=== PATIENT | male | born 1930 | race Caucasian/White ===

== ENCOUNTER 2018-05-10 12:08 | Inpatient (IN) | payer OTHER, MEDICARE ==
[~2018-05-10] VITALS: Ht 170.2 cm; Wt 88.9 kg
[2018-05-10 13:11] LABS: ABSOLUTE BASOPHIL COUNT 0 /CUMM (0.0-0.2); ABSOLUTE EOSINOPHIL COUNT 0 /CUMM (0.0-0.7); ABSOLUTE LYMPH COUNT 0.2 /CUMM (1.2-3.4); ABSOLUTE MONOCYTE COUNT 0.3 /CUMM (0.10-0.60); BASOPHIL % 0 % (0.0-2.0); EOSINOPHIL % 0 % (0-5); GRANULOCYTE % 95.2 % (42.2-75.2); HEMATOCRIT 28.3 % (42-52); MEAN CORPUSCULAR HGB 29.9 PG (27.0-31.0); MEAN CORPUSCULAR VOLUME 87.9 FL (80.0-94.0); MEAN PLATELET VOLUME 10.9 FL (7.4-10.4); PLATELET COUNT 120 /CUMM (130-400); RED BLOOD CELL CT 3.22 /CUMM (4.70-6.10); WHITE BLOOD CELL COUNT 11.6 /CUMM (4.8-10.8)
[2018-05-10 13:33] LABS: PT 12.1 SEC (9.4-12.5); PTT 31 SEC (25-37)
--- NOTE | 2018-05-10 14:23 | RADIOLOGY REPORT ---
EXAMINATION: XR CHEST CLINICAL INFORMATION: Productive cough and fever. COMPARISON: Chest done on 11/01/2008. TECHNIQUE: 2 views of the chest were obtained. FINDINGS: Large ill-defined left hemithoracic soft tissue opacities noted obscuring the left lower cardiac outline, new since prior study. Possible differential would include infectious, inflammatory process as well as neoplasm. The right lung field is clear. The cardiomediastinal silhouette is enlarged. There is possible trace left-sided pleural effusion present. The visualized upper abdomen is unremarkable. IMPRESSION: Abnormal left hemithoracic opacity, may represent infectious, inflammatory process versus neoplasm, new since 2008.
[2018-05-10] MEDS ORDERED: ATORVASTATIN CA40 M1 PO (14:33)
[2018-05-10] MEDS ORDERED: AMLODIPINE BESY10 M1 PO (14:33)
[2018-05-10] MEDS ORDERED: CLOPIDOGREL75 M1 PO (14:33)
[2018-05-10] MEDS ORDERED: BYSTOLIC10 M1 PO (14:33)
[2018-05-10] MEDS ORDERED: FOLIC ACID1 M1 PO (14:33)
[2018-05-10] MEDS ORDERED: ASPIRIN81 M4 PO (14:34)
[2018-05-10] MEDS ORDERED: VITAMIN D250000 UNIT PO (14:34)
[2018-05-10] MEDS ORDERED: PARICALCITOL1 MC1 PO (14:34)
--- NOTE | 2018-05-10 15:41 | ED GENERAL ADULT ---
History of Present Illness General Chief Complaint: General Adult Stated Complaint: BIBA, WEAKNESS Source: patient Exam Limitations: no limitations Vital Signs & Intake/Output Vital Signs & Intake/Output Vital Signs Date Time Temp Pulse Resp B/P B/P Pulse O2 O2 Flow FiO2 Mean Ox Delivery Rate 05/10 1816 83 20 116/62 91 Nasal 4.0L Cannula 05/10 1538 98.2 73 20 108/57 89 Nasal 4.0L Cannula 05/10 1342 99.1 05/10 1342 99.1 65 22 116/65 87 Nasal 4.0L Cannula 05/10 1236 101.4 05/10 1220 91 Nasal 4.0L Cannula 05/10 1209 101.4 103 18 134/69 89 Room Air Allergies Coded Allergies: No Known Allergies (05/10/18) Reconcile Medications Amlodipine Besylate 10 MG TABLET 1 TAB PO DAILY HEART (Reported) Aspirin (Aspirin*) 81 MG TAB.CHEW 1 TAB PO DAILY HEART HEALTH (Reported) Atorvastatin Calcium 40 MG TABLET 1 TAB PO DAILY CHOLESTEROL (Reported) Clopidogrel Bisulfate (Clopidogrel) 75 MG TABLET 1 TAB PO DAILY BLOOD THINNER (Reported) Ergocalciferol (Vitamin D2) (Vitamin D2) 50,000 UNIT CAPSULE 1 CAP PO Q 2 WEEKS VITAMIN SUPPORT (Reported) Folic Acid 1 MG TABLET 1 TAB PO DAILY VITAMIN SUPPORT (Reported) Nebivolol HCl (Bystolic) 10 MG TABLET 1 TAB PO DAILY HEART (Reported) Paricalcitol 1 MCG CAPSULE 1 CAP PO DAILY UNKNOWN (Reported) Triage Note: BIBA FROM HOME. C/O WEAKNESS SINCE MONDAY. TODAY UNABLE TO RISE FROM FLOOR, DENIES FALL. C/O NON-PRODUCTIVE COUGH. WARM TO TOUCH. SP02@89% RA. Triage Nurses Notes Reviewed? yes Onset: Gradual Duration: day(s): Timing: recent history HPI: 87 year old male presents to the Emergency Department by ambulance for generalized weakness. He was noted to have a cough and states he has had this "forever". The patient is here because of generalized weakness and fever which are new. Past History Travel History Traveled to [place] past 21 day No Medical History Any Pertinent Medical History? see below for history Cardiovascular: hypertension, hyperlipidemia, CARDIAC PACEMAKER Surgical History Surgical History: non-contributory Psychosocial History What is your primary language Amharic Tobacco Use: Never used Family History Hx Contributory? No Review of Systems Review of Systems Constitutional: Reports: see HPI, weakness. EENTM: Reports: no symptoms. Denies: double vision, visual changes. Respiratory: Reports: see HPI. Denies: short of breath. Cardiovascular: Reports: no symptoms. GI: Reports: no symptoms. Genitourinary: Reports: no symptoms. Musculoskeletal: Reports: no symptoms. Skin: Reports: no symptoms. Neurological/Psychological: Reports: see HPI. Hematologic/Endocrine: Reports: no symptoms. Immunologic/Allergic: Reports: no symptoms. All Other Systems: Reviewed and Negative Comments 05/10/18 3:35pm Pt arrived with a fever of 101.4 and a cough which he states he has forever. Physical Exam Physical Exam General Appearance: well developed/nourished, alert, awake, mild distress Head: atraumatic, normal appearance Eyes: Bilateral: normal appearance, PERRL, EOMI. Ears, Nose, Throat: normal ENT inspection Neck: normal inspection Respiratory: decreased breath sounds Cardiovascular: irregularly irregular Peripheral Pulses: 4+ radial (R), 4+ radial (L) Gastrointestinal: soft, non-tender Extremities: normal inspection Neurologic/Psych: no motor/sensory deficits, awake, alert, oriented x 3 Skin: intact, normal color, warm/dry Comments: chest x-ray, and blood cultures ordered gustavo with a urinalysis. Pt's O2 sat on room air was 89%. Pt placed on 2L nasal canula Core Measures ACS in differential dx? No CVA/TIA Diagnosis: No Sepsis Present: Yes Sepsis Focused Exam Completed? Yes Progress Differential Diagnoses . Plan of Care: Orders Procedure Date/time Status Heart Healthy Diet 05/11 B Active MAGNESIUM 05/11 0600 Active CBC WITHOUT DIFFERENTIAL 05/11 0600 Active CALCIUM 05/11 0600 Active BASIC ELECTROLYTES PLUS BUN&CR 05/11 0600 Active TROPONIN LEVEL 05/11 0400 Active EKG 05/11 0400 Active TROPONIN LEVEL 05/10 2000 Active EKG 05/10 2000 Active TRC EVALUATION (GEN) 05/10 174 Active OXYGEN SETUP (GEN) 05/10 174 Active PT Evaluate & Treat 05/10 174 Active Pathway - chart 05/10 174 Active House Staff 05/10 174 Active STREP PNEUMO URINARY ANTIGEN 05/10 174 Active LEGIONELLA URINARY ANTIGEN 05/10 174 Active LOWER RESPIRATORY CULTURE 05/10 174 Active LACTIC ACID 05/10 1743 Active Code Status 05/10 1743 Active Add-on Test (ER Only) 05/10 1641 Active EKG 05/10 1641 Active Patient Data 05/10 1604 Active ED Holding Orders 05/10 1601 Active Admit to inpatient 05/10 1601 Active Vital Signs 05/10 1601 Active Code Status 05/10 1601 Complete RT ED ORDERS 05/10 1516 Active BLOOD CULTURE 05/10 1307 Active BLOOD CULTURE 05/10 1220 Active URINALYSIS 05/10 1220 Active TROPONIN LEVEL 05/10 1220 Complete PARTIAL THROMBOPLASTIN TIME 05/10 1220 Complete PROTHROMBIN TIME 05/10 1220 Complete LACTIC ACID 05/10 1220 Complete COMPREHENSIVE METABOLIC PANEL 05/10 1220 Complete CBC WITHOUT DIFFERENTIAL 05/10 1220 Complete EKG 05/10 1220 Active Intake & Output 05/10 1219 Active US-RENAL/KIDNEY 05/10 UNK Active VTE Mechanical Prophylaxis 05/10 UNK Active Intake & Output 05/10 UNK Active Activity/Ambulation 05/10 UNK Active Current Medications Sig/Shanna Start time Last Medication Dose Stop Time Status Admin Azithromycin 250 MG 1400 05/11 1400 AC (Zithromax) Ceftriaxone Sodium 1,000 MG 1400 05/11 1400 AC (Rocephin) Amlodipine Besylate 10 MG DAILY 05/11 0900 AC (Norvasc) Aspirin 81 MG DAILY 05/11 09 AC (Aspirin) Atorvastatin Calcium 40 MG DAILY 05/11 09 AC (Lipitor) Clopidogrel Bisulfate 75 MG DAILY 05/11 0900 AC (Plavix) Folic Acid 1 MG DAILY 05/11 0900 AC (Folic Acid) Nebivolol 10 MG DAILY 05/11 0900 AC (Bystolic) Acetaminophen 650 MG Q6P PRN 05/10 1745 AC (Tylenol) Acetaminophen 1,000 MG Q6P PRN 05/10 1745 AC (Ofirmev) Oxycodone HCl 10 MG Q6P PRN 05/10 1745 AC (Roxicodone) Sodium Chloride 1,000 ML .Q10H 05/10 174 AC 05/10 (Normal Saline 0.9%) 05/11 1344 1814 Laboratory Tests 05/10/18 1520: Lactic Acid Cancelled 05/10/18 1245: Anion Gap 15, Estimated GFR 14 L, BUN/Creatinine Ratio 11.5, Glucose 98, Lactic Acid 1.9, Calcium 10.3 H, Total Bilirubin 1.1, AST 21, ALT 34, Alkaline Phosphatase 67, Troponin I 0.07, Total Protein 6.1 L, Albumin 3.6, Globulin 2.5 , Albumin/Globulin Ratio 1.4, PT 12.1, INR 1.11, APTT 31, CBC w Diff MAN DIFF ORDERED, RBC 3.22 L, MCV 87.9, MCH 29.9, MCHC 34.0, RDW 14.0, MPV 10.9 H, Gran % 95.2 H, Lymphocytes % 1.8 L, Monocytes % 3.0, Eosinophils % 0, Basophils % 0 , Absolute Granulocytes 11.0 H, Segmented Neutrophils 88 H, Band Neutrophils 8 H, Absolute Lymphocytes 0.2 L, Lymphocytes 1 L, Monocytes 3, Absolute Monocytes 0.3, Absolute Eosinophils 0, Absolute Basophils 0, Platelet Estimate VERIFIED BY SMEAR, Anisocytosis 1+ Microbiology 05/10 1743 URINE ROUT: Legionella Antigen - ORD 05/10 1743 URINE ROUT: Streptococcus pneumoniae Antigen (M - ORD 05/10 1743 LOWER RESP: Respiratory Culture - ORD 05/10 1743 LOWER RESP: Gram Stain - ORD 05/10 1310 BLOOD: Blood Culture - RECD 05/10 1245 BLOOD: Blood Culture - RECD Initial ED EKG: see below Comments: The with the patient presented there was high concern for sepsis. The patient was febrile. Slightly hypoxic. The workup shows the patient has acute renal failure and acidosis without elevated lactate. The patient does have stable blood pressure. He is on oxygen which is new for him, he is oxygen dependent today. Other than that he is maintaining his blood pressure. Patient lives at home we will start him on pneumonia protocol, based on community acquired pneumonia. The patient was given IV fluids for his acidosis. He will be admitted to the medicine team. I spoke with the hospitalist and discussed the patient going to the ICU versus telemetry, she recommends telemetry. 0826 EKG at 155: Atrial fibrillation with a rate of 89. Left axis deviation. No acute ST-T changes. Compared to the EKG from November 01, 2008: No significant change. Repeat EKG done at 5:10 PM: Atrial fibrillation with a rate of 78. Left axis deviation. No acute ST-T changes. Departure Departure Time of Disposition: 1819 Disposition: STILL A PATIENT Condition: Stable Clinical Impression Primary Impression: Sepsis Secondary Impressions: Pneumonia Referrals: Bertha SANCHEZ,Ravinder Jurado (PCP/Family) Departure Forms: Customer Survey General Discharge Information Critical Care Note Critical Care Note Critical Care Time: 30-74 min
--- NOTE | 2018-05-10 16:21 | History & Physical ---
Marcela Anders 05/10/18 1608: General Information and HPI MD Statement: I have seen and personally examined CORNELIUS SHUKLA and documented this H&P. The patient is a 87 year old M who presented with a patient stated chief complaint of [PNA]. Source of Information: patient, old records Exam Limitations: no limitations History of Present Illness: Mr. Shukla is a 87yo M w/ PMH of hypertension, hyperlipidemia, hx of bradycardia status post bi-chamber cardiac pacemaker in 04/2015, possible history of CKD, BIBA for generalized weakness and a T-max 101.4 and cough, and s/p mechanical fall prior ER. PAtient had feeling of increasing weakness and fatigue x 4 days along w/ SOB however no signs of coughing/sputum. He lives by himself without any caregivers. He had some poor appetite and nauseous for the past 4 days however without vomiting. He stated that this morning he was tripped and fell on his hip, without any lingering pain or LOC/incontinence. -Baselines: ambulates freely at home without cane/walker. During our clinical interaction, patient denied recent travel/sick contacts, fever/diaphoresis/night sweat/weight change/Chest Pain/Palpitation/Abdominal pain/bowel movement or urinary abnormality, or other skin/musculoskeletal/ neurological/mood disorders, or dietary/appetite change. -Smoking: denied -Alcohol: denied -Rec Drugs: denied Per patient, he was only seeing Dr. Adams for heart, and Dr. Howe for kidney , and recent visits had no significant change to his medications. Allergies/Medications Allergies: Coded Allergies: No Known Allergies (05/10/18) Home Med list Amlodipine Besylate 10 MG TABLET 1 TAB PO DAILY HEART (Reported) Aspirin (Aspirin*) 81 MG TAB.CHEW 1 TAB PO DAILY HEART HEALTH (Reported) Atorvastatin Calcium 40 MG TABLET 1 TAB PO DAILY CHOLESTEROL (Reported) Clopidogrel Bisulfate (Clopidogrel) 75 MG TABLET 1 TAB PO DAILY BLOOD THINNER (Reported) Ergocalciferol (Vitamin D2) (Vitamin D2) 50,000 UNIT CAPSULE 1 CAP PO Q 2 WEEKS VITAMIN SUPPORT (Reported) Folic Acid 1 MG TABLET 1 TAB PO DAILY VITAMIN SUPPORT (Reported) Nebivolol HCl (Bystolic) 10 MG TABLET 1 TAB PO DAILY HEART (Reported) Paricalcitol 1 MCG CAPSULE 1 CAP PO DAILY UNKNOWN (Reported) Past History Travel History Traveled to [place] past 21 day No Medical History Cardiovascular: hypertension, hyperlipidemia, CARDIAC PACEMAKER Surgical History Surgical History: non-contributory Past Family/Social History Psychosocial History Smoking Status: Former Smoker ETOH Use: occasional use Illicit Drug Use: denies illicit drug use Review of Systems Review of Systems Constitutional: Reports: see HPI. Exam & Diagnostic Data Last 24 Hrs of Vital Signs/I&O Vital Signs Date Time Temp Pulse Resp B/P B/P Pulse O2 O2 Flow FiO2 Mean Ox Delivery Rate 05/10 1538 98.2 73 20 108/57 89 Nasal 4.0L Cannula 05/10 1342 99.1 05/10 1342 99.1 65 22 116/65 87 Nasal 4.0L Cannula 05/10 1236 101.4 05/10 1220 91 Nasal 4.0L Cannula 05/10 1209 101.4 103 18 134/69 89 Room Air Intake & Output 05/10 1600 05/10 0800 05/10 0000 Intake Total 0 Output Total Balance 0 Intake, Oral 0 Patient 81.647 kg Weight Physical Exam General Appearance Alert, Oriented X3, Cooperative, Mild Distress Skin No Rashes, No Breakdown, No Significant Lesion Skin Temp/Moisture Exam: Warm/Dry Sepsis Skin Exam (color): Normal for Ethnicity HEENT Atraumatic, PERRLA Neck Supple, No JVD Lungs Normal Air Movement, bilateral decreased breath sounds, without any auscutable rhonchi/wheezing Abdomen Normal Bowel Sounds, Soft, No Tenderness Neurological Normal Speech, Strength at 5/5 X4 Ext, Normal Tone, Sensation Intact Extremities Normal Pulses, trace edema Last 24 Hrs of Labs/Mike: Laboratory Tests 05/10/18 1520: Lactic Acid Cancelled 05/10/18 1245: Anion Gap 15, Estimated GFR 14 L, BUN/Creatinine Ratio 11.5, Glucose 98, Lactic Acid 1.9, Calcium 10.3 H, Total Bilirubin 1.1, AST 21, ALT 34, Alkaline Phosphatase 67, Troponin I 0.07, Total Protein 6.1 L, Albumin 3.6, Globulin 2.5 , Albumin/Globulin Ratio 1.4, PT 12.1, INR 1.11, APTT 31, CBC w Diff MAN DIFF ORDERED, RBC 3.22 L, MCV 87.9, MCH 29.9, MCHC 34.0, RDW 14.0, MPV 10.9 H, Gran % 95.2 H, Lymphocytes % 1.8 L, Monocytes % 3.0, Eosinophils % 0, Basophils % 0 , Absolute Granulocytes 11.0 H, Segmented Neutrophils 88 H, Band Neutrophils 8 H, Absolute Lymphocytes 0.2 L, Lymphocytes 1 L, Monocytes 3, Absolute Monocytes 0.3, Absolute Eosinophils 0, Absolute Basophils 0, Platelet Estimate VERIFIED BY SMEAR, Anisocytosis 1+ Microbiology 05/10 1310 BLOOD: Blood Culture - RECD 05/10 1245 BLOOD: Blood Culture - RECD Assessment/Plan Assessment: On admission, Vitals: T-max 101.4, HR 103-> 73, RR 20, BP 108/57, 89% 4LNC -CBC: Mild leukocytosis 11.4, H/H9 0.6/28.3, PLT 120, granulocytosis 95.2, bandemia -BMP: Hyponatremia 132, elevated creatinine 4.0w/ baseline 1.7 -PT/INR: 12.1/1.11 -UA/Microbiology: Pending, no previous microbiology -CXR: Abnormal left hemithoracic opacity, may represent infectious, inflammatory process versus neoplasm, new since 2008. -EKG: A-fib under control without pacer spike -Last Echo: No previous echo on file -Interventions in ER: Normal saline bolus 2, ceftriaxone/azithromycin 1, acetaminophen IV 1 Problem list/Assessment/Hospital Course: #Sepsis 2/2 CAP (Fever, Tachycardia, source of infection) #Acute hypoxic resp failure #Community-acquired pneumonia #Normocytic anemia #MILLIE on CKD, pending further evaluation #Mild hypercalcemia, likely 2/2 home med #PMH of hypertension, hyperlipidemia, history of bradycardia S/P bichamber pacemaker - Admit to telemetry floor - Vitals per protocol, monitor I&O per protocol. - PT/OT if needed. - Check orthostatics - Pending Echo in the AM if not recently done - Cardiolog consult w/ Dr. Adams's group. - EKG/Trop x 2 more sets @ 1999 & 399, patient's first set of trop was 0.07 - Supplemental O2/TRC neb - Continue home meds - Continue empiric coverage of Abx including ceftriaxone/azithromycin - Continuous IVF and avoid any nephrotoxic meds. - Pending blood/sputum/urine antigens - Pending renal U/S - Pain per pathway DVT prophylaxis ALPS only as PLT was low Heart Healthy Diet IV Access: Peripheral IV Full Code As Ranked By This Provider Problem List: 1. Community acquired pneumonia Core Measures/Misc (07/02) Acute Coronary Syndrome ACS Diagnosis: No Congestive Heart Failure Congestive Heart Failure Diagnosis No Cerebrovascular Accident CVA/TIA Diagnosis: No VTE (View Protocol) VTE Risk Factors Age>40 No Mechanical VTE Prophylaxis d/t N/A MechProphylax Ordered No VTE Pharm Prophylaxis d/t Platelets below ref range Sepsis (View protocol) Sepsis Present: Yes If YES complete Sepsis Event Note If YES complete Sepsis Event Note Casi Ryan MD 05/10/18 1751: Core Measures/Misc (07/02) Sepsis (View protocol) If YES complete Sepsis Event Note If YES complete Sepsis Event Note Attending MD Review Statement Attending Statement Attending MD Statement: examined this patient, discuss w/resident/PA/QUALITY REVIEW TRAINER, agreed w/resident/PA/QUALITY REVIEW TRAINER, reviewed EMR data (avail), discussed with nursing, reviewed images, amended to note Attending Assessment/Plan: 87 y/o M with pmh sig for hypertension, hyperlipidemia, hx of bradycardia status post cardiac pacemaker in 04/2015, history of CKD, history of renal cancer status post left nephrectomy, presented to the emergency room with feeling generalized weakness, dizziness and falls. Apparently from last 4 days patient has been feeling extremely fatigued and has fallen. He denies hitting his head. He also feels short of breath and has a raspy sound in his chest. He denies any cough. He lives by himself at home. He does complain of poor appetite and feeling somewhat nauseous but no vomiting. In the emergency room patient was found to be febrile to 101, was significantly hypoxic, had leukocytosis and a chest x-ray consistent with possible pneumonia. Vital Signs Date Time Temp Pulse Resp B/P B/P Pulse O2 O2 Flow FiO2 Mean Ox Delivery Rate 05/10 1538 98.2 73 20 108/57 89 Nasal 4.0L Cannula 05/10 1342 99.1 05/10 1342 99.1 65 22 116/65 87 Nasal 4.0L Cannula 05/10 1236 101.4 05/10 1220 91 Nasal 4.0L Cannula 05/10 1209 101.4 103 18 134/69 89 Room Air on exam; aox3, nad. heent: mm dry. cv; s1, s2, rrr resp; + junky bs all over. abd; soft, nt, bs+ ext; no edema Laboratory Tests 05/10 05/10 1520 1245 Chemistry Sodium (137 - 145 mmol/L) 132 L Potassium (3.5 - 5.1 mmol/L) 4.9 Chloride (98 - 107 mmol/L) 102 Carbon Dioxide (22 - 30 mmol/L) 15 L Anion Gap (5 - 16) 15 BUN (9 - 20 mg/dL) 46 H Creatinine (0.7 - 1.2 mg/dL) 4.0 H Estimated GFR (>60 ml/min) 14 L BUN/Creatinine Ratio (7 - 25 %) 11.5 Glucose (65 - 99 mg/dL) 98 Lactic Acid (0.7 - 2.1 mmol/L) Cancelled 1.9 Calcium (8.4 - 10.2 mg/dL) 10.3 H Total Bilirubin (0.2 - 1.3 mg/dL) 1.1 AST (17 - 59 U/L) 21 ALT (21 - 72 U/L) 34 Alkaline Phosphatase (< 127 U/L) 67 Troponin I (<0.11 ng/ml) 0.07 Total Protein (6.3 - 8.2 g/dL) 6.1 L Albumin (3.5 - 5.0 g/dL) 3.6 Globulin (1.9 - 4.2 gm/dL) 2.5 Albumin/Globulin Ratio (1.1 - 2.2 %) 1.4 Coagulation PT (9.4 - 12.5 SEC) 12.1 INR (0.90 - 1.17) 1.11 APTT (25 - 37 SEC) 31 Hematology CBC w Diff MAN DIFF ORDERED WBC (4.8 - 10.8 /CUMM) 11.6 H RBC (4.70 - 6.10 /CUMM) 3.22 L Hgb (14.0 - 18.0 G/DL) 9.6 L Hct (42 - 52 %) 28.3 L MCV (80.0 - 94.0 FL) 87.9 MCH (27.0 - 31.0 PG) 29.9 MCHC (33.0 - 37.0 G/DL) 34.0 RDW (11.5 - 14.5 %) 14.0 Plt Count (130 - 400 /CUMM) 120 L MPV (7.4 - 10.4 FL) 10.9 H Gran % (42.2 - 75.2 %) 95.2 H Lymphocytes % (20.5 - 51.1 %) 1.8 L Monocytes % (1.7 - 9.3 %) 3.0 Eosinophils % (0 - 5 %) 0 Basophils % (0.0 - 2.0 %) 0 Absolute Granulocytes (1.4 - 6.5 /CUMM) 11.0 H Segmented Neutrophils (42.2 - 75.2 %) 88 H Band Neutrophils (0.0 - 5.0 %) 8 H Absolute Lymphocytes (1.2 - 3.4 /CUMM) 0.2 L Lymphocytes (20.5 - 51.1 %) 1 L Monocytes (1.7 - 9.3 %) 3 Absolute Monocytes (0.10 - 0.60 /CUMM) 0.3 Absolute Eosinophils (0.0 - 0.7 /CUMM) 0 Absolute Basophils (0.0 - 0.2 /CUMM) 0 Platelet Estimate (ADEQUATE) VERIFIED BY SMEAR Anisocytosis 1+ CXR: MPRESSION: Abnormal left hemithoracic opacity, may represent infectious, inflammatory process versus neoplasm, new since 2008. A/P; 87 y/o M with pmh sig for hypertension, hyperlipidemia, hx of bradycardia status post cardiac pacemaker in 04/2015, history of CKD will be admitted to telemetry for continuous pulse ox with sepsis likely secondary to community acquired pneumonia, acute hypoxic respiratory failure, acute on chronic kidney injury and mild hypercalcemia. Patient was given ceftriaxone and azithromycin in the emergency room. Will continue current antibiotics and will obtain sputum culture, urine Legionella and strep antigen. Please trend lactate. We will hydrate him gently with IV fluids. Monitor creatinine. Will monitor calcium. please obtain renal ultrasound to rule out any hydronephrosis. Please consult cardiology for episodes of dizziness. Please also check orthostatic vital signs. Please check echo. Will avoid any nephrotoxic medications. Please confirm and continue his home medications. Antihypertensives can only be continued if his blood pressure allows. Please put holding parameters. Patient should be seen by physical therapy. DVT prophylaxis: ALPS. DNR/I.
--- NOTE | 2018-05-10 16:25 | Sepsis Event Note ---
Sepsis Event Note Severe Sepsis Severe Sepsis Present: No Septic Shock Septic Shock Present: No Event Note Event Note: On Presentation, patient's clinical signs align with sepsis criteria with -T-max 101.4, HR 103 -CBC: 11.4 -Suspected source of infection based on HPI and CXR -Interventions in ER: Normal saline bolus 2, ceftriaxone/azithromycin 1, acetaminophen IV 1 No lactic acidosis on presentation lab Will admit to inpatient floor for managements outlined in A/P per HPI. Sepsis Focused Exam Sepsis Cardiac Exam: Tachycardia Sepsis Resp Exam: CTA Sepsis Cap Refill Exam: <2 Sec Sepsis Peripheral Pulse Exam: Normal Sepsis Peripheral Pulse Location: Dorsalis Pedis Sepsis Skin Exam (color): Normal for Ethnicity Skin Temp/Moisture Exam: Warm/Dry
--- NOTE | 2018-05-10 21:08 | ULTRASOUND REPORT ---
EXAMINATION: US RETROPERITONEAL COMPLETE (RENAL) CLINICAL INFORMATION: Status post nephrectomy, assess for obstruction. COMPARISON: 08/05/2010 TECHNIQUE: Real-time imaging of the kidneys and bladder. FINDINGS: RIGHT KIDNEY: Absent consistent surgical history. No lesion or fluid collection within the renal fossa. LEFT KIDNEY: 12.3 x 6.2 x 4.9 cm (SAG x AP x TRV). The kidney is normal in size, contour, and echogenicity. Renal cortical thickness is normal. No calculi or focal parenchymal lesions. No hydronephrosis. BLADDER: Well-distended and normal. Bilateral ureteral jets are demonstrated. Prevoid bladder volume is 68 mL. Postvoid bladder volume is 0 mL. IMPRESSION: Normal left renal ultrasound and bladder ultrasound.
[2018-05-10 22:16] VITALS: BP 136/80
--- NOTE | 2018-05-11 00:17 | RADIOLOGY REPORT ---
EXAMINATION: CHEST 1 VIEW CLINICAL INFORMATION: Pulmonary edema. Follow-up abnormal exam. Decreased oxygen saturation. COMPARISON: Same day chest radiographs. TECHNIQUE: An AP view of the chest is provided. FINDINGS: The cardiac silhouette is stable. Pacer leads are in unchanged position. There is stable diffuse opacification within the left hemithorax. There are no definite pleural effusions or pneumothoraces. The osseous structures are stable. IMPRESSION: Stable appearance of diffuse left hemithoracic opacification.
--- NOTE | 2018-05-11 02:51 | Event Note ---
Event Note Event Note: Situation: I was informed by the nurse that the patient has a decreased O2 saturation to high 80s low Background: Mr. Olmstead is a 87yo M w/ PMH of hypertension, hyperlipidemia, hx of bradycardia status post bi-chamber cardiac pacemaker in 04/2015, possible history of CKD, BIBA for generalized weakness and a T-max 101.4 and cough, and s/p mechanical fall prior ER. PAtient had feeling of increasing weakness and fatigue x 4 days along w/ SOB however no signs of coughing/sputum. Assessment: IVC that the patient
--- NOTE | 2018-05-11 02:57 | Event Note ---
Event Note Event Note: Situation: I was informed by the nurse that the patient has a low O2 saturation of 80s. Background: The patient is an 87-year-old man with past medical history significant for hypertension, hyperlipidemia, history of bradycardia with pacemaker, and CKD who has come here because of generalized weakness and fever of 101.4, and cough. Patient is tachycardic and is admitted with differential diagnosis of rule out sepsis, acute hypoxic respiratory failure, community acquired pneumonia. Legionella urinary antigen was positive. Assessment: I visited the patient multiple times. In the first examination the patient had a respiratory rate of 36, blood pressure 136/80, bedside pulse oximetry showed 86% on 2 L with nasal cannula. Lungs examination showed bilateral lower crackles. The patient was hydrated 2-3 L normal saline since he was admitted ( based on sepsis protocol). Recommendation: Chest x-ray was obtained which they reported no major changes from the previous one which was done upon his admission that showed left-sided lung opacification. Based on the physical examination that showed bilateral crackles on the clinical condition of the patient who had throbs O2 saturation on bilateral lower crackles, furosemide 40 mg IV stat was given, patient was placed on O2 60% partial rebreather mask by respiratory care. I reassessed the patient in 30 minutes and 1 hour after. His O2 saturation was 94, no change in blood pressure , heart rate of 94. In examination the patient had no shortness of breath with a respiratory rate of 24, and had no chest pain.
[2018-05-11 04:37] LABS: ABSOLUTE BASOPHIL COUNT 0 /CUMM (0.0-0.2); ABSOLUTE EOSINOPHIL COUNT 0 /CUMM (0.0-0.7); ABSOLUTE GRANULOCYTE CT 8.6 /CUMM (1.4-6.5); ABSOLUTE LYMPH COUNT 0.1 /CUMM (1.2-3.4); ABSOLUTE MONOCYTE COUNT 0.3 /CUMM (0.10-0.60); BASOPHIL % 0 % (0.0-2.0); EOSINOPHIL % 0 % (0-5); HEMATOCRIT 27.9 % (42-52); MEAN CORPUSCULAR HGB 29.6 PG (27.0-31.0); MEAN CORPUSCULAR HGB CONC 33.2 G/DL (33.0-37.0); MEAN CORPUSCULAR VOLUME 89.1 FL (80.0-94.0); MEAN PLATELET VOLUME 10.5 FL (7.4-10.4); PLATELET COUNT 129 /CUMM (130-400); RBC DISTRIBUTION WIDTH 14.4 % (11.5-14.5); RED BLOOD CELL CT 3.13 /CUMM (4.70-6.10)
[2018-05-11 04:59] LABS: GRANULOCYTE % 95.9 % (42.2-75.2)
[2018-05-11 07:16] VITALS: BP 138/70
--- NOTE | 2018-05-11 07:18 | PN- Housestaff ---
Charles Bernard 05/11/18 0717: Subjective Follow-up For: Community-acquired pneumonia Acute kidney injury Dizziness Complaints: pain scale (0-10) Tele-Events Since Last Visit: Atrial fibrillation rate varying between 89-102 Subjective: Patient was seen and examined this morning. He is alert awake and oriented to time place and person. 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 He is saturating at 94%. Denied any chest pain. However reports short of breath. Denies any more dizzy or lightheadedness. No chest pain. T-max 101.7, respiratory rate 18, blood pressure 130/69, saturating at 94 on room air with heart rate 100. Review of Systems Constitutional: Reports: see HPI. Objective Last 24 Hrs of Vital Signs/I&O Vital Signs Date Time Temp Pulse Resp B/P B/P Pulse O2 O2 Flow FiO2 Mean Ox Delivery Rate 05/11 0716 99.8 127 32 138/70 99 Part ReBreather 05/11 0704 99.8 05/11 0638 101.7 05/11 0630 101.7 05/10 2224 87 Part 60% ReBreather 05/106 98.7 91 36 136/80 86 Nasal 2.0L Cannula 05/10 2019 98.7 87 20 139/71 92 Nasal 4.0L Cannula 05/10 1816 83 20 116/62 91 Nasal 4.0L Cannula 05/10 1538 98.2 73 20 108/57 89 Nasal 4.0L Cannula 05/10 1342 99.1 05/10 1342 99.1 65 22 116/65 87 Nasal 4.0L Cannula 05/10 1236 101.4 05/10 1220 91 Nasal 4.0L Cannula 05/10 1209 101.4 103 18 134/69 89 Room Air Intake & Output 05/11 1600 05/11 0800 05/11 0000 Intake Total 200 100 Output Total 300 175 Balance -100 -75 Intake, Oral 200 100 Output, Urine 300 175 Patient 83.971 kg Weight Weight Bed scale Measurement Method Physical Exam General Appearance: Alert, Oriented X3, Cooperative, No Acute Distress Other Physical Findings: Neck Supple, No JVD Lungs Normal Air Movement, bilateral decreased breath sounds, without any auscutable rhonchi/wheezing Abdomen Normal Bowel Sounds, Soft, No Tenderness Neurological Normal Speech, Strength at 5/5 X4 Ext, Normal Tone, Sensation Intact Extremities Normal Pulses, trace edema Current Medications: Current Medications Sig/Shanna Start time Last Medication Dose Route Stop Time Status Admin Acetaminophen 650 MG Q6P PRN 05/10 1745 AC PO Acetaminophen 1,000 MG Q6P PRN 05/10 1745 AC 05/11 IV 0638 Acetaminophen 0 .STK-MED ONE 05/10 1234 DC IV Acetaminophen 1,000 MG ONCE ONE 05/10 1230 DC 05/10 N/A 1 UNIT IV 05/10 1244 1236 Amlodipine Besylate 10 MG DAILY 05/11 0900 AC PO Aspirin 81 MG DAILY 05/11 09 AC PO Atorvastatin Calcium 40 MG DAILY 05/11 09 AC PO Azithromycin 250 MG 1400 05/11 1400 CAN PO Azithromycin 500 MG 1400 05/11 1400 AC Sodium Chloride 250 ML IV Azithromycin 500 MG ONCE ONE 05/10 1400 DC 05/10 Sodium Chloride 250 ML IV 05/10 1459 1430 Ceftriaxone Sodium 1,000 MG 1400 05/11 1400 AC IV Ceftriaxone Sodium 0 .STK-MED ONE 05/10 1416 DC .ROUTE Ceftriaxone Sodium 1,000 MG ONCE ONE 05/10 1400 DC 05/10 IV 05/10 1401 1430 Clopidogrel Bisulfate 75 MG DAILY 05/11 09 AC PO Folic Acid 1 MG DAILY 05/11 09 AC PO Furosemide 40 MG .STK-MED ONE 05/11 0002 DC IV 05/11 0003 Furosemide 40 MG ONCE ONE 05/10 2345 DC 05/11 IV 05/10 2346 0012 Nebivolol 10 MG DAILY 05/11 09 AC PO Oxycodone HCl 10 MG Q6P PRN 05/10 1745 AC PO Sodium Chloride 1,000 ML .Q10H 05/10 1745 AC 05/10 IV 05/11 1344 1814 Sodium Chloride 1,000 ML BOLUS ONE 05/10 1400 DC 05/10 IV 05/10 1459 1430 Sodium Chloride 1,000 ML BOLUS ONE 05/10 1230 DC 05/10 IV 05/10 1329 1236 Last 24 Hrs of Lab/Mike Results Last 24 Hrs of Labs/Mics: Laboratory Tests 05/11/18 0400: Troponin I 0.07 05/11/18 0400: Anion Gap 16, Estimated GFR 14 L, BUN/Creatinine Ratio 12.4, Calcium 9.5, Magnesium 1.7 05/11/18 0400: AST 39, ALT 52, CBC w Diff NO MAN DIFF REQ, RBC 3.13 L, MCV 89.1, MCH 29.6, MCHC 33.2, RDW 14.4, MPV 10.5 H, Gran % 95.9 H, Lymphocytes % 1.3 L, Monocytes % 2.8, Eosinophils % 0, Basophils % 0, Absolute Granulocytes 8.6 H, Absolute Lymphocytes 0.1 L, Absolute Monocytes 0.3, Absolute Eosinophils 0, Absolute Basophils 0 05/10/182017: Troponin I 0.06 05/10/181823: Urinalysis MOD H, Urine Color YEL, Urine Clarity CLEAR, Urine pH 6.0, Ur Specific [place] 1.025, Urine Protein 100 H, Urine Ketones NEG, Urine Nitrite NEG, Urine Bilirubin NEG, Urine Urobilinogen 0.2, Ur Leukocyte Esterase NEG, Ur Microscopic SEDIMENT EXAMINED, Urine RBC 1-3, Urine WBC 1-3 H, Granular Casts RARE H, Urine Hemoglobin MOD H, Urine Glucose NEG 05/10/18 1812: Lactic Acid 1.1 05/10/18 1520: Lactic Acid Cancelled 05/10/18 1245: Anion Gap 15, Estimated GFR 14 L, BUN/Creatinine Ratio 11.5, Glucose 98, Lactic Acid 1.9, Calcium 10.3 H, Total Bilirubin 1.1, AST 21, ALT 34, Alkaline Phosphatase 67, Troponin I 0.07, Total Protein 6.1 L, Albumin 3.6, Globulin 2.5 , Albumin/Globulin Ratio 1.4, PT 12.1, INR 1.11, APTT 31, CBC w Diff MAN DIFF ORDERED, RBC 3.22 L, MCV 87.9, MCH 29.9, MCHC 34.0, RDW 14.0, MPV 10.9 H, Gran % 95.2 H, Lymphocytes % 1.8 L, Monocytes % 3.0, Eosinophils % 0, Basophils % 0 , Absolute Granulocytes 11.0 H, Segmented Neutrophils 88 H, Band Neutrophils 8 H, Absolute Lymphocytes 0.2 L, Lymphocytes 1 L, Monocytes 3, Absolute Monocytes 0.3, Absolute Eosinophils 0, Absolute Basophils 0, Platelet Estimate VERIFIED BY SMEAR, Anisocytosis 1+ Microbiology 05/10 1824 URINE ROUT: Legionella Antigen - COMP LEGIONELLA URINARY ANTIGEN 07/26 1824 URINE ROUT: Streptococcus pneumoniae Antigen (M - COMP 05/10 1743 LOWER RESP: Respiratory Culture - COLB 05/10 174 LOWER RESP: Gram Stain - COLB 05/10 1310 BLOOD: Blood Culture - RECD 05/10 1245 BLOOD: Blood Culture - RECD Assessment/Plan Assessment: 87 y/o M with pmh sig for hypertension, hyperlipidemia, hx of atrial fibrillation, bradycardia status post cardiac pacemaker in 04/2015, history of CKD, history of renal cancer status post left nephrectomy, presented to the emergency room with feeling generalized weakness, dizziness and falls. Apparently from last 4 days patient has been feeling extremely fatigued and has fallen. He denies hitting his head. He also feels short of breath and has a raspy sound in his chest. He denies any cough. He lives by himself at home. He does complain of poor appetite and feeling somewhat nauseous but no vomiting. In the emergency room patient was found to be febrile to 101, was significantly hypoxic, had leukocytosis and a chest x-ray consistent with possible pneumonia. On admission, Vitals: T-max 101.4, HR 103-> 73, RR 20, BP 108/57, 89% 4LNC -CBC: Mild leukocytosis 11.4, H/H9 0.6/28.3, PLT 120, granulocytosis 95.2, bandemia -BMP: Hyponatremia 132, elevated creatinine 4.0w/ baseline 1.7 -PT/INR: 12.1/1.11 -UA/Microbiology: Pending, no previous microbiology -CXR: Abnormal left hemithoracic opacity, may represent infectious, inflammatory process versus neoplasm, new since 2008. -EKG: A-fib under control without pacer spike -Last Echo: No previous echo on file -Interventions in ER: Normal saline bolus 2, ceftriaxone/azithromycin 1, acetaminophen IV 1 #Sepsis 2/2 CAP (Fever, Tachycardia, source of infection) #Acute hypoxic resp failure #Community-acquired pneumonia #Normocytic anemia #MILLIE on CKD, pending further evaluation #Mild hypercalcemia, likely 2/2 home med #PMH of hypertension, hyperlipidemia, history of bradycardia S/P bichamber pacemaker sepsis secondary to community-acquired pneumonia Patient presented with generalized weakness, dizziness, fatigue, short of breath. T-max 101.7, tachycardic with chest x-ray findings suggestive of abnormal left hemithoracic opacity most likely pneumonia. Urine positive for Legionella antigen. He was admitted to telemetry for continuous pulse ox monitoring. * Sepsis secondary to community-acquired pneumonia * Continuous telemetry monitoring * Vitals per protocol * Monitor for fever, trace leukocyte count * Continue ceftriaxone and azithromycin day 2 * Follow-up blood cultures * Supplemental oxygen * TRC nebs * Maintain saturations greater than 90 * CT chest confirmed left-sided pneumonia Acute hypoxic respiratory failure Patient is hypoxic in the emergency room requiring oxygen supplementation. Overnight he desaturated up to the 80,, received IV Lasix and started on rebreather mask. * Supplemental oxygen * TRC nebs * Maintain saturations greater than 90 * He was given 1 dose of IV Lasix after a short of breath improved Dizziness Patient reports dizziness for last 4 days leading to multiple mechanical falls. He has no prior history of dizzy or lightheadedness. No syncopal events in the past. He has history of atrial fibrillation with pacemaker placement. He follows Dr. Gutierrez's group. * Physical therapy consult * Positive orthostatic vitals * Echocardiogram pending * Adequate hydration * Follow cardiology recommendations * Continue aspirin, Lipitor, Plavix * Serial troponin, EKG negative * Continuous telemetry monitoring Normocytic anemia Monitor hemoglobin closely Leukocytosis Most likely from pneumonia Thrombocytopenia Most likely from sepsis and pneumonia MILLIE on CKD Creatinine 4 at the time of admission. Baseline creatinine 3. Most likely prerenal and sepsis. * Aggressive IV fluid resuscitation * Avoid nephrotoxic agents * Renal ultrasound normal Metabolic acidosis Bicarb 14, metabolic acidosis most likely from chronic kidney disease. Resident Hall Director on board. * Started sodium bicarb 650 mg 3 tablets twice daily hypercalcemia Calcium 10.3 most likely secondary to home medication. Calcium back to normal Hypertension Continue amlodipine and Bystolic with holding parameters given his sepsis Hyperlipidemia Continue Lipitor 40 daily DVT prophylaxis ALPS only as PLT was low Heart Healthy Diet IV Access: Peripheral IV Full Code Problem List: 1. Community acquired pneumonia 2. Sepsis 3. Pneumonia Pain Ratin Pain Location: n/a Pain Goal: Remain pain free Pain Plan: tylenol Tomorrow's Labs & Rationales: cbc bep Roberto Valadez 05/11/18 1142: Attending MD Review Statement Attending Statement Attending MD Statement: examined this patient, discuss w/resident/PA/CREDIT ANALYST, agreed w/resident/PA/CREDIT ANALYST, reviewed EMR data (avail), discussed with nursing, discussed with case mgmt Attending Assessment/Plan: 87yo M w/ PMH of hypertension, hyperlipidemia, hx of bradycardia status post dual chamber cardiac pacemaker in 04/2015, CKD, RCC s/p left nephrectomy 3-4 years ago , CVA, BIBA for generalized weakness and dizziness for last 4 days. Pt also had a T-max 101.4 and cough, and s/p mechanical fall few times at home prior to admission due to weakness. Pt got 2L IV NS flinds in ER and was started on iv ceftriaxone and zithromax. Pneumonia- CXR shows large left hemithoracic soft tissue opacity. Currently on ceftriaxone and zithromax.CT chest shows- dense airspace consolidation is noted throughout the left lung with air bronchograms and a patent tracheobronchial tree. The appearance is nonspecific, and may represent infectious or inflammatory and, less likely, to be a neoplastic process. Hypoxic resp failure secondary to PNeumonia- Would cont with oxygen supplementation. given one dose of lasxi and dc iv fluids. f/u closely. MILLIE on CKD- will get nephro consult and will f/u on recommendatiosn. His baseline creatinine is around 3. Nephro recommended starting on bicarb supplementation. Multiple falls- will get PT consult and f/u on their recommendatiosn.
[2018-05-11 08:45] VITALS: BP 120/70
[2018-05-11 09:27] VITALS: BP 115/60
--- NOTE | 2018-05-11 10:38 | CT SCAN REPORT ---
EXAMINATION: CT CHEST WITHOUT CONTRAST CLINICAL INFORMATION: 87-year-old male with productive cough and fever, found to have near diffuse opacification of the left mid thoracic lung on prior chest radiograph done on 05/10/2018. For follow up. COMPARISON: Chest radiograph done on 05/10/2018. TECHNIQUE: Multidetector volumetric CT imaging of the chest was done. Axial MIP volume rendering provided. Sagittal and coronal reformatted images were obtained. 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 LUNGS: Concordant with chest radiograph done yesterday, there is near diffuse predominantly central airspace opacification identified involving both lobes of the left lung. The left main bronchus as well as the left upper and lower lobar bronchi are patent. There is air bronchogram identified within the opacified lung. There is no discrete mass visualized. Nonspecific airspace opacification is noted at the right lung base. There is a sub-5 mm perifissural lung nodule identified adjacent to the anterior end of the right minor fissure (see the woodard images). The tracheobronchial tree appeared patent. MEDIASTINUM: There are multiple shotty prevascular, paratracheal and a few subcarinal lymph nodes present. None of them appear pathologically enlarged. There is evidence of cardiomegaly present with enlargement of all 4 cardiac chambers. Diffuse atherosclerotic disease is noted with involvement of the coronary arteries. PLEURA: Bilateral small pleural effusions are noted (left greater than right). AXILLAE: No pathologically enlarged lymphadenopathy is seen. Note is made of a left-sided pacer device with the electrodes appearing intact. UPPER ABDOMEN: The right renal fossa is occupied by large bowel loops, and may represent changes secondary to right-sided nephrectomy or congenital absence of the right kidney. Please correlate clinically. The visualized part of the left kidney is unremarkable. A few surgical clips are noted in the right adrenal region with nonvisualization of the right adrenal gland, likely representing postsurgical change. Clinical correlation is recommended. The left adrenal gland appears mildly thickened without any discrete mass. OSSEOUS STRUCTURES: No suspicious lytic or sclerotic abnormalities. IMPRESSION: 1. Concordant with the prior chest radiographs, dense airspace consolidation is noted throughout the left lung with air bronchograms and a patent tracheobronchial tree. The appearance is nonspecific, and may represent infectious or inflammatory and, less likely, to be a neoplastic process. 2. Multiple shotty mediastinal lymph nodes are noted. 3. Bilateral small pleural effusions (left greater than right). 4. A tiny sub-5 mm perifissural lung nodule at the anterior end of the right minor fissure, may represent a tiny lymph node. 5. Nonvisualized right kidney and right adrenal gland, may represent postsurgical change. Please correlate clinically. 6. No suspicious osseous abnormalities.
--- NOTE | 2018-05-11 11:26 | Cons- Cardiology ---
General Information and HPI Consulting Request Date of Consult: 05/11/18 Requested By: Roberto Valadez MD Reason for Consult: Atrial fibrillation Source of Information: patient, old records History of Present Illness: This is a pleasant 87-year-old male with a past medical history of chronic atrial fibrillation not on anticoagulation due to patient preference/neurology recommendations, coronary artery disease with prior PCI and occluded PDA maintained on dual antiplatelet therapy, sick sinus syndrome with a history of permanent pacemaker, mild aortic dilatation, hypertension, and history of renal cancer with prior nephrectomy and chronic kidney disease who presents to [facility] with a chief complaint of increasing weakness/dizziness along with some shortness of breath; denies associated chest pain or palpitations; did note some nausea; had a mild cough nonproductive of sputum; was noted to be febrile on presentation with mild leukocytosis. Denies any syncope, acute visual changes, or slurring of speech. He had a pacemaker generator change in 2014. He is not pacemaker dependent. Allergies/Medications Allergies: Coded Allergies: No Known Allergies (05/10/18) Home Med List: Amlodipine Besylate 10 MG TABLET 1 TAB PO DAILY HEART (Reported) Aspirin (Aspirin*) 81 MG TAB.CHEW 1 TAB PO DAILY HEART HEALTH (Reported) Atorvastatin Calcium 40 MG TABLET 1 TAB PO DAILY CHOLESTEROL (Reported) Clopidogrel Bisulfate (Clopidogrel) 75 MG TABLET 1 TAB PO DAILY BLOOD THINNER (Reported) Ergocalciferol (Vitamin D2) (Vitamin D2) 50,000 UNIT CAPSULE 1 CAP PO Q 2 WEEKS VITAMIN SUPPORT (Reported) Folic Acid 1 MG TABLET 1 TAB PO DAILY VITAMIN SUPPORT (Reported) Nebivolol HCl (Bystolic) 10 MG TABLET 1 TAB PO DAILY HEART (Reported) Paricalcitol 1 MCG CAPSULE 1 CAP PO DAILY UNKNOWN (Reported) Current Medications: Current Medications Sig/Shanna Start time Last Medication Dose Route Stop Time Status Admin Acetaminophen 650 MG Q6P PRN 05/10 1745 AC PO Acetaminophen 1,000 MG Q6P PRN 05/10 1745 AC 05/11 IV 0638 Acetaminophen 0 .STK-MED ONE 05/10 1234 DC IV Acetaminophen 1,000 MG ONCE ONE 05/10 1230 DC 05/10 N/A 1 UNIT IV 05/10 1244 1236 Amlodipine Besylate 10 MG DAILY 05/11 0900 AC 05/11 PO 0848 Aspirin 81 MG DAILY 05/11 0900 AC 05/11 PO 0847 Atorvastatin Calcium 40 MG DAILY 05/11 0900 AC 05/11 PO 0847 Azithromycin 250 MG 1400 05/11 1400 CAN PO Azithromycin 500 MG 1400 05/11 1400 AC Sodium Chloride 250 ML IV Azithromycin 500 MG ONCE ONE 05/10 1400 DC 05/10 Sodium Chloride 250 ML IV 05/10 1459 1430 Ceftriaxone Sodium 1,000 MG 1400 05/11 1400 AC IV Ceftriaxone Sodium 0 .STK-MED ONE 05/10 1416 DC .ROUTE Ceftriaxone Sodium 1,000 MG ONCE ONE 05/10 1400 DC 05/10 IV 05/10 1401 1430 Clopidogrel Bisulfate 75 MG DAILY 05/11 0900 AC 05/11 PO 0848 Folic Acid 1 MG DAILY 05/11 0900 AC 05/11 PO 0847 Furosemide 40 MG ONCE ONE 05/11 0915 DC 05/11 IV 05/11 0916 1057 Furosemide 40 MG .STK-MED ONE 05/11 0002 DC IV 05/11 0003 Furosemide 40 MG ONCE ONE 05/10 2345 DC 05/11 IV 05/10 2346 0012 Magnesium Oxide 400 MG ONE ONE 05/11 1000 DC 05/11 PO 05/11 1001 1057 Nebivolol 10 MG DAILY 05/11 0900 AC 05/11 PO 0847 Oxycodone HCl 10 MG Q6P PRN 05/10 1745 AC PO Sodium Chloride 1,000 ML .Q10H 05/10 1745 DC 05/10 IV 05/11 1344 1814 Sodium Chloride 1,000 ML BOLUS ONE 05/10 1400 DC 05/10 IV 05/10 1459 1430 Sodium Chloride 1,000 ML BOLUS ONE 05/10 1230 DC 05/10 IV 05/10 1329 1236 Review of Systems Review of Systems: Review of systems as per HPI. The remainder of a 10 point review of systems was reviewed and was otherwise negative. 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 Home Services at Home: None Smoking Status: Former Smoker ETOH Use: occasional use Illicit Drug Use: denies illicit drug use Exam & Diagnostic Data Vital Signs and I&O Vital Signs Date Time Temp Pulse Resp B/P B/P Pulse O2 O2 Flow FiO2 Mean Ox Delivery Rate 05/11 1100 93 Nasal 4.0L Cannula 05/11 1048 Nasal 4.0L Cannula 05/11 0927 84 115/60 05/11 0900 93 Nasal 6.0L Cannula 05/11 0848 91 120/70 05/11 0847 86 120/70 05/11 0845 97.2 05/11 0845 86 120/70 05/11 0842 97.2 05/11 0716 99.8 127 32 138/70 99 Part ReBreather 05/11 0704 99.8 05/11 0638 101.7 05/11 0630 101.7 05/10 2224 87 Part 60% ReBreather 05/10 2216 98.7 91 36 136/80 86 Nasal 2.0L Cannula 05/10 2019 98.7 87 20 139/71 92 Nasal 4.0L Cannula 05/10 1816 83 20 116/62 91 Nasal 4.0L Cannula 05/10 1538 98.2 73 20 108/57 89 Nasal 4.0L Cannula 05/10 1342 99.1 05/10 1342 99.1 65 22 116/65 87 Nasal 4.0L Cannula 05/10 1236 101.4 05/10 1220 91 Nasal 4.0L Cannula 05/10 1209 101.4 103 18 134/69 89 Room Air Intake & Output 05/11 1600 05/11 0800 05/11 0000 05/10 1600 05/10 0800 05/10 0000 Intake Total 200 100 0 Output Total 300 175 Balance -100 -75 0 Intake, Oral 200 100 0 Output, Urine 300 175 Patient 185 lb 180 lb Weight Weight Bed scale Measurement Method Physical Exam: General: no apparent distress. Alert. Eyes: No obvious scleral icterus. HEENT: No jugular venous distention or abnormal jugular venous pulsations. Cardiovascular: Normal intensity S1/S2. Irregular, pacemaker noted Respiratory: Decreased air entry in the left Abdomen: Soft, nontender with no guarding or rebound tenderness. Musculoskeletal: No clubbing or cyanosis noted; trace lower extremity edema Skin: warm Neurologic: Normal speech Labs/Mike Results: Laboratory Tests 05/110 0 399 2017 Chemistry Sodium (137 - 145 mmol/L) 135 L Potassium (3.5 - 5.1 mmol/L) 4.8 Chloride (98 - 107 mmol/L) 105 Carbon Dioxide (22 - 30 mmol/L) 14 L Anion Gap (5 - 16) 16 BUN (9 - 20 mg/dL) 51 H Creatinine (0.7 - 1.2 mg/dL) 4.1 H Estimated GFR (>60 ml/min) 14 L BUN/Creatinine Ratio (7 - 25 %) 12.4 Calcium (8.4 - 10.2 mg/dL) 9.5 Magnesium (1.6 - 2.3 mg/dL) 1.7 AST (17 - 59 U/L) 39 ALT (21 - 72 U/L) 52 Troponin I (<0.11 ng/ml) 0.07 0.06 Hematology CBC w Diff NO MAN DIFF REQ WBC (4.8 - 10.8 /CUMM) 9.0 RBC (4.70 - 6.10 /CUMM) 3.13 L Hgb (14.0 - 18.0 G/DL) 9.3 L Hct (42 - 52 %) 27.9 L MCV (80.0 - 94.0 FL) 89.1 MCH (27.0 - 31.0 PG) 29.6 MCHC (33.0 - 37.0 G/DL) 33.2 RDW (11.5 - 14.5 %) 14.4 Plt Count (130 - 400 /CUMM) 129 L MPV (7.4 - 10.4 FL) 10.5 H Gran % (42.2 - 75.2 %) 95.9 H Lymphocytes % (20.5 - 51.1 %) 1.3 L Monocytes % (1.7 - 9.3 %) 2.8 Eosinophils % (0 - 5 %) 0 Basophils % (0.0 - 2.0 %) 0 Absolute Granulocytes (1.4 - 6.5 /CUMM) 8.6 H Absolute Lymphocytes (1.2 - 3.4 /CUMM) 0.1 L Absolute Monocytes (0.10 - 0.60 /CUMM) 0.3 Absolute Eosinophils (0.0 - 0.7 /CUMM) 0 Absolute Basophils (0.0 - 0.2 /CUMM) 0 05/10 05/10 05/10 1824 1812 1520 Chemistry Lactic Acid (0.7 - 2.1 mmol/L) 1.1 Cancelled Urines Urinalysis MOD H Urine Color (YEL,AMB,STR) YEL Urine Clarity (CLEAR) CLEAR Urine pH (5.0 - 8.0) 6.0 Ur Specific Gabriels (1.001 - 1.035) 1.025 Urine Protein (NEG,<30 MG/DL) 100 H Urine Ketones (NEG) NEG Urine Nitrite (NEG) NEG Urine Bilirubin (NEG) NEG Urine Urobilinogen (0.1 - 1.0 EU/dl) 0.2 Ur Leukocyte Esterase (NEG) NEG Ur Microscopic SEDIMENT EXAMINED Urine RBC (0 - 5 /HPF) 1-3 Urine WBC (0 - 2 /HPF) 1-3 H Granular Casts (NONE /LPF) RARE H Urine Hemoglobin (NEG) MOD H Urine Glucose (N MG/DL) NEG 05/10 05/10 1245 UNK Chemistry Sodium (137 - 145 mmol/L) 132 L Potassium (3.5 - 5.1 mmol/L) 4.9 Chloride (98 - 107 mmol/L) 102 Carbon Dioxide (22 - 30 mmol/L) 15 L Anion Gap (5 - 16) 15 BUN (9 - 20 mg/dL) 46 H Creatinine (0.7 - 1.2 mg/dL) 4.0 H Estimated GFR (>60 ml/min) 14 L BUN/Creatinine Ratio (7 - 25 %) 11.5 Glucose (65 - 99 mg/dL) 98 Lactic Acid (0.7 - 2.1 mmol/L) 1.9 Calcium (8.4 - 10.2 mg/dL) 10.3 H Total Bilirubin (0.2 - 1.3 mg/dL) 1.1 AST (17 - 59 U/L) 21 ALT (21 - 72 U/L) 34 Alkaline Phosphatase (< 127 U/L) 67 Troponin I (<0.11 ng/ml) 0.07 Total Protein (6.3 - 8.2 g/dL) 6.1 L Albumin (3.5 - 5.0 g/dL) 3.6 Globulin (1.9 - 4.2 gm/dL) 2.5 Albumin/Globulin Ratio (1.1 - 2.2 %) 1.4 Coagulation PT (9.4 - 12.5 SEC) 12.1 INR (0.90 - 1.17) 1.11 APTT (25 - 37 SEC) 31 Hematology CBC w Diff MAN DIFF ORDERED WBC (4.8 - 10.8 /CUMM) 11.6 H RBC (4.70 - 6.10 /CUMM) 3.22 L Hgb (14.0 - 18.0 G/DL) 9.6 L Hct (42 - 52 %) 28.3 L MCV (80.0 - 94.0 FL) 87.9 MCH (27.0 - 31.0 PG) 29.9 MCHC (33.0 - 37.0 G/DL) 34.0 RDW (11.5 - 14.5 %) 14.0 Plt Count (130 - 400 /CUMM) 120 L MPV (7.4 - 10.4 FL) 10.9 H Gran % (42.2 - 75.2 %) 95.2 H Lymphocytes % (20.5 - 51.1 %) 1.8 L Monocytes % (1.7 - 9.3 %) 3.0 Eosinophils % (0 - 5 %) 0 Basophils % (0.0 - 2.0 %) 0 Absolute Granulocytes (1.4 - 6.5 /CUMM) 11.0 H Segmented Neutrophils (42.2 - 75.2 %) 88 H Band Neutrophils (0.0 - 5.0 %) 8 H Absolute Lymphocytes (1.2 - 3.4 /CUMM) 0.2 L Lymphocytes (20.5 - 51.1 %) 1 L Monocytes (1.7 - 9.3 %) 3 Absolute Monocytes (0.10 - 0.60 /CUMM) 0.3 Absolute Eosinophils (0.0 - 0.7 /CUMM) 0 Absolute Basophils (0.0 - 0.2 /CUMM) 0 Platelet Estimate (ADEQUATE) VERIFIED BY SMEAR Anisocytosis 1+ Urines Ur Random Creatinine Pending Ur Random Sodium Pending Ur Random Potassium Pending Fraction Sodium Excret Pending Diagnostic Data EKG Results Tracing was personally reviewed and shows atrial fibrillation at 99 bpm with borderline R-wave progression CXR Results Stable appearance of diffuse left hemithoracic opacification. Other Results Telemetry tracings were personally reviewed and show atrial fibrillation with controlled ventricular response rate Assessment/Plan Assessment/Plan 1. Pneumonia 2. Chronic atrial fibrillation not on anticoagulation due to patient preference /neurology recommendations 3. Coronary artery disease with prior PCI and occluded PDA maintained on dual antiplatelet therapy 4. Sick sinus syndrome with a history of permanent pacemaker 5. Mild aortic dilatation 6. History of hypertension 7. History of renal cancer with prior nephrectomy and chronic kidney disease Patient symptoms appear to be due to his pneumonia and he is receiving IV antibiotics. Cardiac status appears stable; he remains in chronic atrial fibrillation with controlled ventricular response rate. His outpatient cardiac regimen should be continued. It appears an echocardiogram was ordered and is currently pending. Felix Meza MD [facility] Consult Acknowledgment - Thank you for your consult request.
--- NOTE | 2018-05-11 11:28 | Cons- Nephrology ---
General Information and HPI Consulting Request Date of Consult: 05/11/18 Requested By: Allyson SANCHEZ,Roberto James History of Present Illness: Mr Olmstead is a pleasant 87 yo gentleman followed by Dr. Simon in our office. He has a history of HTN, hyperlipidemia, R nephrectomy in 2015 for renal cell cancer at [facility] followed by Dr. Atkins (urology). he has known CKD with recent creatinine in the 3's (3.2 in February of this year). He came to the ER with generalized weakess , fatigue and SOB and a mecanical fall. Cr here is 4.0 and he had a fever of 101.4. CXR and CT of the chest show LLL infiltrate and he is admitted with the diagnosis of pneumonia. He denies NSAID use but has had a poor appetite over the past few days. Allergies/Medications Allergies: Coded Allergies: No Known Allergies (05/10/18) Home Med List: Amlodipine Besylate 10 MG TABLET 1 TAB PO DAILY HEART (Reported) Aspirin (Aspirin*) 81 MG TAB.CHEW 1 TAB PO DAILY HEART HEALTH (Reported) Atorvastatin Calcium 40 MG TABLET 1 TAB PO DAILY CHOLESTEROL (Reported) Clopidogrel Bisulfate (Clopidogrel) 75 MG TABLET 1 TAB PO DAILY BLOOD THINNER (Reported) Ergocalciferol (Vitamin D2) (Vitamin D2) 50,000 UNIT CAPSULE 1 CAP PO Q 2 WEEKS VITAMIN SUPPORT (Reported) Folic Acid 1 MG TABLET 1 TAB PO DAILY VITAMIN SUPPORT (Reported) Nebivolol HCl (Bystolic) 10 MG TABLET 1 TAB PO DAILY HEART (Reported) Paricalcitol 1 MCG CAPSULE 1 CAP PO DAILY UNKNOWN (Reported) Current Medications: Current Medications Sig/Shanna Start time Last Medication Dose Route Stop Time Status Admin Acetaminophen 650 MG Q6P PRN 05/10 1745 AC PO Acetaminophen 1,000 MG Q6P PRN 05/10 1745 AC 05/11 IV 0638 Acetaminophen 0 .STK-MED ONE 05/10 1234 DC IV Acetaminophen 1,000 MG ONCE ONE 05/10 1230 DC 05/10 N/A 1 UNIT IV 05/10 1244 1236 Amlodipine Besylate 10 MG DAILY 05/11 0900 AC 05/11 PO 0848 Aspirin 81 MG DAILY 05/11 0900 AC 05/11 PO 0847 Atorvastatin Calcium 40 MG DAILY 05/11 0900 AC 05/11 PO 0847 Azithromycin 250 MG 1400 05/11 1400 CAN PO Azithromycin 500 MG 1400 05/11 1400 AC Sodium Chloride 250 ML IV Azithromycin 500 MG ONCE ONE 05/10 1400 DC 05/10 Sodium Chloride 250 ML IV 05/10 1459 1430 Ceftriaxone Sodium 1,000 MG 1400 05/11 1400 AC IV Ceftriaxone Sodium 0 .STK-MED ONE 05/10 1416 DC .ROUTE Ceftriaxone Sodium 1,000 MG ONCE ONE 05/10 1400 DC 05/10 IV 05/10 1401 1430 Clopidogrel Bisulfate 75 MG DAILY 05/11 0900 AC 05/11 PO 0848 Folic Acid 1 MG DAILY 05/11 0900 AC 05/11 PO 0847 Furosemide 40 MG ONCE ONE 05/11 0915 DC 05/11 IV 05/11 0916 1057 Furosemide 40 MG .STK-MED ONE 05/11 0002 DC IV 05/11 0003 Furosemide 40 MG ONCE ONE 05/10 2345 DC 05/11 IV 05/10 2346 0012 Magnesium Oxide 400 MG ONE ONE 05/11 1000 DC 05/11 PO 05/11 1001 1057 Nebivolol 10 MG DAILY 05/11 0900 AC 05/11 PO 0847 Oxycodone HCl 10 MG Q6P PRN 05/10 1745 AC PO Sodium Chloride 1,000 ML .Q10H 05/10 1745 DC 05/10 IV 05/11 1344 1814 Sodium Chloride 1,000 ML BOLUS ONE 05/10 1400 DC 05/10 IV 05/10 1459 1430 Sodium Chloride 1,000 ML BOLUS ONE 05/10 1230 DC 05/10 IV 05/10 1329 1236 Review of Systems Review of Systems: As in HPI otherwise negative Past History Travel History Traveled to [place] past 21 day No Medical History Blood Transfusion Hx: No Neurological: NONE EENT: NONE Cardiovascular: hypertension, hyperlipidemia, CARDIAC PACEMAKER Respiratory: NONE Gastrointestinal: NONE Hepatic: NONE Renal: NONE Musculoskeletal: NONE Psychiatric: NONE Endocrine: NONE Blood Disorders: NONE 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 Home Services at Home: None Smoking Status: Former Smoker ETOH Use: occasional use Illicit Drug Use: denies illicit drug use Exam & Diagnostic Data Vital Signs and I&O Pleasant M comfortable NAD 115/60 84 97.2 Skin neg rash Eyes anicteric ENT moist Lungs rhonchi L base diminished BS Cor RRR Abd soft N/T Ext tr edema Results Pertinent Lab Results: 135 / 105 / 51 / 4.8 / 14 / 4.1\ Hg 9.3 Renal U/S nl L kidney without mass/hydronephrosis. absent R CXR/CT Chest LLL infiltrate with air bronchograms Assessment/Plan Assessment/Recommendations Assessment: Advanced renal disease (MILLIE on advanced CKD) likely related to poor po intake and pneumonia. Intravascular volume appears okay and I suspect part of his SOB is related to his pneumonia. He does have a low serum bicarbonate and this is most likely due to metabolic acidosis related to his CKD. Could start po bicarbonate (Na bicarbonate 650 mg tablets (8 mEq/tablet) 3 tabs bid = 48 mEq). This couldl also be achieved with one measuring teaspoon of baking soda (54 mEq ). Continue antibiotics as you are doing (no dose adjustment needed) and follow daily labs. Thanks will follow. Luiz Holman MD Recommendations: .
[2018-05-11 14:00] VITALS: BP 118/64
--- NOTE | 2018-05-11 18:22 | Event Note ---
Event Note Event Note: S Called to bedside where patient was on rebreather. Following sequence of events were reported by nurse: Pt had been AOx4 on 4L O2 nasal canula but was experiencing rigors. Nurse took oral and axillary temps which were WNL. At that point, pt was found to have altered mentation and was no longer oriented to place, situation, or time. Rectal temp was taken and was found to be 102.9. Pt was placed on rebreather mask at 16L d/t desaturation to 85%. Pt was then given IV tylenol stat. Orders were placed for ABG, CBC, BEP, CXR, EKG stat. Pt sats holding steady at 96%. Vitals at onset of event: rectal temp 102.9 BP 144/72 107bpm 85% on 4L nasal canula B Pt is an 87YOM w/ PMH significant for HTN, HLD, Afib, and bradycardia s/p biventricular cardiac pacemaker in 04/2015, CKD, and renal cell carcinoma s/p R nephrectomy who presented to the ED with generalized weakness, dizziness, and falls. He was found to have legionella pneumonia with urinary antigen + with acute hypoxic respiratory failure and question of sepsis and is being treated with IV ceftriaxone and azithromycin. A AB.39/20/94/95/12 EKG: Afib, left axis dev; consistent with patient's prior EKG Based on clinical situation and pt's rapid correction to sats in mid 90%s on rebreather 16L, episode seems most consistent with an acute hypoxic event. ABG confirms that patient is acidemia with hypocarbia. R - Await CXR for comparison to prior - CBC and BEP - Continue sodium bicarbonate 1950MG BID PO - continue on rebreather 16L while sats are holding, will switch to high flow if worsens - continue monitoring for altered mental status - consider broader coverage for given legionella + pneumonia
--- NOTE | 2018-05-11 19:05 | RADIOLOGY REPORT ---
EXAMINATION: PORTABLE CHEST 1 VIEW CLINICAL INFORMATION: Pneumonia.. COMPARISON: CTA chest from earlier today. TECHNIQUE: Portable frontal view of the chest was obtained. FINDINGS: Dense consolidation is seen in the left hemithorax with air bronchograms. The degree of consolidation appears slightly increased from the tile layer helper film from the CT scan earlier today. It be difficult to exclude a small layering left effusion. Contralateral right lung is hypoexpanded but no focal airspace disease seen. Cardiac silhouette remains prominent with a dual-lead pacemaker again noted. IMPRESSION: Left sided consolidation with air bronchograms appears slightly more prominent than from the tile layer helper film on the CT scan earlier today. Appearance is consistent with pneumonia in the acute setting.
[2018-05-11 19:17] LABS: ABSOLUTE BASOPHIL COUNT 0 /CUMM (0.0-0.2); ABSOLUTE EOSINOPHIL COUNT 0 /CUMM (0.0-0.7); ABSOLUTE LYMPH COUNT 0.1 /CUMM (1.2-3.4); ABSOLUTE MONOCYTE COUNT 0.2 /CUMM (0.10-0.60); BASOPHIL % 0 % (0.0-2.0); EOSINOPHIL % 0 % (0-5); GRANULOCYTE % 97.4 % (42.2-75.2); HEMATOCRIT 26.6 % (42-52); MEAN CORPUSCULAR HGB CONC 32.9 G/DL (33.0-37.0); MEAN CORPUSCULAR VOLUME 88.3 FL (80.0-94.0); MEAN PLATELET VOLUME 10.3 FL (7.4-10.4); PLATELET COUNT 119 /CUMM (130-400); RBC DISTRIBUTION WIDTH 14.7 % (11.5-14.5); RED BLOOD CELL CT 3.02 /CUMM (4.70-6.10); WHITE BLOOD CELL COUNT 8.2 /CUMM (4.8-10.8)
[2018-05-11 20:00] VITALS: BP 130/72
[2018-05-12 06:45] VITALS: BP 130/82
[2018-05-12 08:23] LABS: ABSOLUTE BASOPHIL COUNT 0 /CUMM (0.0-0.2); ABSOLUTE EOSINOPHIL COUNT 0 /CUMM (0.0-0.7); ABSOLUTE GRANULOCYTE CT 7.3 /CUMM (1.4-6.5); ABSOLUTE LYMPH COUNT 0.1 /CUMM (1.2-3.4); ABSOLUTE MONOCYTE COUNT 0.2 /CUMM (0.10-0.60); BASOPHIL % 0 % (0.0-2.0); EOSINOPHIL % 0 % (0-5); HEMATOCRIT 25.7 % (42-52); MEAN CORPUSCULAR HGB 29.5 PG (27.0-31.0); MEAN CORPUSCULAR HGB CONC 33.5 G/DL (33.0-37.0); MEAN CORPUSCULAR VOLUME 88.2 FL (80.0-94.0); MEAN PLATELET VOLUME 10.9 FL (7.4-10.4); PLATELET COUNT 126 /CUMM (130-400); RBC DISTRIBUTION WIDTH 14.9 % (11.5-14.5); RED BLOOD CELL CT 2.92 /CUMM (4.70-6.10); WHITE BLOOD CELL COUNT 7.5 /CUMM (4.8-10.8)
--- NOTE | 2018-05-12 09:34 | PN- Housestaff ---
Charles Bernard 05/12/18 0926: Subjective Follow-up For: Community-acquired pneumonia Sepsis Acute kidney injury Metabolic acidosis Complaints: no complaints Tele-Events Since Last Visit: Atrial fibrillation rate varying between 90-100 Subjective: Patient was seen and examined this morning. He is alert awake and oriented to time place and person. Patient was found to have disorientation associated with Rigors, chills last evening, rapid response was called, labs were drawn, chest x-ray showed similar findings compared to prior. He saturating at 94 on 5 L this morning. Reports short of breath. Denies any chest pain, palpitations. He continues to have Temperatures T-max 102.4 Review of Systems Constitutional: Reports: see HPI. Musculoskeletal: Reports: see HPI. Objective Last 24 Hrs of Vital Signs/I&O Vital Signs Date Time Temp Pulse Resp B/P B/P Pulse O2 O2 Flow FiO2 Mean Ox Delivery Rate 05/12 0706 100.7 05/12 0645 102.4 108 22 130/82 88 Nasal 5.0L Cannula 05/12 0524 102.4 05/12 0000 100.1 05/11 2200 94 Nasal 7.0L Cannula 05/11 2000 101.4 82 26 130/72 93 Nasal 7.0L Cannula 05/11 1914 102.3 05/11 1825 102.9 05/11 1400 97.9 97 20 118/64 94 05/11 1100 93 Nasal 4.0L Cannula 05/11 1048 Nasal 4.0L Cannula Intake & Output 05/12 1600 05/12 0800 05/12 0000 Intake Total 1060 120 Output Total 400 100 Balance 660 20 Intake, IV 100 Intake, Oral 960 120 Number 0 1 Bowel Movements Output, Urine 400 100 Patient 89.868 kg Weight Weight Bed scale Measurement Method Physical Exam General Appearance: Alert, Oriented X3, Cooperative, No Acute Distress Other Physical Findings: Neck Supple, No JVD Lungs Normal Air Movement, bilateral decreased breath sounds, without any auscutable rhonchi/wheezing Abdomen Normal Bowel Sounds, Soft, No Tenderness Neurological Normal Speech, Strength at 5/5 X4 Ext, Normal Tone, Sensation Intact Extremities Normal Pulses, trace edema Current Medications: Current Medications Sig/Shanna Start time Last Medication Dose Route Stop Time Status Admin Acetaminophen 650 MG Q6P PRN 05/10 174 AC PO Acetaminophen 1,000 MG Q6P PRN 05/10 1745 AC 05/12 IV 0524 Amlodipine Besylate 10 MG DAILY 05/11 0900 AC 05/11 PO 0848 Aspirin 81 MG DAILY 05/11 0900 AC 05/11 PO 0847 Atorvastatin Calcium 40 MG DAILY 05/11 0900 AC 05/11 PO 0847 Azithromycin 500 MG 1400 05/11 1400 AC 05/11 Sodium Chloride 250 ML IV 1339 Ceftriaxone Sodium 1,000 MG 1400 05/11 1400 AC 05/11 IV 1338 Clopidogrel Bisulfate 75 MG DAILY 05/11 09 AC 05/11 PO 0848 Folic Acid 1 MG DAILY 05/11 0900 AC 05/11 PO 0847 Magnesium Oxide 400 MG ONE ONE 05/11 1000 DC 05/11 PO 05/11 1001 1057 Nebivolol 10 MG DAILY 05/11 09 AC 05/11 PO 0847 Oxycodone HCl 10 MG Q6P PRN 05/10 1745 AC PO Patient Medication 1 ED ONE ONE 05/11 1430 DC Teaching ED 05/11 1431 Sodium Bicarbonate 1,950 MG BID 05/11 1233 AC 05/11 PO 2007 Last 24 Hrs of Lab/Mike Results Last 24 Hrs of Labs/Mics: Laboratory Tests 05/12/18 0610: Anion Gap 16, Estimated GFR 12 L, BUN/Creatinine Ratio 14.5, Phosphorus 4.8 H, CBC w Diff Pending, WBC Pending, RBC Pending, Hgb Pending, Hct Pending, MCV Pending, MCH Pending, MCHC Pending, RDW Pending, Plt Count Pending, MPV Pending, Gran % Pending, Lymphocytes % Pending, Monocytes % Pending, Eosinophils % Pending, Basophils % Pending, Absolute Granulocytes Pending, Absolute Lymphocytes Pending, Absolute Monocytes Pending, Absolute Eosinophils Pending, Absolute Basophils Pending 05/11/18 1830: Troponin I 0.05 05/11/18 1830: Anion Gap 15, Estimated GFR 12 L, BUN/Creatinine Ratio 13.6, CBC w Diff NO MAN DIFF REQ, RBC 3.02 L, MCV 88.3, MCH 29.0, MCHC 32.9 L, RDW 14.7 H, MPV 10.3, Gran % 97.4 H, Lymphocytes % 0.7 L, Monocytes % 1.9, Eosinophils % 0, Basophils % 0, Absolute Granulocytes 8.0 H, Absolute Lymphocytes 0.1 L, Absolute Monocytes 0.2, Absolute Eosinophils 0, Absolute Basophils 0 05/11/181824: pH 7.39, pCO2 20 L, pO2 94, HCO3 12 L, ABG O2 Sat (Measured) 95.0 L, P-50 ( Temp Corrected) Y, Carboxyhemoglobin 0.3 L, O2 Concentration % 60%, Temperature 102.9 H, O2 Delivery Method PRB, Phlebotomy Draw Site RIGHT RADIAL Microbiology 05/11 163 LOWER RESP: Respiratory Culture - RES 05/11 163 LOWER RESP: Gram Stain - RES Assessment/Plan Assessment: 87 y/o M with pmh sig for hypertension, hyperlipidemia, hx of atrial fibrillation, bradycardia status post cardiac pacemaker in 04/2015, history of CKD, history of renal cancer status post left nephrectomy, presented to the emergency room with feeling generalized weakness, dizziness and falls. Apparently from last 4 days patient has been feeling extremely fatigued and has fallen. He denies hitting his head. He also feels short of breath and has a raspy sound in his chest. He denies any cough. He lives by himself at home. He does complain of poor appetite and feeling somewhat nauseous but no vomiting. In the emergency room patient was found to be febrile to 101, was significantly hypoxic, had leukocytosis and a chest x-ray consistent with possible pneumonia. On admission, Vitals: T-max 101.4, HR 103-> 73, RR 20, BP 108/57, 89% 4LNC -CBC: Mild leukocytosis 11.4, H/H9 0.6/28.3, PLT 120, granulocytosis 95.2, bandemia -BMP: Hyponatremia 132, elevated creatinine 4.0w/ baseline 1.7 -PT/INR: 12.1/1.11 -UA/Microbiology: Pending, no previous microbiology -CXR: Abnormal left hemithoracic opacity, may represent infectious, inflammatory process versus neoplasm, new since 2008. -EKG: A-fib under control without pacer spike -Last Echo: No previous echo on file -Interventions in ER: Normal saline bolus 2, ceftriaxone/azithromycin 1, acetaminophen IV 1 #Sepsis 2/2 CAP (Fever, Tachycardia, source of infection) #Acute hypoxic resp failure #Community-acquired pneumonia #Normocytic anemia #MILLIE on CKD, pending further evaluation #Mild hypercalcemia, likely 2/2 home med #PMH of hypertension, hyperlipidemia, history of bradycardia S/P bichamber pacemaker sepsis secondary to community-acquired pneumonia Patient presented with generalized weakness, dizziness, fatigue, short of breath. T-max 101.7, tachycardic with chest x-ray findings suggestive of abnormal left hemithoracic opacity most likely pneumonia. Urine positive for Legionella antigen. He was admitted to telemetry for continuous pulse ox monitoring. * Sepsis secondary to community-acquired pneumonia * Continuous telemetry monitoring * Vitals per protocol * Monitor for fever, trace leukocyte count * Continue ceftriaxone and azithromycin day 3 * Follow-up blood cultures * Supplemental oxygen * TRC nebs * Maintain saturations greater than 90 * CT chest confirmed left-sided pneumonia Acute hypoxic respiratory failure Patient is hypoxic from sepsis and pneumonia requiring oxygen supplementation. * Supplemental oxygen * TRC nebs * Maintain saturations greater than 90 * He was given 1 dose of IV Lasix after that short of breath improved Dizziness Patient reports dizziness for last 4 days leading to multiple mechanical falls. He has no prior history of dizzy or lightheadedness. No syncopal events in the past. He has history of atrial fibrillation with pacemaker placement. He follows Dr. Gutierrez's group. * Physical therapy consult * Positive orthostatic vitals * Echocardiogram pending * Adequate hydration * Follow cardiology recommendations * Continue aspirin, Lipitor, Plavix * Serial troponin, EKG negative * Continuous telemetry monitoring Normocytic anemia Monitor hemoglobin closely Leukocytosis Most likely from pneumonia Thrombocytopenia Most likely from sepsis and pneumonia MILLIE on CKD Creatinine 4 at the time of admission. Baseline creatinine 3. Most likely prerenal and sepsis. * IV fluid resuscitation * Avoid nephrotoxic agents * Renal ultrasound normal * Creatinine 4.7 this morning * Follow nephro Recommendations Metabolic acidosis Bicarb 14, metabolic acidosis most likely from chronic kidney disease. Cotton Grower on board. * Started sodium bicarb 650 mg 3 tablets twice daily hypercalcemia Calcium 10.3 most likely secondary to home medication. Calcium back to normal Hypertension Continue amlodipine and Bystolic with holding parameters given his sepsis Hyperlipidemia Continue Lipitor 40 daily DVT prophylaxis ALPS only as PLT was low Heart Healthy Diet IV Access: Peripheral IV Full Code Problem List: 1. Community acquired pneumonia 2. Sepsis 3. Pneumonia Pain Ratin Pain Location: n/a Pain Goal: Remain pain free Pain Plan: tylinol Tomorrow's Labs & Rationales: cbc bep Mariann SANCHEZ,Amir 05/12/18 1529: Attending MD Review Statement Attending Statement Attending MD Statement: examined this patient, discuss w/resident/PA/SPIRAL WINDER, agreed w/resident/PA/SPIRAL WINDER, reviewed EMR data (avail), discussed with nursing Attending Assessment/Plan: Pt was seen and evaluated. Noted to have low grade temp. --currently being tx for PNA --f/u PT eval --cont to monitor
[2018-05-12 09:47] LABS: GRANULOCYTE % 96.4 % (42.2-75.2)
[2018-05-12 14:37] VITALS: BP 110/67
--- NOTE | 2018-05-12 20:05 | ECHOCARDIOGRAM REPORT ---
CORNELIUS SHUKLA Age: 87 : 1930 Gender: M Exam Date: 05/12/2018 07:59 Exam Location: 1 [address] Ht (in): 67 Wt (lb): 185 BSA: 2.01 BP: 138 / 70 Ordering Physician: Marcela Anders MD Referring Physician: Marcela Anders MD Technologist: Kamala Kline [facility] Room Number: [id number] Indications: Rhythm: Atrial fibrillation Technical Quality: Fair FINDINGS Left Ventricle Normal global left ventricular size, wall thickness, systolic function with no obvious regional wall motion abnormalities. Left ventricular ejection fraction is estimated at 55 %. Right Ventricle Normal right ventricular size and function. Catheter/pacemaker wire in the right ventricular cavity. Right Atrium Mild right atrial dilatation. Left Atrium Mild to moderate left atrial dilatation. Mitral Valve No mitral stenosis. Mild mitral annular calcification. Mild mitral regurgitation. Aortic Valve No aortic stenosis. Trileaflet aortic valve. Tricuspid Valve Tricuspid valve not well visualized, grossly normal. Mild-to- moderate tricuspid regurgitation. Mild pulmonary hypertension. Pulmonic Valve Pulmonic valve not well visualized, grossly normal. Pericardium No pericardial effusion. Great Vessels Normal size aortic root. CONCLUSIONS Normal global left ventricular size, wall thickness, systolic function with no obvious regional wall motion abnormalities. Left ventricular ejection fraction is estimated at 55 %. Normal right ventricular size and function. Catheter/pacemaker wire in the right ventricular cavity. Mild right atrial dilatation. Mild to moderate left atrial dilatation. [id number] tricuspid regurgitation. Mild pulmonary hypertension. Sebastian Meza M.D. (Electronically Signed) Final Date: 12 May 2018 20:02 MEASUREMENTS (Male / Female) Normal Values 2D ECHO LV Diastolic Diameter PLAX 4.5 cm 4.2 - 5.9 / 3.9 - 5.3 cm LV Systolic Diameter PLAX 2.8 cm 2.1 - 4.0 cm LV Fractional Shortening PLAX 37.8 % 25 - 46 % LV Ejection Fraction 2D Teich 68.0 % IVS Diastolic Thickness 1.3 cm LVPW Diastolic Thickness 1.0 cm LV Relative Wall Thickness 0.5 LVOT Diameter 2.1 cm Aortic Root Diameter 3.5 cm LA Systolic Diameter LX 5.3 cm 3.0 - 4.0 / 2.7 - 3.8 cm LA Volume 103.0 cm 18 - 58 / 22 - 52 cm DOPPLER AV Peak Velocity 137.0 cm/s AV Peak Gradient 7.5 mmHg LVOT Peak Velocity 75.5 cm/s LVOT Peak Gradient 2.3 mmHg AV Area Cont Eq pk 1.9 cm Mitral E Point Velocity 128.0 cm/s TR Peak Velocity 331.0 cm/s TR Peak Gradient 43.8 mmHg PV Peak Velocity 111.0 cm/s PV Peak Gradient 4.9 mmHg LV E' Lateral Velocity 15.3 cm/s Mitral E to LV E' Lateral Ratio 8.4 LV E' Septal Velocity 12.2 cm/s Mitral E to LV E' Septal Ratio 10.5
[2018-05-12 22:27] VITALS: BP 110/50
--- NOTE | 2018-05-12 23:31 | Event Note ---
Event Note Event Note: Situation: CODE STATUS of the patient was DNR/DNI. Background: The patient is an 87-year-old man with past medical history significant for hypertension, hyperlipidemia, history of bradycardia with pacemaker, and CKD who has come here because of generalized weakness and fever of 101.4, and cough. Patient is tachycardic and is admitted with differential diagnosis of rule out sepsis, acute hypoxic respiratory failure, community acquired pneumonia. Legionella urinary antigen was positive. Assessment: Since the patient has Legionella pneumonia, his condition could get worse during the process of disease. I wanted to make sure that the patient is aware of his condition and his decision to be DNR/DNI. I explained to him that his respiratory condition might worsen during his current disease and he might need to be intubated for a couple of days and make sure that he understand what I have explained and asked him if he has any question. he was concerned about the time that we make decision to intubate him, and I explained to him that the decision is made based on his situation which means his blood oxygenation, and respiratory distress, change in his consciousness. Recommendation: Please change the CODE STATUS of the patient from DNR/DNI to DNR.
[2018-05-13 05:35] VITALS: BP 138/80
[2018-05-13 08:33] LABS: ABSOLUTE BASOPHIL COUNT 0 /CUMM (0.0-0.2); ABSOLUTE EOSINOPHIL COUNT 0 /CUMM (0.0-0.7); ABSOLUTE GRANULOCYTE CT 6.5 /CUMM (1.4-6.5); ABSOLUTE LYMPH COUNT 0.1 /CUMM (1.2-3.4); ABSOLUTE MONOCYTE COUNT 0.2 /CUMM (0.10-0.60); BASOPHIL % 0 % (0.0-2.0); EOSINOPHIL % 0 % (0-5); HEMATOCRIT 23.5 % (42-52); MEAN CORPUSCULAR HGB 29.8 PG (27.0-31.0); MEAN CORPUSCULAR HGB CONC 34.8 G/DL (33.0-37.0); MEAN CORPUSCULAR VOLUME 85.6 FL (80.0-94.0); MEAN PLATELET VOLUME 10.7 FL (7.4-10.4); PLATELET COUNT 120 /CUMM (130-400); RBC DISTRIBUTION WIDTH 14.4 % (11.5-14.5); RED BLOOD CELL CT 2.75 /CUMM (4.70-6.10); WHITE BLOOD CELL COUNT 6.7 /CUMM (4.8-10.8)
--- NOTE | 2018-05-13 09:23 | PN- Housestaff ---
Charles Bernard 05/13/18 0923: Subjective Follow-up For: Community-acquired pneumonia Sepsis Acute kidney injury Metabolic acidosis Complaints: no complaints Tele-Events Since Last Visit: Atrial fibrillation rate varying between 90-100 Subjective: Patient was seen and examined this morning. He is alert awake and oriented to time place and person. Patient still continues to have temperatures. Continues to report chills. Denies any shortness of breath chest pain, palpitations. He is requiring nonrebreather mask. CODE STATUS was discussed, he agreed for intubation if required for his pneumonia. He is DNR now. Review of Systems Constitutional: Reports: see HPI. Objective Last 24 Hrs of Vital Signs/I&O Vital Signs Date Time Temp Pulse Resp B/P B/P Pulse O2 O2 Flow FiO2 Mean Ox Delivery Rate 05/13 1031 82 112/58 05/13 1030 82 11258 05/13 0830 92 Nasal 90% Cannula 05/13 0626 100.2 05/13 0535 101.0 94 22 138/80 86 Non ReBreather 05/13 0529 101.0 05/13 0056 98.5 05/13 0055 94 Nasal 80% Cannula 05/13 0000 934 Nasal 80% Cannula 05/12 2227 98.0 88 24 110/50 93 Nasal Cannula 05/12 2144 93 Nasal 80% Cannula 05/12 2026 102.4 05/12 1829 93 Nasal 70% Cannula 05/12 1600 93 Nasal 70% Cannula 05/12 1437 99.6 87 22 110/67 93 Nasal Cannula Intake & Output 05/13 1600 05/13 0800 05/13 0000 Intake Total 220 150 Output Total 500 300 Balance -280 -150 Intake, IV 100 Intake, Oral 120 150 Output, Urine 500 300 Patient 92.618 kg Weight Weight Bed scale Measurement Method Physical Exam General Appearance: Alert, Oriented X3, Cooperative, Mild Distress Other Physical Findings: Neck Supple, No JVD Lungs Normal Air Movement, bilateral decreased breath sounds, without any auscutable rhonchi/wheezing Abdomen Normal Bowel Sounds, Soft, No Tenderness Neurological Normal Speech, Strength at 5/5 X4 Ext, Normal Tone, Sensation Intact Extremities Normal Pulses, trace edema Current Medications: Current Medications Sig/Shanna Start time Last Medication Dose Route Stop Time Status Admin Acetaminophen 1,000 MG .STK-MED ONE 05/12 2017 DC IV 05/12 2018 Acetaminophen 650 MG Q6P PRN 05/10 1745 AC PO Acetaminophen 1,000 MG Q6P PRN 05/10 1745 AC 05/13 IV 0529 Albuterol Sulfate 3 ML BID 05/13 09 AC 05/13 INH 0830 Amlodipine Besylate 10 MG DAILY 05/11 0900 AC 05/13 PO 1030 Aspirin 81 MG DAILY 05/11 0900 AC 05/13 PO 1026 Atorvastatin Calcium 40 MG DAILY 05/11 09 AC 05/13 PO 1026 Azithromycin 500 MG 1400 05/11 1400 AC 05/12 Sodium Chloride 250 ML IV 1419 Ceftriaxone Sodium 1,000 MG 1400 05/11 1400 AC 05/12 IV 1419 Clopidogrel Bisulfate 75 MG DAILY 05/11 09 AC 05/13 PO 1027 Folic Acid 1 MG DAILY 05/11 09 AC 05/13 PO 1026 Furosemide 20 MG ONCE ONE 05/12 1430 DC 05/12 IV 05/12 1431 1419 Magnesium Oxide 400 MG DAILY 05/12 2008 AC 05/13 PO 1027 Nebivolol 10 MG DAILY 05/11 09 AC 05/13 PO 1031 Oxycodone HCl 10 MG Q6P PRN 05/10 1745 AC PO Sodium Bicarbonate 1,950 MG BID 05/11 1233 AC 05/13 PO 1028 Sodium Chloride 1,000 ML Q13H 05/13 1100 AC IV Assessment/Plan Assessment: 87 y/o M with pmh sig for hypertension, hyperlipidemia, hx of atrial fibrillation, bradycardia status post cardiac pacemaker in 04/2015, history of CKD, history of renal cancer status post left nephrectomy, presented to the emergency room with feeling generalized weakness, dizziness and falls. Apparently from last 4 days patient has been feeling extremely fatigued and has fallen. He denies hitting his head. He also feels short of breath and has a raspy sound in his chest. He denies any cough. He lives by himself at home. He does complain of poor appetite and feeling somewhat nauseous but no vomiting. In the emergency room patient was found to be febrile to 101, was significantly hypoxic, had leukocytosis and a chest x-ray consistent with possible pneumonia. On admission, Vitals: T-max 101.4, HR 103-> 73, RR 20, BP 108/57, 89% 4LNC -CBC: Mild leukocytosis 11.4, H/H9 0.6/28.3, PLT 120, granulocytosis 95.2, bandemia -BMP: Hyponatremia 132, elevated creatinine 4.0w/ baseline 1.7 -PT/INR: 12.1/1.11 -UA/Microbiology: Pending, no previous microbiology -CXR: Abnormal left hemithoracic opacity, may represent infectious, inflammatory process versus neoplasm, new since 2008. -EKG: A-fib under control without pacer spike -Last Echo: No previous echo on file -Interventions in ER: Normal saline bolus 2, ceftriaxone/azithromycin 1, acetaminophen IV 1 #Sepsis 2/2 CAP (Fever, Tachycardia, source of infection) #Acute hypoxic resp failure #Community-acquired pneumonia #Normocytic anemia #MILLIE on CKD, pending further evaluation #Mild hypercalcemia, likely 2/2 home med #PMH of hypertension, hyperlipidemia, history of bradycardia S/P bichamber pacemaker sepsis secondary to community-acquired pneumonia Patient presented with generalized weakness, dizziness, fatigue, short of breath. T-max 101.7, tachycardic with chest x-ray findings suggestive of abnormal left hemithoracic opacity most likely pneumonia. Urine positive for Legionella antigen. He was admitted to telemetry for continuous pulse ox monitoring. * Sepsis secondary to community-acquired pneumonia * Continuous telemetry monitoring * Vitals per protocol * Monitor for fever, trace leukocyte count * Continue ceftriaxone and azithromycin day 3 * Follow-up blood cultures/sputum cultures * Supplemental oxygen * TRC nebs * Maintain saturations greater than 90 * CT chest confirmed left-sided pneumonia Acute hypoxic respiratory failure Patient is hypoxic from sepsis and pneumonia requiring oxygen supplementation. * Supplemental oxygen through nonrebreather mask * TRC nebs * Maintain saturations greater than 90 * Low threshold for intubation * CODE STATUS addressed, changed to DNR. Patient is okay to be intubated Dizziness Patient reports dizziness for last 4 days leading to multiple mechanical falls. He has no prior history of dizzy or lightheadedness. No syncopal events in the past. He has history of atrial fibrillation with pacemaker placement. He follows Dr. Gutierrez's group. * Physical therapy consult * Positive orthostatic vitals * Echocardiogram pending * Adequate hydration * Follow cardiology recommendations * Continue aspirin, Lipitor, Plavix * Serial troponin, EKG negative * Continuous telemetry monitoring Normocytic anemia Monitor hemoglobin closely Leukocytosis Most likely from pneumonia Thrombocytopenia Most likely from sepsis and pneumonia MILLIE on CKD Creatinine 4 at the time of admission. Baseline creatinine 3. Most likely prerenal and sepsis. * IV fluid resuscitation * Avoid nephrotoxic agents * Renal ultrasound normal * Creatinine 5 this morning * Follow nephro Recommendations Hyponatremia Sodium 127 this morning. Most likely hypovolemic hyponatremia from sepsis. Will give IV fluids and follow-up sodium in a.m. * Continue IV fluids normal saline at 75 mL/h * Recheck sodium in the a.m. Metabolic acidosis Bicarb 14, metabolic acidosis most likely from chronic kidney disease. Actuarial Trainee on board. * Started sodium bicarb 650 mg 3 tablets twice daily hypercalcemia Calcium 10.3 most likely secondary to home medication. Calcium back to normal Hypertension Continue amlodipine and Bystolic with holding parameters given his sepsis Hyperlipidemia Continue Lipitor 40 daily DVT prophylaxis ALPS only as PLT was low Heart Healthy Diet IV Access: Peripheral IV Full Code Problem List: 1. Pneumonia 2. Sepsis 3. Community acquired pneumonia Pain Ratin Pain Location: n/a Pain Goal: Remain pain free Pain Plan: tylinol Tomorrow's Labs & Rationales: cbc faby Waite MD,Amir 05/13/18 0945: Attending MD Review Statement Attending Statement Attending MD Statement: examined this patient, discuss w/resident/PA/WAX ROOM SUPERVISOR, agreed w/resident/PA/WAX ROOM SUPERVISOR, reviewed EMR data (avail), discussed with nursing Attending Assessment/Plan: Pt was seen and evalauted. Chart reviewed. Still having intermittent fever. Pt reprots getting soaking wet during rain 1 week ago when he was changing his flat tire. No mold issues at home. Found to have Legionella PNA --cont current abx --rest of the plan as per resident's note
[2018-05-13 09:45] LABS: GRANULOCYTE % 96.4 % (42.2-75.2)
[2018-05-13 14:10] VITALS: BP 94/46
--- NOTE | 2018-05-13 17:27 | RADIOLOGY REPORT ---
EXAMINATION: XR PORTABLE CHEST CLINICAL INFORMATION: Pneumonia, sepsis COMPARISON: 04/11/2018 TECHNIQUE: Portable frontal view of the chest was obtained. FINDINGS: Worsening dense consolidation of the left lung. Only a small amount of left lung is aerated at the apex. The right lung is clear. No evidence of pneumothorax. No right pleural effusion. The dense consolidation limits evaluation of the left chest for fusion. The heart size is unable to be assessed due to the dense left-sided consolidation. Left chest pacer with leads projecting over the right atrium and ventricle. No acute osseous abnormality. IMPRESSION: Worsening dense consolidation of the left lung.
--- NOTE | 2018-05-13 19:41 | Cons- CRCU ---
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 He was admitted for PNA and started on ceftriaxone and Azithromycin. His urine was positive for Legionella with CXR showing significant left lung consolidation. During day 2-day 4 patient had multiple episodes of desaturation and fever with a Tmax of 101.4, he was put on high flow. On Day 4, his resp status deteriorated with a CXR showing worsening left lung collapse. His ABG on 95% high flow was 7.42/23/68. Decision was made to transfer patient to ICU for continous pulse ox and management of worsening resp status. Allergies/Medications Allergies: Coded Allergies: No Known Allergies (05/10/18) Home Med List: Amlodipine Besylate 10 MG TABLET 1 TAB PO DAILY HEART (Reported) Aspirin (Aspirin*) 81 MG TAB.CHEW 1 TAB PO DAILY HEART HEALTH (Reported) Atorvastatin Calcium 40 MG TABLET 1 TAB PO DAILY CHOLESTEROL (Reported) Clopidogrel Bisulfate (Clopidogrel) 75 MG TABLET 1 TAB PO DAILY BLOOD THINNER (Reported) Ergocalciferol (Vitamin D2) (Vitamin D2) 50,000 UNIT CAPSULE 1 CAP PO Q 2 WEEKS VITAMIN SUPPORT (Reported) Folic Acid 1 MG TABLET 1 TAB PO DAILY VITAMIN SUPPORT (Reported) Nebivolol HCl (Bystolic) 10 MG TABLET 1 TAB PO DAILY HEART (Reported) Paricalcitol 1 MCG CAPSULE 1 CAP PO DAILY UNKNOWN (Reported) Past History Travel History Traveled to [place] past 21 day No Medical History Blood Transfusion Hx: No Neurological: NONE EENT: NONE Cardiovascular: hypertension, hyperlipidemia, CARDIAC PACEMAKER Respiratory: NONE Gastrointestinal: NONE Hepatic: NONE Renal: NONE Musculoskeletal: NONE Psychiatric: NONE Endocrine: NONE Blood Disorders: NONE Cancer(s): 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 Home Services at Home: None Smoking Status: Former Smoker ETOH Use: occasional use Illicit Drug Use: denies illicit drug use Exam & Diagnostic Data Last 24 Hrs of Vital Signs/I&O Vital Signs Date Time Temp Pulse Resp B/P B/P Pulse O2 O2 Flow FiO2 Mean Ox Delivery Rate 05/14 1222 98 Nasal 50% Cannula 05/14 1200 98 Nasal 60% Cannula 05/14 1125 98 Nasal 60% Cannula 05/14 1046 87 118/70 05/14 1045 84 118/70 05/14 0828 98 Nasal 70% Cannula 05/14 0821 82 94 05/14 0800 95 BIPAP 70% 05/14 0800 97.3 75 25 112/62 95 Nasal 70% Cannula 05/14 0546 86 96 05/14 0400 94 BIPAP 70% 05/14 0313 80 93 05/14 0032 85 92 05/14 0000 97.4 86 25 110/60 90 BIPAP 70% 05/14 0000 92 BIPAP 70% 05/13 2230 76 92 05/13 2000 BIPAP 80% 05/13 1920 68 94 05/13 1750 67 91 05/13 1600 Nasal 95% Cannula 05/13 1438 99.3 05/13 1430 91 Nasal 90% Cannula 05/13 1410 99.3 88 20 94/46 88 Nasal Cannula Intake & Output 05/14 1600 05/14 0800 05/14 0000 Intake Total 460 100 Output Total 480 150 Balance -20 -50 Intake, IV 460 100 Output, Urine 480 150 Patient 195 lb 194 lb Weight Weight Bed scale Measurement Method Physical Exam General Appearance: alert, awake, moderate distress Head: atraumatic Ears, Nose, Throat: normal pharynx, normal ENT inspection Neck: normal inspection, supple Respiratory: no appreciable breath sounds on the left side. Right side CTA. Cardiovascular: irregularly irregular Gastrointestinal: normal bowel sounds, soft, non-tender Extremities: normal inspection, normal capillary refill, no edema Neurologic/Psych: no motor/sensory deficits, awake, alert, oriented x 3 Skin: intact, normal color Lymphatic: no anterior cervical eduardo Last 48 Hrs of Labs/Mike: Laboratory Tests 05/13/18 2300: CBC w Diff NO MAN DIFF REQ, RBC 2.96 L, MCV 87.7, MCH 28.8, MCHC 32.9 L, RDW 14.9 H, MPV 10.3, Gran % 95.2 H, Lymphocytes % 1.6 L, Monocytes % 3.0, Eosinophils % 0.2, Basophils % 0, Absolute Granulocytes 6.4, Absolute Lymphocytes 0.1 L, Absolute Monocytes 0.2, Absolute Eosinophils 0, Absolute Basophils 0 05/13/182214: Troponin I Cancelled 05/13/182129: Anion Gap 15, Estimated GFR 10 L, Glucose 108 H, Lactic Acid 0.9, Calcium 9.0, Phosphorus 6.2 H, Magnesium 1.8, Total Bilirubin 0.4, AST 304 H, ALT 241 H, Troponin I 0.05, Albumin 2.4 L 05/13/182039: Anion Gap 14, Estimated GFR 12 L, BUN/Creatinine Ratio 17.2 05/13/182004: pH 7.42, pCO2 23 L, pO2 75 L, HCO3 14 L, ABG O2 Sat (Measured) 93.0 L, P-50 (Temp Corrected) Y, Carboxyhemoglobin 0.6 L, O2 Concentration % 80%, Temperature 100.0, Respiration Rate 26, O2 Delivery Method FFM, Vent Mode ST, Expiratory Pressure 8, Inspiratory Pressure 20, Phlebotomy Draw Site RIGHT BRACHIAL 05/13/181709: pH 7.42, pCO2 23 L, pO2 68 L, HCO3 14 L, ABG O2 Sat (Measured) 92.0 L, P-50 (Temp Corrected) Y, Carboxyhemoglobin 0.3 L, O2 Concentration % 95%, Temperature 100.0, O2 Delivery Method HFNC AT 55LPM, Phlebotomy Draw Site RIGHT RADIAL 05/13/18 0600: Anion Gap 15, Estimated GFR 11 L, BUN/Creatinine Ratio 15.8, CBC w Diff NO MAN DIFF REQ, RBC 2.75 L, MCV 85.6, MCH 29.8, MCHC 34.8, RDW 14.4, MPV 10.7 H, Gran % 96.4 H, Lymphocytes % 1.1 L, Monocytes % 2.5, Eosinophils % 0, Basophils % 0, Absolute Granulocytes 6.5, Absolute Lymphocytes 0.1 L, Absolute Monocytes 0.2, Absolute Eosinophils 0, Absolute Basophils 0 Assessment/Plan CRCU Impression/Plan: 87 y/o gentleman with PMH significant for right nephrectomy from RCC, CKD, HTN, HLD initially admitted to Telemetry for PNA with isolated legionella is now exhibiting worsening hypoxic respiratory failure with CXR remarkable for worsening left lung collapse. Impression * Acute Hypoxic respiratory failure, now requiring BiPAP at 100% Fio2. * Legionella PNA * Hyponatremia * Atrial fibrillation (chronic, not anticoagulation by patient's choice and neurologist). * MILLIE on CKD * Anemia Plan * Maintain at ICU * Continue BiPAP for now at 19/8, RR 27, FIO2 100, to keep sats above 92% * ABG in one hour and adjust settings accordingly * Continue Azithromycin for Legionella (Day 4) * Repeat CXR in the am * F/u blood and sputum cultures * TRC/nebs * Continue Bystolic, Atorvastatin, Plavix/aspirin, norvasc as part of cardio vascular regimen * Continue Bicarb 1950 mg bid per nephro * Obtain BEP now, and adjust fluids for the hyponatremia * Code status: DNR * DVT:ALPS Problem List: 1. Sepsis 2. Pneumonia Consult Acknowledgment - Thank you for your consult request. Zenon SANCHEZ,Bubba Denise 05/13/182024: Assessment/Plan CRCU Other Findings/Comments: I have personally seen and examined the patient, and agree with the housestaff's assessment and plan as detailed above. Briefly, the patient is an 87-year-old male with a past medical history significant for hypertension, hyperlipidemia, bradycardia status post bichamber cardiac pacemaker placement, history of CKD, and right nephrectomy in 2014 for renal cell carcinoma. The patient was admitted on 05/10/2018 noting he was brought in by ambulance with generalized weakness and a T-max of 101.4 and sustained a mechanical fall at home. Patient was worked up and found to have a significant left-sided pneumonia. He was started on subtraction azithromycin. Urine was positive for Legionella. The patient has had a deteriorating course over the past several days noting that he has significantly desaturated and has continued to require increasing amounts of oxygen. The patient was noted to have significant worsening respiratory distress and was transferred to ICU for continuous pulse ox monitoring and respiratory support. The patient was placed on BiPAP 20/8, respiratory rate 20, oxygen 100%. The patient is currently awake and comfortable. His oxygen was turned down to 80% and he is saturating in the mid 90s. Upon questioning the patient, he states his mouth is dry however he does not feel short of breath on BiPAP. His respiratory rate is in the low 20s. He does not have diaphoresis, paradoxical respirations or use of accessory muscles at the present time. His chest x-ray shows progressively worsening dense left lung consolidation with only slight aeration at the left apex. Physical exam is remarkable for absent breath sounds on the left. ABG shows a pH of 7.42, PCO2 23, PO2 75, and bicarb of 14. Impression: 1. Hypoxemic respiratory failure secondary to Legionella pneumonia. 2. Acute on chronic renal failure. 3. Hyponatremia secondary to Legionella pneumonia. 4. Non-anion gap metabolic acidosis secondary to renal failure. 5. Anemia without evidence of bleeding. Plan: * Continue BiPAP at current settings. * Attempt to titrate oxygen down for saturations greater than 92%. * Low threshold for intubation if the patient has increased respiratory distress. * Nebs/TRC. * Chest percussion. * Check a CBC, ICU bundle, lactic acid, troponin and EKG now. * Change IVF to D5W with 3 amps of Bicarb per liter at 75 ml/hr. * Continue Ceftriaxone and azithro. * ID consult to be requested. * Order a stat US of the left chest for evaluation of pleural effusion. * US guided thoracentesis at the bedside if significant fluid seen. * Can not move patient to radiology for CT. * Hold plavix tomorrow am in anticipation of thoracentesis. * DVT prophylaxis at all times. * The patient is critically ill. We will discuss with patient's family. * Discussed with housestaff. Consult Acknowledgment - Thank you for your consult request.
--- NOTE | 2018-05-13 20:39 | Event Note ---
Event Note Event Note: Situation: Mr. Olmstead was undergoing respiratory therapy when he desaturated to the 80s. He was exhibiting increased respiratory effort and fatigue. Upon assessment and evaluation it was likely that his condition was deteriorating & he would require admission to the ICU for better respiratory care. Background: The patient is an 87-year-old man with past medical history significant for hypertension, hyperlipidemia, history of bradycardia with pacemaker, and CKD who has come here because of generalized weakness and fever of 101.4, and cough. Pt is admitted with differential diagnosis of rule out sepsis, acute hypoxic respiratory failure, community acquired pneumonia. Legionella urinary antigen was positive as well. Assessment & Recommendation: Pt was transferred to the ICU. We tried calling the family to inform them, but we could not reach them on the phone number provided. We will try again.
[2018-05-13 23:25] LABS: ABSOLUTE BASOPHIL COUNT 0 /CUMM (0.0-0.2); ABSOLUTE EOSINOPHIL COUNT 0 /CUMM (0.0-0.7); ABSOLUTE GRANULOCYTE CT 6.4 /CUMM (1.4-6.5); ABSOLUTE LYMPH COUNT 0.1 /CUMM (1.2-3.4); ABSOLUTE MONOCYTE COUNT 0.2 /CUMM (0.10-0.60); BASOPHIL % 0 % (0.0-2.0); EOSINOPHIL % 0.2 % (0-5); GRANULOCYTE % 95.2 % (42.2-75.2); MEAN CORPUSCULAR HGB 28.8 PG (27.0-31.0); MEAN CORPUSCULAR HGB CONC 32.9 G/DL (33.0-37.0); MEAN CORPUSCULAR VOLUME 87.7 FL (80.0-94.0); MEAN PLATELET VOLUME 10.3 FL (7.4-10.4); PLATELET COUNT 149 /CUMM (130-400); RBC DISTRIBUTION WIDTH 14.9 % (11.5-14.5); RED BLOOD CELL CT 2.96 /CUMM (4.70-6.10); WHITE BLOOD CELL COUNT 6.7 /CUMM (4.8-10.8)
[2018-05-14] VITALS: BP 110/60
[2018-05-14 05:39] LABS: ABSOLUTE BASOPHIL COUNT 0 /CUMM (0.0-0.2); ABSOLUTE EOSINOPHIL COUNT 0 /CUMM (0.0-0.7); ABSOLUTE GRANULOCYTE CT 6.1 /CUMM (1.4-6.5); ABSOLUTE LYMPH COUNT 0.2 /CUMM (1.2-3.4); ABSOLUTE MONOCYTE COUNT 0.3 /CUMM (0.10-0.60); BASOPHIL % 0 % (0.0-2.0); EOSINOPHIL % 0.3 % (0-5); GRANULOCYTE % 91.6 % (42.2-75.2); HEMATOCRIT 25.5 % (42-52); MEAN CORPUSCULAR HGB 29.5 PG (27.0-31.0); MEAN CORPUSCULAR HGB CONC 34.2 G/DL (33.0-37.0); MEAN CORPUSCULAR VOLUME 86.1 FL (80.0-94.0); MEAN PLATELET VOLUME 10.8 FL (7.4-10.4); PLATELET COUNT 151 /CUMM (130-400); RBC DISTRIBUTION WIDTH 14.6 % (11.5-14.5); RED BLOOD CELL CT 2.97 /CUMM (4.70-6.10); WHITE BLOOD CELL COUNT 6.6 /CUMM (4.8-10.8)
--- NOTE | 2018-05-14 07:20 | RADIOLOGY REPORT ---
EXAMINATION: XR PORTABLE CHEST CLINICAL INFORMATION: Pneumonia COMPARISON: Chest x-ray 05/13/2018 TECHNIQUE: Portable frontal view of the chest was obtained. FINDINGS: Persistent prominent left upper lobe consolidation, however, there appears to be slight improvement in aeration of the left hemithorax. The right hemithorax remains well aerated. Stable orientation of dual lead pacemaker. IMPRESSION: Persistent prominent left upper lobe consolidation, however, there appears to be slight improvement in aeration of the left hemithorax.
[2018-05-14 08:00] VITALS: BP 112/62
--- NOTE | 2018-05-14 08:06 | PN- Resident CRCU ---
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 He was on BiPAP 20/8 with 70% O2, down from 100% overnight, looking SOB. He is mentating well, awake and alert. BP hovering around 100s/60s and an AM CXR showing slight improvement in areation of L lung. No edema is noted, he is afebrile this AM: latest temp 97.3, 100.5 yesterday morning; he has no acute complains besides loss of appetite but did inquire about breakfast. Objective Vital Signs & I&O Last 8 Hrs of Vitals and I&O: Vital Signs Date Time Temp Pulse Resp B/P B/P Pulse O2 O2 Flow FiO2 Mean Ox Delivery Rate 05/14 0821 82 94 05/14 0800 95 BIPAP 70% 05/14 0800 97.3 75 25 112/62 95 Nasal 70% Cannula 05/14 0546 86 96 05/14 0400 94 BIPAP 70% 05/14 0313 80 93 05/14 0032 85 92 05/14 0000 97.4 86 25 110/60 90 BIPAP 70% 05/14 0000 92 BIPAP 70% 05/13 2230 76 92 05/13 2000 BIPAP 80% 05/13 1920 68 94 05/13 1750 67 91 05/13 1600 Nasal 95% Cannula 05/13 1438 99.3 05/13 1430 91 Nasal 90% Cannula 05/13 1410 99.3 88 20 94/46 88 Nasal Cannula 05/13 1233 92 Nasal 90% Cannula 05/13 1111 100.5 05/13 1031 82 112/58 05/13 1030 82 112/58 Intake & Output 05/14 1600 05/14 0800 05/14 0000 Intake Total 460 100 Output Total 480 150 Balance -20 -50 Intake, IV 460 100 Output, Urine 480 150 Patient 194 lb Weight Weight Bed scale Measurement Method Laboratory Tests 05/14 05/13 0400 2300 Chemistry Sodium (137 - 145 mmol/L) 129 L Potassium (3.5 - 5.1 mmol/L) 4.1 Chloride (98 - 107 mmol/L) 95 L Carbon Dioxide (22 - 30 mmol/L) 17 L Anion Gap (5 - 16) 17 H BUN (9 - 20 mg/dL) 87 H Creatinine (0.7 - 1.2 mg/dL) 5.4 *H Estimated GFR (>60 ml/min) 10 L Glucose (65 - 99 mg/dL) 107 H Calcium (8.4 - 10.2 mg/dL) 9.1 Phosphorus (2.5 - 4.5 mg/dL) 6.5 H Magnesium (1.6 - 2.3 mg/dL) 1.8 Total Bilirubin (0.2 - 1.3 mg/dL) 0.4 AST (17 - 59 U/L) 286 H ALT (21 - 72 U/L) 238 H Albumin (3.5 - 5.0 g/dL) 2.5 L Hematology CBC w Diff MAN DIFF ORDERED NO MAN DIFF REQ WBC (4.8 - 10.8 /CUMM) 6.6 6.7 RBC (4.70 - 6.10 /CUMM) 2.97 L 2.96 L Hgb (14.0 - 18.0 G/DL) 8.7 L 8.5 L Hct (42 - 52 %) 25.5 L 26.0 L MCV (80.0 - 94.0 FL) 86.1 87.7 MCH (27.0 - 31.0 PG) 29.5 28.8 MCHC (33.0 - 37.0 G/DL) 34.2 32.9 L RDW (11.5 - 14.5 %) 14.6 H 14.9 H Plt Count (130 - 400 /CUMM) 151 149 MPV (7.4 - 10.4 FL) 10.8 H 10.3 Gran % (42.2 - 75.2 %) 91.6 H 95.2 H Lymphocytes % (20.5 - 51.1 %) 3.7 L 1.6 L Monocytes % (1.7 - 9.3 %) 4.4 3.0 Eosinophils % (0 - 5 %) 0.3 0.2 Basophils % (0.0 - 2.0 %) 0 0 Absolute Granulocytes (1.4 - 6.5 /CUMM) 6.1 6.4 Segmented Neutrophils (42.2 - 75.2 %) 95 H Absolute Lymphocytes (1.2 - 3.4 /CUMM) 0.2 L 0.1 L Lymphocytes (20.5 - 51.1 %) 3 L Monocytes (1.7 - 9.3 %) 2 Absolute Monocytes (0.10 - 0.60 /CUMM) 0.3 0.2 Absolute Eosinophils (0.0 - 0.7 /CUMM) 0 0 Absolute Basophils (0.0 - 0.2 /CUMM) 0 0 Platelet Estimate (ADEQUATE) ADEQUATE Polychromasia 1+ Poikilocytosis 2+ Ovalocytes 1+ Ludin Cells 1+ Other Body Source Fld Total RBCs Counted (%) 100 05/13 Blood Gas pH (7.35 - 7.45 PH) 7.42 pCO2 (35 - 45 TORR) 23 L pO2 (80 - 100 TORR) 75 L HCO3 (21 - 28 MEQ/L) 14 L ABG O2 Sat (Measured) (>96.0 %) 93.0 L P-50 (Temp Corrected) Y Carboxyhemoglobin (1.5 - 5.0 %) 0.6 L O2 Concentration % 80% Temperature (97.0 - 100.0 FARH) 100.0 Respiration Rate (BPM) 26 O2 Delivery Method FFM Vent Mode ST Expiratory Pressure (CM H2O P) 8 Inspiratory Pressure (CM H2O P) 20 Chemistry Sodium (137 - 145 mmol/L) 128 L 129 L Potassium (3.5 - 5.1 mmol/L) 4.3 4.7 Chloride (98 - 107 mmol/L) 96 L 100 Carbon Dioxide (22 - 30 mmol/L) 17 L 15 L Anion Gap (5 - 16) 15 14 BUN (9 - 20 mg/dL) 85 H 81 H Creatinine (0.7 - 1.2 mg/dL) 5.3 *H 4.7 H Estimated GFR (>60 ml/min) 10 L 12 L BUN/Creatinine Ratio (7 - 25 %) 17.2 Glucose (65 - 99 mg/dL) 108 H Lactic Acid (0.7 - 2.1 mmol/L) 0.9 Calcium (8.4 - 10.2 mg/dL) 9.0 Phosphorus (2.5 - 4.5 mg/dL) 6.2 H Magnesium (1.6 - 2.3 mg/dL) 1.8 Total Bilirubin (0.2 - 1.3 mg/dL) 0.4 AST (17 - 59 U/L) 304 H ALT (21 - 72 U/L) 241 H Troponin I (<0.11 ng/ml) Cancelled 0.05 Albumin (3.5 - 5.0 g/dL) 2.4 L Miscellaneous Phlebotomy Draw Site RIGHT BRACHIAL 05/13 1710 Blood Gas pH (7.35 - 7.45 PH) 7.42 pCO2 (35 - 45 TORR) 23 L pO2 (80 - 100 TORR) 68 L HCO3 (21 - 28 MEQ/L) 14 L ABG O2 Sat (Measured) (>96.0 %) 92.0 L P-50 (Temp Corrected) Y Carboxyhemoglobin (1.5 - 5.0 %) 0.3 L O2 Concentration % 95% Temperature (97.0 - 100.0 FARH) 100.0 O2 Delivery Method HFNC AT 55LPM Miscellaneous Phlebotomy Draw Site RIGHT RADIAL Microbiology Date/Time Procedure - Status Source Growth 05/13 1745 Surveillance Culture - RECD GI 05/13 1740 Surveillance Culture - RECD UPPER RESP 05/13 173 Urine Culture - RES URINE ROUT Exam General Appearance: alert, awake, mild distress Head: atraumatic, normal appearance Neck: normal inspection, supple Respiratory: decreased breath sounds on the L side, scattered crackles. R lung CTA Cardiovascular: regular rate/rhythm, No murmurs, rubs or gallops Gastrointestinal: normal bowel sounds, soft, non-tender, no organomegaly Extremities: normal inspection, normal capillary refill, no edema Current Medications: Current Medications Sig/Shanna Start time Last Medication Dose Route Stop Time Status Admin Acetaminophen 1,000 MG .STK-MED ONE 05/13 1732 DC IV 05/13 1733 Acetaminophen 650 MG Q6P PRN 05/10 1745 AC PO Acetaminophen 1,000 MG Q6P PRN 05/10 1745 AC 05/13 IV 1111 Acetylcysteine 2 ML EVERY 4 HRS/AWAKE 05/13 2100 AC 05/14 INH 08 Albuterol Sulfate 3 ML EVERY 4 HRS/AWAKE 05/13 2100 AC 05/14 INH 08 Albuterol Sulfate 3 ML BID 05/13 09 DC 05/13 INH 1555 Amlodipine Besylate 10 MG DAILY 05/11 09 DC 05/13 PO 1030 Aspirin 81 MG DAILY 05/11 09 AC 05/13 PO 1026 Atorvastatin Calcium 40 MG DAILY 05/11 0900 AC 05/13 PO 1026 Azithromycin 500 MG 1400 05/11 1400 AC 05/13 Sodium Chloride 250 ML IV 1316 Ceftriaxone Sodium 1,000 MG ONCE ONE 05/14 0845 DC IV 05/14 0846 Ceftriaxone Sodium 1,000 MG 1400 05/11 1400 DC 05/13 IV 1316 Ciprofloxacin 400 MG Q24H 05/14 1100 AC Dextrose/Water 200 ML IV Ciprofloxacin 400 MG DAILY 05/14 1013 CAN IV Clopidogrel Bisulfate 75 MG DAILY 05/11 09 DC 05/13 PO 1027 Folic Acid 1 MG DAILY 05/11 09 AC 05/13 PO 1026 Magnesium Oxide 400 MG DAILY 05/12 2008 AC 05/13 PO 1027 Nebivolol 10 MG DAILY 05/11 09 DC 05/13 PO 1031 Oxycodone HCl 10 MG Q6P PRN 05/10 1745 AC PO Rifampin 300 MG BID 05/14 1030 AC PO Sodium Bicarbonate 150 MEQ CONTINOUS INFUSION 05/13 2115 AC 05/13 Dextrose/Water 1,000 ML IV 2348 Sodium Bicarbonate 1,950 MG BID 05/11 1233 DC 05/13 PO 1028 Sodium Chloride 1,000 ML Q13H 05/13 1100 DC 05/13 IV 05/13 2359 1127 CXR Findings: SERVICE DATE: 05/14/18050 EXAM TYPE: RAD - XRY-PORTABLE CHEST XRAY EXAMINATION: XR PORTABLE CHEST CLINICAL INFORMATION: Pneumonia COMPARISON: Chest x-ray 05/13/2018 TECHNIQUE: Portable frontal view of the chest was obtained. FINDINGS: Persistent prominent left upper lobe consolidation, however, there appears to be slight improvement in aeration of the left hemithorax. The right hemithorax remains well aerated. Stable orientation of dual lead pacemaker. IMPRESSION: Persistent prominent left upper lobe consolidation, however, there appears to be slight improvement in aeration of the left hemithorax. US Findings: SERVICE DATE: 05/14/18 EXAM TYPE: US - US-CHEST EXAM: Limited chest ultrasound INDICATION: Acute desaturation requiring BiPAP FINDINGS: Ultrasound imaging of the left chest revealed a small amount of pleural effusion. No safe window to tap could be identified. Thoracentesis was therefore not performed. CONCLUSION: Small pleural effusion identified. No thoracentesis performed. 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 He was admitted for PNA and started on ceftriaxone and azithromycin. His urine was positive for Legionella with CXR showing significant left lung consolidation. During day 2-day 4 patient had multiple episodes of desaturation and fever; he was put on high flow. On Day 4, his resp status deteriorated with a CXR showing worsening left lung collapse. His ABG on 95% high flow was 7.42//. Decision was made to transfer patient to ICU for continous pulse ox monitoring and management of worsening resp status. IMPRESSION #Hypoxemic respiratory failure 2/2 Legionella PNA. #MILLIE-on-CKD, stage IV/V #Hyponatremia 2/2 Legionella #Transaminitis 2/2 Legionella #Non-anion gap metabolic acidosis 2/2 renal failure. #Hypoxemic respiratory failure 2/2 Legionella PNA. * Positive Legionella urinary antigen, left hemithorax opacification on CXR, slightly improved today. Afebrile * BiPAP/High flow alternation as tolerated. * ID consulted * Off azithromycin (4 days), started moxifloxacin IV, rifampin PO #MILLIE-on-CKD // Non anion gap metabolic acidosis 2/2 renal failure * Cr trending up since admit, 4.0->5.4 latest am lab in the setting of sepsis, likely pre renal, pt -received 140 mg of lasix over two days. 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 Could be due to Legionella and/or related to his renal insufficiency. * F/u urine spot electrolytes * Trend renal fx * Hold diuretics DNR Renal Diet DVT PPX Problem List: 1. Community acquired pneumonia Pain Ratin Tomorrow's Labs & Rationales: cbc, icu lab bundle Plan DVT/Prophylaxis: mechanical
--- NOTE | 2018-05-14 08:15 | PN- CRCU ---
Subjective HPI/Critical Care Issues: The patient is awake and alert. He was intermittently confused overnight. His oxygen requirement has decreased to 70% and his saturations are in the low 90s. He remains on BiPAP. His urine output remained adequate with IV fluid hydration. He is afebrile. Objective Current Medications: Current Medications Sig/Shanna Start time Last Medication Dose Route Stop Time Status Admin Acetaminophen 1,000 MG .STK-MED ONE 05/13 1732 DC IV 05/13 1733 Acetaminophen 650 MG Q6P PRN 05/10 1745 AC PO Acetaminophen 1,000 MG Q6P PRN 05/10 1745 AC 05/13 IV 1111 Acetylcysteine 2 ML EVERY 4 HRS/AWAKE 05/13 2100 AC 05/13 INH 2140 Albuterol Sulfate 3 ML EVERY 4 HRS/AWAKE 05/13 2100 AC 05/13 INH 2140 Albuterol Sulfate 3 ML BID 05/13 0900 DC 05/13 INH 1555 Amlodipine Besylate 10 MG DAILY 05/11 09 AC 05/13 PO 1030 Aspirin 81 MG DAILY 05/11 0900 AC 05/13 PO 1026 Atorvastatin Calcium 40 MG DAILY 05/11 0900 AC 05/13 PO 1026 Azithromycin 500 MG 1400 05/11 1400 AC 05/13 Sodium Chloride 250 ML IV 1316 Ceftriaxone Sodium 1,000 MG 1400 05/11 1400 DC 05/13 IV 1316 Clopidogrel Bisulfate 75 MG DAILY 05/11 0900 DC 05/13 PO 1027 Folic Acid 1 MG DAILY 05/11 0900 AC 05/13 PO 1026 Magnesium Oxide 400 MG DAILY 05/12 2008 AC 05/13 PO 1027 Nebivolol 10 MG DAILY 05/11 0900 AC 05/13 PO 1031 Oxycodone HCl 10 MG Q6P PRN 05/10 1745 AC PO Sodium Bicarbonate 150 MEQ CONTINOUS INFUSION 05/13 2115 AC 05/13 Dextrose/Water 1,000 ML IV 2348 Sodium Bicarbonate 1,950 MG BID 05/11 1233 DC 05/13 PO 1028 Sodium Chloride 1,000 ML Q13H 05/13 1100 DC 05/13 IV 05/13 2359 1127 Vital Signs & I&O Last 24 Hrs of Vitals and I&O: Vital Signs Date Time Temp Pulse Resp B/P B/P Pulse O2 O2 Flow FiO2 Mean Ox Delivery Rate 05/14 0546 86 96 05/14 0400 94 BIPAP 70% 05/14 0313 80 93 05/14 0032 85 92 05/14 0000 97.4 86 25 110/60 90 BIPAP 70% 05/14 0000 92 BIPAP 70% 05/13 2230 76 92 05/13 2000 BIPAP 80% 05/13 1920 68 94 05/13 1750 67 91 05/13 1600 Nasal 95% Cannula 05/13 1438 99.3 05/13 1430 91 Nasal 90% Cannula 05/13 1410 99.3 88 20 94/46 88 Nasal Cannula 05/13 1233 92 Nasal 90% Cannula 05/13 1111 100.5 05/13 1031 82 112/58 05/13 1030 82 112/58 05/13 0830 92 Nasal 90% Cannula Intake & Output 05/14 1600 05/14 0800 05/14 0000 Intake Total 460 100 Output Total 480 150 Balance -20 -50 Intake, IV 460 100 Output, Urine 480 150 Patient 194 lb Weight Weight Bed scale Measurement Method Physical Exam General Appearance: alert, awake, moderate distress, on BiPAP Head: atraumatic Ears, Nose, Throat: normal pharynx, normal ENT inspection Neck: normal inspection, supple Respiratory: no appreciable breath sounds on the left side, scattered rhonchi on right Cardiovascular: irregularly irregular Gastrointestinal: normal bowel sounds, soft, non-tender Extremities: normal inspection, normal capillary refill, no edema Neurologic/Psych: no motor/sensory deficits, awake Skin: intact, normal color, no edema Results Last 24 Hrs of Lab Results: Laboratory Tests 05/14/18 0400: Anion Gap 17 H, Estimated GFR 10 L, Glucose 107 H, Calcium 9.1, Phosphorus 6.5 H, Magnesium 1.8, Total Bilirubin 0.4, AST 286 H, ALT 238 H, Albumin 2.5 L, CBC w Diff MAN DIFF ORDERED, RBC 2.97 L, MCV 86.1, MCH 29.5, MCHC 34.2, RDW 14.6 H, MPV 10.8 H, Gran % 91.6 H, Lymphocytes % 3.7 L, Monocytes % 4.4, Eosinophils % 0.3, Basophils % 0, Absolute Granulocytes 6.1, Segmented Neutrophils 95 H, Absolute Lymphocytes 0.2 L, Lymphocytes 3 L, Monocytes 2, Absolute Monocytes 0.3, Absolute Eosinophils 0, Absolute Basophils 0, Platelet Estimate ADEQUATE, Polychromasia 1+, Poikilocytosis 2+, Ovalocytes 1+, Ludin Cells 1+, Fld Total RBCs Counted 100 05/13/18 2300: CBC w Diff NO MAN DIFF REQ, RBC 2.96 L, MCV 87.7, MCH 28.8, MCHC 32.9 L, RDW 14.9 H, MPV 10.3, Gran % 95.2 H, Lymphocytes % 1.6 L, Monocytes % 3.0, Eosinophils % 0.2, Basophils % 0, Absolute Granulocytes 6.4, Absolute Lymphocytes 0.1 L, Absolute Monocytes 0.2, Absolute Eosinophils 0, Absolute Basophils 0 05/13/182214: Troponin I Cancelled 05/13/180: Anion Gap 15, Estimated GFR 10 L, Glucose 108 H, Lactic Acid 0.9, Calcium 9.0, Phosphorus 6.2 H, Magnesium 1.8, Total Bilirubin 0.4, AST 304 H, ALT 241 H, Troponin I 0.05, Albumin 2.4 L 05/13/182039: Anion Gap 14, Estimated GFR 12 L, BUN/Creatinine Ratio 17.2 05/13/182004: pH 7.42, pCO2 23 L, pO2 75 L, HCO3 14 L, ABG O2 Sat (Measured) 93.0 L, P-50 (Temp Corrected) Y, Carboxyhemoglobin 0.6 L, O2 Concentration % 80%, Temperature 100.0, Respiration Rate 26, O2 Delivery Method FFM, Vent Mode ST, Expiratory Pressure 8, Inspiratory Pressure 20, Phlebotomy Draw Site RIGHT BRACHIAL 05/13/180: pH 7.42, pCO2 23 L, pO2 68 L, HCO3 14 L, ABG O2 Sat (Measured) 92.0 L, P-50 (Temp Corrected) Y, Carboxyhemoglobin 0.3 L, O2 Concentration % 95%, Temperature 100.0, O2 Delivery Method HFNC AT 55LPM, Phlebotomy Draw Site RIGHT RADIAL Diagnostic Data CXR Findings: Persistent left upper lobe opacification with slight improvement in aeration. Impression/Plan Impression/Plan Impression/Plan: 1. Hypoxemic respiratory failure secondary to Legionella pneumonia. 2. Acute on chronic renal failure - worsening. 3. Hyponatremia secondary to Legionella pneumonia. 4. Non-anion gap metabolic acidosis secondary to renal failure. 5. Anemia without evidence of bleeding. Recommendations: * Await possible ultrasound-guided thoracentesis this morning. * Continue BiPAP at current settings. Fluctuate between high flow as tolerated. * Attempt to titrate oxygen down for saturations greater than 92%. * Low threshold for intubation if the patient has increased respiratory distress. * Nebs/TRC. * Chest percussion. * Check a CBC, ICU bundle, lactic acid, troponin and EKG now. * Change IVF to D5W with 3 amps of Bicarb per liter at 75 ml/hr. * Renal input requested. * Continue Ceftriaxone and azithro. * ID consult to be requested. * Hold plavix in anticipation of thoracentesis. * DVT prophylaxis at all times. * The patient is critically ill. * Discussed with housestaff.
--- NOTE | 2018-05-14 08:23 | Event Note ---
Event Note Event Note: I met with the patient's family last evening for an extended meeting. The patient's 3 sons, granddaughter and other grandchildren were present during the meeting. I explained to them the nature of the situation and the fact that the patient is critically ill. We discussed the patient's end-of-life wishes should he continue to deteriorate. The family was in agreement that short-term mechanical ventilation would be consistent with his wishes however he will remain DO NOT RESUSCITATE. All questions were answered. House staff were present during the meeting. I asked the family to contact me should they have any questions. TTS 1.25 H
--- NOTE | 2018-05-14 09:33 | PN- Nephrology ---
Assessment/Plan Nephrology Assessment: Chronic kidney disease stage 4-5: Baseline creatinine is in the threes with estimate GFR of approximately 15 mL/m on the cusp between stage IV and stage V chronic kidney disease, suspected due to hypertension and status post nephrectomy for renal cell carcinoma. MILLIE: I suspect prerenal azotemia secondary to pneumonia and recent diuretics. Agree with holding diuretics and gentle IV hydration. Cannot rule out element of ATN and or Legionella-induced interstitial nephritis, which is a rare complication of Legionella infection. Suspect severe renal failure he is nonoliguric without hyperkalemia and without overt uremic symptoms, without overt volume overload, and there is no acute indication for dialysis. Metabolic acidosis: Associated with elevated anion gap and a normal lactic acid level, and normal blood glucose. Suspect metabolic acidosis the courtesy KD and agree with bicarbonate infusion. Hyponatremia: May be hypovolemic and agree with isotonic IV fluids; excess free water intake relative to solute intake in the setting of severe renal failure ( with inability to maximally dilute) and also contribute and/or cause the hyponatremia in his case. Suggestion: Continue D5W with 150 meq per liter sodium bicarbonate at 75 mL per hour Once the bicarbonate levels greater than 20 which changed to D5NS at 75 mL per hour Check hepatitis B panel in case requires dialysis during this hospital stay There is no emergent indication for dialysis at this time Hold diuretics for now Repeat spot urine sodium and check a spot urine also Subjective Subjective: Weekend events reviewed Patient required BiPAP for hypoxemic respiratory failure Currently on high flow O2 Is breathing more comfortably today His creatinine level is 5.4 today up from 5.3 yesterday Baseline creatinine is in the threes He is nonoliguric Review of Systems: He has a cough with sputum production which is blood-tinged He has a Lujan catheter in ; denies recent issues voiding No confusion No nausea or vomiting Objective Vital Signs and I&Os Vital Signs Date Time Temp Pulse Resp B/P B/P Pulse O2 O2 Flow FiO2 Mean Ox Delivery Rate 05/14 0821 82 94 05/14 08 95 BIPAP 70% 05/14 08 97.3 75 25 112/62 95 Nasal 70% Cannula 05/14 0546 86 96 05/14 0400 94 BIPAP 70% 05/14 0313 80 93 05/14 0032 85 92 05/14 0000 97.4 86 25 110/60 90 BIPAP 70% 05/14 0000 92 BIPAP 70% 05/13 2230 76 92 05/13 2000 BIPAP 80% 05/13 1920 68 94 05/13 1750 67 91 05/13 1600 Nasal 95% Cannula 05/13 1438 99.3 05/13 1430 91 Nasal 90% Cannula 05/13 1410 99.3 88 20 94/46 88 Nasal Cannula 05/13 1233 92 Nasal 90% Cannula 05/13 1111 100.5 05/13 1031 82 112/58 05/13 1030 82 112/58 Intake & Output 05/14 1600 05/14 0400 05/13 1600 05/13 0400 05/12 1600 05/12 0400 Intake Total 121 876 0448 150 1790 120 Output Total 480 150 500 300 700 100 Balance -20 -50 540 -150 1090 20 Intake, IV 460 100 370 350 Intake, Oral 860 491 5315 120 Number 0 1 Bowel Movements Output, Urine 480 150 500 300 700 100 Patient 194 lb 204 lb 198 lb Weight Weight Bed scale Bed scale Bed scale Measurement Method Physical Exam: General: NAD, A+O x3. HEENT: NC/AT. No icterus. + Pallor Neck: negative for ALEXIS, JVD CV: RRR, no m/r/g Pulm: Positive decreased breath sounds and crackles left base. right lung sounds clear Abd: soft, NT Lower Ext: neg edema Upper Ext: no AVFs or AVGs Back: negative for CVA tenderness Neuro: neg tremor, asterixis Skin: no rash, jaundice : + lujan catheter Current Medications: Current Medications Sig/Shanna Start time Last Medication Dose Route Stop Time Status Admin Acetaminophen 1,000 MG .STK-MED ONE 05/13 1732 DC IV 05/13 1733 Acetaminophen 650 MG Q6P PRN 05/10 1745 AC PO Acetaminophen 1,000 MG Q6P PRN 05/10 1745 AC 05/13 IV 1111 Acetylcysteine 2 ML EVERY 4 HRS/AWAKE 05/13 2100 AC 05/14 INH 0827 Albuterol Sulfate 3 ML EVERY 4 HRS/AWAKE 05/13 2100 AC 05/14 INH 826 Albuterol Sulfate 3 ML BID 05/13 09 DC 05/13 INH 1555 Amlodipine Besylate 10 MG DAILY 05/11 09 DC 05/13 PO 1030 Aspirin 81 MG DAILY 05/11 09 AC 05/13 PO 1026 Atorvastatin Calcium 40 MG DAILY 05/11 0900 AC 05/13 PO 1026 Azithromycin 500 MG 1400 05/11 1400 AC 05/13 Sodium Chloride 250 ML IV 1316 Ceftriaxone Sodium 1,000 MG ONCE ONE 05/14 0845 DC IV 05/14 0846 Ceftriaxone Sodium 1,000 MG 1400 05/11 1400 DC 05/13 IV 1316 Clopidogrel Bisulfate 75 MG DAILY 05/11 09 DC 05/13 PO 1027 Folic Acid 1 MG DAILY 05/11 09 AC 05/13 PO 1026 Magnesium Oxide 400 MG DAILY 05/12 2008 AC 05/13 PO 1027 Nebivolol 10 MG DAILY 05/11 09 DC 05/13 PO 1031 Oxycodone HCl 10 MG Q6P PRN 05/10 1745 AC PO Sodium Bicarbonate 150 MEQ CONTINOUS INFUSION 05/13 211 AC 05/13 Dextrose/Water 1,000 ML IV 2348 Sodium Bicarbonate 1,950 MG BID 05/11 1233 DC 05/13 PO 1028 Sodium Chloride 1,000 ML Q13H 05/13 1100 DC 05/13 IV 05/13 2359 1127 Results Pertinent Lab Results: Laboratory Tests 05/14 05/13 0400 2300 Chemistry Sodium (137 - 145 mmol/L) 129 L Potassium (3.5 - 5.1 mmol/L) 4.1 Chloride (98 - 107 mmol/L) 95 L Carbon Dioxide (22 - 30 mmol/L) 17 L Anion Gap (5 - 16) 17 H BUN (9 - 20 mg/dL) 87 H Creatinine (0.7 - 1.2 mg/dL) 5.4 *H Estimated GFR (>60 ml/min) 10 L Glucose (65 - 99 mg/dL) 107 H Calcium (8.4 - 10.2 mg/dL) 9.1 Phosphorus (2.5 - 4.5 mg/dL) 6.5 H Magnesium (1.6 - 2.3 mg/dL) 1.8 Total Bilirubin (0.2 - 1.3 mg/dL) 0.4 AST (17 - 59 U/L) 286 H ALT (21 - 72 U/L) 238 H Albumin (3.5 - 5.0 g/dL) 2.5 L Hematology CBC w Diff MAN DIFF ORDERED NO MAN DIFF REQ WBC (4.8 - 10.8 /CUMM) 6.6 6.7 RBC (4.70 - 6.10 /CUMM) 2.97 L 2.96 L Hgb (14.0 - 18.0 G/DL) 8.7 L 8.5 L Hct (42 - 52 %) 25.5 L 26.0 L MCV (80.0 - 94.0 FL) 86.1 87.7 MCH (27.0 - 31.0 PG) 29.5 28.8 MCHC (33.0 - 37.0 G/DL) 34.2 32.9 L RDW (11.5 - 14.5 %) 14.6 H 14.9 H Plt Count (130 - 400 /CUMM) 151 149 MPV (7.4 - 10.4 FL) 10.8 H 10.3 Gran % (42.2 - 75.2 %) 91.6 H 95.2 H Lymphocytes % (20.5 - 51.1 %) 3.7 L 1.6 L Monocytes % (1.7 - 9.3 %) 4.4 3.0 Eosinophils % (0 - 5 %) 0.3 0.2 Basophils % (0.0 - 2.0 %) 0 0 Absolute Granulocytes (1.4 - 6.5 /CUMM) 6.1 6.4 Segmented Neutrophils (42.2 - 75.2 %) 95 H Absolute Lymphocytes (1.2 - 3.4 /CUMM) 0.2 L 0.1 L Lymphocytes (20.5 - 51.1 %) 3 L Monocytes (1.7 - 9.3 %) 2 Absolute Monocytes (0.10 - 0.60 /CUMM) 0.3 0.2 Absolute Eosinophils (0.0 - 0.7 /CUMM) 0 0 Absolute Basophils (0.0 - 0.2 /CUMM) 0 0 Platelet Estimate (ADEQUATE) ADEQUATE Polychromasia 1+ Poikilocytosis 2+ Ovalocytes 1+ [place] Cells 1+ Other Body Source Fld Total RBCs Counted (%) 100 05/13 Blood Gas pH (7.35 - 7.45 PH) 7.42 pCO2 (35 - 45 TORR) 23 L pO2 (80 - 100 TORR) 75 L HCO3 (21 - 28 MEQ/L) 14 L ABG O2 Sat (Measured) (>96.0 %) 93.0 L P-50 (Temp Corrected) Y Carboxyhemoglobin (1.5 - 5.0 %) 0.6 L O2 Concentration % 80% Temperature (97.0 - 100.0 FARH) 100.0 Respiration Rate (BPM) 26 O2 Delivery Method FFM Vent Mode ST Expiratory Pressure (CM H2O P) 8 Inspiratory Pressure (CM H2O P) 20 Chemistry Sodium (137 - 145 mmol/L) 128 L 129 L Potassium (3.5 - 5.1 mmol/L) 4.3 4.7 Chloride (98 - 107 mmol/L) 96 L 100 Carbon Dioxide (22 - 30 mmol/L) 17 L 15 L Anion Gap (5 - 16) 15 14 BUN (9 - 20 mg/dL) 85 H 81 H Creatinine (0.7 - 1.2 mg/dL) 5.3 *H 4.7 H Estimated GFR (>60 ml/min) 10 L 12 L BUN/Creatinine Ratio (7 - 25 %) 17.2 Glucose (65 - 99 mg/dL) 108 H Lactic Acid (0.7 - 2.1 mmol/L) 0.9 Calcium (8.4 - 10.2 mg/dL) 9.0 Phosphorus (2.5 - 4.5 mg/dL) 6.2 H Magnesium (1.6 - 2.3 mg/dL) 1.8 Total Bilirubin (0.2 - 1.3 mg/dL) 0.4 AST (17 - 59 U/L) 304 H ALT (21 - 72 U/L) 241 H Troponin I (<0.11 ng/ml) Cancelled 0.05 Albumin (3.5 - 5.0 g/dL) 2.4 L Miscellaneous Phlebotomy Draw Site RIGHT BRACHIAL 05/13 05/13 1710 0600 Blood Gas pH (7.35 - 7.45 PH) 7.42 pCO2 (35 - 45 TORR) 23 L pO2 (80 - 100 TORR) 68 L HCO3 (21 - 28 MEQ/L) 14 L ABG O2 Sat (Measured) (>96.0 %) 92.0 L P-50 (Temp Corrected) Y Carboxyhemoglobin (1.5 - 5.0 %) 0.3 L O2 Concentration % 95% Temperature (97.0 - 100.0 FARH) 100.0 O2 Delivery Method HFNC AT 55LPM Chemistry Sodium (137 - 145 mmol/L) 127 L Potassium (3.5 - 5.1 mmol/L) 4.2 Chloride (98 - 107 mmol/L) 97 L Carbon Dioxide (22 - 30 mmol/L) 15 L Anion Gap (5 - 16) 15 BUN (9 - 20 mg/dL) 79 H Creatinine (0.7 - 1.2 mg/dL) 5.0 H Estimated GFR (>60 ml/min) 11 L BUN/Creatinine Ratio (7 - 25 %) 15.8 Hematology CBC w Diff NO MAN DIFF REQ WBC (4.8 - 10.8 /CUMM) 6.7 RBC (4.70 - 6.10 /CUMM) 2.75 L Hgb (14.0 - 18.0 G/DL) 8.2 L Hct (42 - 52 %) 23.5 L MCV (80.0 - 94.0 FL) 85.6 MCH (27.0 - 31.0 PG) 29.8 MCHC (33.0 - 37.0 G/DL) 34.8 RDW (11.5 - 14.5 %) 14.4 Plt Count (130 - 400 /CUMM) 120 L MPV (7.4 - 10.4 FL) 10.7 H Gran % (42.2 - 75.2 %) 96.4 H Lymphocytes % (20.5 - 51.1 %) 1.1 L Monocytes % (1.7 - 9.3 %) 2.5 Eosinophils % (0 - 5 %) 0 Basophils % (0.0 - 2.0 %) 0 Absolute Granulocytes (1.4 - 6.5 /CUMM) 6.5 Absolute Lymphocytes (1.2 - 3.4 /CUMM) 0.1 L Absolute Monocytes (0.10 - 0.60 /CUMM) 0.2 Absolute Eosinophils (0.0 - 0.7 /CUMM) 0 Absolute Basophils (0.0 - 0.2 /CUMM) 0 Miscellaneous Phlebotomy Draw Site RIGHT RADIAL 05/12 05/12 05/11 1450 0610 1830 Blood Gas pH (7.35 - 7.45 PH) 7.48 H pCO2 (35 - 45 TORR) 15 L pO2 (80 - 100 TORR) 72 L HCO3 (21 - 28 MEQ/L) 11 L ABG O2 Sat (Measured) (>96.0 %) 94.0 L Carboxyhemoglobin (1.5 - 5.0 %) 0.2 L O2 Concentration % 70% O2 Delivery Method HFNC Chemistry Sodium (137 - 145 mmol/L) 133 L Potassium (3.5 - 5.1 mmol/L) 4.3 Chloride (98 - 107 mmol/L) 102 Carbon Dioxide (22 - 30 mmol/L) 15 L Anion Gap (5 - 16) 16 BUN (9 - 20 mg/dL) 68 H Creatinine (0.7 - 1.2 mg/dL) 4.7 H Estimated GFR (>60 ml/min) 12 L BUN/Creatinine Ratio (7 - 25 %) 14.5 Phosphorus (2.5 - 4.5 mg/dL) 4.8 H Troponin I (<0.11 ng/ml) 0.05 Hematology CBC w Diff NO MAN DIFF REQ WBC (4.8 - 10.8 /CUMM) 7.5 RBC (4.70 - 6.10 /CUMM) 2.92 L Hgb (14.0 - 18.0 G/DL) 8.6 L Hct (42 - 52 %) 25.7 L MCV (80.0 - 94.0 FL) 88.2 MCH (27.0 - 31.0 PG) 29.5 MCHC (33.0 - 37.0 G/DL) 33.5 RDW (11.5 - 14.5 %) 14.9 H Plt Count (130 - 400 /CUMM) 126 L MPV (7.4 - 10.4 FL) 10.9 H Gran % (42.2 - 75.2 %) 96.4 H Lymphocytes % (20.5 - 51.1 %) 0.9 L Monocytes % (1.7 - 9.3 %) 2.7 Eosinophils % (0 - 5 %) 0 Basophils % (0.0 - 2.0 %) 0 Absolute Granulocytes (1.4 - 6.5 /CUMM) 7.3 H Absolute Lymphocytes (1.2 - 3.4 /CUMM) 0.1 L Absolute Monocytes (0.10 - 0.60 /CUMM) 0.2 Absolute Eosinophils (0.0 - 0.7 /CUMM) 0 Absolute Basophils (0.0 - 0.2 /CUMM) 0 Miscellaneous Phlebotomy Draw Site RIGHT RADIAL 05/11 05/11 3762 4996 Blood Gas pH (7.35 - 7.45 PH) 7.39 pCO2 (35 - 45 TORR) 20 L pO2 (80 - 100 TORR) 94 HCO3 (21 - 28 MEQ/L) 12 L ABG O2 Sat (Measured) (>96.0 %) 95.0 L P-50 (Temp Corrected) Y Carboxyhemoglobin (1.5 - 5.0 %) 0.3 L O2 Concentration % 60% Temperature (97.0 - 100.0 FARH) 102.9 H O2 Delivery Method PRB Chemistry Sodium (137 - 145 mmol/L) 132 L Potassium (3.5 - 5.1 mmol/L) 4.5 Chloride (98 - 107 mmol/L) 102 Carbon Dioxide (22 - 30 mmol/L) 14 L Anion Gap (5 - 16) 15 BUN (9 - 20 mg/dL) 61 H Creatinine (0.7 - 1.2 mg/dL) 4.5 H Estimated GFR (>60 ml/min) 12 L BUN/Creatinine Ratio (7 - 25 %) 13.6 Hematology CBC w Diff NO MAN DIFF REQ WBC (4.8 - 10.8 /CUMM) 8.2 RBC (4.70 - 6.10 /CUMM) 3.02 L Hgb (14.0 - 18.0 G/DL) 8.8 L Hct (42 - 52 %) 26.6 L MCV (80.0 - 94.0 FL) 88.3 MCH (27.0 - 31.0 PG) 29.0 MCHC (33.0 - 37.0 G/DL) 32.9 L RDW (11.5 - 14.5 %) 14.7 H Plt Count (130 - 400 /CUMM) 119 L MPV (7.4 - 10.4 FL) 10.3 Gran % (42.2 - 75.2 %) 97.4 H Lymphocytes % (20.5 - 51.1 %) 0.7 L Monocytes % (1.7 - 9.3 %) 1.9 Eosinophils % (0 - 5 %) 0 Basophils % (0.0 - 2.0 %) 0 Absolute Granulocytes (1.4 - 6.5 /CUMM) 8.0 H Absolute Lymphocytes (1.2 - 3.4 /CUMM) 0.1 L Absolute Monocytes (0.10 - 0.60 /CUMM) 0.2 Absolute Eosinophils (0.0 - 0.7 /CUMM) 0 Absolute Basophils (0.0 - 0.2 /CUMM) 0 Miscellaneous Phlebotomy Draw Site RIGHT RADIAL
--- NOTE | 2018-05-14 09:47 | ULTRASOUND REPORT ---
EXAM: Limited chest ultrasound INDICATION: Acute desaturation requiring BiPAP FINDINGS: Ultrasound imaging of the left chest revealed a small amount of pleural effusion. No safe window to tap could be identified. Thoracentesis was therefore not performed. CONCLUSION: Small pleural effusion identified. No thoracentesis performed.
--- NOTE | 2018-05-14 10:36 | Transfer of Care Summary ---
Hospital Course Course Hospital Course: 87 y/o M with pmh sig for hypertension, hyperlipidemia, hx of atrial fibrillation, bradycardia status post cardiac pacemaker in 04/2015, history of CKD, history of renal cancer status post left nephrectomy, presented to the emergency room with feeling generalized weakness, dizziness and falls. In the emergency room patient was found to be febrile to 101, was significantly hypoxic , had leukocytosis and a chest x-ray consistent with possible pneumonia. On admission, Vitals: T-max 101.4, HR 103-> 73, RR 20, BP 108/57, 89% 4LNC -CBC: Mild leukocytosis 11.4, H/H9 0.6/28.3, PLT 120, granulocytosis 95.2, bandemia -BMP: Hyponatremia 132, elevated creatinine 4.0w/ baseline 1.7 -PT/INR: 12.1/1.11 -UA/Microbiology: Pending, no previous microbiology -CXR: Abnormal left hemithoracic opacity, may represent infectious, inflammatory process versus neoplasm, new since 2008. -EKG: A-fib under control without pacer spike -Last Echo: No previous echo on file -Interventions in ER: Normal saline bolus 2, ceftriaxone/azithromycin 1, acetaminophen IV 1 #Sepsis 2/2 CAP (Fever, Tachycardia, source of infection) #Acute hypoxic resp failure #Community-acquired pneumonia #Normocytic anemia #MILLIE on CKD, pending further evaluation #Mild hypercalcemia, likely 2/2 home med #PMH of hypertension, hyperlipidemia, history of bradycardia S/P bichamber pacemaker sepsis secondary to community-acquired pneumonia/legionella Patient presented with generalized weakness, dizziness, fatigue, short of breath. T-max 101.7, tachycardic with chest x-ray findings suggestive of abnormal left hemithoracic opacity most likely pneumonia. Urine positive for Legionella antigen. He was admitted to telemetry for sepsis secondary to Legionella pneumonia and acute hypoxic respiratory failure requiring high flow oxygen. He was on ceftriaxone and azithromycin (day5), continued to have temperatures. No leukocytosis. Given his temperatures, desaturations transferred overnight to ICU for close monitoring and BiPAP Acute hypoxic respiratory failure Patient is in acute hypoxic respiratory failure from sepsis and Legionella pneumonia. He is desaturating on nonrebreather mask, transferred overnight to ICU for closer monitoring. He was given TRC nebs. Patient was initially DNR/ DNI, however later agreed for intubation. Dizziness Patient reported dizziness leading to multiple mechanical falls. He has no prior history of dizzy or lightheadedness. No syncopal events in the past. He has history of atrial fibrillation with pacemaker placement. He follows Dr. Hendricks's group. He was found to have positive orthostatic vitals. Cardiology was consulted. Continued his home medications. Serial troponin and EKG negative within no telemetry acute events. Echocardiogram is pending Normocytic anemia Monitor hemoglobin closely Leukocytosis Most likely from pneumonia Thrombocytopenia Most likely from sepsis and pneumonia MILLIE on CKD Creatinine 4 at the time of admission. Baseline creatinine 3. Most likely prerenal azotemia secondary to pneumonia and recent diuretic use. There is no acute indication for dialysis right now given he is nonoliguric without hyperkalemia, without overt uremic symptoms, without overt volume overload. * IV fluid resuscitation * Avoid nephrotoxic agents * Hold diuretics * Renal ultrasound normal Hyponatremia Patient was hyponatremic, most likely from hypovolemia and sepsis from Legionella pneumonia. Continue fluids as per nephro recommendations. * For plan see below. Metabolic acidosis Patient was found to have metabolic acidosis with bicarb 14 at the time of admission. Most likely from chronic kidney disease and elevated anion gap. He has normal lactic acid and blood glucose. Patient was started on sodium bicarb 650 mg 3 tablets twice daily. However later switched to D5 water with sodium bicarb to manage hyponatremia and metabolic acidosis. * Follow-up nephro recommendations hypercalcemia Calcium 10.3 most likely secondary to home medication. Calcium back to normal Hypertension Continued amlodipine and Bystolic with holding parameters given his sepsis Hyperlipidemia Continued Lipitor 40 daily DVT prophylaxis ALPS only as PLT was low Heart Healthy Diet IV Access: Peripheral IV CODE STATUS addressed, changed to DNR. Patient is okay to be intubated Consultants cardiology, nephrology on board Assessment/Plan: .
--- NOTE | 2018-05-14 12:50 | PN- Cardiology ---
Subjective Subjective: Patient denies chest pain, palpitations. He continues to feel dyspneic on exertion. However overall he reports he feels improved today compared to yesterday. Objective Vital Signs and I&Os Vital Signs Date Time Temp Pulse Resp B/P B/P Pulse O2 O2 Flow FiO2 Mean Ox Delivery Rate 05/14 1222 98 Nasal 50% Cannula 05/14 1200 98 Nasal 60% Cannula 05/14 1125 98 Nasal 60% Cannula 05/14 1046 87 118/70 05/14 1045 84 118/70 05/14 0828 98 Nasal 70% Cannula 05/14 0821 82 94 05/14 0800 95 BIPAP 70% 05/14 0800 97.3 75 25 112/62 95 Nasal 70% Cannula 05/14 0546 86 96 05/14 0400 94 BIPAP 70% 05/14 0313 80 93 05/14 0032 85 92 05/14 0000 97.4 86 25 110/60 90 BIPAP 70% 05/14 0000 92 BIPAP 70% 05/13 2230 76 92 05/13 2000 BIPAP 80% 05/13 1920 68 94 05/13 1750 67 91 05/13 1600 Nasal 95% Cannula 05/13 1438 99.3 05/13 1430 91 Nasal 90% Cannula 05/13 1410 99.3 88 20 94/46 88 Nasal Cannula Intake & Output 05/14 1600 05/14 0800 05/14 0000 05/13 1600 05/13 0800 05/13 0000 Intake Total 460 100 820 220 150 Output Total 480 150 500 300 Balance -20 -50 820 -280 -150 Intake, IV 460 100 270 100 Intake, Oral 550 120 150 Output, Urine 480 150 500 300 Patient 88.224 kg 87.77 kg 92.618 kg Weight Weight Bed scale Bed scale Measurement Method Physical Exam: General: no apparent distress HEENT: NCAT, NO JVD Heart: s1s2, irregular rhythm Lungs: Difficult to appreciate, fair air entry on the right, likely decreased air entry on the left, no rales/rhonchi/wheeze Abd: soft, nt Ext: no peripheral edema Current Medications: Current Medications Sig/Shanna Start time Last Medication Dose Route Stop Time Status Admin Acetaminophen 1,000 MG .STK-MED ONE 05/13 173 DC IV 05/13 173 Acetaminophen 650 MG Q6P PRN 05/10 1745 AC PO Acetaminophen 1,000 MG Q6P PRN 05/10 1745 AC 05/13 IV 1111 Acetylcysteine 2 ML EVERY 4 HRS/AWAKE 05/13 2100 AC 05/14 INH 1205 Albuterol Sulfate 3 ML EVERY 4 HRS/AWAKE 05/13 2100 AC 05/14 INH 1204 Albuterol Sulfate 3 ML BID 05/13 0900 DC 05/13 INH 1555 Amlodipine Besylate 10 MG DAILY 05/11 0900 DC 05/13 PO 1030 Aspirin 81 MG DAILY 05/11 0900 AC 05/14 PO 1042 Atorvastatin Calcium 40 MG DAILY 05/11 0900 AC 05/14 PO 1042 Azithromycin 500 MG 1400 05/11 1400 AC 05/13 Sodium Chloride 250 ML IV 1316 Ceftriaxone Sodium 1,000 MG ONCE ONE 05/14 0845 DC 05/14 IV 05/14 0846 1042 Ceftriaxone Sodium 1,000 MG 1400 05/11 1400 DC 05/13 IV 1316 Ciprofloxacin 400 MG Q24H 05/14 1100 CAN Dextrose/Water 200 ML IV Ciprofloxacin 400 MG DAILY 05/14 1013 CAN IV Clopidogrel Bisulfate 75 MG DAILY 05/11 0900 DC 05/13 PO 1027 Folic Acid 1 MG DAILY 05/11 0900 AC 05/14 PO 1045 Magnesium Oxide 400 MG DAILY 05/12 2008 AC 05/14 PO 1043 Moxifloxacin HCl 400 MG Q24H 05/14 1200 AC 05/14 N/A 1 UNIT IV 1127 Moxifloxacin HCl 400 MG DAILY 05/14 1100 CAN IV Nebivolol 10 MG DAILY 05/11 0900 DC 05/13 PO 1031 Oxycodone HCl 10 MG Q6P PRN 05/10 1745 PO Rifampin 300 MG DAILY 05/15 0900 PO Rifampin 300 MG BID 05/14 1030 DC 05/14 PO 1127 Sodium Bicarbonate 150 MEQ CONTINOUS INFUSION 05/13 2115 AC 05/14 Dextrose/Water 1,000 ML IV 1229 Sodium Bicarbonate 1,950 MG BID 05/11 1233 DC 05/13 PO 1028 Sodium Chloride 1,000 ML Q13H 05/13 1100 DC 05/13 IV 05/13 2359 1127 Results Last 48 Hrs of Labs/Mics: Laboratory Tests 05/14/18 1100: Ur Random Creatinine 37.4, Ur Random Sodium 53, Ur Random Potassium 17.4, Fraction Sodium Excret 5.9 H 05/14/18 0400: Anion Gap 17 H, Estimated GFR 10 L, Glucose 107 H, Calcium 9.1, Phosphorus 6.5 H, Magnesium 1.8, Total Bilirubin 0.4, AST 286 H, ALT 238 H, Albumin 2.5 L, CBC w Diff MAN DIFF ORDERED, RBC 2.97 L, MCV 86.1, MCH 29.5, MCHC 34.2, RDW 14.6 H, MPV 10.8 H, Gran % 91.6 H, Lymphocytes % 3.7 L, Monocytes % 4.4, Eosinophils % 0.3, Basophils % 0, Absolute Granulocytes 6.1, Segmented Neutrophils 95 H, Absolute Lymphocytes 0.2 L, Lymphocytes 3 L, Monocytes 2, Absolute Monocytes 0.3, Absolute Eosinophils 0, Absolute Basophils 0, Platelet Estimate ADEQUATE, Polychromasia 1+, Poikilocytosis 2+, Ovalocytes 1+, Henderson Cells 1+, Fld Total RBCs Counted 100, Hep Bs Antigen NONREACTIVE, Hep Bs Antibody NONREACTIVE 05/13/182299: CBC w Diff NO MAN DIFF REQ, RBC 2.96 L, MCV 87.7, MCH 28.8, MCHC 32.9 L, RDW 14.9 H, MPV 10.3, Gran % 95.2 H, Lymphocytes % 1.6 L, Monocytes % 3.0, Eosinophils % 0.2, Basophils % 0, Absolute Granulocytes 6.4, Absolute Lymphocytes 0.1 L, Absolute Monocytes 0.2, Absolute Eosinophils 0, Absolute Basophils 0 05/13/182214: Troponin I Cancelled 05/13/182129: Anion Gap 15, Estimated GFR 10 L, Glucose 108 H, Lactic Acid 0.9, Calcium 9.0, Phosphorus 6.2 H, Magnesium 1.8, Total Bilirubin 0.4, AST 304 H, ALT 241 H, Troponin I 0.05, Albumin 2.4 L 05/13/182039: Anion Gap 14, Estimated GFR 12 L, BUN/Creatinine Ratio 17.2 05/13/182004: pH 7.42, pCO2 23 L, pO2 75 L, HCO3 14 L, ABG O2 Sat (Measured) 93.0 L, P-50 (Temp Corrected) Y, Carboxyhemoglobin 0.6 L, O2 Concentration % 80%, Temperature 100.0, Respiration Rate 26, O2 Delivery Method FFM, Vent Mode ST, Expiratory Pressure 8, Inspiratory Pressure 20, Phlebotomy Draw Site RIGHT BRACHIAL 05/13/18 1710: pH 7.42, pCO2 23 L, pO2 68 L, HCO3 14 L, ABG O2 Sat (Measured) 92.0 L, P-50 (Temp Corrected) Y, Carboxyhemoglobin 0.3 L, O2 Concentration % 95%, Temperature 100.0, O2 Delivery Method HFNC AT 55LPM, Phlebotomy Draw Site RIGHT RADIAL 05/13/18 0600: Anion Gap 15, Estimated GFR 11 L, BUN/Creatinine Ratio 15.8, CBC w Diff NO MAN DIFF REQ, RBC 2.75 L, MCV 85.6, MCH 29.8, MCHC 34.8, RDW 14.4, MPV 10.7 H, Gran % 96.4 H, Lymphocytes % 1.1 L, Monocytes % 2.5, Eosinophils % 0, Basophils % 0, Absolute Granulocytes 6.5, Absolute Lymphocytes 0.1 L, Absolute Monocytes 0.2, Absolute Eosinophils 0, Absolute Basophils 0 05/12/18 1450: pH 7.48 H, pCO2 15 L, pO2 72 L, HCO3 11 L, ABG O2 Sat (Measured) 94.0 L, Carboxyhemoglobin 0.2 L, O2 Concentration % 70%, O2 Delivery Method HFNC, Phlebotomy Draw Site RIGHT RADIAL Recent Imaging Studies: Telemetry: Personally reviewed, atrial fibrillation with good rate control, intermittent aberrantly conducted beats 05/11/2018: TTE: Normal global left ventricular size, wall thickness, systolic function with no obvious regional wall motion abnormalities. Left ventricular ejection fraction is estimated at 55 %. Normal right ventricular size and function. Catheter/pacemaker wire in the right ventricular cavity. Mild right atrial dilatation. Mild to moderate left atrial dilatation. [id number] tricuspid regurgitation. Mild pulmonary hypertension. 05/14/2018: chest US: Small left pleural effusion identified. No thoracentesis performed. 05/14/2018: CXR: Persistent prominent left upper lobe consolidation, however, there appears to be slight improvement in aeration of the left hemithorax. Assessment/Plan Assessment/Plan 1. Pneumonia 2. Chronic atrial fibrillation not on anticoagulation due to patient preference /neurology recommendations 3. Coronary artery disease with prior PCI and occluded PDA maintained on dual antiplatelet therapy 4. Sick sinus syndrome with a history of permanent pacemaker 5. Mild aortic dilatation 6. History of hypertension 7. History of renal cancer with prior nephrectomy and chronic kidney disease Patient appears to be clinically improving on antibiotics. Cardiac status remained stable. He is in chronic atrial fibrillation but rate is well controlled. Continue with current cardiac medical regimen. Continue telemetry? Yes
[2018-05-14 16:00] VITALS: BP 114/87
--- NOTE | 2018-05-14 16:40 | Cons- Infect Disease ---
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 He lives by himself; no ick contacts reported.. He had poor appetite and nausea for the past 4 days prior to admission ([employer]). He stated mechanical fall the morning of admissiont, without LOC/incontinence. Legionella urinary antigen positive on ; patient currently treated w/ iv azithromycin 500 mg daily (started 05/11). previous day; worsening respiratory status; worsening CXR findings. Clinically appears improved this am. Afebrile this AM, T max 100.5 F yesterday morning; he has no acute complains besides loss of appetite and dry cough. He was on BiPAP 20/8 with 70% O2, down from 100% overnight; still SOB. He is mentating well, awake and alert. BP around 100s/60s and CXR this am showing slight improvement in areation of L lung. Allergies/Medications Allergies: Coded Allergies: No Known Allergies (05/10/18) Home Med List: Amlodipine Besylate 10 MG TABLET 1 TAB PO DAILY HEART (Reported) Aspirin (Aspirin*) 81 MG TAB.CHEW 1 TAB PO DAILY HEART HEALTH (Reported) Atorvastatin Calcium 40 MG TABLET 1 TAB PO DAILY CHOLESTEROL (Reported) Clopidogrel Bisulfate (Clopidogrel) 75 MG TABLET 1 TAB PO DAILY BLOOD THINNER (Reported) Ergocalciferol (Vitamin D2) (Vitamin D2) 50,000 UNIT CAPSULE 1 CAP PO Q 2 WEEKS VITAMIN SUPPORT (Reported) Folic Acid 1 MG TABLET 1 TAB PO DAILY VITAMIN SUPPORT (Reported) Nebivolol HCl (Bystolic) 10 MG TABLET 1 TAB PO DAILY HEART (Reported) Paricalcitol 1 MCG CAPSULE 1 CAP PO DAILY UNKNOWN (Reported) Current Medications: Current Medications Sig/Shanna Start time Last Medication Dose Route Stop Time Status Admin Acetaminophen 1,000 MG .STK-MED ONE 05/13 1732 DC IV 07/29 1733 Acetaminophen 650 MG Q6P PRN 05/10 1745 AC PO Acetaminophen 1,000 MG Q6P PRN 05/10 1745 AC 05/13 IV 1111 Acetylcysteine 2 ML EVERY 4 HRS/AWAKE 05/13 2100 AC 05/14 INH 1607 Albuterol Sulfate 3 ML EVERY 4 HRS/AWAKE 05/13 2100 AC 05/14 INH 1607 Albuterol Sulfate 3 ML BID 05/13 0900 DC 05/13 INH 1555 Amlodipine Besylate 10 MG DAILY 05/11 0900 DC 05/13 PO 1030 Aspirin 81 MG DAILY 05/11 0900 AC 05/14 PO 1042 Atorvastatin Calcium 40 MG DAILY 05/11 0900 AC 05/14 PO 1042 Azithromycin 500 MG 1400 05/11 1400 DC 05/13 Sodium Chloride 250 ML IV 1316 Ceftriaxone Sodium 1,000 MG ONCE ONE 05/14 0845 DC 05/14 IV 05/14 0846 1042 Ceftriaxone Sodium 1,000 MG 1400 05/11 1400 DC 05/13 IV 1316 Ciprofloxacin 400 MG Q24H 05/14 1100 CAN Dextrose/Water 200 ML IV Ciprofloxacin 400 MG DAILY 05/14 1013 CAN IV Clopidogrel Bisulfate 75 MG DAILY 05/11 0900 DC 05/13 PO 1027 Folic Acid 1 MG DAILY 05/11 0900 AC 05/14 PO 1045 Magnesium Oxide 400 MG DAILY 05/12 2008 AC 05/14 PO 1043 Moxifloxacin HCl 400 MG Q24H 05/14 1200 AC 05/14 N/A 1 UNIT IV 1127 Moxifloxacin HCl 400 MG DAILY 05/14 1100 CAN IV Nebivolol 10 MG DAILY 05/11 0900 DC 05/13 PO 1031 Oxycodone HCl 10 MG Q6P PRN 05/10 1745 PO Rifampin 300 MG DAILY 05/15 0900 PO Rifampin 300 MG BID 05/14 1030 DC 05/14 PO 1127 Sodium Bicarbonate 150 MEQ CONTINOUS INFUSION 05/13 2115 AC 05/14 Dextrose/Water 1,000 ML IV 1229 Sodium Bicarbonate 1,950 MG BID 05/11 1233 DC 05/13 PO 1028 Sodium Chloride 1,000 ML Q13H 05/13 1100 DC 05/13 IV 05/13 2359 1127 Past History Travel History Traveled to [place] past 21 day No Medical History Blood Transfusion Hx: No Neurological: NONE EENT: NONE Cardiovascular: hypertension, hyperlipidemia, CARDIAC PACEMAKER Respiratory: NONE Gastrointestinal: NONE Hepatic: NONE Renal: NONE Musculoskeletal: NONE Psychiatric: NONE Endocrine: NONE Blood Disorders: NONE Cancer(s): NONE 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 Home Services at Home: None Smoking Status: Former Smoker ETOH Use: occasional use Illicit Drug Use: denies illicit drug use Review of Systems Comments 12 points reviewed as noted, otherwise negative. Exam & Diagnostic Data Last 24 Hrs of Vital Signs/I&O Vital Signs Date Time Temp Pulse Resp B/P B/P Pulse O2 O2 Flow FiO2 Mean Ox Delivery Rate 05/14 1222 98 Nasal 50% Cannula 05/14 1200 98 Nasal 60% Cannula 05/14 1125 98 Nasal 60% Cannula 05/14 1046 87 118/70 05/14 1045 84 118/70 05/14 0828 98 Nasal 70% Cannula 05/14 0821 82 94 05/14 0800 95 BIPAP 70% 05/14 0800 97.3 75 25 112/62 95 Nasal 70% Cannula 05/14 0546 86 96 05/14 0400 94 BIPAP 70% 05/14 0313 80 93 05/14 0032 85 92 05/14 0000 97.4 86 25 110/60 90 BIPAP 70% 05/14 0000 92 BIPAP 70% 05/13 2230 76 92 05/13 2000 BIPAP 80% 05/13 1920 68 94 05/13 1750 67 91 Intake & Output 05/14 1600 05/14 0800 05/14 0000 Intake Total 1500 460 100 Output Total 580 480 150 Balance 920 -20 -50 Intake, IV 900 460 100 Intake, Oral 600 Output, Urine 580 480 150 Patient 195 lb 194 lb Weight Weight Bed scale Measurement Method Physical Exam Other Physical Findings: General Appearance: alert, awake, moderate distress, on BiPAP Head: atraumatic Ears, Nose, Throat: normal pharynx, normal ENT inspection Neck: normal inspection, supple Respiratory: diminished breath sounds on the left base, scattered rhonchi/rales right lung base Cardiovascular: irregularly irregular Gastrointestinal: normal bowel sounds, soft, non-tender Extremities: normal inspection, normal capillary refill, no edema Neurologic/Psych: no motor/sensory deficits, awake Skin: intact, normal color, no edema Last 24 Hours of Lab Results: Laboratory Tests 05/14 05/14 1100 0400 Chemistry Sodium (137 - 145 mmol/L) 129 L Potassium (3.5 - 5.1 mmol/L) 4.1 Chloride (98 - 107 mmol/L) 95 L Carbon Dioxide (22 - 30 mmol/L) 17 L Anion Gap (5 - 16) 17 H BUN (9 - 20 mg/dL) 87 H Creatinine (0.7 - 1.2 mg/dL) 5.4 *H Estimated GFR (>60 ml/min) 10 L Glucose (65 - 99 mg/dL) 107 H Calcium (8.4 - 10.2 mg/dL) 9.1 Phosphorus (2.5 - 4.5 mg/dL) 6.5 H Magnesium (1.6 - 2.3 mg/dL) 1.8 Total Bilirubin (0.2 - 1.3 mg/dL) 0.4 AST (17 - 59 U/L) 286 H ALT (21 - 72 U/L) 238 H Albumin (3.5 - 5.0 g/dL) 2.5 L Hematology CBC w Diff MAN DIFF ORDERED WBC (4.8 - 10.8 /CUMM) 6.6 RBC (4.70 - 6.10 /CUMM) 2.97 L Hgb (14.0 - 18.0 G/DL) 8.7 L Hct (42 - 52 %) 25.5 L MCV (80.0 - 94.0 FL) 86.1 MCH (27.0 - 31.0 PG) 29.5 MCHC (33.0 - 37.0 G/DL) 34.2 RDW (11.5 - 14.5 %) 14.6 H Plt Count (130 - 400 /CUMM) 151 MPV (7.4 - 10.4 FL) 10.8 H Gran % (42.2 - 75.2 %) 91.6 H Lymphocytes % (20.5 - 51.1 %) 3.7 L Monocytes % (1.7 - 9.3 %) 4.4 Eosinophils % (0 - 5 %) 0.3 Basophils % (0.0 - 2.0 %) 0 Absolute Granulocytes (1.4 - 6.5 /CUMM) 6.1 Segmented Neutrophils (42.2 - 75.2 %) 95 H Absolute Lymphocytes (1.2 - 3.4 /CUMM) 0.2 L Lymphocytes (20.5 - 51.1 %) 3 L Monocytes (1.7 - 9.3 %) 2 Absolute Monocytes (0.10 - 0.60 /CUMM) 0.3 Absolute Eosinophils (0.0 - 0.7 /CUMM) 0 Absolute Basophils (0.0 - 0.2 /CUMM) 0 Platelet Estimate (ADEQUATE) ADEQUATE Polychromasia 1+ Poikilocytosis 2+ Ovalocytes 1+ Ludin Cells 1+ Other Body Source Fld Total RBCs Counted (%) 100 Serology Hep Bs Antigen (NONREACTIVE) NONREACTIVE Hep Bs Antibody (NONREACTIVE) NONREACTIVE Urines Ur Random Creatinine (mg/dL) 37.4 Ur Random Sodium (30 - 90 mmol/L) 53 Ur Random Potassium (mmol/L) 17.4 Fraction Sodium Excret (<1% %) 5.9 H 05/13 05/13 05/13 2300 2215 2130 Chemistry Sodium (137 - 145 mmol/L) 128 L Potassium (3.5 - 5.1 mmol/L) 4.3 Chloride (98 - 107 mmol/L) 96 L Carbon Dioxide (22 - 30 mmol/L) 17 L Anion Gap (5 - 16) 15 BUN (9 - 20 mg/dL) 85 H Creatinine (0.7 - 1.2 mg/dL) 5.3 *H Estimated GFR (>60 ml/min) 10 L Glucose (65 - 99 mg/dL) 108 H Lactic Acid (0.7 - 2.1 mmol/L) 0.9 Calcium (8.4 - 10.2 mg/dL) 9.0 Phosphorus (2.5 - 4.5 mg/dL) 6.2 H Magnesium (1.6 - 2.3 mg/dL) 1.8 Total Bilirubin (0.2 - 1.3 mg/dL) 0.4 AST (17 - 59 U/L) 304 H ALT (21 - 72 U/L) 241 H Troponin I (<0.11 ng/ml) Cancelled 0.05 Albumin (3.5 - 5.0 g/dL) 2.4 L Hematology CBC w Diff NO MAN DIFF REQ WBC (4.8 - 10.8 /CUMM) 6.7 RBC (4.70 - 6.10 /CUMM) 2.96 L Hgb (14.0 - 18.0 G/DL) 8.5 L Hct (42 - 52 %) 26.0 L MCV (80.0 - 94.0 FL) 87.7 MCH (27.0 - 31.0 PG) 28.8 MCHC (33.0 - 37.0 G/DL) 32.9 L RDW (11.5 - 14.5 %) 14.9 H Plt Count (130 - 400 /CUMM) 149 MPV (7.4 - 10.4 FL) 10.3 Gran % (42.2 - 75.2 %) 95.2 H Lymphocytes % (20.5 - 51.1 %) 1.6 L Monocytes % (1.7 - 9.3 %) 3.0 Eosinophils % (0 - 5 %) 0.2 Basophils % (0.0 - 2.0 %) 0 Absolute Granulocytes (1.4 - 6.5 /CUMM) 6.4 Absolute Lymphocytes (1.2 - 3.4 /CUMM) 0.1 L Absolute Monocytes (0.10 - 0.60 /CUMM) 0.2 Absolute Eosinophils (0.0 - 0.7 /CUMM) 0 Absolute Basophils (0.0 - 0.2 /CUMM) 0 05/13 Blood Gas pH (7.35 - 7.45 PH) 7.42 7.42 pCO2 (35 - 45 TORR) 23 L 23 L pO2 (80 - 100 TORR) 75 L 68 L HCO3 (21 - 28 MEQ/L) 14 L 14 L ABG O2 Sat (Measured) (>96.0 %) 93.0 L 92.0 L P-50 (Temp Corrected) Y Y Carboxyhemoglobin (1.5 - 5.0 %) 0.6 L 0.3 L O2 Concentration % 80% 95% Temperature (97.0 - 100.0 FARH) 100.0 100.0 Respiration Rate (BPM) 26 O2 Delivery Method FFM HFNC AT 55LPM Vent Mode ST Expiratory Pressure (CM H2O P) 8 Inspiratory Pressure (CM H2O P) 20 Chemistry Sodium (137 - 145 mmol/L) 129 L Potassium (3.5 - 5.1 mmol/L) 4.7 Chloride (98 - 107 mmol/L) 100 Carbon Dioxide (22 - 30 mmol/L) 15 L Anion Gap (5 - 16) 14 BUN (9 - 20 mg/dL) 81 H Creatinine (0.7 - 1.2 mg/dL) 4.7 H Estimated GFR (>60 ml/min) 12 L BUN/Creatinine Ratio (7 - 25 %) 17.2 Miscellaneous Phlebotomy Draw Site RIGHT BRACHIAL RIGHT RADIAL Last 24 Hours of Mike Results: thdate: 31 Age/Sex: 87/M Unit: [id number] Loc: [facility] 110-01 Status : ADM IN SPEC #: [id number] DUARTE: 05/10/18 STATUS: COMP RECD: 05/10/[address]: Chago SANCHEZ,Marcela Laboy SOURCE: URINE ROUT ENTR: 05/10/[address]: Connor SANCHEZ,Casi SPDESC: LORENZO Stone MD,Ravinder Jurado ORDERED: SPN URINE AG, LEGIONELLA AG,U COMMENT: Has patient received Pneumovax in past 5 days? N Procedure Result > STREP PNEUMO URINARY ANTIGEN Final 05/10/18 STATE LAB FORMS FILED? N NEGATIVE FOR STREP PNEUMONIAE BACTERIAL AG, MAY BE BELOW DETECTION LIMIT. > LEGIONELLA URINARY ANTIGEN Final 05/10/18 STATE LAB FORMS FILED? Y POSITIVE FOR LEGIONELLA URINARY ANTIGEN CALLED TO/READBACK BY: CARLOS Diagnostic Data Recent Imaging Findings: SERVICE DATE: 05/14/18 EXAM TYPE: RAD - XRY-PORTABLE CHEST XRAY EXAMINATION: XR PORTABLE CHEST CLINICAL INFORMATION: Pneumonia COMPARISON: Chest x-ray 05/13/2018 TECHNIQUE: Portable frontal view of the chest was obtained. FINDINGS: Persistent prominent left upper lobe consolidation, however, there appears to be slight improvement in aeration of the left hemithorax. The right hemithorax remains well aerated. Stable orientation of dual lead pacemaker. IMPRESSION: Persistent prominent left upper lobe consolidation, however, there appears to be slight improvement in aeration of the left hemithorax. DICTATED BY: Erick Singh MD DATE/TIME DICTATED:05/14/18714 FORM LAYER:JUAN DATE/TIME TRANSCRIBED:05/14/18714 IMPRESSION: 1. Concordant with the prior chest radiographs, dense airspace consolidation is noted throughout the left lung with air bronchograms and a patent tracheobronchial tree. The appearance is nonspecific, and may represent infectious or inflammatory and, less likely, to be a neoplastic process. 2. Multiple shotty mediastinal lymph nodes are noted. 3. Bilateral small pleural effusions (left greater than right). 4. A tiny sub-5 mm perifissural lung nodule at the anterior end of the right minor fissure, may represent a tiny lymph node. 5. Nonvisualized right kidney and right adrenal gland, may represent postsurgical change. Please correlate clinically. 6. No suspicious osseous abnormalities. 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 Legionella pneumonia Ac resp failure MILLIE (prerenal)/CKD (basline creatinine ~3) Question failure to improve with one of the preferred agents for the treatment of Legionella pneumonia, as it is bactericidal, and achieves high intracellular concentrations and penetrates lung tissue. Alternatives include other fluoroquinolones, eg. levofloxacin (preferred at high doses), moxifloxacin, or doxycycline. Combination therapy using both a fluoroquinolone and a macrolide does not appear to improve outcomes; adding rifampin (an agent that achieves high intracellular concentrations and can penetrate biofilms) to either fluoroquinolone or macrolide monotherapy does not appear to improve outcomes but may increase adverse events. Suggestion: 1. If patient failing to improve next 24-48 h h consider rescue therapy w/ Tigecycline 100 mg iv loading dose, followed by 50 mg iv q 12 h. Continuing iv azithromycin for now is an option; alternative tx with moxifloxacin/rifampin to be attempted w/ caution, per team failure to azithromycin strongly suspected. F/ U CXR in am; if non resolving pneumonia assess possible superimposed aspiration pneumonia. Swallow eval. 2. Trend CBC, BMP. 3. Consider ROSLYN eval infective endocarditis. Consult Acknowledgment - Thank you for your consult request.
[2018-05-15] VITALS: BP 122/70
[2018-05-15 05:52] LABS: ABSOLUTE BASOPHIL COUNT 0 /CUMM (0.0-0.2); ABSOLUTE EOSINOPHIL COUNT 0 /CUMM (0.0-0.7); ABSOLUTE GRANULOCYTE CT 4.6 /CUMM (1.4-6.5); ABSOLUTE LYMPH COUNT 0.2 /CUMM (1.2-3.4); ABSOLUTE MONOCYTE COUNT 0.3 /CUMM (0.10-0.60); BASOPHIL % 0 % (0.0-2.0); EOSINOPHIL % 0.7 % (0-5); MEAN CORPUSCULAR HGB CONC 33.6 G/DL (33.0-37.0); MEAN CORPUSCULAR VOLUME 86.3 FL (80.0-94.0); MEAN PLATELET VOLUME 10.8 FL (7.4-10.4); PLATELET COUNT 173 /CUMM (130-400); RBC DISTRIBUTION WIDTH 14.5 % (11.5-14.5); WHITE BLOOD CELL COUNT 5.2 /CUMM (4.8-10.8)
[2018-05-15 06:50] LABS: GRANULOCYTE % 89.4 % (42.2-75.2)
--- NOTE | 2018-05-15 07:35 | PN- Resident CRCU ---
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 Patient respiratory status got worse during the course and at some point there was decision of intubation but patient did well on BiPAP. At that time his CODE STATUS was changed to DNR/intubation as family for intubation if needed but no chest compressions. Since then patient did well on BiPAP. He is being treated for sepsis possibly due to Legionella pneumonia. He is on high flow oxygen with BiPAP and maintaining saturation above 92%. Patient is seen and examined this morning. He was able to follow verbal commands. 24 Hour Events: No overnight events. Patient remained on high flow oxygen and BiPAP and he maintained oxygen saturation above 92%. Objective Vital Signs & I&O Last 8 Hrs of Vitals and I&O: Intake & Output 05/15 1600 Intake Total 970 Output Total 550 Balance 420 Intake, IV 510 Intake, Oral 460 Number 0 Bowel Movements Output, Urine 550 Exam General Appearance: well developed/nourished, no apparent distress, alert Head: atraumatic Neck: normal inspection, supple Respiratory: chest non-tender, no respiratory distress, Decreased breath sounds on left side compare to right Cardiovascular: regular rate/rhythm Gastrointestinal: normal bowel sounds, soft, non-tender Extremities: normal inspection, normal capillary refill, no edema Cranial Nerves: normal hearing, normal speech Skin: intact, normal color Skin Temp/Moisture Exam: Warm/Dry Sepsis Skin Exam (color): Normal for Ethnicity Current Medications: Current Medications Sig/Shanna Start time Last Medication Dose Route Stop Time Status Admin Acetaminophen 650 MG Q6P PRN 05/10 1745 AC PO Acetaminophen 1,000 MG Q6P PRN 05/10 1745 AC 05/13 IV 1111 Acetylcysteine 2 ML EVERY 4 HRS/AWAKE 05/13 2100 AC 05/15 INH 2045 Albuterol Sulfate 3 ML EVERY 4 HRS/AWAKE 05/13 2100 AC 05/15 INH 204 Aspirin 81 MG DAILY 05/11 900 AC 05/15 PO 09 Atorvastatin Calcium 40 MG DAILY 05/11 900 AC 05/15 PO 09 Folic Acid 1 MG DAILY 05/11 900 AC 05/15 PO 0919 Magnesium Oxide 400 MG ONE ONE 05/15 1330 DC 05/15 PO 05/15 1331 1503 Magnesium Oxide 400 MG DAILY 05/12 2008 AC 05/15 PO 0919 Moxifloxacin HCl 400 MG Q24H 05/14 1200 AC 05/15 N/A 1 UNIT IV 1200 Nebivolol 10 MG DAILY 05/15 1400 AC 05/15 PO 1529 Oxycodone HCl 10 MG Q6P PRN 05/10 1745 AC PO Rifampin 300 MG DAILY 05/15 0900 AC 05/15 PO 0919 Sodium Bicarbonate 1,300 MG BID 05/15 2100 AC 05/15 PO 2127 Sodium Bicarbonate 150 MEQ Q13H 05/15 0130 DC 05/15 Dextrose/Water 1,000 ML IV 013 Sodium Bicarbonate 150 MEQ CONTINOUS INFUSION 05/13 211 DC 05/14 Dextrose/Water 1,000 ML IV 05/15 0129 1229 Impression/Plan Impression/Problem List Impression: 87yo M w/ PMH of hypertension, hyperlipidemia, 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 Patient respiratory status got worse during the course and at some point there was decision of intubation but patient did well on BiPAP. At that time his CODE STATUS was changed to DNR/intubation as family for intubation if needed but no chest compressions. Since then patient did well on BiPAP. We'll continue treating the patient for Legionella pneumonia. Acute hypoxic respiratory failure due to Legionella pneumonia: -Continue high flow oxygen and BiPAP to maintain oxygen above 92%. -Continue rifampin and moxifloxacin as recommended by ID. Initially patient was treated with ceftriaxone and azithromycin but patient didn't respond to that and his antibiotics were changed. Today is day 2 with rifampin and moxifloxacin. -His blood cultures remain negative so far. -TRC nebulization as needed -Continue acetylcysteine inhalation as mucolytic. -Chest physiotherapy -We will follow pulmonology recommendations. Acute on chronic kidney injury: -Possibly due to Legionella induced nephritis or acute tubular necrosis due to sepsis. Patient didn't respond to IV fluids and his fractional excretion of sodium remained elevated. -Patient had chronic kidney injury stage IV-V -His IV bicarbonate was discontinued and patient was put on by mouth bicarbonate 1300 mg twice a day. -Nephrology recommended no dialysis this point needed. -Avoid nephrotoxins medications -Today his creatinine is 5.3 and BUN 96 -We will continue holding his diuretics -We will monitor input and output -We will follow nephrology recommendations Hyponatremia: -Possibly due to renal failure and excessive free fluid. -Today his sodium level is 131 -We'll monitor his sodium level and follow nephrology recommendations. -Will encourage the patient to drink oral fluids and if patient is not drinking enough fluid orally then we will give him D5 normal saline at the rate of 50 mL per hour for maintenance. Nonsustained V. tach: -In afternoon around 13;18 patient had one episode of nonsustained V. tach, rate was 150/m and 20 beats of wide-complex tachycardia. -Patient has significant cardiac history. Patient was feeling having funny sensation in the chest. Although at that point patient was getting respiratory physiotherapy. -Patient was maintaining saturation, EKG was done that showed A. fib with heart rate in 80s and QTC 452. Troponin was ordered. Patient remained hemodynamically stable. We'll call cardiology and asked the motel front desk attendant for call back. -Patient's beta gay was discontinued 2 days back as his blood pressure was low. We will restart his Bystolic again. We will follow cardiology recommendation. History of chronic atrial fibrillation: -Not on any anticoagulation due to patient preference/neurology recommendations -Continue monitoring on ekg monitor as recommended by cardiology. History of hyperlipidemia: -Continue atorvastatin History of coronary artery disease status post stent placement: -Continue aspirin DVT prophylaxis: Mechanical only CODE STATUS: DNR Problem List: 1. Community acquired pneumonia 2. Sepsis 3. Acute respiratory failure with hypoxia 4. [id number] kidney injury Pain Ratin Pain Location: none Tomorrow's Labs & Rationales: cbc/bep Plan DVT/Prophylaxis: mechanical
[2018-05-15 08:00] VITALS: BP 122/72
--- NOTE | 2018-05-15 08:22 | RADIOLOGY REPORT ---
EXAMINATION: XR PORTABLE CHEST CLINICAL INFORMATION: 87-year-old male with clinically suspected pneumonia. For followup. COMPARISON: Chest done on 05/14/2018 TECHNIQUE: Portable upright 70 degrees frontal view of the chest was obtained. FINDINGS: Asymmetric low lung volume is noted within the left hemithorax with slight mediastinal shift to the left. Dense heterogeneous airspace opacities noted along the left central, paracentral aspect of the hemithorax, similar to prior study. There is minimal blunting of the left lateral CP angle and left hemidiaphragm noted, consistent with a trace amount of effusion. The right lung field is mildly hyperexpanded and grossly appears unremarkable. The heart size is within normal limits. The visualized upper abdomen is unremarkable. Compared to prior study dated 05/14/2018, there is no significant interval change present. IMPRESSION: No significant change since 05/14/2018.
--- NOTE | 2018-05-15 09:24 | PN- CRCU ---
Subjective HPI/Critical Care Issues: The patient is awake and alert. He remains on BIPAP. His oxygen requirement continues to be elevated. He is making good urine. There were no overnight events reported. Objective Current Medications: Current Medications Sig/Shanna Start time Last Medication Dose Route Stop Time Status Admin Acetaminophen 650 MG Q6P PRN 05/10 174 AC PO Acetaminophen 1,000 MG Q6P PRN 05/10 1745 AC 05/13 IV 1111 Acetylcysteine 2 ML EVERY 4 HRS/AWAKE 05/13 2100 AC 05/15 INH 0844 Albuterol Sulfate 3 ML EVERY 4 HRS/AWAKE 05/13 2100 AC 05/15 INH 0844 Aspirin 81 MG DAILY 05/11 09 AC 05/14 PO 1042 Atorvastatin Calcium 40 MG DAILY 05/11 09 AC 05/14 PO 1042 Azithromycin 500 MG 1400 05/11 1400 DC 05/13 Sodium Chloride 250 ML IV 1316 Ciprofloxacin 400 MG Q24H 05/14 1100 CAN Dextrose/Water 200 ML IV Ciprofloxacin 400 MG DAILY 05/14 1013 CAN IV Folic Acid 1 MG DAILY 05/11 09 AC 05/14 PO 1045 Magnesium Oxide 400 MG DAILY 05/12 2008 AC 05/14 PO 1043 Moxifloxacin HCl 400 MG Q24H 05/14 1200 AC 05/14 N/A 1 UNIT IV 1127 Moxifloxacin HCl 400 MG DAILY 05/14 1100 CAN IV Oxycodone HCl 10 MG Q6P PRN 05/10 1745 AC PO Rifampin 300 MG DAILY 05/15 09 AC PO Rifampin 300 MG BID 05/14 1030 DC 05/14 PO 1127 Sodium Bicarbonate 150 MEQ Q13H 05/15 0130 AC 05/15 Dextrose/Water 1,000 ML IV 0131 Sodium Bicarbonate 150 MEQ CONTINOUS INFUSION 05/13 2115 DC 05/14 Dextrose/Water 1,000 ML IV 05/15 0129 1229 Vital Signs & I&O Last 24 Hrs of Vitals and I&O: Vital Signs Date Time Temp Pulse Resp B/P B/P Pulse O2 O2 Flow FiO2 Mean Ox Delivery Rate 05/15 800 97.1 75 18 122/72 92 BIPAP 60% 05/15 08 93 BIPAP 60% 05/15 0606 77 95 05/15 0400 96 BIPAP 60% 05/15 0307 92 95 05/15 0153 96 BIPAP 60% 05/15 0026 71 91 05/15 0000 99 BIPAP 60% 05/15 0000 97.6 73 26 122/70 99 BIPAP 60% 05/14 2105 84 94 05/14 2000 Nasal 40% Cannula 05/14 1614 97 Nasal 40% Cannula 05/14 1600 95 Nasal 40% Cannula 05/14 1600 97.1 78 26 114/87 95 Nasal 40% Cannula 05/14 1222 98 Nasal 50% Cannula 05/14 1200 98 Nasal 60% Cannula 05/14 1125 98 Nasal 60% Cannula 05/14 1046 87 118/70 05/14 1045 84 118/70 Intake & Output 05/15 1600 05/15 0800 05/15 0000 Intake Total 573 855 Output Total 650 320 Balance -77 535 Intake, IV 573 615 Intake, Oral 240 Number 0 Bowel Movements Output, Urine 650 320 Patient 185 lb 195 lb Weight Weight Bed scale Bed scale Measurement Method Physical Exam General Appearance: alert, awake, moderate distress, on BiPAP Head: atraumatic Ears, Nose, Throat: normal pharynx, normal ENT inspection Neck: normal inspection, supple Respiratory: no appreciable breath sounds on the left side, scattered rhonchi on right Cardiovascular: irregularly irregular Gastrointestinal: normal bowel sounds, soft, non-tender Extremities: normal inspection, normal capillary refill, no edema Neurologic/Psych: no motor/sensory deficits, awake Skin: intact, normal color, no edema Results Last 24 Hrs of Lab Results: Laboratory Tests 05/15/18 0400: Anion Gap 17 H, Estimated GFR 10 L, Glucose 109 H, Calcium 8.6, Phosphorus 6.4 H, Magnesium 1.9, Total Bilirubin 0.3, Direct Bilirubin 0.3, AST 231 H, ALT 218 H, Alkaline Phosphatase 144 H, Total Protein 4.5 L, Albumin 2.4 L, CBC w Diff NO MAN DIFF REQ, RBC 2.90 L, MCV 86.3, MCH 29.0, MCHC 33.6, RDW 14.5 , MPV 10.8 H, Gran % 89.4 H, Lymphocytes % 4.7 L, Monocytes % 5.2, Eosinophils % 0.7, Basophils % 0, Absolute Granulocytes 4.6, Absolute Lymphocytes 0.2 L, Absolute Monocytes 0.3, Absolute Eosinophils 0, Absolute Basophils 0 05/14/18 1100: Ur Random Creatinine 37.4, Ur Random Sodium 53, Ur Random Potassium 17.4, Fraction Sodium Excret 5.9 H Impression/Plan Impression/Plan Impression/Plan: 1. Hypoxemic respiratory failure secondary to Legionella pneumonia. 2. Acute on chronic renal failure - worsening. 3. Hyponatremia secondary to Legionella pneumonia. 4. Non-anion gap metabolic acidosis secondary to renal failure. 5. Anemia without evidence of bleeding. 6. Chronic atrial fibrillation not on anticoagulation. 7. CAD with prior PCI. 8. History of SSS, s/p PPM. 9. History of hypertension. Recommendations: * Check a chest x-ray this morning. * Continue BiPAP and high flow as tolerated. * Attempt to titrate oxygen down for saturations greater than 92%. * Low threshold for intubation if the patient has increased respiratory distress. * Nebs/TRC. * Chest percussion. * IVFs per nephrology. * Continue antibiotics as per ID - appreciate input. * Swallowing evaluation. * Discuss the possibility of ROSLYN with cardiology, although the patient's oxygenation requirements would not allow for this to be done at present. * DVT prophylaxis at all times. * The patient is critically ill. * Discussed with housestaff.
--- NOTE | 2018-05-15 09:33 | PN- Cardiology ---
Subjective Subjective: Patient still complains of cough with mild shortness of breath. He remains on high flow O2 Review of Systems: Eyes no blurred or double vision Ears no deafness or ringing Nose and throat no recurrent sinusitis Lungs per history of present illness Heart per history of present illness Abdomen no nausea vomiting Musculoskeletal occasional muscle and joint pains Psych no anxiety or depression Neuro without recurrent headache or seizures Endocrine no heat or cold intolerance Objective Vital Signs and I&Os Vital Signs Date Time Temp Pulse Resp B/P B/P Pulse O2 O2 Flow FiO2 Mean Ox Delivery Rate 05/15 0900 92 Nasal 50% Cannula 05/15 0840 80 92 05/15 0800 97.1 75 18 122/72 92 BIPAP 60% 05/15 0800 93 BIPAP 60% 05/15 0606 77 95 05/15 0400 96 BIPAP 60% 05/15 0307 92 95 05/15 0153 96 BIPAP 60% 05/15 0026 71 91 05/15 0000 99 BIPAP 60% 05/15 0000 97.6 73 26 122/70 99 BIPAP 60% 05/14 2105 84 94 05/14 2000 Nasal 40% Cannula 05/14 1614 97 Nasal 40% Cannula 05/14 1600 95 Nasal 40% Cannula 05/14 1600 97.1 78 26 114/87 95 Nasal 40% Cannula 05/14 1222 98 Nasal 50% Cannula 05/14 1200 98 Nasal 60% Cannula 05/14 1125 98 Nasal 60% Cannula 05/14 1046 87 118/70 05/14 1045 84 118/70 Intake & Output 05/15 1600 05/15 0800 05/15 0000 05/14 1600 05/14 0800 05/14 0000 Intake Total 153 252 7958 460 100 Output Total 650 320 580 480 150 Balance -77 535 920 -20 -50 Intake, IV 573 615 900 460 100 Intake, Oral 240 600 Number 0 Bowel Movements Output, Urine 650 320 580 480 150 Patient 185 lb 195 lb 195 lb 194 lb Weight Weight Bed scale Bed scale Bed scale Measurement Method Physical Exam: Patient is a well-developed well-nourished male appearing in no acute distress HEENT is unremarkable Neck is supple there is no JVD Lungs scattered rhonchi bilaterally Heart irregular rhythm S1 and S2 are normal no murmurs gallops or rubs Abdomen bowel sounds positive Extremities without edema Current Medications: Current Medications Sig/Shanna Start time Last Medication Dose Route Stop Time Status Admin Acetaminophen 650 MG Q6P PRN 05/10 174 AC PO Acetaminophen 1,000 MG Q6P PRN 05/10 1745 AC 05/13 IV 1111 Acetylcysteine 2 ML EVERY 4 HRS/AWAKE 05/13 2100 AC 05/15 INH 0844 Albuterol Sulfate 3 ML EVERY 4 HRS/AWAKE 05/13 2100 AC 05/15 INH 0844 Aspirin 81 MG DAILY 05/11 09 AC 05/15 PO 0920 Atorvastatin Calcium 40 MG DAILY 05/11 09 AC 05/15 PO 0919 Azithromycin 500 MG 1400 05/11 1400 DC 05/13 Sodium Chloride 250 ML IV 1316 Ciprofloxacin 400 MG Q24H 05/14 1100 CAN Dextrose/Water 200 ML IV Ciprofloxacin 400 MG DAILY 05/14 1013 CAN IV Folic Acid 1 MG DAILY 05/11 900 AC 05/15 PO 0919 Magnesium Oxide 400 MG DAILY 05/12 2008 AC 05/15 PO 0919 Moxifloxacin HCl 400 MG Q24H 05/14 1200 AC 05/14 N/A 1 UNIT IV 1127 Moxifloxacin HCl 400 MG DAILY 05/14 1100 CAN IV Oxycodone HCl 10 MG Q6P PRN 05/10 1745 AC PO Rifampin 300 MG DAILY 05/15 09 AC 05/15 PO 0919 Rifampin 300 MG BID 05/14 1030 DC 05/14 PO 1127 Sodium Bicarbonate 150 MEQ Q13H 05/15 0130 AC 05/15 Dextrose/Water 1,000 ML IV 0131 Sodium Bicarbonate 150 MEQ CONTINOUS INFUSION 05/13 2115 DC 05/14 Dextrose/Water 1,000 ML IV 05/15 0129 1229 Results Last 48 Hrs of Labs/Mics: Laboratory Tests 05/15/18 0400: Anion Gap 17 H, Estimated GFR 10 L, Glucose 109 H, Calcium 8.6, Phosphorus 6.4 H, Magnesium 1.9, Total Bilirubin 0.3, Direct Bilirubin 0.3, AST 231 H, ALT 218 H, Alkaline Phosphatase 144 H, Total Protein 4.5 L, Albumin 2.4 L, CBC w Diff NO MAN DIFF REQ, RBC 2.90 L, MCV 86.3, MCH 29.0, MCHC 33.6, RDW 14.5 , MPV 10.8 H, Gran % 89.4 H, Lymphocytes % 4.7 L, Monocytes % 5.2, Eosinophils % 0.7, Basophils % 0, Absolute Granulocytes 4.6, Absolute Lymphocytes 0.2 L, Absolute Monocytes 0.3, Absolute Eosinophils 0, Absolute Basophils 0 05/14/18 1100: Ur Random Creatinine 37.4, Ur Random Sodium 53, Ur Random Potassium 17.4, Fraction Sodium Excret 5.9 H 05/14/18 0400: Anion Gap 17 H, Estimated GFR 10 L, Glucose 107 H, Calcium 9.1, Phosphorus 6.5 H, Magnesium 1.8, Total Bilirubin 0.4, AST 286 H, ALT 238 H, Albumin 2.5 L, CBC w Diff MAN DIFF ORDERED, RBC 2.97 L, MCV 86.1, MCH 29.5, MCHC 34.2, RDW 14.6 H, MPV 10.8 H, Gran % 91.6 H, Lymphocytes % 3.7 L, Monocytes % 4.4, Eosinophils % 0.3, Basophils % 0, Absolute Granulocytes 6.1, Segmented Neutrophils 95 H, Absolute Lymphocytes 0.2 L, Lymphocytes 3 L, Monocytes 2, Absolute Monocytes 0.3, Absolute Eosinophils 0, Absolute Basophils 0, Platelet Estimate ADEQUATE, Polychromasia 1+, Poikilocytosis 2+, Ovalocytes 1+, Ludin Cells 1+, Fld Total RBCs Counted 100, Hep Bs Antigen NONREACTIVE, Hep Bs Antibody NONREACTIVE 05/13/182299: CBC w Diff NO MAN DIFF REQ, RBC 2.96 L, MCV 87.7, MCH 28.8, MCHC 32.9 L, RDW 14.9 H, MPV 10.3, Gran % 95.2 H, Lymphocytes % 1.6 L, Monocytes % 3.0, Eosinophils % 0.2, Basophils % 0, Absolute Granulocytes 6.4, Absolute Lymphocytes 0.1 L, Absolute Monocytes 0.2, Absolute Eosinophils 0, Absolute Basophils 0 05/13/182214: Troponin I Cancelled 05/13/182129: Anion Gap 15, Estimated GFR 10 L, Glucose 108 H, Lactic Acid 0.9, Calcium 9.0, Phosphorus 6.2 H, Magnesium 1.8, Total Bilirubin 0.4, AST 304 H, ALT 241 H, Troponin I 0.05, Albumin 2.4 L 05/13/180: Anion Gap 14, Estimated GFR 12 L, BUN/Creatinine Ratio 17.2 07/29/18 2005: pH 7.42, pCO2 23 L, pO2 75 L, HCO3 14 L, ABG O2 Sat (Measured) 93.0 L, P-50 (Temp Corrected) Y, Carboxyhemoglobin 0.6 L, O2 Concentration % 80%, Temperature 100.0, Respiration Rate 26, O2 Delivery Method FFM, Vent Mode ST, Expiratory Pressure 8, Inspiratory Pressure 20, Phlebotomy Draw Site RIGHT BRACHIAL 05/13/18 1710: pH 7.42, pCO2 23 L, pO2 68 L, HCO3 14 L, ABG O2 Sat (Measured) 92.0 L, P-50 (Temp Corrected) Y, Carboxyhemoglobin 0.3 L, O2 Concentration % 95%, Temperature 100.0, O2 Delivery Method HFNC AT 55LPM, Phlebotomy Draw Site RIGHT RADIAL Microbiology 05/13 1745 GI: Surveillance Culture - COMP 05/13 1740 UPPER RESP: Surveillance Culture - COMP 05/13 1735 URINE ROUT: Urine Culture - COMP Telemetry personally reviewed atrial fibrillation with controlled ventricular response Recent Imaging Studies: Echocardiogram CONCLUSIONS Normal global left ventricular size, wall thickness, systolic function with no obvious regional wall motion abnormalities. Left ventricular ejection fraction is estimated at 55 %. Normal right ventricular size and function. Catheter/pacemaker wire in the right ventricular cavity. Mild right atrial dilatation. Mild to moderate left atrial dilatation. [id number] tricuspid regurgitation. Mild pulmonary hypertension. Sebastian Meza M.D. Assessment/Plan Assessment/Plan 1. Legionella pneumonia on antibiotics 2. Chronic atrial fibrillation not on anticoagulation due to patient preference /neurology recommendations 3. Coronary artery disease with prior PCI and occluded PDA maintained on dual antiplatelet therapy. Normal ejection fraction of 55% by echocardiogram 4. Sick sinus syndrome with a history of permanent pacemaker 5. Mild aortic dilatation 6. History of hypertension 7. History of renal cancer with prior nephrectomy and chronic kidney disease Recommendations 1. Continue antibiotics per Dr. Penny 2. Continue to monitor on telemetry Continue telemetry? Yes
--- NOTE | 2018-05-15 09:49 | PN- Nephrology ---
Assessment/Plan Nephrology Assessment: Chronic kidney disease stage 4-5: Baseline creatinine is in the threes with estimate GFR of approximately 15 mL/m on the cusp between stage IV and stage V chronic kidney disease, suspected due to hypertension and status post nephrectomy for renal cell carcinoma. MILLIE: Elevated FeNa and lack of improvement with IVFs points away from prerenal azotemia. Highest on differential is ATN from sepsis. . Cannot rule out Legionella-induced interstitial nephritis, which is a rare complication of Legionella infection. Despite severe renal failure he is nonoliguric without hyperkalemia and without overt uremic symptoms, without overt volume overload, and there is no acute indication for dialysis. Metabolic acidosis, elevated anion gap: from renal failure. Bicarb improved to 22; would DC bicarb gtt. Start sodium bicarb 1300 mg po bid. Hyponatremia: Suspect due to excess free water intake relative to solute intake in the setting of severe renal failure (with inability to maximally dilute). Na + a bit better today. OK to DC IVFs (the bicarb gtt) for now. Suggestion: DC bicarbonate gtt start sodium bicarb 1300 mg po bid There is no emergent indication for dialysis at this time Hold diuretics for now encourage PO fluid intake; if not taking sufficient PO consider D5NS at 50 cc/hr for maintenance Subjective Subjective: No acute events FiO2 slightly improved good urine output creat stable Review of Systems: no diarrhea/vomiting taking PO no fever Objective Vital Signs and I&Os Vital Signs Date Time Temp Pulse Resp B/P B/P Pulse O2 O2 Flow FiO2 Mean Ox Delivery Rate 05/15 0900 92 Nasal 50% Cannula 05/15 0840 80 92 05/15 0800 97.1 75 18 122/72 92 BIPAP 60% 05/15 0800 93 BIPAP 60% 05/15 0606 77 95 05/15 0400 96 BIPAP 60% 05/15 0307 92 95 05/15 0153 96 BIPAP 60% 05/15 0026 71 91 05/15 0000 99 BIPAP 60% 05/15 0000 97.6 73 26 122/70 99 BIPAP 60% 05/14 2105 84 94 05/14 2000 Nasal 40% Cannula 05/14 1614 97 Nasal 40% Cannula 05/14 1600 95 Nasal 40% Cannula 05/14 1600 97.1 78 26 114/87 95 Nasal 40% Cannula 05/14 1222 98 Nasal 50% Cannula 05/14 1200 98 Nasal 60% Cannula 05/14 1125 98 Nasal 60% Cannula 05/14 1046 87 118/70 05/14 1045 84 118/70 Intake & Output 05/15 1600 05/15 0400 05/14 1600 05/14 0400 05/13 1600 05/13 0400 Intake Total 347 708 7203 100 1040 150 Output Total 393 723 3557 150 500 300 Balance -77 535 900 -50 540 -150 Intake, IV 841 722 5890 100 370 Intake, Oral 240 600 670 150 Number 0 Bowel Movements Output, Urine 775 661 9592 150 500 300 Patient 185 lb 195 lb 194 lb 204 lb Weight Weight Bed scale Bed scale Bed scale Measurement Method Physical Exam: NAD dec BS at bases soft NT no edema in legs trace sacral edema S1 S2 Current Medications: Current Medications Sig/Shanna Start time Last Medication Dose Route Stop Time Status Admin Acetaminophen 650 MG Q6P PRN 05/10 1745 AC PO Acetaminophen 1,000 MG Q6P PRN 05/10 1745 AC 05/13 IV 1111 Acetylcysteine 2 ML EVERY 4 HRS/AWAKE 05/13 2100 AC 05/15 INH 0844 Albuterol Sulfate 3 ML EVERY 4 HRS/AWAKE 05/13 2100 AC 05/15 INH 0844 Aspirin 81 MG DAILY 05/11 900 AC 05/15 PO 0920 Atorvastatin Calcium 40 MG DAILY 05/11 900 AC 05/15 PO 0919 Azithromycin 500 MG 1400 05/11 1400 DC 05/13 Sodium Chloride 250 ML IV 1316 Ciprofloxacin 400 MG Q24H 05/14 1100 CAN Dextrose/Water 200 ML IV Ciprofloxacin 400 MG DAILY 05/14 1013 CAN IV Folic Acid 1 MG DAILY 05/11 900 AC 05/15 PO 0919 Magnesium Oxide 400 MG DAILY 05/12 2008 AC 05/15 PO 0919 Moxifloxacin HCl 400 MG Q24H 05/14 1200 AC 05/14 N/A 1 UNIT IV 1127 Moxifloxacin HCl 400 MG DAILY 05/14 1100 CAN IV Oxycodone HCl 10 MG Q6P PRN 05/10 174 AC PO Rifampin 300 MG DAILY 05/15 09 AC 05/15 PO 0919 Rifampin 300 MG BID 05/14 1030 DC 05/14 PO 1127 Sodium Bicarbonate 150 MEQ Q13H 05/15 0130 AC 05/15 Dextrose/Water 1,000 ML IV 0131 Sodium Bicarbonate 150 MEQ CONTINOUS INFUSION 05/13 2115 DC 05/14 Dextrose/Water 1,000 ML IV 05/15 4784 7220 Results Pertinent Lab Results: Laboratory Tests 05/15 05/14 0400 1100 Chemistry Sodium (137 - 145 mmol/L) 131 L Potassium (3.5 - 5.1 mmol/L) 3.7 Chloride (98 - 107 mmol/L) 93 L Carbon Dioxide (22 - 30 mmol/L) 22 Anion Gap (5 - 16) 17 H BUN (9 - 20 mg/dL) 96 H Creatinine (0.7 - 1.2 mg/dL) 5.3 *H Estimated GFR (>60 ml/min) 10 L Glucose (65 - 99 mg/dL) 109 H Calcium (8.4 - 10.2 mg/dL) 8.6 Phosphorus (2.5 - 4.5 mg/dL) 6.4 H Magnesium (1.6 - 2.3 mg/dL) 1.9 Total Bilirubin (0.2 - 1.3 mg/dL) 0.3 Direct Bilirubin (< 0.4 mg/dL) 0.3 AST (17 - 59 U/L) 231 H ALT (21 - 72 U/L) 218 H Alkaline Phosphatase (< 127 U/L) 144 H Total Protein (6.3 - 8.2 g/dL) 4.5 L Albumin (3.5 - 5.0 g/dL) 2.4 L Hematology CBC w Diff NO MAN DIFF REQ WBC (4.8 - 10.8 /CUMM) 5.2 RBC (4.70 - 6.10 /CUMM) 2.90 L Hgb (14.0 - 18.0 G/DL) 8.4 L Hct (42 - 52 %) 25.0 L MCV (80.0 - 94.0 FL) 86.3 MCH (27.0 - 31.0 PG) 29.0 MCHC (33.0 - 37.0 G/DL) 33.6 RDW (11.5 - 14.5 %) 14.5 Plt Count (130 - 400 /CUMM) 173 MPV (7.4 - 10.4 FL) 10.8 H Gran % (42.2 - 75.2 %) 89.4 H Lymphocytes % (20.5 - 51.1 %) 4.7 L Monocytes % (1.7 - 9.3 %) 5.2 Eosinophils % (0 - 5 %) 0.7 Basophils % (0.0 - 2.0 %) 0 Absolute Granulocytes (1.4 - 6.5 /CUMM) 4.6 Absolute Lymphocytes (1.2 - 3.4 /CUMM) 0.2 L Absolute Monocytes (0.10 - 0.60 /CUMM) 0.3 Absolute Eosinophils (0.0 - 0.7 /CUMM) 0 Absolute Basophils (0.0 - 0.2 /CUMM) 0 Urines Ur Random Creatinine (mg/dL) 37.4 Ur Random Sodium (30 - 90 mmol/L) 53 Ur Random Potassium (mmol/L) 17.4 Fraction Sodium Excret (<1% %) 5.9 H 05/14 05/13 0400 2300 Chemistry Sodium (137 - 145 mmol/L) 129 L Potassium (3.5 - 5.1 mmol/L) 4.1 Chloride (98 - 107 mmol/L) 95 L Carbon Dioxide (22 - 30 mmol/L) 17 L Anion Gap (5 - 16) 17 H BUN (9 - 20 mg/dL) 87 H Creatinine (0.7 - 1.2 mg/dL) 5.4 *H Estimated GFR (>60 ml/min) 10 L Glucose (65 - 99 mg/dL) 107 H Calcium (8.4 - 10.2 mg/dL) 9.1 Phosphorus (2.5 - 4.5 mg/dL) 6.5 H Magnesium (1.6 - 2.3 mg/dL) 1.8 Total Bilirubin (0.2 - 1.3 mg/dL) 0.4 AST (17 - 59 U/L) 286 H ALT (21 - 72 U/L) 238 H Albumin (3.5 - 5.0 g/dL) 2.5 L Hematology CBC w Diff MAN DIFF ORDERED NO MAN DIFF REQ WBC (4.8 - 10.8 /CUMM) 6.6 6.7 RBC (4.70 - 6.10 /CUMM) 2.97 L 2.96 L Hgb (14.0 - 18.0 G/DL) 8.7 L 8.5 L Hct (42 - 52 %) 25.5 L 26.0 L MCV (80.0 - 94.0 FL) 86.1 87.7 MCH (27.0 - 31.0 PG) 29.5 28.8 MCHC (33.0 - 37.0 G/DL) 34.2 32.9 L RDW (11.5 - 14.5 %) 14.6 H 14.9 H Plt Count (130 - 400 /CUMM) 151 149 MPV (7.4 - 10.4 FL) 10.8 H 10.3 Gran % (42.2 - 75.2 %) 91.6 H 95.2 H Lymphocytes % (20.5 - 51.1 %) 3.7 L 1.6 L Monocytes % (1.7 - 9.3 %) 4.4 3.0 Eosinophils % (0 - 5 %) 0.3 0.2 Basophils % (0.0 - 2.0 %) 0 0 Absolute Granulocytes (1.4 - 6.5 /CUMM) 6.1 6.4 Segmented Neutrophils (42.2 - 75.2 %) 95 H Absolute Lymphocytes (1.2 - 3.4 /CUMM) 0.2 L 0.1 L Lymphocytes (20.5 - 51.1 %) 3 L Monocytes (1.7 - 9.3 %) 2 Absolute Monocytes (0.10 - 0.60 /CUMM) 0.3 0.2 Absolute Eosinophils (0.0 - 0.7 /CUMM) 0 0 Absolute Basophils (0.0 - 0.2 /CUMM) 0 0 Platelet Estimate (ADEQUATE) ADEQUATE Polychromasia 1+ Poikilocytosis 2+ Ovalocytes 1+ Ludin Cells 1+ Other Body Source Fld Total RBCs Counted (%) 100 Serology Hep Bs Antigen (NONREACTIVE) NONREACTIVE Hep Bs Antibody (NONREACTIVE) NONREACTIVE 05/13 Blood Gas pH (7.35 - 7.45 PH) 7.42 pCO2 (35 - 45 TORR) 23 L pO2 (80 - 100 TORR) 75 L HCO3 (21 - 28 MEQ/L) 14 L ABG O2 Sat (Measured) (>96.0 %) 93.0 L P-50 (Temp Corrected) Y Carboxyhemoglobin (1.5 - 5.0 %) 0.6 L O2 Concentration % 80% Temperature (97.0 - 100.0 FARH) 100.0 Respiration Rate (BPM) 26 O2 Delivery Method FFM Vent Mode ST Expiratory Pressure (CM H2O P) 8 Inspiratory Pressure (CM H2O P) 20 Chemistry Sodium (137 - 145 mmol/L) 128 L 129 L Potassium (3.5 - 5.1 mmol/L) 4.3 4.7 Chloride (98 - 107 mmol/L) 96 L 100 Carbon Dioxide (22 - 30 mmol/L) 17 L 15 L Anion Gap (5 - 16) 15 14 BUN (9 - 20 mg/dL) 85 H 81 H Creatinine (0.7 - 1.2 mg/dL) 5.3 *H 4.7 H Estimated GFR (>60 ml/min) 10 L 12 L BUN/Creatinine Ratio (7 - 25 %) 17.2 Glucose (65 - 99 mg/dL) 108 H Lactic Acid (0.7 - 2.1 mmol/L) 0.9 Calcium (8.4 - 10.2 mg/dL) 9.0 Phosphorus (2.5 - 4.5 mg/dL) 6.2 H Magnesium (1.6 - 2.3 mg/dL) 1.8 Total Bilirubin (0.2 - 1.3 mg/dL) 0.4 AST (17 - 59 U/L) 304 H ALT (21 - 72 U/L) 241 H Troponin I (<0.11 ng/ml) Cancelled 0.05 Albumin (3.5 - 5.0 g/dL) 2.4 L Miscellaneous Phlebotomy Draw Site RIGHT BRACHIAL 05/13 05/13 1710 0600 Blood Gas pH (7.35 - 7.45 PH) 7.42 pCO2 (35 - 45 TORR) 23 L pO2 (80 - 100 TORR) 68 L HCO3 (21 - 28 MEQ/L) 14 L ABG O2 Sat (Measured) (>96.0 %) 92.0 L P-50 (Temp Corrected) Y Carboxyhemoglobin (1.5 - 5.0 %) 0.3 L O2 Concentration % 95% Temperature (97.0 - 100.0 FARH) 100.0 O2 Delivery Method HFNC AT 55LPM Chemistry Sodium (137 - 145 mmol/L) 127 L Potassium (3.5 - 5.1 mmol/L) 4.2 Chloride (98 - 107 mmol/L) 97 L Carbon Dioxide (22 - 30 mmol/L) 15 L Anion Gap (5 - 16) 15 BUN (9 - 20 mg/dL) 79 H Creatinine (0.7 - 1.2 mg/dL) 5.0 H Estimated GFR (>60 ml/min) 11 L BUN/Creatinine Ratio (7 - 25 %) 15.8 Hematology CBC w Diff NO MAN DIFF REQ WBC (4.8 - 10.8 /CUMM) 6.7 RBC (4.70 - 6.10 /CUMM) 2.75 L Hgb (14.0 - 18.0 G/DL) 8.2 L Hct (42 - 52 %) 23.5 L MCV (80.0 - 94.0 FL) 85.6 MCH (27.0 - 31.0 PG) 29.8 MCHC (33.0 - 37.0 G/DL) 34.8 RDW (11.5 - 14.5 %) 14.4 Plt Count (130 - 400 /CUMM) 120 L MPV (7.4 - 10.4 FL) 10.7 H Gran % (42.2 - 75.2 %) 96.4 H Lymphocytes % (20.5 - 51.1 %) 1.1 L Monocytes % (1.7 - 9.3 %) 2.5 Eosinophils % (0 - 5 %) 0 Basophils % (0.0 - 2.0 %) 0 Absolute Granulocytes (1.4 - 6.5 /CUMM) 6.5 Absolute Lymphocytes (1.2 - 3.4 /CUMM) 0.1 L Absolute Monocytes (0.10 - 0.60 /CUMM) 0.2 Absolute Eosinophils (0.0 - 0.7 /CUMM) 0 Absolute Basophils (0.0 - 0.2 /CUMM) 0 Miscellaneous Phlebotomy Draw Site RIGHT RADIAL 05/12 1450 Blood Gas pH (7.35 - 7.45 PH) 7.48 H pCO2 (35 - 45 TORR) 15 L pO2 (80 - 100 TORR) 72 L HCO3 (21 - 28 MEQ/L) 11 L ABG O2 Sat (Measured) (>96.0 %) 94.0 L Carboxyhemoglobin (1.5 - 5.0 %) 0.2 L O2 Concentration % 70% O2 Delivery Method HFNC Miscellaneous Phlebotomy Draw Site RIGHT RADIAL
--- NOTE | 2018-05-15 12:03 | PN- Infect Dx ---
Subjective Subjective: No fever; still requiring high flow O2; overall SOB much improved. No fever. Less cough. Improved appetite. Review of Systems Comments: 12 points reviewed as noted, otherwise negative. Objective Last 24 Hrs of Vital Signs/I&O Vital Signs Date Time Temp Pulse Resp B/P B/P Pulse O2 O2 Flow FiO2 Mean Ox Delivery Rate 05/15 900 92 Nasal 50% Cannula 05/15 0840 80 92 05/15 0800 97.1 75 18 122/72 92 BIPAP 60% 05/15 0800 93 BIPAP 60% 05/15 0606 77 95 05/15 0400 96 BIPAP 60% 05/15 0307 92 95 05/15 0153 96 BIPAP 60% 05/15 0026 71 91 05/15 0000 99 BIPAP 60% 05/15 0000 97.6 73 26 122/70 99 BIPAP 60% 05/14 2105 84 94 05/14 2000 Nasal 40% Cannula 05/14 1614 97 Nasal 40% Cannula 05/14 1600 95 Nasal 40% Cannula 05/14 1600 97.1 78 26 114/87 95 Nasal 40% Cannula 05/14 1222 98 Nasal 50% Cannula 05/14 1200 98 Nasal 60% Cannula Intake & Output 05/15 1600 05/15 0800 05/15 0000 Intake Total 573 855 Output Total 650 320 Balance -77 535 Intake, IV 573 615 Intake, Oral 240 Number 0 Bowel Movements Output, Urine 650 320 Patient 185 lb 195 lb Weight Weight Bed scale Bed scale Measurement Method Physical Exam Other Physical Findings: General Appearance: alert, awake, no ac distress, off BiPAP Head: atraumatic, no thrush Ears, Nose, Throat: normal pharynx, normal ENT inspection Neck: normal inspection, supple Respiratory: diminished breath sounds on the left base, scattered rhonchi Cardiovascular: S1 S2 present Gastrointestinal: normal bowel sounds, soft, non-tender Extremities: normal inspection, normal capillary refill, no edema Neurologic/Psych: awake and alert, able to answer questions Skin: intact, normal color, no edema Results Last 24 Hours of Lab Results: Laboratory Tests 05/15 400 Chemistry Sodium (137 - 145 mmol/L) 131 L Potassium (3.5 - 5.1 mmol/L) 3.7 Chloride (98 - 107 mmol/L) 93 L Carbon Dioxide (22 - 30 mmol/L) 22 Anion Gap (5 - 16) 17 H BUN (9 - 20 mg/dL) 96 H Creatinine (0.7 - 1.2 mg/dL) 5.3 *H Estimated GFR (>60 ml/min) 10 L Glucose (65 - 99 mg/dL) 109 H Calcium (8.4 - 10.2 mg/dL) 8.6 Phosphorus (2.5 - 4.5 mg/dL) 6.4 H Magnesium (1.6 - 2.3 mg/dL) 1.9 Total Bilirubin (0.2 - 1.3 mg/dL) 0.3 Direct Bilirubin (< 0.4 mg/dL) 0.3 AST (17 - 59 U/L) 231 H ALT (21 - 72 U/L) 218 H Alkaline Phosphatase (< 127 U/L) 144 H Total Protein (6.3 - 8.2 g/dL) 4.5 L Albumin (3.5 - 5.0 g/dL) 2.4 L Hematology CBC w Diff NO MAN DIFF REQ WBC (4.8 - 10.8 /CUMM) 5.2 RBC (4.70 - 6.10 /CUMM) 2.90 L Hgb (14.0 - 18.0 G/DL) 8.4 L Hct (42 - 52 %) 25.0 L MCV (80.0 - 94.0 FL) 86.3 MCH (27.0 - 31.0 PG) 29.0 MCHC (33.0 - 37.0 G/DL) 33.6 RDW (11.5 - 14.5 %) 14.5 Plt Count (130 - 400 /CUMM) 173 MPV (7.4 - 10.4 FL) 10.8 H Gran % (42.2 - 75.2 %) 89.4 H Lymphocytes % (20.5 - 51.1 %) 4.7 L Monocytes % (1.7 - 9.3 %) 5.2 Eosinophils % (0 - 5 %) 0.7 Basophils % (0.0 - 2.0 %) 0 Absolute Granulocytes (1.4 - 6.5 /CUMM) 4.6 Absolute Lymphocytes (1.2 - 3.4 /CUMM) 0.2 L Absolute Monocytes (0.10 - 0.60 /CUMM) 0.3 Absolute Eosinophils (0.0 - 0.7 /CUMM) 0 Absolute Basophils (0.0 - 0.2 /CUMM) 0 Last 24 Hours of Mike Results: reviewed Recent Imaging Studies: SERVICE DATE: 05/15/18-0500 EXAM TYPE: RAD - XRY-PORTABLE CHEST XRAY EXAMINATION: XR PORTABLE CHEST CLINICAL INFORMATION: 87-year-old male with clinically suspected pneumonia. For followup. COMPARISON: Chest done on 05/14/2018 TECHNIQUE: Portable upright 70 degrees frontal view of the chest was obtained. FINDINGS: Asymmetric low lung volume is noted within the left hemithorax with slight mediastinal shift to the left. Dense heterogeneous airspace opacities noted along the left central, paracentral aspect of the hemithorax, similar to prior study. There is minimal blunting of the left lateral CP angle and left hemidiaphragm noted, consistent with a trace amount of effusion. The right lung field is mildly hyperexpanded and grossly appears unremarkable. The heart size is within normal limits. The visualized upper abdomen is unremarkable. Compared to prior study dated 05/14/2018, there is no significant interval change present. IMPRESSION: No significant change since 05/14/2018. 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 Legionella pneumonia Ac resp failure MILLIE (prerenal)/CKD (basline creatinine ~3) Suggestion: 1. D#2 moxifloxacin/rifampin; cont to monitor LFT's. 2. Trend CBC, BMP. 3. Call if fever.
[2018-05-15 16:00] VITALS: BP 114/62
[2018-05-16 02:40] VITALS: BP 136/77
[2018-05-16 05:56] LABS: ABSOLUTE BASOPHIL COUNT 0 /CUMM (0.0-0.2); ABSOLUTE EOSINOPHIL COUNT 0.1 /CUMM (0.0-0.7); ABSOLUTE LYMPH COUNT 0.3 /CUMM (1.2-3.4); ABSOLUTE MONOCYTE COUNT 0.3 /CUMM (0.10-0.60); BASOPHIL % 0 % (0.0-2.0); EOSINOPHIL % 1.5 % (0-5); GRANULOCYTE % 88.8 % (42.2-75.2); HEMATOCRIT 25.8 % (42-52); MEAN CORPUSCULAR VOLUME 87.7 FL (80.0-94.0); MEAN PLATELET VOLUME 10.9 FL (7.4-10.4); PLATELET COUNT 200 /CUMM (130-400); RBC DISTRIBUTION WIDTH 14.9 % (11.5-14.5); RED BLOOD CELL CT 2.94 /CUMM (4.70-6.10); WHITE BLOOD CELL COUNT 6.7 /CUMM (4.8-10.8)
--- NOTE | 2018-05-16 07:12 | PN- Resident CRCU ---
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 Patient respiratory status got worse during the course and at some point there was decision of intubation but patient did well on BiPAP. At that time his CODE STATUS was changed to DNR/intubation as family for intubation if needed but no chest compressions. Since then patient did well on BiPAP. He is being treated for sepsis possibly due to Legionella pneumonia. Patient is on BiPAP high flow oxygen and maintaining saturation above 92%. 24 Hour Events: No overnight events. They should use BiPAP at nighttime and he is maintaining saturation above 92%. Patient doesn't like BiPAP and we will try high flow oxygen to keep his oxygen saturation above 92%. Patient denied chest pain, short of breath, palpitation, nausea, vomiting, chills, fever, abdominal pain dysuria. His urine output in 24 hours is 1700 and input 1250ml. Objective Vital Signs & I&O Last 8 Hrs of Vitals and I&O: TEMP 98.1, PULSE 74, R/R 20, BP 130/70, O2 SAT 93 Exam General Appearance: well developed/nourished, no apparent distress, alert Head: atraumatic, normal appearance Neck: normal inspection, supple Respiratory: normal breath sounds Cardiovascular: regular rate/rhythm Gastrointestinal: normal bowel sounds, soft Extremities: normal inspection Cranial Nerves: normal hearing, normal speech, PERRL Skin Temp/Moisture Exam: Warm/Dry Sepsis Skin Exam (color): Normal for Ethnicity Current Medications: Current Medications Sig/Shanna Start time Last Medication Dose Route Stop Time Status Admin Acetaminophen 650 MG Q6P PRN 05/10 174 AC PO Acetaminophen 1,000 MG Q6P PRN 05/10 174 AC 05/13 IV 1111 Acetylcysteine 2 ML EVERY 4 HRS/AWAKE 05/13 2100 AC 05/16 INH 2133 Albuterol Sulfate 3 ML EVERY 4 HRS/AWAKE 05/13 2100 AC 05/16 INH 2134 Aspirin 81 MG DAILY 05/11 09 AC 05/16 PO 0948 Atorvastatin Calcium 40 MG DAILY 05/11 09 AC 05/16 PO 0947 Clopidogrel Bisulfate 75 MG DAILY 05/16 1200 AC 05/16 PO 1216 Folic Acid 1 MG DAILY 05/11 0900 AC 05/16 PO 0947 Magnesium Oxide 400 MG DAILY 05/12 2008 AC 05/16 PO 0947 Moxifloxacin HCl 400 MG Q24H 05/14 1200 AC 05/16 N/A 1 UNIT IV 1216 Nebivolol 10 MG DAILY 05/15 1400 AC 05/16 PO 0948 Oxycodone HCl 10 MG Q6P PRN 05/10 1745 AC PO Rifampin 300 MG DAILY 05/15 0900 DC 05/16 PO 0947 Sodium Bicarbonate 1,300 MG BID 05/15 2100 AC 05/16 PO 2158 Impression/Plan Impression/Problem List Impression: 87yo M w/ PMH of hypertension, hyperlipidemia, 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 Patient respiratory status got worse during the course and at some point there was decision of intubation but patient did well on BiPAP. At that time his CODE STATUS was changed to DNR/intubation as family for intubation if needed but no chest compressions. Since then patient did well on BiPAP. We'll continue treating the patient for Legionella pneumonia. Acute hypoxic respiratory failure due to Legionella pneumonia: -Continue high flow oxygen and BiPAP to maintain oxygen above 92%. - Continue moxifloxacin day 3. His rifampin is discontinued today as recommended by ID. -His blood cultures remain negative so far. -TRC nebulization as needed -Continue acetylcysteine inhalation as mucolytic. -Chest physiotherapy -We will follow pulmonology recommendations. Acute on chronic kidney injury: -Possibly due to Legionella induced nephritis or acute tubular necrosis due to sepsis. Patient didn't respond to IV fluids and his fractional excretion of sodium remained elevated. -Patient had chronic kidney injury stage IV-V -His IV bicarbonate was discontinued and patient was put on by mouth bicarbonate 1300 mg twice a day. -His creatinine is 4.9 today. -Avoid nephrotoxins medications -Continue holding his diuretics -Continue monitor input and output -We will follow nephrology recommendations Hyponatremia: -Possibly due to renal failure and excessive free fluid. -Today his sodium level is 134 -We'll monitor his sodium level and follow nephrology recommendations. -Patient is tolerating oral fluids. Nonsustained V. tach: -Patient didn't have any further went to go tachycardia. He had one episode yesterday in afternoon. -Continue by Bystolic. History of chronic atrial fibrillation: -Not on any anticoagulation due to patient preference/neurology recommendations -Continue monitoring on nuclear physician as recommended by cardiology. History of hyperlipidemia: -Continue atorvastatin History of coronary artery disease status post stent placement: -Continue aspirin -His Plavix was continued today as recommended by cardiology DVT prophylaxis: Mechanical only CODE STATUS: DNR Problem List: 1. Acute respiratory failure with hypoxia 2. [id number] kidney injury 3. Community acquired pneumonia Pain Ratin Pain Location: none Tomorrow's Labs & Rationales: cbc/bep/lfts Plan DVT/Prophylaxis: mechanical
[2018-05-16 08:00] VITALS: BP 116/70
--- NOTE | 2018-05-16 10:03 | PN- CRCU ---
Subjective HPI/Critical Care Issues: The patient is awake and alert, he remains on BIPAP. He continues to require a significant amount of oxygen. CXR yesterday is slowly improving. He continues to have good urine output. Objective Current Medications: Current Medications Sig/Shanna Start time Last Medication Dose Route Stop Time Status Admin Acetaminophen 650 MG Q6P PRN 05/10 1745 AC PO Acetaminophen 1,000 MG Q6P PRN 05/10 1745 AC 05/13 IV 1111 Acetylcysteine 2 ML EVERY 4 HRS/AWAKE 05/13 2100 AC 05/16 INH 0834 Albuterol Sulfate 3 ML EVERY 4 HRS/AWAKE 05/13 2100 AC 05/16 INH 0834 Aspirin 81 MG DAILY 05/11 09 AC 05/15 PO 0920 Atorvastatin Calcium 40 MG DAILY 05/11 09 AC 05/15 PO 0919 Folic Acid 1 MG DAILY 05/11 09 AC 05/15 PO 0919 Magnesium Oxide 400 MG ONE ONE 05/15 1330 DC 05/15 PO 05/15 1331 1503 Magnesium Oxide 400 MG DAILY 05/12 2008 AC 05/15 PO 0919 Moxifloxacin HCl 400 MG Q24H 05/14 1200 AC 05/15 N/A 1 UNIT IV 1200 Nebivolol 10 MG DAILY 05/15 1400 AC 05/15 PO 1529 Oxycodone HCl 10 MG Q6P PRN 05/10 1745 AC PO Rifampin 300 MG DAILY 05/15 0900 AC 05/15 PO 0919 Sodium Bicarbonate 1,300 MG BID 05/15 2100 AC 05/15 PO 2127 Sodium Bicarbonate 150 MEQ Q13H 05/15 0130 DC 05/15 Dextrose/Water 1,000 ML IV 0131 Vital Signs & I&O Last 24 Hrs of Vitals and I&O: Vital Signs Date Time Temp Pulse Resp B/P B/P Pulse O2 O2 Flow FiO2 Mean Ox Delivery Rate 05/16 0840 94 Nasal 55% Cannula 05/16 0830 72 95 05/16 08 97.3 70 28 116/70 96 BIPAP 60% 05/16 0800 96 BIPAP 60% 05/16 0545 73 92 05/16 0400 97 BIPAP 60% 05/16 0315 85 97 05/16 0240 97.5 81 24 136/77 97 BIPAP 60% 05/16 0039 81 92 05/16 0000 97 BIPAP 60% 05/15 2322 77 92 05/15 Nasal 55% Cannula 05/15 1700 94 Nasal 55% Cannula 05/15 1600 97.2 80 26 114/62 95 Nasal 50% Cannula 05/15 1600 94 Nasal 50% Cannula 05/15 1529 78 120/52 05/15 1326 95 Nasal 50% Cannula 05/15 1200 93 Nasal 50% Cannula Intake & Output 05/16 1600 05/16 0800 05/16 0000 Intake Total 0 280 Output Total 650 500 Balance -650 -220 Intake, Oral 0 280 Output, Urine 650 500 Physical Exam General Appearance: alert, awake, moderate distress, on BiPAP Head: atraumatic Ears, Nose, Throat: normal pharynx, normal ENT inspection Neck: normal inspection, supple Respiratory: no appreciable breath sounds on the left side, scattered rhonchi on right Cardiovascular: irregularly irregular Gastrointestinal: normal bowel sounds, soft, non-tender Extremities: normal inspection, normal capillary refill, no edema Neurologic/Psych: no motor/sensory deficits, awake Skin: intact, normal color, no edema Results Last 24 Hrs of Lab Results: Laboratory Tests 05/16/18 0457: Anion Gap 16, Estimated GFR 11 L, BUN/Creatinine Ratio 19.8, Magnesium 1.9, Total Bilirubin 0.4, Direct Bilirubin 0.4, AST 169 H, ALT 185 H, Alkaline Phosphatase 138 H, Total Protein 4.7 L, Albumin 2.4 L, CBC w Diff MAN DIFF ORDERED, RBC 2.94 L, MCV 87.7, MCH 29.0, MCHC 33.0, RDW 14.9 H, MPV 10.9 H, Gran % 88.8 H, Lymphocytes % 5.1 L, Monocytes % 4.6, Eosinophils % 1.5, Basophils % 0, Absolute Granulocytes 6.0, Segmented Neutrophils 89 H, Absolute Lymphocytes 0.3 L, Lymphocytes 3 L, Monocytes 6, Absolute Monocytes 0.3, Eosinophils 2, Absolute Eosinophils 0.1, Absolute Basophils 0, Platelet Estimate ADEQUATE, Polychromasia 1+, Poikilocytosis 1+, Basophilic Stippling 1+, Ovalocytes 1+, Elliptocytes FEW, Fld Total RBCs Counted 100 05/15/18 1354: Troponin I 0.03 Impression/Plan Impression/Plan Impression/Plan: 1. Hypoxemic respiratory failure secondary to Legionella pneumonia. 2. Acute on chronic renal failure - worsening. 3. Hyponatremia secondary to Legionella pneumonia. 4. Non-anion gap metabolic acidosis secondary to renal failure. 5. Anemia without evidence of bleeding. 6. Chronic atrial fibrillation not on anticoagulation. 7. CAD with prior PCI. 8. History of SSS, s/p PPM. 9. History of hypertension. Recommendations: * Continue BiPAP and high flow as tolerated. * Attempt to titrate oxygen down for saturations greater than 92%. * Low threshold for intubation if the patient has increased respiratory distress. * Nebs/TRC. * Chest percussion - attention to left lung. * IVFs per nephrology. * Continue antibiotics as per ID - appreciate input. * Aspiration precautions. * Need for ROSLYN in the future? * DVT prophylaxis at all times. * The patient remains critically ill. * Discussed with housestaff.
--- NOTE | 2018-05-16 11:10 | PN- Cardiology ---
Subjective Subjective: Patient is resting comfortably on high flow nasal cannula oxygen. Objective Vital Signs and I&Os Vital Signs Date Time Temp Pulse Resp B/P B/P Pulse O2 O2 Flow FiO2 Mean Ox Delivery Rate 05/16 0948 80 113/91 05/16 0840 94 Nasal 55% Cannula 05/16 0830 72 95 05/16 0800 97.3 70 28 116/70 96 BIPAP 60% 05/16 0800 96 BIPAP 60% 05/16 0545 73 92 05/16 0400 97 BIPAP 60% 05/16 0315 85 97 05/16 0240 97.5 81 24 136/77 97 BIPAP 60% 05/16 0039 81 92 05/16 0000 97 BIPAP 60% 05/15 2322 77 92 05/15 2000 92 Nasal 55% Cannula 05/15 1700 94 Nasal 55% Cannula 05/15 1600 97.2 80 26 114/62 95 Nasal 50% Cannula 05/15 1600 94 Nasal 50% Cannula 05/15 1529 78 120/52 05/15 1326 95 Nasal 50% Cannula 05/15 1200 93 Nasal 50% Cannula Intake & Output 05/16 1600 05/16 0805/16 0000 05/15 1600 05/15 0800 05/15 0000 Intake Total 0 280 970 573 855 Output Total 650 500 550 650 320 Balance -650 -220 420 -77 535 Intake, IV 510 573 615 Intake, Oral 0 280 460 240 Number 0 0 Bowel Movements Output, Urine 650 500 550 650 320 Patient 185 lb 195 lb Weight Weight Bed scale Bed scale Measurement Method Physical Exam: General: no apparent distress. Alert. Eyes: No obvious scleral icterus. HEENT: No jugular venous distention or abnormal jugular venous pulsations. Cardiovascular: Normal intensity S1/S2. Irregular, pacemaker noted Respiratory: Decreased air entry in the left Abdomen: Soft, nontender with no guarding or rebound tenderness. Musculoskeletal: No clubbing or cyanosis noted; no edema Skin: warm Neurologic: Normal speech Current Medications: Current Medications Sig/Shanna Start time Last Medication Dose Route Stop Time Status Admin Acetaminophen 650 MG Q6P PRN 05/10 1745 AC PO Acetaminophen 1,000 MG Q6P PRN 05/10 1745 AC 05/13 IV 1111 Acetylcysteine 2 ML EVERY 4 HRS/AWAKE 05/13 2100 AC 05/16 INH 0834 Albuterol Sulfate 3 ML EVERY 4 HRS/AWAKE 05/13 2100 AC 05/16 INH 0834 Aspirin 81 MG DAILY 05/11 09 AC 05/16 PO 0948 Atorvastatin Calcium 40 MG DAILY 05/11 09 AC 05/16 PO 0947 Folic Acid 1 MG DAILY 05/11 900 AC 05/16 PO 0947 Magnesium Oxide 400 MG ONE ONE 05/15 1330 DC 05/15 PO 05/15 1331 1503 Magnesium Oxide 400 MG DAILY 05/12 2008 AC 05/16 PO 0947 Moxifloxacin HCl 400 MG Q24H 05/14 1200 AC 05/15 N/A 1 UNIT IV 1200 Nebivolol 10 MG DAILY 05/15 1400 AC 05/16 PO 0948 Oxycodone HCl 10 MG Q6P PRN 05/10 1745 AC PO Rifampin 300 MG DAILY 05/15 900 AC 05/16 PO 0947 Sodium Bicarbonate 1,300 MG BID 05/15 2100 AC 05/16 PO 0943 Results Last 48 Hrs of Labs/Mics: Laboratory Tests 05/16/18 0457: Anion Gap 16, Estimated GFR 11 L, BUN/Creatinine Ratio 19.8, Magnesium 1.9, Total Bilirubin 0.4, Direct Bilirubin 0.4, AST 169 H, ALT 185 H, Alkaline Phosphatase 138 H, Total Protein 4.7 L, Albumin 2.4 L, CBC w Diff MAN DIFF ORDERED, RBC 2.94 L, MCV 87.7, MCH 29.0, MCHC 33.0, RDW 14.9 H, MPV 10.9 H, Gran % 88.8 H, Lymphocytes % 5.1 L, Monocytes % 4.6, Eosinophils % 1.5, Basophils % 0, Absolute Granulocytes 6.0, Segmented Neutrophils 89 H, Absolute Lymphocytes 0.3 L, Lymphocytes 3 L, Monocytes 6, Absolute Monocytes 0.3, Eosinophils 2, Absolute Eosinophils 0.1, Absolute Basophils 0, Platelet Estimate ADEQUATE, Polychromasia 1+, Poikilocytosis 1+, Basophilic Stippling 1+, Ovalocytes 1+, Elliptocytes FEW, Fld Total RBCs Counted 100 05/15/18 1354: Troponin I 0.03 05/15/18 0400: Anion Gap 17 H, Estimated GFR 10 L, Glucose 109 H, Calcium 8.6, Phosphorus 6.4 H, Magnesium 1.9, Total Bilirubin 0.3, Direct Bilirubin 0.3, AST 231 H, ALT 218 H, Alkaline Phosphatase 144 H, Total Protein 4.5 L, Albumin 2.4 L, CBC w Diff NO MAN DIFF REQ, RBC 2.90 L, MCV 86.3, MCH 29.0, MCHC 33.6, RDW 14.5 , MPV 10.8 H, Gran % 89.4 H, Lymphocytes % 4.7 L, Monocytes % 5.2, Eosinophils % 0.7, Basophils % 0, Absolute Granulocytes 4.6, Absolute Lymphocytes 0.2 L, Absolute Monocytes 0.3, Absolute Eosinophils 0, Absolute Basophils 0 Recent Imaging Studies: Telemetry tracings were personally reviewed and show atrial fibrillation with occasional pacing and possible periods of AIVR/versus aberrant conduction/versus paced rhythm Chest x-ray from yesterday without significant change Assessment/Plan Assessment/Plan 1. Legionella pneumonia on antibiotics 2. Chronic atrial fibrillation not on anticoagulation due to patient preference /neurology recommendations 3. Coronary artery disease with prior PCI and occluded PDA maintained on dual antiplatelet therapy. Normal ejection fraction of 55% by echocardiogram 4. Sick sinus syndrome with a history of permanent pacemaker 5. Mild aortic dilatation 6. History of hypertension 7. History of renal cancer with prior nephrectomy and chronic kidney disease Patient remains hemodynamically stable. Continue on the beta-gay. His Plavix should be resumed. Felix Meza MD [facility] Continue telemetry? Yes
--- NOTE | 2018-05-16 11:41 | PN- Nephrology ---
Assessment/Plan Nephrology Assessment: 1. 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 MILLIE slowly improving 3. Hyponatremia secondary to pneumonia and decreased GFR, also improving 4. Metabolic acidosis, improved, now on oral sodium bicarbonate 5. Legionella pneumonia with hypoxemic respiratory failure Suggestion: 1. Continue to encourage p.o. intake; agree with discontinuing IV fluids and holding diuretics 2. Continue oral sodium bicarbonate for now 3. Antibiotic therapy per Pulmonary 4. No dialysis need Subjective Subjective: Somewhat dejected about his slow progress. Currently on high flow O2, denying shortness of breath or pain. Urine output is [id number] cc yesterday. Creatinine continues to slowly fall (4.9) while serum sodium is slowly rising ( 134); serum CO2 level stable at 22. Objective Vital Signs and I&Os Vital Signs Date Time Temp Pulse Resp B/P B/P Pulse O2 O2 Flow FiO2 Mean Ox Delivery Rate 05/16 0948 80 113/91 05/16 0840 94 Nasal 55% Cannula 05/16 0830 72 95 05/16 0800 97.3 70 28 116/70 96 BIPAP 60% 05/16 0800 96 BIPAP 60% 05/16 0545 73 92 05/16 0400 97 BIPAP 60% 05/16 0315 85 97 05/16 0240 97.5 81 24 136/77 97 BIPAP 60% 05/16 0039 81 92 05/16 0000 97 BIPAP 60% 05/15 2322 77 92 05/15 2000 92 Nasal 55% Cannula 05/15 1700 94 Nasal 55% Cannula 05/15 1600 97.2 80 26 114/62 95 Nasal 50% Cannula 05/15 1600 94 Nasal 50% Cannula 05/15 1529 78 120/52 05/15 1326 95 Nasal 50% Cannula 05/15 1200 93 Nasal 50% Cannula Intake & Output 05/16 1600 05/16 0400 05/15 1600 05/15 0400 05/14 1600 05/14 0400 Intake Total 0 280 7240 338 0778 100 Output Total 462 177 9663 320 1060 150 Balance -650 -220 343 535 900 -50 Intake, IV 2032 068 5763 100 Intake, Oral 0 280 460 240 600 Number 0 Bowel Movements Output, Urine 541 738 8522 320 1060 150 Patient 185 lb 195 lb 194 lb Weight Weight Bed scale Bed scale Measurement Method Physical Exam: General: Well-developed elderly white male on high flow O2 in NAD Skin: No rash or jaundice HEENT: Conjunctivae pink, sclerae anicteric, mucous membranes dry Neck: Without masses or thyromegaly, no supraclavicular or cervical adenopathy Chest: Decreased breath sounds on left, scattered rhonchi on right Heart: Regular rate and rhythm without S3 or rub Abdomen: Soft and nontender without palpable masses or organomegaly Extremities: Without cyanosis or edema Neuro: Cognitively intact, no focal findings, no asterixis or myoclonus Results Pertinent Lab Results: Laboratory Tests 05/16 05/15 0457 1354 Chemistry Sodium (137 - 145 mmol/L) 134 L Potassium (3.5 - 5.1 mmol/L) 3.8 Chloride (98 - 107 mmol/L) 96 L Carbon Dioxide (22 - 30 mmol/L) 22 Anion Gap (5 - 16) 16 BUN (9 - 20 mg/dL) 97 H Creatinine (0.7 - 1.2 mg/dL) 4.9 H Estimated GFR (>60 ml/min) 11 L BUN/Creatinine Ratio (7 - 25 %) 19.8 Magnesium (1.6 - 2.3 mg/dL) 1.9 Total Bilirubin (0.2 - 1.3 mg/dL) 0.4 Direct Bilirubin (< 0.4 mg/dL) 0.4 AST (17 - 59 U/L) 169 H ALT (21 - 72 U/L) 185 H Alkaline Phosphatase (< 127 U/L) 138 H Troponin I (<0.11 ng/ml) 0.03 Total Protein (6.3 - 8.2 g/dL) 4.7 L Albumin (3.5 - 5.0 g/dL) 2.4 L Hematology CBC w Diff MAN DIFF ORDERED WBC (4.8 - 10.8 /CUMM) 6.7 RBC (4.70 - 6.10 /CUMM) 2.94 L Hgb (14.0 - 18.0 G/DL) 8.5 L Hct (42 - 52 %) 25.8 L MCV (80.0 - 94.0 FL) 87.7 MCH (27.0 - 31.0 PG) 29.0 MCHC (33.0 - 37.0 G/DL) 33.0 RDW (11.5 - 14.5 %) 14.9 H Plt Count (130 - 400 /CUMM) 200 MPV (7.4 - 10.4 FL) 10.9 H Gran % (42.2 - 75.2 %) 88.8 H Lymphocytes % (20.5 - 51.1 %) 5.1 L Monocytes % (1.7 - 9.3 %) 4.6 Eosinophils % (0 - 5 %) 1.5 Basophils % (0.0 - 2.0 %) 0 Absolute Granulocytes (1.4 - 6.5 /CUMM) 6.0 Segmented Neutrophils (42.2 - 75.2 %) 89 H Absolute Lymphocytes (1.2 - 3.4 /CUMM) 0.3 L Lymphocytes (20.5 - 51.1 %) 3 L Monocytes (1.7 - 9.3 %) 6 Absolute Monocytes (0.10 - 0.60 /CUMM) 0.3 Eosinophils (0 - 5.0 %) 2 Absolute Eosinophils (0.0 - 0.7 /CUMM) 0.1 Absolute Basophils (0.0 - 0.2 /CUMM) 0 Platelet Estimate (ADEQUATE) ADEQUATE Polychromasia 1+ Poikilocytosis 1+ Basophilic Stippling 1+ Ovalocytes 1+ Elliptocytes FEW Other Body Source Fld Total RBCs Counted (%) 100 05/15 05/14 0400 1100 Chemistry Sodium (137 - 145 mmol/L) 131 L Potassium (3.5 - 5.1 mmol/L) 3.7 Chloride (98 - 107 mmol/L) 93 L Carbon Dioxide (22 - 30 mmol/L) 22 Anion Gap (5 - 16) 17 H BUN (9 - 20 mg/dL) 96 H Creatinine (0.7 - 1.2 mg/dL) 5.3 *H Estimated GFR (>60 ml/min) 10 L Glucose (65 - 99 mg/dL) 109 H Calcium (8.4 - 10.2 mg/dL) 8.6 Phosphorus (2.5 - 4.5 mg/dL) 6.4 H Magnesium (1.6 - 2.3 mg/dL) 1.9 Total Bilirubin (0.2 - 1.3 mg/dL) 0.3 Direct Bilirubin (< 0.4 mg/dL) 0.3 AST (17 - 59 U/L) 231 H ALT (21 - 72 U/L) 218 H Alkaline Phosphatase (< 127 U/L) 144 H Total Protein (6.3 - 8.2 g/dL) 4.5 L Albumin (3.5 - 5.0 g/dL) 2.4 L Hematology CBC w Diff NO MAN DIFF REQ WBC (4.8 - 10.8 /CUMM) 5.2 RBC (4.70 - 6.10 /CUMM) 2.90 L Hgb (14.0 - 18.0 G/DL) 8.4 L Hct (42 - 52 %) 25.0 L MCV (80.0 - 94.0 FL) 86.3 MCH (27.0 - 31.0 PG) 29.0 MCHC (33.0 - 37.0 G/DL) 33.6 RDW (11.5 - 14.5 %) 14.5 Plt Count (130 - 400 /CUMM) 173 MPV (7.4 - 10.4 FL) 10.8 H Gran % (42.2 - 75.2 %) 89.4 H Lymphocytes % (20.5 - 51.1 %) 4.7 L Monocytes % (1.7 - 9.3 %) 5.2 Eosinophils % (0 - 5 %) 0.7 Basophils % (0.0 - 2.0 %) 0 Absolute Granulocytes (1.4 - 6.5 /CUMM) 4.6 Absolute Lymphocytes (1.2 - 3.4 /CUMM) 0.2 L Absolute Monocytes (0.10 - 0.60 /CUMM) 0.3 Absolute Eosinophils (0.0 - 0.7 /CUMM) 0 Absolute Basophils (0.0 - 0.2 /CUMM) 0 Urines Ur Random Creatinine (mg/dL) 37.4 Ur Random Sodium (30 - 90 mmol/L) 53 Ur Random Potassium (mmol/L) 17.4 Fraction Sodium Excret (<1% %) 5.9 H 05/14 05/13 0400 2300 Chemistry Sodium (137 - 145 mmol/L) 129 L Potassium (3.5 - 5.1 mmol/L) 4.1 Chloride (98 - 107 mmol/L) 95 L Carbon Dioxide (22 - 30 mmol/L) 17 L Anion Gap (5 - 16) 17 H BUN (9 - 20 mg/dL) 87 H Creatinine (0.7 - 1.2 mg/dL) 5.4 *H Estimated GFR (>60 ml/min) 10 L Glucose (65 - 99 mg/dL) 107 H Calcium (8.4 - 10.2 mg/dL) 9.1 Phosphorus (2.5 - 4.5 mg/dL) 6.5 H Magnesium (1.6 - 2.3 mg/dL) 1.8 Total Bilirubin (0.2 - 1.3 mg/dL) 0.4 AST (17 - 59 U/L) 286 H ALT (21 - 72 U/L) 238 H Albumin (3.5 - 5.0 g/dL) 2.5 L Hematology CBC w Diff MAN DIFF ORDERED NO MAN DIFF REQ WBC (4.8 - 10.8 /CUMM) 6.6 6.7 RBC (4.70 - 6.10 /CUMM) 2.97 L 2.96 L Hgb (14.0 - 18.0 G/DL) 8.7 L 8.5 L Hct (42 - 52 %) 25.5 L 26.0 L MCV (80.0 - 94.0 FL) 86.1 87.7 MCH (27.0 - 31.0 PG) 29.5 28.8 MCHC (33.0 - 37.0 G/DL) 34.2 32.9 L RDW (11.5 - 14.5 %) 14.6 H 14.9 H Plt Count (130 - 400 /CUMM) 151 149 MPV (7.4 - 10.4 FL) 10.8 H 10.3 Gran % (42.2 - 75.2 %) 91.6 H 95.2 H Lymphocytes % (20.5 - 51.1 %) 3.7 L 1.6 L Monocytes % (1.7 - 9.3 %) 4.4 3.0 Eosinophils % (0 - 5 %) 0.3 0.2 Basophils % (0.0 - 2.0 %) 0 0 Absolute Granulocytes (1.4 - 6.5 /CUMM) 6.1 6.4 Segmented Neutrophils (42.2 - 75.2 %) 95 H Absolute Lymphocytes (1.2 - 3.4 /CUMM) 0.2 L 0.1 L Lymphocytes (20.5 - 51.1 %) 3 L Monocytes (1.7 - 9.3 %) 2 Absolute Monocytes (0.10 - 0.60 /CUMM) 0.3 0.2 Absolute Eosinophils (0.0 - 0.7 /CUMM) 0 0 Absolute Basophils (0.0 - 0.2 /CUMM) 0 0 Platelet Estimate (ADEQUATE) ADEQUATE Polychromasia 1+ Poikilocytosis 2+ Ovalocytes 1+ [place] Cells 1+ Other Body Source Fld Total RBCs Counted (%) 100 Serology Hep Bs Antigen (NONREACTIVE) NONREACTIVE Hep Bs Antibody (NONREACTIVE) NONREACTIVE 05/13 Blood Gas pH (7.35 - 7.45 PH) 7.42 pCO2 (35 - 45 TORR) 23 L pO2 (80 - 100 TORR) 75 L HCO3 (21 - 28 MEQ/L) 14 L ABG O2 Sat (Measured) (>96.0 %) 93.0 L P-50 (Temp Corrected) Y Carboxyhemoglobin (1.5 - 5.0 %) 0.6 L O2 Concentration % 80% Temperature (97.0 - 100.0 FARH) 100.0 Respiration Rate (BPM) 26 O2 Delivery Method FFM Vent Mode ST Expiratory Pressure (CM H2O P) 8 Inspiratory Pressure (CM H2O P) 20 Chemistry Sodium (137 - 145 mmol/L) 128 L 129 L Potassium (3.5 - 5.1 mmol/L) 4.3 4.7 Chloride (98 - 107 mmol/L) 96 L 100 Carbon Dioxide (22 - 30 mmol/L) 17 L 15 L Anion Gap (5 - 16) 15 14 BUN (9 - 20 mg/dL) 85 H 81 H Creatinine (0.7 - 1.2 mg/dL) 5.3 *H 4.7 H Estimated GFR (>60 ml/min) 10 L 12 L BUN/Creatinine Ratio (7 - 25 %) 17.2 Glucose (65 - 99 mg/dL) 108 H Lactic Acid (0.7 - 2.1 mmol/L) 0.9 Calcium (8.4 - 10.2 mg/dL) 9.0 Phosphorus (2.5 - 4.5 mg/dL) 6.2 H Magnesium (1.6 - 2.3 mg/dL) 1.8 Total Bilirubin (0.2 - 1.3 mg/dL) 0.4 AST (17 - 59 U/L) 304 H ALT (21 - 72 U/L) 241 H Troponin I (<0.11 ng/ml) Cancelled 0.05 Albumin (3.5 - 5.0 g/dL) 2.4 L Miscellaneous Phlebotomy Draw Site RIGHT BRACHIAL 05/13 1710 Blood Gas pH (7.35 - 7.45 PH) 7.42 pCO2 (35 - 45 TORR) 23 L pO2 (80 - 100 TORR) 68 L HCO3 (21 - 28 MEQ/L) 14 L ABG O2 Sat (Measured) (>96.0 %) 92.0 L P-50 (Temp Corrected) Y Carboxyhemoglobin (1.5 - 5.0 %) 0.3 L O2 Concentration % 95% Temperature (97.0 - 100.0 FARH) 100.0 O2 Delivery Method HFNC AT 55LPM Miscellaneous Phlebotomy Draw Site RIGHT RADIAL
--- NOTE | 2018-05-16 12:11 | PN- Infect Dx ---
Subjective Subjective: Afebrile. He complains of discomfort from the BiPAP mask he wore overnight. He does not report any significant improvement from admission, but he does not report any chest pain or shortness of breath at this time. Objective Last 24 Hrs of Vital Signs/I&O Vital Signs Date Time Temp Pulse Resp B/P B/P Pulse O2 O2 Flow FiO2 Mean Ox Delivery Rate 05/16 0948 80 113/91 05/16 0840 94 Nasal 55% Cannula 05/16 0830 72 95 05/16 0800 97.3 70 28 116/70 96 BIPAP 60% 05/16 08 96 BIPAP 60% 05/16 0545 73 92 05/16 0400 97 BIPAP 60% 05/16 0315 85 97 05/16 0240 97.5 81 24 136/77 97 BIPAP 60% 05/16 0039 81 92 05/16 0000 97 BIPAP 60% 05/15 2322 77 92 05/15 2000 92 Nasal 55% Cannula 05/15 1700 94 Nasal 55% Cannula 05/15 1600 97.2 80 26 114/62 95 Nasal 50% Cannula 05/15 1600 94 Nasal 50% Cannula 05/15 1529 78 120/52 05/15 1326 95 Nasal 50% Cannula Intake & Output 05/16 1600 05/16 0800 05/16 0000 Intake Total 0 280 Output Total 650 500 Balance -650 -220 Intake, Oral 0 280 Output, Urine 650 500 Physical Exam Other Physical Findings: He is awake and alert, on high flow oxygen, in no acute distress Lungs decreased breath sounds at the left base Heart irregular rhythm with no murmur Abdomen is soft, nontender with positive bowel sounds Extremities no cyanosis, clubbing or edema Parker catheter is in place Results Last 24 Hours of Lab Results: Laboratory Tests 05/16 05/15 0457 1354 Chemistry Sodium (137 - 145 mmol/L) 134 L Potassium (3.5 - 5.1 mmol/L) 3.8 Chloride (98 - 107 mmol/L) 96 L Carbon Dioxide (22 - 30 mmol/L) 22 Anion Gap (5 - 16) 16 BUN (9 - 20 mg/dL) 97 H Creatinine (0.7 - 1.2 mg/dL) 4.9 H Estimated GFR (>60 ml/min) 11 L BUN/Creatinine Ratio (7 - 25 %) 19.8 Magnesium (1.6 - 2.3 mg/dL) 1.9 Total Bilirubin (0.2 - 1.3 mg/dL) 0.4 Direct Bilirubin (< 0.4 mg/dL) 0.4 AST (17 - 59 U/L) 169 H ALT (21 - 72 U/L) 185 H Alkaline Phosphatase (< 127 U/L) 138 H Troponin I (<0.11 ng/ml) 0.03 Total Protein (6.3 - 8.2 g/dL) 4.7 L Albumin (3.5 - 5.0 g/dL) 2.4 L Hematology CBC w Diff MAN DIFF ORDERED WBC (4.8 - 10.8 /CUMM) 6.7 RBC (4.70 - 6.10 /CUMM) 2.94 L Hgb (14.0 - 18.0 G/DL) 8.5 L Hct (42 - 52 %) 25.8 L MCV (80.0 - 94.0 FL) 87.7 MCH (27.0 - 31.0 PG) 29.0 MCHC (33.0 - 37.0 G/DL) 33.0 RDW (11.5 - 14.5 %) 14.9 H Plt Count (130 - 400 /CUMM) 200 MPV (7.4 - 10.4 FL) 10.9 H Gran % (42.2 - 75.2 %) 88.8 H Lymphocytes % (20.5 - 51.1 %) 5.1 L Monocytes % (1.7 - 9.3 %) 4.6 Eosinophils % (0 - 5 %) 1.5 Basophils % (0.0 - 2.0 %) 0 Absolute Granulocytes (1.4 - 6.5 /CUMM) 6.0 Segmented Neutrophils (42.2 - 75.2 %) 89 H Absolute Lymphocytes (1.2 - 3.4 /CUMM) 0.3 L Lymphocytes (20.5 - 51.1 %) 3 L Monocytes (1.7 - 9.3 %) 6 Absolute Monocytes (0.10 - 0.60 /CUMM) 0.3 Eosinophils (0 - 5.0 %) 2 Absolute Eosinophils (0.0 - 0.7 /CUMM) 0.1 Absolute Basophils (0.0 - 0.2 /CUMM) 0 Platelet Estimate (ADEQUATE) ADEQUATE Polychromasia 1+ Poikilocytosis 1+ Basophilic Stippling 1+ Ovalocytes 1+ Elliptocytes FEW Other Body Source Fld Total RBCs Counted (%) 100 Last 24 Hours of Mike Results: No new cultures Assessment/Plan ID Impression: Ongoing respiratory failure secondary to Legionella pneumonia, now on Moxifloxacin and Rifampin, Day 2 of treatment after 4 days of Azithromycin, with defervescence on Azithromycin and with his white blood cell count remaining normal. The role of Rifampin for synergy for Legionella pneumonia is unclear and, therefore, feel that it can be discontinued. His liver enzymes, which were normal on admission but increased after several days, of unclear etiology, appear to be decreasing. Suggestion: 1. Remove Parker catheter if okay with Renal 2. Discontinue Rifampin 3. Continue Moxifloxacin
[2018-05-16 16:00] VITALS: BP 94/58
[2018-05-17] VITALS: BP 130/70
[2018-05-17 05:18] LABS: ABSOLUTE BASOPHIL COUNT 0 /CUMM (0.0-0.2); ABSOLUTE EOSINOPHIL COUNT 0.2 /CUMM (0.0-0.7); ABSOLUTE GRANULOCYTE CT 6.9 /CUMM (1.4-6.5); ABSOLUTE LYMPH COUNT 0.5 /CUMM (1.2-3.4); ABSOLUTE MONOCYTE COUNT 0.5 /CUMM (0.10-0.60); BASOPHIL % 0.1 % (0.0-2.0); EOSINOPHIL % 2.1 % (0-5); HEMATOCRIT 25.6 % (42-52); MEAN CORPUSCULAR HGB 28.5 PG (27.0-31.0); MEAN CORPUSCULAR HGB CONC 32.6 G/DL (33.0-37.0); MEAN CORPUSCULAR VOLUME 87.5 FL (80.0-94.0); PLATELET COUNT 214 /CUMM (130-400); RBC DISTRIBUTION WIDTH 14.6 % (11.5-14.5); RED BLOOD CELL CT 2.92 /CUMM (4.70-6.10); WHITE BLOOD CELL COUNT 8.1 /CUMM (4.8-10.8)
[2018-05-17 06:01] LABS: GRANULOCYTE % 85.8 % (42.2-75.2)
--- NOTE | 2018-05-17 07:13 | PN- Resident CRCU ---
Subjective HPI/CRCU Issues: Acute hypoxic respiratory failure due to Legionella pneumonia Acute on chronic kidney injury Hyponatremia Nonsustained V. tach History of chronic atrial fibrillation History of hyperlipidemia History of coronary artery disease status post stent placement 24 Hour Events: No overnight events. Patient remained afebrile. Patient seen and examined this morning. He denied any chest pain, palpitation, short of breath, nausea, vomiting, diarrhea, constipation abdominal pain and dysuria. Patient didn't use BiPAP last night, he did well on high flow oxygen and maintaining saturation above 92%. Patient is on 55% high flow oxygen. His Praker's catheter was removed yesterday. Objective Vital Signs & I&O Last 8 Hrs of Vitals and I&O: temp 97.8, pulse 80, r/r 17, bp 142/60, o2 sat 95 Exam General Appearance: well developed/nourished, no apparent distress Head: atraumatic, normal appearance Ears, Nose, Throat: normal pharynx Neck: normal inspection Respiratory: normal breath sounds, chest non-tender, no respiratory distress Cardiovascular: regular rate/rhythm Gastrointestinal: normal bowel sounds, soft, non-tender Extremities: normal inspection, no edema Cranial Nerves: normal hearing, normal speech, PERRL Skin Temp/Moisture Exam: Warm/Dry Sepsis Skin Exam (color): Normal for Ethnicity Current Medications: Current Medications Sig/Shanna Start time Last Medication Dose Route Stop Time Status Admin Acetaminophen 650 MG Q6P PRN 05/10 174 AC PO Acetaminophen 1,000 MG Q6P PRN 05/10 1745 AC 05/13 IV 1111 Acetylcysteine 2 ML EVERY 4 HRS/AWAKE 05/13 2100 AC 05/17 INH 2127 Albuterol Sulfate 3 ML EVERY 4 HRS/AWAKE 05/13 2100 AC 05/17 INH 2127 Aspirin 81 MG DAILY 05/11 900 AC 05/17 PO 0914 Atorvastatin Calcium 40 MG DAILY 05/11 900 AC 05/17 PO 09 Clopidogrel Bisulfate 75 MG DAILY 05/16 1200 AC 05/17 PO 09 Folic Acid 1 MG DAILY 05/11 09 AC 05/17 PO 0914 Magnesium Oxide 400 MG DAILY 05/12 2008 AC 05/17 PO 0914 Moxifloxacin HCl 400 MG Q24H 05/14 1200 AC 05/17 N/A 1 UNIT IV 1230 Nebivolol 10 MG DAILY 05/15 1400 AC 05/17 PO 0915 Oxycodone HCl 10 MG Q6P PRN 05/10 1745 DC PO Sodium Bicarbonate 1,300 MG BID 05/15 2100 AC 05/17 PO 2207 Impression/Plan Impression/Problem List Impression: 87yo M w/ PMH of hypertension, hyperlipidemia, 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 Patient respiratory status got worse during the course and at some point there was decision of intubation but patient did well on BiPAP. At that time his CODE STATUS was changed to DNR/intubation as family for intubation if needed but no chest compressions. Since then patient did well on BiPAP. We'll continue treating the patient for Legionella pneumonia. Acute hypoxic respiratory failure due to Legionella pneumonia: -Continue high flow oxygen to maintain oxygen above 92%. -We will continue high flow oxygen 50% and try to taper it as long as patient is maintaining saturation 92%. -Continue moxifloxacin day 4. -His blood cultures remain negative so far. -TRC nebulization as needed -Continue acetylcysteine inhalation as mucolytic. -Chest physiotherapy -We will repeat chest x-ray tomorrow -We will follow pulmonology recommendations. Acute on chronic kidney injury: -Possibly due to Legionella induced nephritis or acute tubular necrosis due to sepsis. Patient didn't respond to IV fluids and his fractional excretion of sodium remained elevated. -Patient had chronic kidney injury stage IV-V -Continue bicarbonate 1300 mg twice a day. -His creatinine is 4.7 today. -Avoid nephrotoxins medications -Continue holding his diuretics -Continue monitor input and output -We will follow nephrology recommendations Hyponatremia: -Possibly due to renal failure and excessive free fluid. -Today his sodium level is 132 -We'll monitor his sodium level and follow nephrology recommendations. -Patient is tolerating oral fluids. Nonsustained V. tach: -Patient remained stable overnight, no further episodes of went to her tachycardia. -Continue by Bystolic. History of chronic atrial fibrillation: -Not on any anticoagulation due to patient preference/neurology recommendations -Continue monitoring on inspector process as recommended by cardiology. History of hyperlipidemia: -Continue atorvastatin History of coronary artery disease status post stent placement: -Continue aspirin -His Plavix was continued today as recommended by cardiology DVT prophylaxis: Mechanical only CODE STATUS: DNR Problem List: 1. [id number] kidney injury 2. Acute respiratory failure with hypoxia 3. Community acquired pneumonia Pain Ratin Pain Location: NONE Tomorrow's Labs & Rationales: CBC/ICU BUNDLE Plan DVT/Prophylaxis: mechanical
--- NOTE | 2018-05-17 08:39 | PN- CRCU ---
Subjective HPI/Critical Care Issues: The patient is awake and alert. The patient reports he feels much better overall. He denies any new complaints. The patient's oxygen requirement is down to 55%. He has not been using the Bipap. There were no overnight events. Objective Current Medications: Current Medications Sig/Shanna Start time Last Medication Dose Route Stop Time Status Admin Acetaminophen 650 MG Q6P PRN 05/10 1745 AC PO Acetaminophen 1,000 MG Q6P PRN 05/10 1745 AC 05/13 IV 1111 Acetylcysteine 2 ML EVERY 4 HRS/AWAKE 05/13 2100 AC 05/16 INH 2133 Albuterol Sulfate 3 ML EVERY 4 HRS/AWAKE 05/13 2100 AC 05/16 INH 2134 Aspirin 81 MG DAILY 05/11 09 AC 05/16 PO 0948 Atorvastatin Calcium 40 MG DAILY 05/11 09 AC 05/16 PO 0947 Clopidogrel Bisulfate 75 MG DAILY 05/16 1200 AC 05/16 PO 1216 Folic Acid 1 MG DAILY 05/11 0900 AC 05/16 PO 0947 Magnesium Oxide 400 MG DAILY 05/12 2008 AC 05/16 PO 0947 Moxifloxacin HCl 400 MG Q24H 05/14 1200 AC 05/16 N/A 1 UNIT IV 1216 Nebivolol 10 MG DAILY 05/15 1400 AC 05/16 PO 0948 Oxycodone HCl 10 MG Q6P PRN 05/10 1745 AC PO Rifampin 300 MG DAILY 05/15 0900 DC 05/16 PO 0947 Sodium Bicarbonate 1,300 MG BID 05/15 2100 AC 05/16 PO 2158 Vital Signs & I&O Last 24 Hrs of Vitals and I&O: Vital Signs Date Time Temp Pulse Resp B/P B/P Pulse O2 O2 Flow FiO2 Mean Ox Delivery Rate 05/17 0400 96 Nasal 60% Cannula 05/17 0227 93 05/17 0000 93 Nasal 60% Cannula 05/17 0000 98.1 74 20 130/70 93 Nasal 60% Cannula 05/16 2151 93 Nasal 60% Cannula 05/16 2000 94 Nasal 60% Cannula 05/16 1842 94 Nasal 60% Cannula 05/16 1610 93 Nasal 60% Cannula 05/16 1600 97.4 69 24 94/58 94 Nasal 60% Cannula 05/16 1600 94 Nasal 60% Cannula 05/16 1421 92 Nasal 60% Cannula 05/16 1200 94 Nasal 55% Cannula 05/16 0948 80 113/91 05/16 0840 94 Nasal 55% Cannula 05/16 0830 72 95 Intake & Output 05/17 1600 05/17 0800 05/17 0000 Intake Total 100 640 Output Total 700 275 Balance -600 365 Intake, Oral 100 640 Number 0 Bowel Movements Output, Urine 700 275 Patient 191 lb Weight Weight Bed scale Measurement Method Physical Exam General Appearance: alert, awake, no distress, on high flow Head: atraumatic Ears, Nose, Throat: normal pharynx, normal ENT inspection Neck: normal inspection, supple Respiratory: no appreciable breath sounds on the left side, scattered rhonchi on right Cardiovascular: S1 and S2 + Gastrointestinal: normal bowel sounds, soft, non-tender Extremities: normal inspection, normal capillary refill, no edema Skin: intact, normal color, no edema Results Last 24 Hrs of Lab Results: Laboratory Tests 05/17/18 0455: Anion Gap 10, Estimated GFR 12 L, Glucose 92, Calcium 8.5, Phosphorus 4.7 H, Magnesium 2.0, Total Bilirubin 0.4, Direct Bilirubin 0.3, AST 143 H, ALT 170 H , Alkaline Phosphatase 131 H, Total Protein 4.4 L, Albumin 2.3 L, CBC w Diff NO MAN DIFF REQ, RBC 2.92 L, MCV 87.5, MCH 28.5, MCHC 32.6 L, RDW 14.6 H, MPV 10.0, Gran % 85.8 H, Lymphocytes % 5.7 L, Monocytes % 6.3, Eosinophils % 2.1, Basophils % 0.1, Absolute Granulocytes 6.9 H, Absolute Lymphocytes 0.5 L, Absolute Monocytes 0.5, Absolute Eosinophils 0.2, Absolute Basophils 0 Impression/Plan Impression/Plan Impression/Plan: 1. Hypoxemic respiratory failure secondary to Legionella pneumonia. 2. Acute on chronic renal failure - worsening. 3. Hyponatremia secondary to Legionella pneumonia. 4. Non-anion gap metabolic acidosis secondary to renal failure. 5. Anemia without evidence of bleeding. 6. Chronic atrial fibrillation not on anticoagulation. 7. CAD with prior PCI. 8. History of SSS, s/p PPM. 9. History of hypertension. Recommendations: * Check a chest x-ray tomorrow morning. * Continue high flow as tolerated. * Attempt to titrate oxygen down for saturations greater than 92%. * Nebs/TRC. * Chest percussion - attention to left lung. * IVFs per nephrology. * Continue antibiotics as per ID - appreciate input. * Aspiration precautions. * Need for ROSLYN in the future? * DVT prophylaxis at all times. * Out of bed to chair. * Keep in ICU today. * Discussed with housestaff. * I updated the patient's son at the bedside.
--- NOTE | 2018-05-17 09:43 | PN- Cardiology ---
Subjective Subjective: Telemetry reviewed. Atrial fibrillation with controlled ventricular response. No cardiac problems overnight. Objective Vital Signs and I&Os Vital Signs Date Time Temp Pulse Resp B/P B/P Pulse O2 O2 Flow FiO2 Mean Ox Delivery Rate 05/17 0916 94 Nasal 50% Cannula 05/17 0915 79 25 123/72 05/17 0400 96 Nasal 60% Cannula 05/17 0227 93 05/17 0000 93 Nasal 60% Cannula 05/17 0000 98.1 74 20 130/70 93 Nasal 60% Cannula 05/16 2151 93 Nasal 60% Cannula 05/16 2000 94 Nasal 60% Cannula 05/16 1842 94 Nasal 60% Cannula 05/16 1610 93 Nasal 60% Cannula 05/16 1600 97.4 69 24 94/58 94 Nasal 60% Cannula 05/16 1600 94 Nasal 60% Cannula 05/16 1421 92 Nasal 60% Cannula 05/16 1200 94 Nasal 55% Cannula 05/16 0948 80 113/91 Intake & Output 05/17 1600 05/17 0800 05/17 0000 05/16 1600 05/16 0800 05/16 0000 Intake Total 100 640 950 0 280 Output Total 700 275 500 650 500 Balance -600 365 450 -650 -220 Intake, IV 250 Intake, Oral 100 640 700 0 280 Number 0 1 Bowel Movements Output, Urine 700 275 500 650 500 Patient 191 lb Weight Weight Bed scale Measurement Method Physical Exam: On supplemental oxygen Head normocephalic atraumatic Eyes sclera anicteric conjunctiva showed no pallor extraocular muscles were normal Neck no jugular venous distention no thyroid masses no palpable nodes Chest lungs decreased air entry left side. Heart rate irregular rhythm with a ventricular rate around 80 Abdomen soft no organomegaly Extremities no clubbing cyanosis or edema. Results Last 48 Hrs of Labs/Mics: Laboratory Tests 05/17/18 0455: Anion Gap 10, Estimated GFR 12 L, Glucose 92, Calcium 8.5, Phosphorus 4.7 H, Magnesium 2.0, Total Bilirubin 0.4, Direct Bilirubin 0.3, AST 143 H, ALT 170 H , Alkaline Phosphatase 131 H, Total Protein 4.4 L, Albumin 2.3 L, CBC w Diff NO MAN DIFF REQ, RBC 2.92 L, MCV 87.5, MCH 28.5, MCHC 32.6 L, RDW 14.6 H, MPV 10.0, Gran % 85.8 H, Lymphocytes % 5.7 L, Monocytes % 6.3, Eosinophils % 2.1, Basophils % 0.1, Absolute Granulocytes 6.9 H, Absolute Lymphocytes 0.5 L, Absolute Monocytes 0.5, Absolute Eosinophils 0.2, Absolute Basophils 0 05/16/18 0457: Anion Gap 16, Estimated GFR 11 L, BUN/Creatinine Ratio 19.8, Magnesium 1.9, Total Bilirubin 0.4, Direct Bilirubin 0.4, AST 169 H, ALT 185 H, Alkaline Phosphatase 138 H, Total Protein 4.7 L, Albumin 2.4 L, CBC w Diff MAN DIFF ORDERED, RBC 2.94 L, MCV 87.7, MCH 29.0, MCHC 33.0, RDW 14.9 H, MPV 10.9 H, Gran % 88.8 H, Lymphocytes % 5.1 L, Monocytes % 4.6, Eosinophils % 1.5, Basophils % 0, Absolute Granulocytes 6.0, Segmented Neutrophils 89 H, Absolute Lymphocytes 0.3 L, Lymphocytes 3 L, Monocytes 6, Absolute Monocytes 0.3, Eosinophils 2, Absolute Eosinophils 0.1, Absolute Basophils 0, Platelet Estimate ADEQUATE, Polychromasia 1+, Poikilocytosis 1+, Basophilic Stippling 1+, Ovalocytes 1+, Elliptocytes FEW, Fld Total RBCs Counted 100 05/15/18 1354: Troponin I 0.03 Assessment/Plan Assessment/Plan Ryan this 87-year-old gentleman has a following problems 1. Legionella pneumonia on antibiotics 2. Chronic atrial fibrillation not on anticoagulation due to patient preference /neurology recommendations 3. Coronary artery disease with prior PCI and occluded PDA maintained on dual antiplatelet therapy. Normal ejection fraction of 55% by echocardiogram 4. Sick sinus syndrome with a history of permanent pacemaker 5. Mild aortic dilatation 6. History of hypertension 7. History of renal cancer with prior nephrectomy and chronic kidney disease Continue present cardiac medications. Continue telemetry? Yes
--- NOTE | 2018-05-17 09:46 | PN- Infect Dx ---
Subjective Subjective: Afebrile. He feels improved, with decreased shortness of breath and increased strength. He notes no cough or chest discomfort. Objective Last 24 Hrs of Vital Signs/I&O Vital Signs Date Time Temp Pulse Resp B/P B/P Pulse O2 O2 Flow FiO2 Mean Ox Delivery Rate 05/17 0916 94 Nasal 50% Cannula 05/17 0915 79 25 123/72 05/17 0400 96 Nasal 60% Cannula 05/17 0227 93 05/17 0000 93 Nasal 60% Cannula 05/17 0000 98.1 74 20 130/70 93 Nasal 60% Cannula 05/16 2151 93 Nasal 60% Cannula 05/16 2000 94 Nasal 60% Cannula 05/16 1842 94 Nasal 60% Cannula 05/16 1610 93 Nasal 60% Cannula 05/16 1600 97.4 69 24 94/58 94 Nasal 60% Cannula 05/16 1600 94 Nasal 60% Cannula 05/16 1421 92 Nasal 60% Cannula 05/16 1200 94 Nasal 55% Cannula 05/16 0948 80 113/91 Intake & Output 05/17 1600 05/17 0800 05/17 0000 Intake Total 100 640 Output Total 700 275 Balance -600 365 Intake, Oral 100 640 Number 0 Bowel Movements Output, Urine 700 275 Patient 191 lb Weight Weight Bed scale Measurement Method Physical Exam Other Physical Findings: He appears comfortable, on high flow oxygen, in no acute distress Lungs are clear Heart regular rhythm with no murmur Abdomen is soft, nontender with positive bowel sounds Extremities no cyanosis, clubbing or edema Results Last 24 Hours of Lab Results: Laboratory Tests 05/17 455 Chemistry Sodium (137 - 145 mmol/L) 132 L Potassium (3.5 - 5.1 mmol/L) 3.8 Chloride (98 - 107 mmol/L) 99 Carbon Dioxide (22 - 30 mmol/L) 23 Anion Gap (5 - 16) 10 BUN (9 - 20 mg/dL) 96 H Creatinine (0.7 - 1.2 mg/dL) 4.7 H Estimated GFR (>60 ml/min) 12 L Glucose (65 - 99 mg/dL) 92 Calcium (8.4 - 10.2 mg/dL) 8.5 Phosphorus (2.5 - 4.5 mg/dL) 4.7 H Magnesium (1.6 - 2.3 mg/dL) 2.0 Total Bilirubin (0.2 - 1.3 mg/dL) 0.4 Direct Bilirubin (< 0.4 mg/dL) 0.3 AST (17 - 59 U/L) 143 H ALT (21 - 72 U/L) 170 H Alkaline Phosphatase (< 127 U/L) 131 H Total Protein (6.3 - 8.2 g/dL) 4.4 L Albumin (3.5 - 5.0 g/dL) 2.3 L Hematology CBC w Diff NO MAN DIFF REQ WBC (4.8 - 10.8 /CUMM) 8.1 RBC (4.70 - 6.10 /CUMM) 2.92 L Hgb (14.0 - 18.0 G/DL) 8.3 L Hct (42 - 52 %) 25.6 L MCV (80.0 - 94.0 FL) 87.5 MCH (27.0 - 31.0 PG) 28.5 MCHC (33.0 - 37.0 G/DL) 32.6 L RDW (11.5 - 14.5 %) 14.6 H Plt Count (130 - 400 /CUMM) 214 MPV (7.4 - 10.4 FL) 10.0 Gran % (42.2 - 75.2 %) 85.8 H Lymphocytes % (20.5 - 51.1 %) 5.7 L Monocytes % (1.7 - 9.3 %) 6.3 Eosinophils % (0 - 5 %) 2.1 Basophils % (0.0 - 2.0 %) 0.1 Absolute Granulocytes (1.4 - 6.5 /CUMM) 6.9 H Absolute Lymphocytes (1.2 - 3.4 /CUMM) 0.5 L Absolute Monocytes (0.10 - 0.60 /CUMM) 0.5 Absolute Eosinophils (0.0 - 0.7 /CUMM) 0.2 Absolute Basophils (0.0 - 0.2 /CUMM) 0 Last 24 Hours of Mike Results: Sputum culture May 16 pending Assessment/Plan ID Impression: Improving, with a further decrease in his oxygen requirements, on Moxifloxacin Day 3 of treatment for Legionella pneumonia, after 4 days of Azithromycin, with his temperatures and white blood cell count remaining normal. His liver enzymes , which were normal on admission but increased after several days, continue to decrease. Suggestion: 1. Continue Moxifloxacin
--- NOTE | 2018-05-17 14:50 | PN- Nephrology ---
Assessment/Plan Nephrology Assessment: 1. 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 MILLIE slowly improving 3. Hyponatremia secondary to pneumonia and decreased GFR 4. Metabolic acidosis, improved, now on oral sodium bicarbonate 5. Legionella pneumonia with hypoxemic respiratory failure - slowly improving Suggestion: 1. Because of the persistence/falling serum sodium would now limit p.o. fluids to 1200 cc per day 2. Continue p.o. sodium bicarbonate 3. Antibiotic therapy per ID Subjective Subjective: Feels a bit stronger and better today. He remains afebrile with normal WBC. O2 requirements slowly decreasing. Good urine output with slowly decreasing serum creatinine, albeit still far from baseline. Sodium down again to 132, other electrolytes okay. Objective Vital Signs and I&Os Vital Signs Date Time Temp Pulse Resp B/P B/P Pulse O2 O2 Flow FiO2 Mean Ox Delivery Rate 05/17 1430 95 Nasal 40% Cannula 05/17 1333 97 Nasal 50% Cannula 05/17 1200 97 Nasal 50% Cannula 05/17 0916 94 Nasal 50% Cannula 05/17 0915 79 25 123/72 05/17 0800 98 Nasal 60% Cannula 05/17 0400 96 Nasal 60% Cannula 05/17 0227 93 05/17 0000 93 Nasal 60% Cannula 05/17 0000 98.1 74 20 130/70 93 Nasal 60% Cannula 05/16 2151 93 Nasal 60% Cannula 05/16 2000 94 Nasal 60% Cannula 05/16 1842 94 Nasal 60% Cannula 05/16 1610 93 Nasal 60% Cannula 05/16 1600 97.4 69 24 94/58 94 Nasal 60% Cannula 05/16 1600 94 Nasal 60% Cannula Intake & Output 05/17 1600 05/17 0400 05/16 1600 05/16 0400 05/15 0400 Intake Total 100 640 766 259 0769 855 Output Total 463 657 2253 500 1200 320 Balance -600 365 -200 -220 343 535 Intake, IV 250 1083 615 Intake, Oral 100 640 700 280 460 240 Number 0 1 0 Bowel Movements Output, Urine 440 462 7476 500 1200 320 Patient 191 lb 185 lb Weight Weight Bed scale Bed scale Measurement Method Physical Exam: General: Well-developed elderly white male on high flow O2 in NAD Skin: No rash or jaundice HEENT: Conjunctivae pink, sclerae anicteric, mucous membranes dry Neck: Without masses or thyromegaly, no supraclavicular or cervical adenopathy Chest: Decreased breath sounds at bases Heart: Regular rate and rhythm without S3 or rub Abdomen: Soft and nontender without palpable masses or organomegaly Extremities: Without cyanosis or edema Neuro: Cognitively intact, no focal findings, no asterixis or myoclonus Results Pertinent Lab Results: Laboratory Tests 05/17 05/16 0455 0457 Chemistry Sodium (137 - 145 mmol/L) 132 L 134 L Potassium (3.5 - 5.1 mmol/L) 3.8 3.8 Chloride (98 - 107 mmol/L) 99 96 L Carbon Dioxide (22 - 30 mmol/L) 23 22 Anion Gap (5 - 16) 10 16 BUN (9 - 20 mg/dL) 96 H 97 H Creatinine (0.7 - 1.2 mg/dL) 4.7 H 4.9 H Estimated GFR (>60 ml/min) 12 L 11 L BUN/Creatinine Ratio (7 - 25 %) 19.8 Glucose (65 - 99 mg/dL) 92 Calcium (8.4 - 10.2 mg/dL) 8.5 Phosphorus (2.5 - 4.5 mg/dL) 4.7 H Magnesium (1.6 - 2.3 mg/dL) 2.0 1.9 Total Bilirubin (0.2 - 1.3 mg/dL) 0.4 0.4 Direct Bilirubin (< 0.4 mg/dL) 0.3 0.4 AST (17 - 59 U/L) 143 H 169 H ALT (21 - 72 U/L) 170 H 185 H Alkaline Phosphatase (< 127 U/L) 131 H 138 H Total Protein (6.3 - 8.2 g/dL) 4.4 L 4.7 L Albumin (3.5 - 5.0 g/dL) 2.3 L 2.4 L Hematology CBC w Diff NO MAN DIFF REQ MAN DIFF ORDERED WBC (4.8 - 10.8 /CUMM) 8.1 6.7 RBC (4.70 - 6.10 /CUMM) 2.92 L 2.94 L Hgb (14.0 - 18.0 G/DL) 8.3 L 8.5 L Hct (42 - 52 %) 25.6 L 25.8 L MCV (80.0 - 94.0 FL) 87.5 87.7 MCH (27.0 - 31.0 PG) 28.5 29.0 MCHC (33.0 - 37.0 G/DL) 32.6 L 33.0 RDW (11.5 - 14.5 %) 14.6 H 14.9 H Plt Count (130 - 400 /CUMM) 214 200 MPV (7.4 - 10.4 FL) 10.0 10.9 H Gran % (42.2 - 75.2 %) 85.8 H 88.8 H Lymphocytes % (20.5 - 51.1 %) 5.7 L 5.1 L Monocytes % (1.7 - 9.3 %) 6.3 4.6 Eosinophils % (0 - 5 %) 2.1 1.5 Basophils % (0.0 - 2.0 %) 0.1 0 Absolute Granulocytes (1.4 - 6.5 /CUMM) 6.9 H 6.0 Segmented Neutrophils (42.2 - 75.2 %) 89 H Absolute Lymphocytes (1.2 - 3.4 /CUMM) 0.5 L 0.3 L Lymphocytes (20.5 - 51.1 %) 3 L Monocytes (1.7 - 9.3 %) 6 Absolute Monocytes (0.10 - 0.60 /CUMM) 0.5 0.3 Eosinophils (0 - 5.0 %) 2 Absolute Eosinophils (0.0 - 0.7 /CUMM) 0.2 0.1 Absolute Basophils (0.0 - 0.2 /CUMM) 0 0 Platelet Estimate (ADEQUATE) ADEQUATE Polychromasia 1+ Poikilocytosis 1+ Basophilic Stippling 1+ Ovalocytes 1+ Elliptocytes FEW Other Body Source Fld Total RBCs Counted (%) 100 05/15 05/15 1354 0400 Chemistry Sodium (137 - 145 mmol/L) 131 L Potassium (3.5 - 5.1 mmol/L) 3.7 Chloride (98 - 107 mmol/L) 93 L Carbon Dioxide (22 - 30 mmol/L) 22 Anion Gap (5 - 16) 17 H BUN (9 - 20 mg/dL) 96 H Creatinine (0.7 - 1.2 mg/dL) 5.3 *H Estimated GFR (>60 ml/min) 10 L Glucose (65 - 99 mg/dL) 109 H Calcium (8.4 - 10.2 mg/dL) 8.6 Phosphorus (2.5 - 4.5 mg/dL) 6.4 H Magnesium (1.6 - 2.3 mg/dL) 1.9 Total Bilirubin (0.2 - 1.3 mg/dL) 0.3 Direct Bilirubin (< 0.4 mg/dL) 0.3 AST (17 - 59 U/L) 231 H ALT (21 - 72 U/L) 218 H Alkaline Phosphatase (< 127 U/L) 144 H Troponin I (<0.11 ng/ml) 0.03 Total Protein (6.3 - 8.2 g/dL) 4.5 L Albumin (3.5 - 5.0 g/dL) 2.4 L Hematology CBC w Diff NO MAN DIFF REQ WBC (4.8 - 10.8 /CUMM) 5.2 RBC (4.70 - 6.10 /CUMM) 2.90 L Hgb (14.0 - 18.0 G/DL) 8.4 L Hct (42 - 52 %) 25.0 L MCV (80.0 - 94.0 FL) 86.3 MCH (27.0 - 31.0 PG) 29.0 MCHC (33.0 - 37.0 G/DL) 33.6 RDW (11.5 - 14.5 %) 14.5 Plt Count (130 - 400 /CUMM) 173 MPV (7.4 - 10.4 FL) 10.8 H Gran % (42.2 - 75.2 %) 89.4 H Lymphocytes % (20.5 - 51.1 %) 4.7 L Monocytes % (1.7 - 9.3 %) 5.2 Eosinophils % (0 - 5 %) 0.7 Basophils % (0.0 - 2.0 %) 0 Absolute Granulocytes (1.4 - 6.5 /CUMM) 4.6 Absolute Lymphocytes (1.2 - 3.4 /CUMM) 0.2 L Absolute Monocytes (0.10 - 0.60 /CUMM) 0.3 Absolute Eosinophils (0.0 - 0.7 /CUMM) 0 Absolute Basophils (0.0 - 0.2 /CUMM) 0
[2018-05-17 16:00] VITALS: BP 112/62
[2018-05-18] VITALS: BP 142/60
[2018-05-18 05:14] LABS: ABSOLUTE BASOPHIL COUNT 0 /CUMM (0.0-0.2); ABSOLUTE EOSINOPHIL COUNT 0.2 /CUMM (0.0-0.7); ABSOLUTE GRANULOCYTE CT 8.5 /CUMM (1.4-6.5); ABSOLUTE LYMPH COUNT 0.5 /CUMM (1.2-3.4); ABSOLUTE MONOCYTE COUNT 0.6 /CUMM (0.10-0.60); BASOPHIL % 0.1 % (0.0-2.0); EOSINOPHIL % 1.7 % (0-5); GRANULOCYTE % 87.1 % (42.2-75.2); HEMATOCRIT 25.9 % (42-52); MEAN CORPUSCULAR HGB 29.3 PG (27.0-31.0); MEAN CORPUSCULAR HGB CONC 33.2 G/DL (33.0-37.0); MEAN CORPUSCULAR VOLUME 88.1 FL (80.0-94.0); MEAN PLATELET VOLUME 9.9 FL (7.4-10.4); PLATELET COUNT 217 /CUMM (130-400); RBC DISTRIBUTION WIDTH 14.7 % (11.5-14.5); RED BLOOD CELL CT 2.94 /CUMM (4.70-6.10); WHITE BLOOD CELL COUNT 9.8 /CUMM (4.8-10.8)
--- NOTE | 2018-05-18 07:11 | PN- Resident CRCU ---
Subjective HPI/CRCU Issues: Acute hypoxic respiratory failure due to Legionella pneumonia Acute on chronic kidney injury Hyponatremia Nonsustained V. tach History of chronic atrial fibrillation History of hyperlipidemia History of coronary artery disease status post stent placement History of renal cancer with prior nephrectomy and chronic kidney disease 24 Hour Events: No overnight events. Patient remained afebrile overnight. Seen and examined this morning. He remained on high flow 55% oxygen and maintaining saturation 95 %. He didn't use BiPAP last night. Patient is out of bed in the chair. He is feeling much improved. Patient denied any chest pain, palpitation, nausea, vomiting, chills, fever, abdominal pain and dysuria. We will try to wean off his high flow oxygen but we need to keep his saturation more than 92%. Patient is getting physiotherapy and he walked in the room with assistance. Patient is bringing up clear phlegm intermittently. Objective Vital Signs & I&O Last 8 Hrs of Vitals and I&O: Intake & Output 05/18 1600 Intake Total 1000 Output Total 450 Balance 550 Intake, IV 400 Intake, Oral 600 Number 0 Bowel Movements Output, Urine 450 Temperature 97.8, pulse 80, respiratory rate 17, blood pressure 142/60, oxygen saturation 95% Exam General Appearance: well developed/nourished, no apparent distress, alert Head: atraumatic, normal appearance Neck: normal inspection, supple Respiratory: chest non-tender, bronchial breath on left side. right side is clear. Cardiovascular: regular rate/rhythm Gastrointestinal: normal bowel sounds, soft Extremities: normal inspection, no edema Cranial Nerves: normal hearing, normal speech, PERRL Skin: intact Skin Temp/Moisture Exam: Warm/Dry Sepsis Skin Exam (color): Normal for Ethnicity Current Medications: Current Medications Sig/Shanna Start time Last Medication Dose Route Stop Time Status Admin Acetaminophen 650 MG Q6P PRN 05/10 174 AC PO Acetaminophen 1,000 MG Q6P PRN 05/10 1745 AC 05/13 IV 1111 Acetylcysteine 2 ML EVERY 4 HRS/AWAKE 05/13 2100 AC 05/18 INH 1205 Albuterol Sulfate 3 ML EVERY 4 HRS/AWAKE 05/13 2100 AC 05/18 INH 1200 Aspirin 81 MG DAILY 05/11 09 AC 05/18 PO 0848 Atorvastatin Calcium 40 MG DAILY 05/11 09 AC 05/18 PO 0848 Clopidogrel Bisulfate 75 MG DAILY 05/16 1200 AC 05/18 PO 0848 Folic Acid 1 MG DAILY 05/11 0900 AC 05/18 PO 0848 Magnesium Oxide 400 MG DAILY 05/12 2008 AC 05/18 PO 0848 Moxifloxacin HCl 400 MG Q24H 05/14 1200 AC 05/18 N/A 1 UNIT IV 1322 Nebivolol 10 MG DAILY 05/15 1400 AC 05/18 PO 0848 Oxycodone HCl 10 MG Q6P PRN 05/10 1745 DC PO Sodium Bicarbonate 1,300 MG BID 05/15 2100 AC 05/18 PO 0848 Sodium Chloride 1,000 ML Q13H 05/18 1115 AC 05/18 IV 1156 Impression/Plan Impression/Problem List Impression: 87yo M w/ PMH of hypertension, hyperlipidemia, 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 Patient respiratory status got worse during the course and at some point there was decision of intubation but patient did well on BiPAP. At that time his CODE STATUS was changed to DNR/intubation as family for intubation if needed but no chest compressions. Since then patient did well on BiPAP. We'll continue treating the patient for Legionella pneumonia. Acute hypoxic respiratory failure due to Legionella pneumonia: -Continue high flow oxygen to maintain oxygen above 92%. -We will continue high flow oxygen 55% and try to taper it as long as patient is maintaining saturation 92%. -Continue moxifloxacin day 5. -His blood cultures remain negative so far. -TRC nebulization as needed -Continue acetylcysteine inhalation as mucolytic. -Chest physiotherapy -We will follow his chest x-ray results. -We will follow pulmonology recommendations. Acute on chronic kidney injury: -Possibly due to Legionella induced nephritis or acute tubular necrosis due to sepsis. Patient didn't respond to IV fluids and his fractional excretion of sodium remained elevated. -Patient had chronic kidney injury stage IV-V -Continue bicarbonate 1300 mg twice a day. -His creatinine is 4.4 today. -Avoid nephrotoxins medications -Continue holding his diuretics -Nephrology recommended gentle iv hydration with N/S @75ml/h and reassess him tomorrow if his BUN improves. Hyponatremia: -Possibly due to renal failure, pneumonia and excessive free fluid. -Today his sodium level is 131 -Continue fluid restriction 1200 mL everyday. -Patient is tolerating oral fluids. -Follow-up nephrology recommendations Nonsustained V. tach: -Patient remained stable overnight, no further episodes of went to her tachycardia. -Continue by Bystolic. History of chronic atrial fibrillation: -Not on any anticoagulation due to patient preference/neurology recommendations -Continue monitoring on hot blast worker as recommended by cardiology. History of hyperlipidemia: -Continue atorvastatin History of coronary artery disease status post stent placement: -Continue aspirin -His Plavix was continued today as recommended by cardiology DVT prophylaxis: Mechanical only CODE STATUS: DNR Problem List: 1. Acute respiratory failure with hypoxia 2. [id number] kidney injury 3. Community acquired pneumonia Pain Ratin Pain Location: none Tomorrow's Labs & Rationales: cbc/icu bundle Plan Respiratory: Patient remained on high flow oxygen 55%. He is maintaining saturation 95% this morning. We will try to wean off his high flow oxygen keeping his oxygen saturation above 92%. Infectious Diseases: Continue moxifloxacin. Cardiovascular: -Not on any anticoagulation due to patient preference/neurology recommendations -Continue monitoring on hot blast worker as recommended by cardiology. Hematology: His H&H remained stable and his hemoglobin is 8.6 and hematocrit is 25.9 Metabolic: Patient's creatinine level is slowly improving. Today it's 3.9 and BUN is 100. Continue bicarbonate by mouth. Considering patient's hyponatremia today sodium is 131 and will continue fluid restriction 1200 mL everyday. Alimentary: Patient is on renal dialysis diet with 1200ml fluid restriction. Neurological: Neurologically patient is stable, no complaint. DVT/Prophylaxis: mechanical
--- NOTE | 2018-05-18 07:16 | RADIOLOGY REPORT ---
EXAMINATION: XR PORTABLE CHEST CLINICAL INFORMATION: Pneumonia COMPARISON: 05/15/2018 TECHNIQUE: Portable frontal view of the chest was obtained. FINDINGS: Left-sided pacemaker lead tips overlie the right atrium and right ventricle. There is persistent dense opacification throughout the mid to basilar left lung. Additional region of opacity in the left upper lobe appears overall slightly decreased in extent compared to prior. The right lung remains well-expanded and essentially clear. No evidence of pneumothorax. Small left pleural effusion. Cardiac silhouette is suboptimally assessed due to the left basilar opacification. Calcification is present at the aortic arch. No acute osseous findings are seen. IMPRESSION: Mildly decreased opacification in the left upper lobe compared to prior. Persistent dense opacification within the mid to basilar left lung persists, likely along with small left pleural effusion.
--- NOTE | 2018-05-18 07:33 | PN- CRCU ---
Subjective HPI/Critical Care Issues: The patient is awake and alert. He reports feeling fatigued but improved overall. He denies any cough. He has ongoing shortness of breath. He remains on high flow oxygen at 55%. He has excellent urine output. There were no overnight events reported. Objective Current Medications: Current Medications Sig/Shanna Start time Last Medication Dose Route Stop Time Status Admin Acetaminophen 650 MG Q6P PRN 05/10 1745 AC PO Acetaminophen 1,000 MG Q6P PRN 05/10 1745 AC 05/13 IV 1111 Acetylcysteine 2 ML EVERY 4 HRS/AWAKE 05/13 2100 AC 05/17 INH 2127 Albuterol Sulfate 3 ML EVERY 4 HRS/AWAKE 05/13 2100 AC 05/17 INH 2127 Aspirin 81 MG DAILY 05/11 09 AC 05/17 PO 0914 Atorvastatin Calcium 40 MG DAILY 05/11 09 AC 05/17 PO 0914 Clopidogrel Bisulfate 75 MG DAILY 05/16 1200 AC 05/17 PO 0914 Folic Acid 1 MG DAILY 05/11 0900 AC 05/17 PO 0914 Magnesium Oxide 400 MG DAILY 05/12 2008 AC 05/17 PO 0914 Moxifloxacin HCl 400 MG Q24H 05/14 1200 AC 05/17 N/A 1 UNIT IV 1230 Nebivolol 10 MG DAILY 05/15 1400 AC 05/17 PO 0915 Oxycodone HCl 10 MG Q6P PRN 05/10 1745 DC PO Sodium Bicarbonate 1,300 MG BID 05/15 2100 AC 05/17 PO 2207 Vital Signs & I&O Last 24 Hrs of Vitals and I&O: Vital Signs Date Time Temp Pulse Resp B/P B/P Pulse O2 O2 Flow FiO2 Mean Ox Delivery Rate 05/18 0603 93 Nasal 50% Cannula 05/18 0400 95 Nasal 50% Cannula 05/18 0000 93 Nasal 50% Cannula 05/18 0000 97.8 80 17 142/60 93 Nasal 50% Cannula 05/17 2130 95 Nasal 40% Cannula 05/17 2000 94 Nasal 40% Cannula 05/17 1810 92 Nasal 40% Cannula 05/17 1600 94 Nasal 40% Cannula 05/17 1600 97.7 78 18 112/62 94 Nasal 40% Cannula 05/17 1430 95 Nasal 40% Cannula 05/17 1333 97 Nasal 50% Cannula 05/17 1200 97 Nasal 50% Cannula 05/17 0916 94 Nasal 50% Cannula 05/17 0915 79 25 123/72 05/17 0800 98 Nasal 60% Cannula Intake & Output 05/18 0800 05/18 0000 05/17 1600 Intake Total 480 970 Output Total 600 600 725 Balance -600 -120 245 Intake, IV 250 Intake, Oral 480 720 Number 1 Bowel Movements Output, Urine 600 600 725 Physical Exam General Appearance: alert, awake, no distress, on high flow Head: atraumatic Ears, Nose, Throat: normal pharynx, normal ENT inspection Neck: normal inspection, supple Respiratory: no appreciable breath sounds on the left side, scattered rhonchi on right Cardiovascular: S1 and S2 + Gastrointestinal: normal bowel sounds, soft, non-tender Extremities: normal inspection, normal capillary refill, no edema Skin: intact, normal color, no edema Results Last 24 Hrs of Lab Results: Laboratory Tests 05/18/18 0400: Anion Gap 9, Estimated GFR 13 L, Glucose 88, Calcium 8.9, Phosphorus 4.6 H, Magnesium 2.0, Total Bilirubin 0.6, AST 100 H, ALT 149 H, Albumin 2.4 L, CBC w Diff MAN DIFF ORDERED, RBC 2.94 L, MCV 88.1, MCH 29.3, MCHC 33.2, RDW 14.7 H , MPV 9.9, Gran % 87.1 H, Lymphocytes % 4.9 L, Monocytes % 6.2, Eosinophils % 1.7, Basophils % 0.1, Absolute Granulocytes 8.5 H, Segmented Neutrophils 82 H, Band Neutrophils 1, Absolute Lymphocytes 0.5 L, Lymphocytes 10 L, Monocytes 6, Absolute Monocytes 0.6, Eosinophils 1, Absolute Eosinophils 0.2, Absolute Basophils 0, Platelet Estimate ADEQUATE, Polychromasia 1+, Ovalocytes RARE, Fld Total RBCs Counted 100 Impression/Plan Impression/Plan Impression/Plan: 1. Hypoxemic respiratory failure secondary to Legionella pneumonia. 2. Acute on chronic renal failure - creatinine is improving although BUN is 100 today. 3. Hyponatremia secondary to Legionella pneumonia. 4. Non-anion gap metabolic acidosis secondary to renal failure. 5. Anemia without evidence of bleeding. 6. Chronic atrial fibrillation not on anticoagulation. 7. CAD with prior PCI. 8. History of SSS, s/p PPM. 9. History of hypertension. Recommendations: * Continue moxifloxacin per ID. * We will continue to follow nephrology's recommendations. Will discuss rising BUN with Dr. Freed. * Cardiology input reviewed, will follow. * Attempt to titrate supplemental oxygen down for saturations greater than 92%. * Follow-up chest x-ray results. * Continue nebs/total respiratory care per * Continue all current medications. * Out of bed to chair/increase activity. * Downgrade vitals blood keep in ICU. * Plan of care discussed with house staff.
[2018-05-18 08:00] VITALS: BP 130/76
--- NOTE | 2018-05-18 09:50 | PN- Nephrology ---
Assessment/Plan Nephrology Assessment: 1. 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 MILLIE slowly improving but with persistently high BUN likely indicating a prerenal basis as patient is not on steroids and does not appear to be GI bleeding 3. Hyponatremia secondary to pneumonia and decreased GFR 4. Metabolic acidosis, improved, now on oral sodium bicarbonate 5. Legionella pneumonia with hypoxemic respiratory failure -also slowly improving 6. Abnormal LFTs -improving Suggestion: 1. Would consider gentle hydration i.e. IV normal saline at 75 cc/h and reassess tomorrow 2. At the same time, would limit p.o. fluids (because of hyponatremia) to 1200 cc per day Subjective Subjective: Patient continues to feel weak and tired but denies shortness of breath or pain. Creatinine is slowly falling while BUN remains markedly elevated at approximately 100. Serum sodium remains low. Objective Vital Signs and I&Os Vital Signs Date Time Temp Pulse Resp B/P B/P Pulse O2 O2 Flow FiO2 Mean Ox Delivery Rate 05/18 0848 72 126/66 05/18 0845 94 Nasal 45% Cannula 05/18 0800 94 Nasal 50% Cannula 05/18 0800 97.6 68 20 130/76 94 Nasal 50% Cannula 05/18 0603 93 Nasal 50% Cannula 05/18 0400 95 Nasal 50% Cannula / 0000 93 Nasal 50% Cannula 08/ 0000 97.8 80 17 142/60 93 Nasal 50% Cannula 08/02 2130 95 Nasal 40% Cannula / 2000 94 Nasal 40% Cannula / 1810 92 Nasal 40% Cannula 05/17 1600 94 Nasal 40% Cannula / 1600 97.7 78 18 112/62 94 Nasal 40% Cannula 08/02 1430 95 Nasal 40% Cannula /02 1333 97 Nasal 50% Cannula / 1200 97 Nasal 50% Cannula Intake & Output 05/18 1600 05/18 0400 05/17 1600 05/17 0400 05/16 1600 05/16 0400 Intake Total 480 1070 640 950 280 Output Total 091 083 6251 275 1150 500 Balance -600 -120 -355 365 -200 -220 Intake, IV 250 250 Intake, Oral 480 820 640 700 280 Number 1 0 1 Bowel Movements Output, Urine 122 524 2662 275 1150 500 Patient 191 lb Weight Weight Bed scale Measurement Method Physical Exam: General: Well-developed elderly white male on high flow O2 in NAD Skin: No rash or jaundice HEENT: Conjunctivae pink, sclerae anicteric, mucous membranes dry Neck: Without masses or thyromegaly, no supraclavicular or cervical adenopathy Chest: Decreased breath sounds at bases Heart: Regular rate and rhythm without S3 or rub Abdomen: Soft and nontender without palpable masses or organomegaly Extremities: Without cyanosis or edema Neuro: Cognitively intact, no focal findings, no asterixis or myoclonus Results Pertinent Lab Results: Laboratory Tests 05/18 05/17 0400 0455 Chemistry Sodium (137 - 145 mmol/L) 131 L 132 L Potassium (3.5 - 5.1 mmol/L) 3.9 3.8 Chloride (98 - 107 mmol/L) 97 L 99 Carbon Dioxide (22 - 30 mmol/L) 25 23 Anion Gap (5 - 16) 9 10 BUN (9 - 20 mg/dL) 100 H 96 H Creatinine (0.7 - 1.2 mg/dL) 4.4 H 4.7 H Estimated GFR (>60 ml/min) 13 L 12 L Glucose (65 - 99 mg/dL) 88 92 Calcium (8.4 - 10.2 mg/dL) 8.9 8.5 Phosphorus (2.5 - 4.5 mg/dL) 4.6 H 4.7 H Magnesium (1.6 - 2.3 mg/dL) 2.0 2.0 Total Bilirubin (0.2 - 1.3 mg/dL) 0.6 0.4 Direct Bilirubin (< 0.4 mg/dL) 0.3 AST (17 - 59 U/L) 100 H 143 H ALT (21 - 72 U/L) 149 H 170 H Alkaline Phosphatase (< 127 U/L) 131 H Total Protein (6.3 - 8.2 g/dL) 4.4 L Albumin (3.5 - 5.0 g/dL) 2.4 L 2.3 L Hematology CBC w Diff MAN DIFF ORDERED NO MAN DIFF REQ WBC (4.8 - 10.8 /CUMM) 9.8 8.1 RBC (4.70 - 6.10 /CUMM) 2.94 L 2.92 L Hgb (14.0 - 18.0 G/DL) 8.6 L 8.3 L Hct (42 - 52 %) 25.9 L 25.6 L MCV (80.0 - 94.0 FL) 88.1 87.5 MCH (27.0 - 31.0 PG) 29.3 28.5 MCHC (33.0 - 37.0 G/DL) 33.2 32.6 L RDW (11.5 - 14.5 %) 14.7 H 14.6 H Plt Count (130 - 400 /CUMM) 217 214 MPV (7.4 - 10.4 FL) 9.9 10.0 Gran % (42.2 - 75.2 %) 87.1 H 85.8 H Lymphocytes % (20.5 - 51.1 %) 4.9 L 5.7 L Monocytes % (1.7 - 9.3 %) 6.2 6.3 Eosinophils % (0 - 5 %) 1.7 2.1 Basophils % (0.0 - 2.0 %) 0.1 0.1 Absolute Granulocytes (1.4 - 6.5 /CUMM) 8.5 H 6.9 H Segmented Neutrophils (42.2 - 75.2 %) 82 H Band Neutrophils (0.0 - 5.0 %) 1 Absolute Lymphocytes (1.2 - 3.4 /CUMM) 0.5 L 0.5 L Lymphocytes (20.5 - 51.1 %) 10 L Monocytes (1.7 - 9.3 %) 6 Absolute Monocytes (0.10 - 0.60 /CUMM) 0.6 0.5 Eosinophils (0 - 5.0 %) 1 Absolute Eosinophils (0.0 - 0.7 /CUMM) 0.2 0.2 Absolute Basophils (0.0 - 0.2 /CUMM) 0 0 Platelet Estimate (ADEQUATE) ADEQUATE Polychromasia 1+ Ovalocytes RARE Other Body Source Fld Total RBCs Counted (%) 100 05/16 05/15 0457 1354 Chemistry Sodium (137 - 145 mmol/L) 134 L Potassium (3.5 - 5.1 mmol/L) 3.8 Chloride (98 - 107 mmol/L) 96 L Carbon Dioxide (22 - 30 mmol/L) 22 Anion Gap (5 - 16) 16 BUN (9 - 20 mg/dL) 97 H Creatinine (0.7 - 1.2 mg/dL) 4.9 H Estimated GFR (>60 ml/min) 11 L BUN/Creatinine Ratio (7 - 25 %) 19.8 Magnesium (1.6 - 2.3 mg/dL) 1.9 Total Bilirubin (0.2 - 1.3 mg/dL) 0.4 Direct Bilirubin (< 0.4 mg/dL) 0.4 AST (17 - 59 U/L) 169 H ALT (21 - 72 U/L) 185 H Alkaline Phosphatase (< 127 U/L) 138 H Troponin I (<0.11 ng/ml) 0.03 Total Protein (6.3 - 8.2 g/dL) 4.7 L Albumin (3.5 - 5.0 g/dL) 2.4 L Hematology CBC w Diff MAN DIFF ORDERED WBC (4.8 - 10.8 /CUMM) 6.7 RBC (4.70 - 6.10 /CUMM) 2.94 L Hgb (14.0 - 18.0 G/DL) 8.5 L Hct (42 - 52 %) 25.8 L MCV (80.0 - 94.0 FL) 87.7 MCH (27.0 - 31.0 PG) 29.0 MCHC (33.0 - 37.0 G/DL) 33.0 RDW (11.5 - 14.5 %) 14.9 H Plt Count (130 - 400 /CUMM) 200 MPV (7.4 - 10.4 FL) 10.9 H Gran % (42.2 - 75.2 %) 88.8 H Lymphocytes % (20.5 - 51.1 %) 5.1 L Monocytes % (1.7 - 9.3 %) 4.6 Eosinophils % (0 - 5 %) 1.5 Basophils % (0.0 - 2.0 %) 0 Absolute Granulocytes (1.4 - 6.5 /CUMM) 6.0 Segmented Neutrophils (42.2 - 75.2 %) 89 H Absolute Lymphocytes (1.2 - 3.4 /CUMM) 0.3 L Lymphocytes (20.5 - 51.1 %) 3 L Monocytes (1.7 - 9.3 %) 6 Absolute Monocytes (0.10 - 0.60 /CUMM) 0.3 Eosinophils (0 - 5.0 %) 2 Absolute Eosinophils (0.0 - 0.7 /CUMM) 0.1 Absolute Basophils (0.0 - 0.2 /CUMM) 0 Platelet Estimate (ADEQUATE) ADEQUATE Polychromasia 1+ Poikilocytosis 1+ Basophilic Stippling 1+ Ovalocytes 1+ Elliptocytes FEW Other Body Source Fld Total RBCs Counted (%) 100
--- NOTE | 2018-05-18 11:28 | PN- Cardiology ---
Subjective Subjective: Remains comfortable on high flow nasal cannula oxygen. No chest pain. Objective Vital Signs and I&Os Vital Signs Date Time Temp Pulse Resp B/P B/P Pulse O2 O2 Flow FiO2 Mean Ox Delivery Rate 05/18 0848 72 126/66 05/18 0845 94 Nasal 45% Cannula 05/18 0800 94 Nasal 50% Cannula 05/18 0800 97.6 68 20 130/76 94 Nasal 50% Cannula 05/18 0603 93 Nasal 50% Cannula 05/18 0400 95 Nasal 50% Cannula 05/18 0000 93 Nasal 50% Cannula 05/18 0000 97.8 80 17 142/60 93 Nasal 50% Cannula 05/17 2130 95 Nasal 40% Cannula 05/17 2000 94 Nasal 40% Cannula 05/17 1810 92 Nasal 40% Cannula 05/17 1600 94 Nasal 40% Cannula 05/17 1600 97.7 78 18 112/62 94 Nasal 40% Cannula 05/17 1430 95 Nasal 40% Cannula 05/17 1333 97 Nasal 50% Cannula 05/17 1200 97 Nasal 50% Cannula Intake & Output 05/18 1600 05/18 0805/18 0000 05/17 1600 05/17 0800 08/ 0000 Intake Total 480 970 100 640 Output Total 600 600 725 700 275 Balance -600 -120 245 -600 365 Intake, IV 250 Intake, Oral 480 720 100 640 Number 1 0 Bowel Movements Output, Urine 600 600 725 700 275 Patient 191 lb Weight Weight Bed scale Measurement Method Physical Exam: General: no apparent distress. Alert. On high flow oxygen. Eyes: No obvious scleral icterus. HEENT: No jugular venous distention or abnormal jugular venous pulsations. Cardiovascular: Normal intensity S1/S2. Irregular, pacemaker noted Respiratory: Decreased air entry in the left Abdomen: Soft, nontender with no guarding or rebound tenderness. Musculoskeletal: No clubbing or cyanosis noted; no edema Skin: warm Neurologic: Normal speech Current Medications: Current Medications Sig/Shanna Start time Last Medication Dose Route Stop Time Status Admin Acetaminophen 650 MG Q6P PRN 05/10 1745 AC PO Acetaminophen 1,000 MG Q6P PRN 05/10 1745 AC 05/13 IV 1111 Acetylcysteine 2 ML EVERY 4 HRS/AWAKE 05/13 2100 AC 05/18 INH 0817 Albuterol Sulfate 3 ML EVERY 4 HRS/AWAKE 05/13 2100 AC 05/18 INH 0817 Aspirin 81 MG DAILY 05/11 900 AC 05/18 PO 0848 Atorvastatin Calcium 40 MG DAILY 05/11 900 AC 05/18 PO 0848 Clopidogrel Bisulfate 75 MG DAILY 05/16 1200 AC 05/18 PO 0848 Folic Acid 1 MG DAILY 05/11 900 AC 05/18 PO 0848 Magnesium Oxide 400 MG DAILY 05/12 2008 AC 05/18 PO 0848 Moxifloxacin HCl 400 MG Q24H 05/14 1200 AC 05/17 N/A 1 UNIT IV 1230 Nebivolol 10 MG DAILY 05/15 1400 AC 05/18 PO 0848 Oxycodone HCl 10 MG Q6P PRN 05/10 1745 DC PO Sodium Bicarbonate 1,300 MG BID 05/15 2100 AC 05/18 PO 0848 Sodium Chloride 1,000 ML Q13H 05/18 1115 AC IV Results Last 48 Hrs of Labs/Mics: Laboratory Tests 05/18/18 0400: Anion Gap 9, Estimated GFR 13 L, Glucose 88, Calcium 8.9, Phosphorus 4.6 H, Magnesium 2.0, Total Bilirubin 0.6, AST 100 H, ALT 149 H, Albumin 2.4 L, CBC w Diff MAN DIFF ORDERED, RBC 2.94 L, MCV 88.1, MCH 29.3, MCHC 33.2, RDW 14.7 H , MPV 9.9, Gran % 87.1 H, Lymphocytes % 4.9 L, Monocytes % 6.2, Eosinophils % 1.7, Basophils % 0.1, Absolute Granulocytes 8.5 H, Segmented Neutrophils 82 H, Band Neutrophils 1, Absolute Lymphocytes 0.5 L, Lymphocytes 10 L, Monocytes 6, Absolute Monocytes 0.6, Eosinophils 1, Absolute Eosinophils 0.2, Absolute Basophils 0, Platelet Estimate ADEQUATE, Polychromasia 1+, Ovalocytes RARE, Fld Total RBCs Counted 100 05/17/18 0455: Anion Gap 10, Estimated GFR 12 L, Glucose 92, Calcium 8.5, Phosphorus 4.7 H, Magnesium 2.0, Total Bilirubin 0.4, Direct Bilirubin 0.3, AST 143 H, ALT 170 H , Alkaline Phosphatase 131 H, Total Protein 4.4 L, Albumin 2.3 L, CBC w Diff NO MAN DIFF REQ, RBC 2.92 L, MCV 87.5, MCH 28.5, MCHC 32.6 L, RDW 14.6 H, MPV 10.0, Gran % 85.8 H, Lymphocytes % 5.7 L, Monocytes % 6.3, Eosinophils % 2.1, Basophils % 0.1, Absolute Granulocytes 6.9 H, Absolute Lymphocytes 0.5 L, Absolute Monocytes 0.5, Absolute Eosinophils 0.2, Absolute Basophils 0 Recent Imaging Studies: Telemetry tracings were personally reviewed and showed atrial fibrillation CXR: Mildly decreased opacification in the left upper lobe compared to prior. Persistent dense opacification within the mid to basilar left lung persists, likely along with small left pleural effusion. Assessment/Plan Assessment/Plan 1. Legionella pneumonia on antibiotics 2. Chronic atrial fibrillation not on anticoagulation due to patient preference /neurology recommendations 3. Coronary artery disease with prior PCI and occluded PDA maintained on dual antiplatelet therapy. Normal ejection fraction of 55% by echocardiogram 4. Sick sinus syndrome with a history of permanent pacemaker 5. Mild aortic dilatation 6. History of hypertension 7. History of renal cancer with prior nephrectomy and chronic kidney disease Patient remains hemodynamically stable. Remains in atrial fibrillation with controlled ventricular response rate. Continue cardiac regimen. Antibiotics per the medical team. Cardiology will sign off; please call with any additional questions or concerns. Felix Meza MD [facility] Continue telemetry? No
--- NOTE | 2018-05-18 11:43 | PN- Infect Dx ---
Subjective Subjective: Afebrile. He feels improved with decreased shortness of breath and with no cough or chest pain. Objective Last 24 Hrs of Vital Signs/I&O Vital Signs Date Time Temp Pulse Resp B/P B/P Pulse O2 O2 Flow FiO2 Mean Ox Delivery Rate 05/18 0848 72 126/66 05/18 0845 94 Nasal 45% Cannula 05/18 08 94 Nasal 50% Cannula 05/18 08 97.6 68 20 130/76 94 Nasal 50% Cannula 05/18 0603 93 Nasal 50% Cannula 05/18 0400 95 Nasal 50% Cannula 05/18 0000 93 Nasal 50% Cannula 05/18 0000 97.8 80 17 142/60 93 Nasal 50% Cannula 05/17 2130 95 Nasal 40% Cannula 05/17 2000 94 Nasal 40% Cannula 05/17 1810 92 Nasal 40% Cannula 05/17 1600 94 Nasal 40% Cannula 05/17 1600 97.7 78 18 112/62 94 Nasal 40% Cannula 05/17 1430 95 Nasal 40% Cannula 05/17 1333 97 Nasal 50% Cannula 05/17 1200 97 Nasal 50% Cannula Intake & Output 05/18 1600 05/18 0805/18 0000 Intake Total 480 Output Total 600 600 Balance -600 -120 Intake, Oral 480 Number 1 Bowel Movements Output, Urine 600 600 Physical Exam Other Physical Findings: He appears comfortable in no acute distress, on 45% high flow oxygen Lungs are clear Heart regular rhythm with no murmur Extremities no cyanosis, clubbing or edema Results Last 24 Hours of Lab Results: Laboratory Tests 05/18 400 Chemistry Sodium (137 - 145 mmol/L) 131 L Potassium (3.5 - 5.1 mmol/L) 3.9 Chloride (98 - 107 mmol/L) 97 L Carbon Dioxide (22 - 30 mmol/L) 25 Anion Gap (5 - 16) 9 BUN (9 - 20 mg/dL) 100 H Creatinine (0.7 - 1.2 mg/dL) 4.4 H Estimated GFR (>60 ml/min) 13 L Glucose (65 - 99 mg/dL) 88 Calcium (8.4 - 10.2 mg/dL) 8.9 Phosphorus (2.5 - 4.5 mg/dL) 4.6 H Magnesium (1.6 - 2.3 mg/dL) 2.0 Total Bilirubin (0.2 - 1.3 mg/dL) 0.6 AST (17 - 59 U/L) 100 H ALT (21 - 72 U/L) 149 H Albumin (3.5 - 5.0 g/dL) 2.4 L Hematology CBC w Diff MAN DIFF ORDERED WBC (4.8 - 10.8 /CUMM) 9.8 RBC (4.70 - 6.10 /CUMM) 2.94 L Hgb (14.0 - 18.0 G/DL) 8.6 L Hct (42 - 52 %) 25.9 L MCV (80.0 - 94.0 FL) 88.1 MCH (27.0 - 31.0 PG) 29.3 MCHC (33.0 - 37.0 G/DL) 33.2 RDW (11.5 - 14.5 %) 14.7 H Plt Count (130 - 400 /CUMM) 217 MPV (7.4 - 10.4 FL) 9.9 Gran % (42.2 - 75.2 %) 87.1 H Lymphocytes % (20.5 - 51.1 %) 4.9 L Monocytes % (1.7 - 9.3 %) 6.2 Eosinophils % (0 - 5 %) 1.7 Basophils % (0.0 - 2.0 %) 0.1 Absolute Granulocytes (1.4 - 6.5 /CUMM) 8.5 H Segmented Neutrophils (42.2 - 75.2 %) 82 H Band Neutrophils (0.0 - 5.0 %) 1 Absolute Lymphocytes (1.2 - 3.4 /CUMM) 0.5 L Lymphocytes (20.5 - 51.1 %) 10 L Monocytes (1.7 - 9.3 %) 6 Absolute Monocytes (0.10 - 0.60 /CUMM) 0.6 Eosinophils (0 - 5.0 %) 1 Absolute Eosinophils (0.0 - 0.7 /CUMM) 0.2 Absolute Basophils (0.0 - 0.2 /CUMM) 0 Platelet Estimate (ADEQUATE) ADEQUATE Polychromasia 1+ Ovalocytes RARE Other Body Source Fld Total RBCs Counted (%) 100 Last 24 Hours of Mike Results: Sputum culture May 10 growing scant mixed omari with light growth of gram- positive cocci (probable Enterococcus) Recent Imaging Studies: Chest x-ray May 18 reveals mildly decreased opacification in the left upper lobe Assessment/Plan ID Impression: Continues to improve, with his temperatures and white blood cell count remaining normal, on Moxifloxacin, Day 4 of treatment for Legionella pneumonia following 4 days of Azithromycin, with a continued decrease in his oxygen requirements. His recent sputum culture, growing probable Enterococcus, likely represents oropharyngeal contamination and should not require treatment. His liver enzymes , which were normal on admission but increased after several days, continue to decrease. Suggestion: 1. Continue Moxifloxacin for [address] Saini is covering over the weekend
[2018-05-18 12:00] VITALS: BP 120/60
[2018-05-18 16:00] VITALS: BP 120/60
[2018-05-19] VITALS: BP 136/78
[2018-05-19 05:19] LABS: ABSOLUTE BASOPHIL COUNT 0 /CUMM (0.0-0.2); ABSOLUTE EOSINOPHIL COUNT 0.1 /CUMM (0.0-0.7); ABSOLUTE GRANULOCYTE CT 9.7 /CUMM (1.4-6.5); ABSOLUTE LYMPH COUNT 0.4 /CUMM (1.2-3.4); ABSOLUTE MONOCYTE COUNT 0.8 /CUMM (0.10-0.60); BASOPHIL % 0.1 % (0.0-2.0); EOSINOPHIL % 1.3 % (0-5); GRANULOCYTE % 87.9 % (42.2-75.2); MEAN CORPUSCULAR HGB 29.2 PG (27.0-31.0); MEAN CORPUSCULAR HGB CONC 33.2 G/DL (33.0-37.0); MEAN CORPUSCULAR VOLUME 87.8 FL (80.0-94.0); MEAN PLATELET VOLUME 9.7 FL (7.4-10.4); PLATELET COUNT 245 /CUMM (130-400); RBC DISTRIBUTION WIDTH 14.7 % (11.5-14.5); RED BLOOD CELL CT 2.96 /CUMM (4.70-6.10); WHITE BLOOD CELL COUNT 11.1 /CUMM (4.8-10.8)
--- NOTE | 2018-05-19 07:59 | PN- CRCU ---
Subjective HPI/Critical Care Issues: The patient is awake and alert. He reports feeling improved overall. He is sitting out of bed in a chair and doing well. He is less short of breath. His oxygen requirement is now down to 45%. He denies any problem with urination or constipation. He is afebrile and there were no overnight events reported. Objective Current Medications: Current Medications Sig/Shanna Start time Last Medication Dose Route Stop Time Status Admin Acetaminophen 650 MG Q6P PRN 05/10 1745 AC PO Acetaminophen 1,000 MG Q6P PRN 05/10 1745 AC 05/13 IV 1111 Acetylcysteine 2 ML EVERY 4 HRS/AWAKE 05/13 2100 AC 05/18 INH 2045 Albuterol Sulfate 3 ML EVERY 4 HRS/AWAKE 05/13 2100 AC 05/18 INH 2045 Aspirin 81 MG DAILY 05/11 0900 AC 05/18 PO 0848 Atorvastatin Calcium 40 MG DAILY 05/11 0900 AC 05/18 PO 0848 Clopidogrel Bisulfate 75 MG DAILY 05/16 1200 AC 05/18 PO 0848 Folic Acid 1 MG DAILY 05/11 0900 AC 05/18 PO 0848 Magnesium Oxide 400 MG DAILY 05/12 2008 AC 05/18 PO 0848 Moxifloxacin HCl 400 MG Q24H 05/14 1200 AC 05/18 N/A 1 UNIT IV 1322 Nebivolol 10 MG DAILY 05/15 1400 AC 05/18 PO 0848 Sodium Bicarbonate 1,300 MG BID 05/15 2100 AC 05/18 PO 2234 Sodium Chloride 1,000 ML Q13H 05/18 1115 AC 05/19 IV 0326 Vital Signs & I&O Last 24 Hrs of Vitals and I&O: Vital Signs Date Time Temp Pulse Resp B/P B/P Pulse O2 O2 Flow FiO2 Mean Ox Delivery Rate 05/19 0400 93 Nasal 45% Cannula 05/19 0031 95 Nasal 45% Cannula 05/19 0000 95 Nasal 45% Cannula 05/19 0000 97.6 76 22 136/78 95 Nasal 45% Cannula 05/18 2212 94 Nasal 45% Cannula 05/18 2000 95 Nasal 45% Cannula 05/18 1915 93 Nasal 45% Cannula 05/18 1612 95 Nasal 45% Cannula 05/18 1600 94 Nasal 45% Cannula 05/18 1600 96.7 61 18 120/60 94 Nasal 45% Cannula 05/18 1200 97 Nasal 45% Cannula 05/18 1200 97.6 68 20 120/60 97 Nasal 45% Cannula 05/18 0848 72 126/66 05/18 0845 94 Nasal 45% Cannula 05/18 800 94 Nasal 50% Cannula 05/18 08 97.6 68 20 130/76 94 Nasal 50% Cannula Intake & Output 05/19 0800 05/19 0000 05/18 1600 Intake Total 153 564 5280 Output Total 775 475 450 Balance -231 361 550 Intake, IV 544 516 400 Intake, Oral 0 320 600 Number 0 1 0 Bowel Movements Output, Urine 775 475 450 Patient 191 lb Weight Weight Bed scale Measurement Method Physical Exam General Appearance: alert, awake, no distress, on high flow Head: atraumatic Ears, Nose, Throat: normal pharynx, normal ENT inspection Neck: normal inspection, supple Respiratory: no appreciable breath sounds on the left side, scattered rhonchi on right Cardiovascular: S1 and S2 + Gastrointestinal: normal bowel sounds, soft, non-tender Extremities: normal inspection, normal capillary refill, no edema Skin: intact, normal color, no edema Results Last 24 Hrs of Lab Results: Laboratory Tests 05/19/18 0440: Anion Gap 10, Estimated GFR 14 L, Glucose 88, Calcium 8.6, Phosphorus 4.2, Magnesium 2.0, Total Bilirubin 0.5, AST 73 H, ALT 123 H, Albumin 2.4 L, CBC w Diff MAN DIFF ORDERED, RBC 2.96 L, MCV 87.8, MCH 29.2, MCHC 33.2, RDW 14.7 H, MPV 9.7, Gran % 87.9 H, Lymphocytes % 3.5 L, Monocytes % 7.2, Eosinophils % 1.3, Basophils % 0.1, Absolute Granulocytes 9.7 H, Absolute Lymphocytes 0.4 L, Absolute Monocytes 0.8 H, Absolute Eosinophils 0.1, Absolute Basophils 0, Platelet Estimate ADEQUATE, Basophilic Stippling 1+ Impression/Plan Impression/Plan Impression/Plan: 1. Hypoxemic respiratory failure secondary to Legionella pneumonia. 2. Acute on chronic renal failure - BUN/Cr improving. 3. Hyponatremia secondary to Legionella pneumonia. 4. Non-anion gap metabolic acidosis secondary to renal failure. 5. Anemia without evidence of bleeding. 6. Chronic atrial fibrillation, not on anticoagulation. 7. CAD with prior PCI. 8. History of SSS, s/p PPM. 9. History of hypertension. Recommendations: * Continue moxifloxacin per ID. * We will continue to follow nephrology's recommendations. * Attempt to titrate supplemental oxygen down for saturations greater than 92%. * Continue nebs/total respiratory care. * Continue all current medications. * Out of bed to chair/increase activity. * Downgrade vitals blood keep in ICU. * DVT prophylaxis at all times - add SQ heparin. Alps to continue. * Plan of care discussed with house staff.
[2018-05-19 08:00] VITALS: BP 120/70
--- NOTE | 2018-05-19 08:13 | PN- Resident CRCU ---
Subjective HPI/CRCU Issues: Acute hypoxic respiratory failure due to Legionella pneumonia Acute on chronic kidney injury Hyponatremia Nonsustained V. tach History of chronic atrial fibrillation History of hyperlipidemia History of coronary artery disease status post stent placement History of renal cancer with prior nephrectomy and chronic kidney disease 24 Hour Events: No overnight events. Patient remained afebrile breath. Seen and examined this morning. He is on high flow oxygen 45% and maintaining saturation 95%. We are weaning off his high flow oxygen slowly. Patient denied chest pain, palpitation , nausea, vomiting, cough, sputum, abdominal pain and dysuria. Patient reported that his appetite is improving and he is out of bed in chair. Patient is feeling much improved. His sputum is showing gram-positive cocci although patient is afebrile and he is already on antibiotics. We will follow his final sputum culture. Objective Vital Signs & I&O Last 8 Hrs of Vitals and I&O: Intake & Output 05/20 1600 Intake Total 1338 Output Total 450 Balance 888 Intake, IV 618 Intake, Oral 720 Number 0 Bowel Movements Output, Urine 450 temp 97.4, pulse 81, BP 140/68, r/r 20 Exam General Appearance: well developed/nourished, no apparent distress, alert, awake Head: atraumatic, normal appearance Ears, Nose, Throat: normal pharynx Neck: normal inspection, supple Respiratory: chest non-tender, RIGHT CHEST IS CLEAR. LEFT SIDE HAS BRONCHIAL BREATH. Cardiovascular: regular rate/rhythm Gastrointestinal: normal bowel sounds, soft, non-tender Extremities: normal inspection, no edema Cranial Nerves: normal hearing, normal speech, PERRL Skin Temp/Moisture Exam: Warm/Dry Sepsis Skin Exam (color): Normal for Ethnicity Current Medications: Current Medications Sig/Shanna Start time Last Medication Dose Route Stop Time Status Admin Acetaminophen 650 MG Q6P PRN 05/10 174 AC PO Acetaminophen 1,000 MG Q6P PRN 05/10 1745 AC 05/13 IV 1111 Albuterol Sulfate 3 ML EVERY 4 HRS/AWAKE 05/13 2100 AC 05/20 INH 1955 Aspirin 81 MG DAILY 05/11 0900 AC 05/20 PO 0855 Atorvastatin Calcium 40 MG DAILY 05/11 0900 AC 05/20 PO 0855 Clopidogrel Bisulfate 75 MG DAILY 05/16 1200 AC 05/20 PO 0855 Folic Acid 1 MG DAILY 05/11 0900 AC 05/20 PO 0855 Heparin Sodium 5,000 UNIT Q8 05/19 0925 AC 05/20 (Porcine) SC 2054 Magnesium Oxide 400 MG DAILY 05/12 2008 AC 05/20 PO 0855 Moxifloxacin HCl 400 MG Q24H 05/14 1200 AC 05/20 N/A 1 UNIT IV 05/21 0000 1101 Nebivolol 10 MG DAILY 05/15 1400 AC 05/20 PO 0855 Sodium Bicarbonate 1,300 MG BID 05/15 2100 AC 05/20 PO 205 Sodium Chloride 1,000 ML Q20H 05/19 1945 AC 05/20 IV 1243 Impression/Plan Impression/Problem List Impression: 87yo M w/ PMH of hypertension, hyperlipidemia, 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 Patient respiratory status got worse during the course and at some point there was decision of intubation but patient did well on BiPAP. At that time his CODE STATUS was changed to DNR/intubation as family for intubation if needed but no chest compressions. Since then patient did well on BiPAP. We'll continue treating the patient for Legionella pneumonia. Acute hypoxic respiratory failure due to Legionella pneumonia:(IMPROVING) -Continue high flow oxygen to maintain oxygen above 92%. -We will continue high flow oxygen 45% and try to taper it as long as patient is maintaining saturation 92%. -Continue moxifloxacin day 6. -His blood cultures remain negative so far. -His sputum culture is showing gram-positive cocci we will follow the final results. Patient remained afebrile. Although his WBC count is 11.1 today. -TRC nebulization as needed -Continue acetylcysteine inhalation as mucolytic. -Chest physiotherapy -We will follow pulmonology and ID recommendations. Acute on chronic kidney injury:(IMPROVING) -Possibly due to Legionella induced nephritis or acute tubular necrosis due to sepsis. Patient didn't respond to IV fluids and his fractional excretion of sodium remained elevated. -Patient had chronic kidney injury stage IV-V -Continue bicarbonate 1300 mg twice a day. -His creatinine is 4.0 today. And BUN is 78. -Avoid nephrotoxins medications -Continue holding his diuretics -Continue with N/S @75ml/h and will reassess again. Hyponatremia: -Possibly due to renal failure, pneumonia and excessive free fluid. -Today his sodium level is 133 -Continue fluid restriction 1200 mL everyday. -Patient is tolerating oral fluids. -Follow-up nephrology recommendations Nonsustained V. tach: -Patient remained stable overnight, no further episodes of went to her tachycardia. -Continue by Bystolic. History of chronic atrial fibrillation: -Not on any anticoagulation due to patient preference/neurology recommendations -Continue monitoring on case monitor as recommended by cardiology. History of hyperlipidemia: -Continue atorvastatin History of coronary artery disease status post stent placement: -Continue aspirin -Continue plevix DVT prophylaxis: Mechanical and heparin as his thrombocytopenia has improved. CODE STATUS: DNR Problem List: 1. Besdy-qo-amvjojo kidney injury 2. Acute respiratory failure with hypoxia 3. Community acquired pneumonia Pain Ratin Pain Location: NONE Tomorrow's Labs & Rationales: CBC/ICU BUNDLE Plan Respiratory: Patient remained on high flow oxygen 45%. He is maintaining saturation 95% this morning. We will try to wean off his high flow oxygen keeping his oxygen saturation above 92%. Infectious Diseases: Continue moxifloxacin. His sputum culture is showing gram-positive cocci and will follow the final sputum culture results. His WBC count is 11.1 today although patient remained afebrile. Cardiovascular: -Not on any anticoagulation due to patient preference/neurology recommendations -Continue monitoring on case monitor as recommended by cardiology. Hematology: His H&H remained stable and his hemoglobin is 8.6 and hematocrit is 26.0 Metabolic: Patient's creatinine level is slowly improving. Today it's 4.0 and BUN is 78. Continue bicarbonate by mouth. Considering patient's hyponatremia today sodium is 133 and will continue fluid restriction 1200 mL everyday. Alimentary: Patient is on renal dialysis diet with 1200ml fluid restriction. Neurological: Neurologically patient is stable, no complaint. DVT/Prophylaxis: mechanical, pharmacological
[2018-05-19 12:00] VITALS: BP 120/70
[2018-05-19 16:00] VITALS: BP 116/60
--- NOTE | 2018-05-19 19:38 | PN- Infect Dx ---
Subjective Subjective: This patient is an 87-year-old male with a complicated course of pneumonia secondary to Legionella. The patient is improving and is asking when he can go home. Remains afebrile, his oxygen requirement is decreasing and has a slightly elevated white blood cell count. Review of Systems Constitutional: Reports: see HPI. Comments: 12 point review of system without positive findings Objective Last 24 Hrs of Vital Signs/I&O Vital Signs Date Time Temp Pulse Resp B/P B/P Pulse O2 O2 Flow FiO2 Mean Ox Delivery Rate 05/19 1624 94 Nasal 4.0L Cannula 05/19 1600 96 Nasal 4.0L Cannula 05/19 1600 97.6 76 22 116/60 96 Nasal 4.0L Cannula 05/19 1200 94 Nasal 4.0L Cannula 05/19 1200 98.9 78 22 120/70 94 Nasal 4.0L Cannula 05/19 0901 86 145/74 05/19 0901 94 Nasal 4.0L Cannula 05/19 0800 94 Nasal 45% Cannula 05/19 0800 98.5 80 22 120/70 94 Nasal 45% Cannula 05/19 0400 93 Nasal 45% Cannula 05/19 0031 95 Nasal 45% Cannula 05/19 0000 95 Nasal 45% Cannula 05/19 0000 97.6 76 22 136/78 95 Nasal 45% Cannula 05/18 2212 94 Nasal 45% Cannula 05/18 2000 95 Nasal 45% Cannula Intake & Output 05/19 1600 04 0800 08/04 0000 Intake Total 1504 544 836 Output Total 475 775 475 Balance 1029 -231 361 Intake, IV 784 544 516 Intake, Oral 720 0 320 Number 0 0 1 Bowel Movements Output, Urine 475 775 475 Patient 191 lb Weight Weight Bed scale Measurement Method Physical Exam Other Physical Findings: Awake alert oriented 3 Pupils equal and reactive to light and accommodation equal ocular motion No JVD no lymphadenopathy Heart regular rate and rhythm S1-S2 Coarse lung sounds throughout Abdomen soft nontender nondistended Some dependent edema noted Results Last 24 Hours of Lab Results: Laboratory Tests 05/19 0440 Chemistry Sodium (137 - 145 mmol/L) 133 L Potassium (3.5 - 5.1 mmol/L) 4.1 Chloride (98 - 107 mmol/L) 100 Carbon Dioxide (22 - 30 mmol/L) 23 Anion Gap (5 - 16) 10 BUN (9 - 20 mg/dL) 78 H Creatinine (0.7 - 1.2 mg/dL) 4.0 H Estimated GFR (>60 ml/min) 14 L Glucose (65 - 99 mg/dL) 88 Calcium (8.4 - 10.2 mg/dL) 8.6 Phosphorus (2.5 - 4.5 mg/dL) 4.2 Magnesium (1.6 - 2.3 mg/dL) 2.0 Total Bilirubin (0.2 - 1.3 mg/dL) 0.5 AST (17 - 59 U/L) 73 H ALT (21 - 72 U/L) 123 H Albumin (3.5 - 5.0 g/dL) 2.4 L Hematology CBC w Diff MAN DIFF ORDERED WBC (4.8 - 10.8 /CUMM) 11.1 H RBC (4.70 - 6.10 /CUMM) 2.96 L Hgb (14.0 - 18.0 G/DL) 8.6 L Hct (42 - 52 %) 26.0 L MCV (80.0 - 94.0 FL) 87.8 MCH (27.0 - 31.0 PG) 29.2 MCHC (33.0 - 37.0 G/DL) 33.2 RDW (11.5 - 14.5 %) 14.7 H Plt Count (130 - 400 /CUMM) 245 MPV (7.4 - 10.4 FL) 9.7 Gran % (42.2 - 75.2 %) 87.9 H Lymphocytes % (20.5 - 51.1 %) 3.5 L Monocytes % (1.7 - 9.3 %) 7.2 Eosinophils % (0 - 5 %) 1.3 Basophils % (0.0 - 2.0 %) 0.1 Absolute Granulocytes (1.4 - 6.5 /CUMM) 9.7 H Absolute Lymphocytes (1.2 - 3.4 /CUMM) 0.4 L Absolute Monocytes (0.10 - 0.60 /CUMM) 0.8 H Absolute Eosinophils (0.0 - 0.7 /CUMM) 0.1 Absolute Basophils (0.0 - 0.2 /CUMM) 0 Platelet Estimate (ADEQUATE) ADEQUATE Basophilic Stippling 1+ Last 24 Hours of Mike Results: None Recent Imaging Studies: No chest x-ray today Assessment/Plan ID Impression: 87-year-old male with Legionella pneumonia who continues to improve, with his temperatures and oxygen requirement. Mild elevation in his White blood cell count, on Moxifloxacin, Day 5 of treatment for Legionella pneumonia following 4 days of Azithromycin. His recent sputum culture, growing Enterococcus, likely represents oropharyngeal contamination and should not require treatment. Suggestion: 1. Continue Moxifloxacin for 2 more days 2. Follow WBC count Call with questions [phone] or Pager [phone]
[2018-05-20] VITALS: BP 140/68
[2018-05-20 05:40] LABS: ABSOLUTE BASOPHIL COUNT 0 /CUMM (0.0-0.2); ABSOLUTE EOSINOPHIL COUNT 0.1 /CUMM (0.0-0.7); ABSOLUTE GRANULOCYTE CT 8.8 /CUMM (1.4-6.5); ABSOLUTE LYMPH COUNT 0.4 /CUMM (1.2-3.4); ABSOLUTE MONOCYTE COUNT 0.9 /CUMM (0.10-0.60); BASOPHIL % 0 % (0.0-2.0); EOSINOPHIL % 1.1 % (0-5); GRANULOCYTE % 85.5 % (42.2-75.2); HEMATOCRIT 23.7 % (42-52); MEAN CORPUSCULAR HGB 29.2 PG (27.0-31.0); MEAN CORPUSCULAR VOLUME 88.4 FL (80.0-94.0); MEAN PLATELET VOLUME 9.5 FL (7.4-10.4); PLATELET COUNT 246 /CUMM (130-400); RBC DISTRIBUTION WIDTH 14.8 % (11.5-14.5); RED BLOOD CELL CT 2.69 /CUMM (4.70-6.10); WHITE BLOOD CELL COUNT 10.3 /CUMM (4.8-10.8)
[2018-05-20 08:00] VITALS: BP 140/72
--- NOTE | 2018-05-20 08:19 | PN- Resident CRCU ---
Subjective HPI/CRCU Issues: Acute hypoxic respiratory failure due to Legionella pneumonia Acute on chronic kidney injury Hyponatremia Nonsustained V. tach History of chronic atrial fibrillation History of hyperlipidemia History of coronary artery disease status post stent placement History of renal cancer with prior nephrectomy and chronic kidney disease 24 Hour Events: Seen and examined. No overnight acute events. Reports improvement in symptoms. Remained afebrile overnight. Currently on 4 L of nasal cannula and an oxygen saturation in 90s. Out of bed. He remains in atrial fibrillation with heart rate in 80s. Objective Vital Signs & I&O Last 8 Hrs of Vitals and I&O: Laboratory Tests 05/20 0510 Chemistry Sodium (137 - 145 mmol/L) 135 L Potassium (3.5 - 5.1 mmol/L) 4.2 Chloride (98 - 107 mmol/L) 102 Carbon Dioxide (22 - 30 mmol/L) 22 Anion Gap (5 - 16) 11 BUN (9 - 20 mg/dL) 74 H Creatinine (0.7 - 1.2 mg/dL) 3.7 H Estimated GFR (>60 ml/min) 16 L Glucose (65 - 99 mg/dL) 93 Calcium (8.4 - 10.2 mg/dL) 8.8 Phosphorus (2.5 - 4.5 mg/dL) 4.1 Magnesium (1.6 - 2.3 mg/dL) 1.9 Total Bilirubin (0.2 - 1.3 mg/dL) 0.4 AST (17 - 59 U/L) 61 H ALT (21 - 72 U/L) 114 H Albumin (3.5 - 5.0 g/dL) 2.4 L Hematology CBC w Diff MAN DIFF ORDERED WBC (4.8 - 10.8 /CUMM) 10.3 RBC (4.70 - 6.10 /CUMM) 2.69 L Hgb (14.0 - 18.0 G/DL) 7.8 L Hct (42 - 52 %) 23.7 L MCV (80.0 - 94.0 FL) 88.4 MCH (27.0 - 31.0 PG) 29.2 MCHC (33.0 - 37.0 G/DL) 33.0 RDW (11.5 - 14.5 %) 14.8 H Plt Count (130 - 400 /CUMM) 246 MPV (7.4 - 10.4 FL) 9.5 Gran % (42.2 - 75.2 %) 85.5 H Lymphocytes % (20.5 - 51.1 %) 4.3 L Monocytes % (1.7 - 9.3 %) 9.1 Eosinophils % (0 - 5 %) 1.1 Basophils % (0.0 - 2.0 %) 0 Absolute Granulocytes (1.4 - 6.5 /CUMM) 8.8 H Segmented Neutrophils (42.2 - 75.2 %) 85 H Absolute Lymphocytes (1.2 - 3.4 /CUMM) 0.4 L Lymphocytes (20.5 - 51.1 %) 10 L Monocytes (1.7 - 9.3 %) 2 Absolute Monocytes (0.10 - 0.60 /CUMM) 0.9 H Eosinophils (0 - 5.0 %) 3 Absolute Eosinophils (0.0 - 0.7 /CUMM) 0.1 Absolute Basophils (0.0 - 0.2 /CUMM) 0 Platelet Estimate (ADEQUATE) ADEQUATE Normochromic RBCs VERIFIED Poikilocytosis 1+ Ovalocytes 1+ Other Body Source Fld Total RBCs Counted (%) 100 Vital Signs Date Time Temp Pulse Resp B/P B/P Pulse O2 O2 Flow FiO2 Mean Ox Delivery Rate 05/20 0855 100 140/72 05/20 0802 94 Nasal 4.0L Cannula 05/20 0800 94 Nasal 4.0L Cannula 05/20 0800 97.4 81 20 140/72 94 Nasal 4.0L Cannula 05/20 0400 92 Nasal 4.0L Cannula 05/20 0210 92 Nasal 6.0L Cannula 05/20 0000 92 Nasal 4.0L Cannula 05/20 0000 97.1 82 24 140/68 92 Nasal 4.0L Cannula 05/19 2000 95 Nasal 4.0L Cannula 05/19 1624 94 Nasal 4.0L Cannula 05/19 1600 96 Nasal 4.0L Cannula 05/19 1600 97.6 76 22 116/60 96 Nasal 4.0L Cannula Intake & Output 05/20 1600 05/20 0800 05/20 0000 Intake Total 391 963 Output Total 620 400 Balance -229 563 Intake, IV 391 523 Intake, Oral 0 440 Number 0 1 Bowel Movements Output, Urine 620 400 Patient 191 lb Weight Weight Bed scale Measurement Method Exam General Appearance: alert, awake, comfortable Head: atraumatic, normal appearance Neck: normal inspection Respiratory: scattered ronchi R>L Cardiovascular: irregularly irregular Gastrointestinal: normal bowel sounds, soft Current Medications: Current Medications Sig/Shanna Start time Last Medication Dose Route Stop Time Status Admin Acetaminophen 650 MG Q6P PRN 05/10 1745 AC PO Acetaminophen 1,000 MG Q6P PRN 05/10 1745 AC 05/13 IV 1111 Albuterol Sulfate 3 ML EVERY 4 HRS/AWAKE 05/13 2100 AC 05/20 INH 1145 Aspirin 81 MG DAILY 05/11 0900 AC 05/20 PO 0855 Atorvastatin Calcium 40 MG DAILY 05/11 0900 AC 05/20 PO 0855 Clopidogrel Bisulfate 75 MG DAILY 05/16 1200 AC 05/20 PO 0855 Folic Acid 1 MG DAILY 05/11 09 AC 05/20 PO 0855 Heparin Sodium 5,000 UNIT Q8 05/19 0925 AC 05/20 (Porcine) SC 0602 Magnesium Oxide 400 MG DAILY 05/12 2008 AC 05/20 PO 0855 Moxifloxacin HCl 400 MG Q24H 05/14 1200 AC 05/20 N/A 1 UNIT IV 1101 Nebivolol 10 MG DAILY 05/15 1400 AC 05/20 PO 0855 Sodium Bicarbonate 1,300 MG BID 05/15 2100 AC 05/20 PO 0854 Sodium Chloride 1,000 ML Q20H 05/19 1945 AC 05/19 IV 2031 Sodium Chloride 1,000 ML Q13H 05/18 1115 DC 05/19 IV 1851 Impression/Plan Impression/Problem List Impression: 87yo M w/ PMH of hypertension, hyperlipidemia, 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 Patient respiratory status got worse during the course and at some point there was decision of intubation but patient did well on BiPAP. At that time his CODE STATUS was changed to DNR/intubation as family for intubation if needed but no chest compressions. Since then patient did well on BiPAP, was transitioned to high flow and then to nasal cannula today. We'll continue treating the patient for Legionella pneumonia. #Acute hypoxic respiratory failure due to Legionella pneumonia Patient has been transitioned to nasal cannula and maintaining saturation in 90s. -Continue oxygen supplementation to maintain oxygen saturation above 92%. -Continue moxifloxacin today is last day of Abx course -His blood cultures remain negative so far. -His sputum culture is positive Enterococcus, most likely secondary to oropharyngeal contamination -Continue to monitor fever and WBC curve. Patient remains afebrile with normal white count today. -TRC nebulization as needed -Continue acetylcysteine inhalation as mucolytic. -Continue incentive spirometry and flutter valve therapy. -We will follow pulmonology and ID recommendations. #Acute on chronic kidney injury:(IMPROVING) Patient has CKD stage IV-V. Most likely secondary to hypertension. He is also status post nephrectomy. MILLIE was initially thought to be secondary to malignant induced nephritis or ATN due to sepsis female was high but that can be secondary to diuretic use at home. His Cr is slowly improving with persistently high BUN is more consistent with prerenal etiology -His creatinine is 3.7 today. And BUN is 74. -Avoid nephrotoxins medications -Continue holding his diuretics -Continue with N/S @50ml/h and will reassess again. #Non-anion gap metabolic acidosis secondary to renal failure. -Continue bicarbonate 1300 mg twice a day. #Hyponatremia: Possibly due to renal failure, Legionella pneumonia and excessive free fluid. -Today his sodium level is 135 -Continue fluid restriction 1200 mL everyday. -Patient is tolerating oral fluids. -Follow-up nephrology recommendations #Nonsustained V. tach: Patient remained stable overnight, no further episodes of went to her tachycardia. -Continue Bystolic. #History of chronic atrial fibrillation: -Not on any anticoagulation due to patient preference/neurology recommendations -Continue monitoring on racing secretary as recommended by cardiology. Heart rate remains in 80s-70s. #History of hyperlipidemia: -Continue atorvastatin #History of coronary artery disease status post stent placement: -Continue aspirin -Continue plavix DVT prophylaxis: Mechanical and heparin as his thrombocytopenia has improved. CODE STATUS: DNR Problem List: 1. Pneumonia 2. Acute respiratory failure with hypoxia 3. Wdmak-gn-suxhyro kidney injury Pain Ratin Tomorrow's Labs & Rationales: cbc bep Plan DVT/Prophylaxis: mechanical, pharmacological
--- NOTE | 2018-05-20 09:01 | PN- CRCU ---
Subjective HPI/Critical Care Issues: The patient is awake and alert. He reports feeling significantly improved. His oxygen requirements have significantly improved as well, noting he is now on 4 L nasal cannula with saturations in the mid 90s. He remains in atrial fibrillation with a heart rate in the 70s-80s. He is afebrile. There were no overnight events. The patient offers no new complaints today. Objective Current Medications: Current Medications Sig/Shanna Start time Last Medication Dose Route Stop Time Status Admin Acetaminophen 650 MG Q6P PRN 05/10 1745 AC PO Acetaminophen 1,000 MG Q6P PRN 05/10 1745 AC 05/13 IV 1111 Albuterol Sulfate 3 ML EVERY 4 HRS/AWAKE 05/13 2100 AC 05/20 INH 0800 Aspirin 81 MG DAILY 05/11 09 AC 05/20 PO 0855 Atorvastatin Calcium 40 MG DAILY 05/11 0900 AC 05/20 PO 0855 Clopidogrel Bisulfate 75 MG DAILY 05/16 1200 AC 05/20 PO 0855 Folic Acid 1 MG DAILY 05/11 0900 AC 05/20 PO 0855 Heparin Sodium 5,000 UNIT Q8 05/19 0925 AC 05/20 (Porcine) SC 0602 Magnesium Oxide 400 MG DAILY 05/12 2008 AC 05/20 PO 0855 Moxifloxacin HCl 400 MG Q24H 05/14 1200 AC 05/19 N/A 1 UNIT IV 1206 Nebivolol 10 MG DAILY 05/15 1400 AC 05/20 PO 0855 Sodium Bicarbonate 1,300 MG BID 05/15 2100 AC 05/20 PO 0854 Sodium Chloride 1,000 ML Q20H 05/19 1945 AC 05/19 IV 2031 Sodium Chloride 1,000 ML Q13H 05/18 1115 DC 05/19 IV 1851 Vital Signs & I&O Last 24 Hrs of Vitals and I&O: Vital Signs Date Time Temp Pulse Resp B/P B/P Pulse O2 O2 Flow FiO2 Mean Ox Delivery Rate 05/20 0855 100 140/72 05/20 0802 94 Nasal 4.0L Cannula 05/20 08 94 Nasal 4.0L Cannula 05/20 0800 97.4 81 20 140/72 94 Nasal 4.0L Cannula 05/20 0400 92 Nasal 4.0L Cannula 05/20 0210 92 Nasal 6.0L Cannula 05/20 0000 92 Nasal 4.0L Cannula 08/05 0000 97.1 82 24 140/68 92 Nasal 4.0L Cannula 05/19 2000 95 Nasal 4.0L Cannula 05/19 1624 94 Nasal 4.0L Cannula 05/19 1600 96 Nasal 4.0L Cannula 05/19 1600 97.6 76 22 116/60 96 Nasal 4.0L Cannula 05/19 1200 94 Nasal 4.0L Cannula 05/19 1200 98.9 78 22 120/70 94 Nasal 4.0L Cannula Intake & Output 05/20 1600 05/20 0800 05/20 0000 Intake Total 391 963 Output Total 620 400 Balance -229 563 Intake, IV 391 523 Intake, Oral 0 440 Number 0 1 Bowel Movements Output, Urine 620 400 Patient 191 lb Weight Weight Bed scale Measurement Method Physical Exam General Appearance: alert, awake, no distress, on nasal cannula Head: atraumatic Neck: normal inspection, supple Respiratory: no appreciable breath sounds on the left side, scattered rhonchi on right Cardiovascular: S1 and S2 + Gastrointestinal: normal bowel sounds, soft, non-tender Extremities: normal inspection, normal capillary refill, no edema Skin: intact, normal color, no edema Impression/Plan Impression/Plan Impression/Plan: 1. Hypoxemic respiratory failure secondary to Legionella pneumonia. 2. Acute on chronic renal failure - BUN/Cr improving. 3. Hyponatremia secondary to Legionella pneumonia. 4. Non-anion gap metabolic acidosis secondary to renal failure. 5. Anemia without evidence of bleeding. 6. Chronic atrial fibrillation, not on anticoagulation. 7. CAD with prior PCI. 8. History of SSS, s/p PPM. 9. History of hypertension. Recommendations: * Continue moxifloxacin per ID. * Gentle IV fluid hydration, normal saline at 50 mL/h. * Titrate supplemental oxygen down for saturations greater than 92%. * Continue nebs/total respiratory care. * Continue incentive spirometry and flutter valve therapy. * Out of bed to chair/increase activity. * Downgrade to telemetry. * DVT prophylaxis at all times - SQ heparin. Alps to continue. * Plan of care discussed with house staff. * Patient's family updated at the bedside.
--- NOTE | 2018-05-20 18:43 | PN- Infect Dx ---
Subjective Subjective: This patient is an 87-year-old male with a complicated course of pneumonia secondary to Legionella. The patient was transferred to telemetry and contiunes to improve. Remains afebrile, his oxygen requirement continues to decrease and his white blood cell count has normalized. He feel smuch better. Review of Systems Constitutional: Reports: see HPI. Objective Last 24 Hrs of Vital Signs/I&O Vital Signs Date Time Temp Pulse Resp B/P B/P Pulse O2 O2 Flow FiO2 Mean Ox Delivery Rate 05/20 1648 92 Nasal 4.0L Cannula 05/20 1600 Nasal 3.0L Cannula 05/20 0855 100 140/72 05/20 0802 94 Nasal 4.0L Cannula 05/20 0800 94 Nasal 4.0L Cannula 05/20 0800 97.4 81 20 140/72 94 Nasal 4.0L Cannula 05/20 0400 92 Nasal 4.0L Cannula 05/20 0210 92 Nasal 6.0L Cannula 05/20 0000 92 Nasal 4.0L Cannula 05/20 0000 97.1 82 24 140/68 92 Nasal 4.0L Cannula 05/19 2000 95 Nasal 4.0L Cannula Intake & Output 05/20 1600 05/20 0800 08/05 0000 Intake Total 1338 391 963 Output Total 450 620 400 Balance 888 -229 563 Intake, IV 618 391 523 Intake, Oral 720 0 440 Number 0 0 1 Bowel Movements Output, Urine 450 620 400 Patient 191 lb Weight Weight Bed scale Measurement Method Physical Exam Other Physical Findings: Awake alert oriented 3 Pupils equal and reactive to light and accommodation equal ocular motion Neck supple no JVD no lymphadenopathy Lungs with decreased breath sounds and diffuse rhonchi Heart regular rate and rhythm S1-S2 Abdomen soft nontender nondistended No distal extremity edema Results Last 24 Hours of Lab Results: Laboratory Tests 05/20 0510 Chemistry Sodium (137 - 145 mmol/L) 135 L Potassium (3.5 - 5.1 mmol/L) 4.2 Chloride (98 - 107 mmol/L) 102 Carbon Dioxide (22 - 30 mmol/L) 22 Anion Gap (5 - 16) 11 BUN (9 - 20 mg/dL) 74 H Creatinine (0.7 - 1.2 mg/dL) 3.7 H Estimated GFR (>60 ml/min) 16 L Glucose (65 - 99 mg/dL) 93 Calcium (8.4 - 10.2 mg/dL) 8.8 Phosphorus (2.5 - 4.5 mg/dL) 4.1 Magnesium (1.6 - 2.3 mg/dL) 1.9 Total Bilirubin (0.2 - 1.3 mg/dL) 0.4 AST (17 - 59 U/L) 61 H ALT (21 - 72 U/L) 114 H Albumin (3.5 - 5.0 g/dL) 2.4 L Hematology CBC w Diff MAN DIFF ORDERED WBC (4.8 - 10.8 /CUMM) 10.3 RBC (4.70 - 6.10 /CUMM) 2.69 L Hgb (14.0 - 18.0 G/DL) 7.8 L Hct (42 - 52 %) 23.7 L MCV (80.0 - 94.0 FL) 88.4 MCH (27.0 - 31.0 PG) 29.2 MCHC (33.0 - 37.0 G/DL) 33.0 RDW (11.5 - 14.5 %) 14.8 H Plt Count (130 - 400 /CUMM) 246 MPV (7.4 - 10.4 FL) 9.5 Gran % (42.2 - 75.2 %) 85.5 H Lymphocytes % (20.5 - 51.1 %) 4.3 L Monocytes % (1.7 - 9.3 %) 9.1 Eosinophils % (0 - 5 %) 1.1 Basophils % (0.0 - 2.0 %) 0 Absolute Granulocytes (1.4 - 6.5 /CUMM) 8.8 H Segmented Neutrophils (42.2 - 75.2 %) 85 H Absolute Lymphocytes (1.2 - 3.4 /CUMM) 0.4 L Lymphocytes (20.5 - 51.1 %) 10 L Monocytes (1.7 - 9.3 %) 2 Absolute Monocytes (0.10 - 0.60 /CUMM) 0.9 H Eosinophils (0 - 5.0 %) 3 Absolute Eosinophils (0.0 - 0.7 /CUMM) 0.1 Absolute Basophils (0.0 - 0.2 /CUMM) 0 Platelet Estimate (ADEQUATE) ADEQUATE Normochromic RBCs VERIFIED Poikilocytosis 1+ Ovalocytes 1+ Other Body Source Fld Total RBCs Counted (%) 100 Last 24 Hours of Mike Results: None Recent Imaging Studies: None Assessment/Plan ID Impression: 87-year-old male with Legionella pneumonia who continues to improve, with afebrile, normal white blood cell count and decreasing oxygen requirement. On Moxifloxacin, Day 6 of treatment for Legionella pneumonia following 4 days of Azithromycin. Suggestion: 1. Continue Moxifloxacin for 1 more days - can switch to oral 2. Follow oxygen requirement
[2018-05-20 22:45] VITALS: BP 150/74
--- NOTE | 2018-05-21 05:56 | Transfer of Care Summary ---
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 Patient respiratory status got worse during the course and at some point there was decision of intubation but patient did well on BiPAP. Never intubated during ICU stay. At that time his CODE STATUS was changed to DNR/intubation as family for intubation if needed but no chest compressions. Since then patient did well on BiPAP. Patient was treated for Legionella pneumonia. Sepsis due to Legionella pneumonia: Patient was meeting the criteria of SIRS and having infection. Patient had temperature 101.7 and tachycardia. His chest x-ray was showing of evidence of pneumonia. Blood cultures were obtained that remained negative. His urine Legionella antigen came back positive. His sepsis had been resolved. Patient had lactic acidosis possibly due to chronic kidney injury although his lactic acid remained normal. Initially he was treated with ceftriaxone and azithromycin. Later on it was changed to moxifloxacin and rifampin followed by ID recommendations. The rifampin was discontinued by ID and patient completed 7 days course of moxifloxacin. Acute hypoxic respiratory failure due to Legionella pneumonia: During ICU stay patient was kept on BiPAP for his acute hypoxic respiratory failure. Later on patient was changed to high flow oxygen but he was using intermittent BiPAP especially during nighttime. Later on his BiPAP was discontinued at patient's condition improved but he was still using high flow oxygen that we tapered. Patient's respiratory condition had been improved and later on he was placed on oxygen supplementation with nasal cannula. Patient was able to maintain saturation above 92% with supplemental oxygen through nasal cannula. Initially patient was treated with ceftriaxone and azithromycin for his pneumonia. Later on ID recommended to change his medication to moxifloxacin and they added rifampin. His rifampin later on was discontinued by ID. Patient completed 7 days course of moxifloxacin. During that time patient blood culture remained negative although his Legionella urine antigen was positive. Patient's sputum culture was growing enterococci and yeast. His WBC count was fluctuating but patient remained afebrile. Acute on chronic kidney injury: Possibly due to Legionella induced nephritis or acute tubular necrosis due to sepsis. Patient didn't respond to IV fluids and his fractional excretion of sodium remained elevated. Patient had chronic kidney injury stage IV-V. initially patient received IV bicarbonate that later on changed to by mouth. His IV fluids were discontinued and patient was encouraged to drink water orally. Nephrology consult was obtained and recommendations were followed. His kidney function started to improve. But his BUN remained elevated that got better after he received IV normal saline. During ICU stay nephrotoxic medications were provided and daily input and output was monitored. His diuretics were heard considering his kidney injury. Hyponatremia: Possibly due to renal failure, legionella pneumonia and excessive free fluid. Nephrology consult was obtained and recommendations were followed. Nephrology recommended fluid restriction to 1200 mL everyday. Patient's hyponatremia had been improved slowly. Nonsustained V. tach: Patient had one episode of nonsustained VT and he remained hemodynamically stable. His home dose of bystolic was resumed after discussing with cardiology. Thrombocytopenia: History patient had thrombocytopenia possibly due to sepsis induced. Patient was not given heparin and later on his, thrombocytopenia improved. He was started on heparin for DVT prophylaxis. History of chronic atrial fibrillation: Not on any anticoagulation due to patient preference/neurology recommendations. History of hypertension: Continue Bystolic. History of hyperlipidemia: Patient remained on lipitor. History of coronary artery disease status post stent placement: Continued his aspirin and plevix DVT prophylaxis: Mechanical and heparin as his thrombocytopenia has improved. CODE STATUS: DNR Assessment/Plan: Acute hypoxic respiratory failure due to Legionella pneumonia:(IMPROVING) -Keep cleaning of his oxygen but maintaining saturation above 92%. Right now patient is on 4 L of oxygen and maintaining saturation above 90%. Patient is off antibiotics. He completed 7 days course of moxifloxacin. Acute on chronic kidney injury:(IMPROVING) -Possibly due to Legionella induced nephritis or acute tubular necrosis due to sepsis. Patient didn't respond to IV fluids and his fractional excretion of sodium remained elevated. Patient had chronic kidney injury stage IV-V. Continue bicarbonate 1300 mg twice a day. His baseline creatinine is in 3s. Keep holding his diuretics and avoid nephrotoxic medications. His BUN and creatinine level is improving. Hyponatremia: -Possibly due to renal failure, pneumonia and excessive free fluid. Continue fluid restriction 1200 mL everyday. Patient's hyponatremia is slowly improving. History of hypertension: Continue his Bystolic. History of chronic atrial fibrillation: -Not on any anticoagulation due to patient preference/neurology recommendations. Continue monitoring on monitoring analyst as recommended by cardiology. History of hyperlipidemia: Continue atorvastatin History of coronary artery disease status post stent placement: Continue aspirin and Plavix DVT prophylaxis: Mechanical and heparin CODE STATUS: DNR
--- NOTE | 2018-05-21 06:28 | PN- Housestaff ---
Cleveland Rasmussen 05/21/18 0626: Subjective Follow-up For: weakness, dizziness Complaints: no complaints Subjective: Patient feels relativekly better, no complauins, no SOB. Review of Systems Constitutional: Reports: see HPI. Objective Last 24 Hrs of Vital Signs/I&O Vital Signs Date Time Temp Pulse Resp B/P B/P Pulse O2 O2 Flow FiO2 Mean Ox Delivery Rate 05/21 0000 Nasal 3.0L Cannula 05/20 2245 98.3 93 18 150/74 91 Nasal 4.0L Cannula 05/20 1648 92 Nasal 4.0L Cannula 05/20 1600 Nasal 3.0L Cannula 05/20 0855 100 140/72 05/20 0802 94 Nasal 4.0L Cannula 05/20 0800 94 Nasal 4.0L Cannula 05/20 0800 97.4 81 20 140/72 94 Nasal 4.0L Cannula Intake & Output 05/21 0800 08/06 0000 0805 1600 Intake Total 50 500 1338 Output Total 500 500 450 Balance -450 0 888 Intake, IV 400 618 Intake, Oral 50 100 720 Number 0 Bowel Movements Output, Urine 500 500 450 Patient 197 lb Weight Physical Exam General Appearance: Alert, Oriented X3, Cooperative, No Acute Distress Cardiovascular: Regular Rate, No Murmurs Lungs: Clear to Auscultation, Normal Air Movement Abdomen: Normal Bowel Sounds, Soft, No Tenderness, No Hepatospenomegaly, No Masses Neurological: Normal Speech, Strength at 5/5 X4 Ext, Normal Tone, Sensation Intact Extremities: No Clubbing, No Cyanosis, No Edema, Normal Pulses, No Tenderness/ Swelling Assessment/Plan Assessment: 87yo M w/ PMH of hypertension, hyperlipidemia, 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 Patient respiratory status got worse during the course and at some point there was decision of intubation but patient did well on BiPAP. At that time his CODE STATUS was changed to DNR/intubation as family for intubation if needed but no chest compressions. Since then patient did well on BiPAP, was transitioned to high flow and then to nasal cannula today. We'll continue treating the patient for Legionella pneumonia. - Anemia -undiagnosed blood loss? monitor CBC today, Hb is dropping to 7.8 , monitor HB, target Hb>7. Would consult with nephrology if they feel would be appropriate to start him on erythropoietin. - Keep the patient n.p.o. after midnight for a diagnostic upper endoscopy tomorrow. - As per GI , DR. Blankenship, We will tentatively plan to pursue an outpatient colonoscopy provided the upper endoscopy is negative for an obvious source of his anemia. I will continue to follow this patient and make further recommendations based on his clinical course and results of tomorrow's upper endoscopy. -Acute hypoxic respiratory failure due to Legionella pneumonia Patient was ion 4L of oxygen this morning , weanerd off. -His WBC is normal, -TRC nebulization as needed -Continue acetylcysteine inhalation as mucolytic. -Continue incentive spirometry and flutter valve therapy. - ID recommendations- Continue Moxifloxacin for 1 more days - can switch to oral. -Acute on chronic kidney injury:(IMPROVING) Patient has CKD stage IV-V. Most likely secondary to hypertension. He is also status post nephrectomy. MILLIE was initially thought to be secondary to malignant induced nephritis or ATN due to sepsis female was high but that can be secondary to diuretic use at home. His Cr is slowly improving with persistently high BUN is more consistent with prerenal etiology -His creatinine is 3.7 yesterday. And BUN is 74.F/ U BEP - diuretics is D/C d - -Nonsustained V. tach: Patient remained stable overnight, no further episodes of went to her tachycardia. -Continue Bystolic. -History of chronic atrial fibrillation: -Not on any anticoagulation due to patient preference/neurology recommendations -Continue monitoring on quality assurance monitor as recommended by cardiology. Heart rate remains in 80s-70s. -Continue atorvastatin -Continue aspirin -Continue plavix DVT prophylaxis: Mechanical and heparin as his thrombocytopenia has improved. CODE STATUS: DNR Problem List: 1. Pneumonia 2. Acute respiratory failure with hypoxia 3. [id number] kidney injury Pain Ratin Tomorrow's Labs & Rationales: cbc bep Plan DVT/Prophylaxis: mechanical, pharmacological NOTE ENTERED BY: Keyla Stephenson MD DATE/TIME ENTERED:05/20/18817 REPORT NUMBER:[id number] Problem List: 1. Acute respiratory failure with hypoxia 2. Edwzl-dw-vecvtyp kidney injury 3. Pneumonia Pain Ratin Pain Location: none Pain Goal: Remain pain free Pain Plan: none Tomorrow's Labs & Rationales: CBC, BEP, Bryan SANCHEZ,Kerry 05/21/18 1004: Attending MD Review Statement Attending Statement Attending MD Statement: examined this patient, discuss w/resident/PA/[facility], agreed w/resident/PA/[facility], reviewed EMR data (avail), discussed with nursing, discussed with case mgmt, reviewed images Attending Assessment/Plan: Patient transferred from the ICU to telemetry. 87-year-old male past medical history of coronary artery disease, hypertension, hyperlipidemia and pacemaker who is here with acute hypoxemic respiratory failure secondary to Legionella pneumonia. He has finished 7 days of moxifloxacin for the Legionella. He had MILLIE on CKD and has stage IV CKD. Right now the issues are to titrate the oxygen , follow as per pulmonary and have PT work with him.
[2018-05-21 06:42] VITALS: BP 160/80
[2018-05-21 08:16] LABS: ABSOLUTE BASOPHIL COUNT 0 /CUMM (0.0-0.2); ABSOLUTE EOSINOPHIL COUNT 0.1 /CUMM (0.0-0.7); ABSOLUTE LYMPH COUNT 0.5 /CUMM (1.2-3.4); ABSOLUTE MONOCYTE COUNT 1.2 /CUMM (0.10-0.60); BASOPHIL % 0.1 % (0.0-2.0); RED BLOOD CELL CT 2.49 /CUMM (4.70-6.10)
[2018-05-21 08:37] LABS: ABSOLUTE GRANULOCYTE CT 7.6 /CUMM (1.4-6.5); EOSINOPHIL % 1.2 % (0-5); MEAN CORPUSCULAR HGB 28.8 PG (27.0-31.0); MEAN CORPUSCULAR VOLUME 87.3 FL (80.0-94.0); MEAN PLATELET VOLUME 9.9 FL (7.4-10.4); PLATELET COUNT 248 /CUMM (130-400); RBC DISTRIBUTION WIDTH 14.2 % (11.5-14.5); WHITE BLOOD CELL COUNT 9.5 /CUMM (4.8-10.8)
[2018-05-21 08:49] LABS: HEMATOCRIT 21.8 % (42-52)
--- NOTE | 2018-05-21 08:56 | PN- Pulmonary ---
Subjective HPI/Critical Care Issues: Twenty four hour events noted. The patient is awake and alert. He has no respiratory issues. He remains on 2 lpm with saturations in the low 90s. Objective Current Medications: Current Medications Sig/Shanna Start time Last Medication Dose Route Stop Time Status Admin Acetaminophen 650 MG Q6P PRN 05/10 1745 AC PO Acetaminophen 1,000 MG Q6P PRN 05/10 1745 AC 05/13 IV 1111 Albuterol Sulfate 3 ML EVERY 4 HRS/AWAKE 05/13 2100 AC 05/21 INH 0742 Aspirin 81 MG DAILY 05/11 0900 AC 05/20 PO 0855 Atorvastatin Calcium 40 MG DAILY 05/11 0900 AC 05/20 PO 0855 Clopidogrel Bisulfate 75 MG DAILY 05/16 1200 AC 05/20 PO 0855 Folic Acid 1 MG DAILY 05/11 0900 AC 05/20 PO 0855 Heparin Sodium 5,000 UNIT Q8 05/19 0925 AC 05/21 (Porcine) SC 0510 Magnesium Oxide 400 MG DAILY 05/12 2008 AC 05/20 PO 0855 Moxifloxacin HCl 400 MG Q24H 05/14 1200 DC 05/20 N/A 1 UNIT IV 05/21 0000 1101 Nebivolol 10 MG DAILY 05/15 1400 AC 05/20 PO 0855 Sodium Bicarbonate 1,300 MG BID 05/15 2100 AC 05/20 PO 2054 Sodium Chloride 1,000 ML Q20H 05/19 1945 DC 08 IV 1243 Vital Signs & I&O Last 24 Hrs of Vitals and I&O: Vital Signs Date Time Temp Pulse Resp B/P B/P Pulse O2 O2 Flow FiO2 Mean Ox Delivery Rate 05/21 0749 91 Nasal 4.0L Cannula 05/21 0642 97.4 82 20 160/80 91 Nasal 4.0L Cannula 05/21 0000 Nasal 3.0L Cannula 05/20 2245 98.3 93 18 150/74 91 Nasal 4.0L Cannula 05/20 1648 92 Nasal 4.0L Cannula 05/20 1600 Nasal 3.0L Cannula 05/20 0855 100 140/72 Intake & Output 05/21 0800 05/21 0000 Intake Total 50 500 Output Total 750 500 Balance -700 0 Intake, IV 400 Intake, Oral 50 100 Output, Urine 750 500 Patient 197 lb Weight Results Last 24 Hrs of Lab Results: Laboratory Tests 05/21/18 0650: Anion Gap 7, Estimated GFR 17 L, BUN/Creatinine Ratio 19.1, CBC w Diff NO MAN DIFF REQ, RBC 2.49 L, MCV 87.3, MCH 28.8, MCHC 33.0, RDW 14.2, MPV 9.9, Gran % 80.0 H, Lymphocytes % 5.7 L, Monocytes % 13.0 H, Eosinophils % 1.2, Basophils % 0.1, Absolute Granulocytes 7.6 H, Absolute Lymphocytes 0.5 L, Absolute Monocytes 1.2 H, Absolute Eosinophils 0.1, Absolute Basophils 0 Impression/Plan Impression/Plan Impression/Plan: 1. Hypoxemic respiratory failure secondary to Legionella pneumonia. 2. Acute on chronic renal failure - BUN/Cr improving. 3. Hyponatremia secondary to Legionella pneumonia. 4. Non-anion gap metabolic acidosis secondary to renal failure. 5. Anemia without evidence of bleeding - Hgb lower today. 6. Chronic atrial fibrillation, not on anticoagulation. 7. CAD with prior PCI. 8. History of SSS, s/p PPM. 9. History of hypertension. Recommendations: * Continue moxifloxacin per ID. * Titrate supplemental oxygen down for saturations greater than 92%. * Continue nebs/total respiratory care. * Continue incentive spirometry and flutter valve therapy. * Out of bed to chair/increase activity. * PT for ambulation. * DVT prophylaxis at all times. * Guaic stool. * Monitor for bleeding. * Anemia work up per primary team.
--- NOTE | 2018-05-21 10:14 | PN- Infect Dx ---
Subjective Subjective: Afebrile. He feels well with no complaints Objective Last 24 Hrs of Vital Signs/I&O Vital Signs Date Time Temp Pulse Resp B/P B/P Pulse O2 O2 Flow FiO2 Mean Ox Delivery Rate 05/21 0901 84 160/80 05/21 0749 91 Nasal 4.0L Cannula 05/21 0642 97.4 82 20 160/80 91 Nasal 4.0L Cannula 05/21 0000 Nasal 3.0L Cannula 05/20 2245 98.3 93 18 150/74 91 Nasal 4.0L Cannula 05/20 1648 92 Nasal 4.0L Cannula 05/20 1600 Nasal 3.0L Cannula Intake & Output 05/21 0800 05/21 0000 Intake Total 50 500 Output Total 750 500 Balance -700 0 Intake, IV 400 Intake, Oral 50 100 Output, Urine 750 500 Patient 197 lb Weight Physical Exam Other Physical Findings: He appears comfortable, now on 1 1/2 L of nasal oxygen Lungs decreased breath sounds at the left base Heart irregular rhythm with no murmur Extremities no cyanosis, clubbing or edema Results Last 24 Hours of Lab Results: Laboratory Tests 05/21 0650 Chemistry Sodium (137 - 145 mmol/L) 135 L Potassium (3.5 - 5.1 mmol/L) 4.6 Chloride (98 - 107 mmol/L) 105 Carbon Dioxide (22 - 30 mmol/L) 24 Anion Gap (5 - 16) 7 BUN (9 - 20 mg/dL) 67 H Creatinine (0.7 - 1.2 mg/dL) 3.5 H Estimated GFR (>60 ml/min) 17 L BUN/Creatinine Ratio (7 - 25 %) 19.1 Hematology CBC w Diff NO MAN DIFF REQ WBC (4.8 - 10.8 /CUMM) 9.5 RBC (4.70 - 6.10 /CUMM) 2.49 L Hgb (14.0 - 18.0 G/DL) 7.2 *L Hct (42 - 52 %) 21.8 L MCV (80.0 - 94.0 FL) 87.3 MCH (27.0 - 31.0 PG) 28.8 MCHC (33.0 - 37.0 G/DL) 33.0 RDW (11.5 - 14.5 %) 14.2 Plt Count (130 - 400 /CUMM) 248 MPV (7.4 - 10.4 FL) 9.9 Gran % (42.2 - 75.2 %) 80.0 H Lymphocytes % (20.5 - 51.1 %) 5.7 L Monocytes % (1.7 - 9.3 %) 13.0 H Eosinophils % (0 - 5 %) 1.2 Basophils % (0.0 - 2.0 %) 0.1 Absolute Granulocytes (1.4 - 6.5 /CUMM) 7.6 H Absolute Lymphocytes (1.2 - 3.4 /CUMM) 0.5 L Absolute Monocytes (0.10 - 0.60 /CUMM) 1.2 H Absolute Eosinophils (0.0 - 0.7 /CUMM) 0.1 Absolute Basophils (0.0 - 0.2 /CUMM) 0 Last 24 Hours of Mike Results: No recent cultures Assessment/Plan ID Impression: Doing well, with continued improvement in his respiratory status, and with his temperatures and white blood cell count remaining normal, now Day 7 of Moxifloxacin for Legionella pneumonia following 4 days of Azithromycin. His recent sputum culture for Enterococcus and yeast presumably represents oropharyngeal contamination and does not require treatment. His H&H has been dropping over the past 2 days and may warrant further evaluation. Suggestion: 1. Further evaluation/management of his anemia per Medicine 2. Discontinue Moxifloxacin and follow off antibiotics
--- NOTE | 2018-05-21 14:28 | PN- Nephrology ---
Assessment/Plan Nephrology Assessment: 1. 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 MILLIE slowly improving 3. Hyponatremia secondary to pneumonia and decreased GFR - improved 4. Metabolic acidosis, resolved, on oral sodium bicarbonate 5. Legionella pneumonia with hypoxemic respiratory failure 6. Abnormal LFTs -improving 7. Anemia - worse Suggestion: 1. Can decrease oral sodium bicarbonate to 650 mg p.o. twice daily 2. Evaluate anemia and consider packed RBC transfusion if hemoglobin continues to fall Subjective Subjective: States that he feels well today and denies shortness of breath or pain. BUN and creatinine are both slowly coming down and approaching baseline values. Sodium 135 and stable, CO2 24, hemoglobin 7.2. Objective Vital Signs and I&Os Vital Signs Date Time Temp Pulse Resp B/P B/P Pulse O2 O2 Flow FiO2 Mean Ox Delivery Rate 05/21 1141 95 Nasal 2.0L Cannula 05/21 0901 84 160/80 05/21 0800 94 Nasal 2.0L Cannula 05/21 0749 91 Nasal 4.0L Cannula 05/21 0642 97.4 82 20 160/80 91 Nasal 4.0L Cannula 05/21 0000 Nasal 3.0L Cannula 05/20 2245 98.3 93 18 150/74 91 Nasal 4.0L Cannula 05/20 1648 92 Nasal 4.0L Cannula 05/20 1600 Nasal 3.0L Cannula Intake & Output 05/21 1600 06 0400 05/20 1600 05/20 0400 05/19 1600 05/19 0400 Intake Total 50 500 5443 122 3385 836 Output Total 768 378 7410 400 1250 475 Balance -700 0 659 563 798 361 Intake, IV 400 1881 569 3481 516 Intake, Oral 50 100 720 440 720 320 Number 0 1 0 1 Bowel Movements Output, Urine 949 636 0204 400 1250 475 Patient 197 lb 191 lb 191 lb Weight Weight Bed scale Bed scale Measurement Method Physical Exam: General: Well-developed elderly white male on O2 by nasal cannula in NAD Skin: No rash or jaundice HEENT: Conjunctivae pale, sclerae anicteric, mucous membranes dry Neck: Without masses or thyromegaly, no supraclavicular or cervical adenopathy Chest: Decreased breath sounds at bases Heart: Regular rate and rhythm without S3 or rub Abdomen: Soft and nontender without palpable masses or organomegaly Extremities: Without cyanosis or edema Neuro: Cognitively intact, no focal findings, no asterixis or myoclonus Results Pertinent Lab Results: Laboratory Tests 05/21 05/20 0650 0510 Chemistry Sodium (137 - 145 mmol/L) 135 L 135 L Potassium (3.5 - 5.1 mmol/L) 4.6 4.2 Chloride (98 - 107 mmol/L) 105 102 Carbon Dioxide (22 - 30 mmol/L) 24 22 Anion Gap (5 - 16) 7 11 BUN (9 - 20 mg/dL) 67 H 74 H Creatinine (0.7 - 1.2 mg/dL) 3.5 H 3.7 H Estimated GFR (>60 ml/min) 17 L 16 L BUN/Creatinine Ratio (7 - 25 %) 19.1 Glucose (65 - 99 mg/dL) 93 Calcium (8.4 - 10.2 mg/dL) 8.8 Phosphorus (2.5 - 4.5 mg/dL) 4.1 Magnesium (1.6 - 2.3 mg/dL) 1.9 Total Bilirubin (0.2 - 1.3 mg/dL) 0.4 AST (17 - 59 U/L) 61 H ALT (21 - 72 U/L) 114 H Albumin (3.5 - 5.0 g/dL) 2.4 L Hematology CBC w Diff NO MAN DIFF REQ MAN DIFF ORDERED WBC (4.8 - 10.8 /CUMM) 9.5 10.3 RBC (4.70 - 6.10 /CUMM) 2.49 L 2.69 L Hgb (14.0 - 18.0 G/DL) 7.2 *L 7.8 L Hct (42 - 52 %) 21.8 L 23.7 L MCV (80.0 - 94.0 FL) 87.3 88.4 MCH (27.0 - 31.0 PG) 28.8 29.2 MCHC (33.0 - 37.0 G/DL) 33.0 33.0 RDW (11.5 - 14.5 %) 14.2 14.8 H Plt Count (130 - 400 /CUMM) 248 246 MPV (7.4 - 10.4 FL) 9.9 9.5 Gran % (42.2 - 75.2 %) 80.0 H 85.5 H Lymphocytes % (20.5 - 51.1 %) 5.7 L 4.3 L Monocytes % (1.7 - 9.3 %) 13.0 H 9.1 Eosinophils % (0 - 5 %) 1.2 1.1 Basophils % (0.0 - 2.0 %) 0.1 0 Absolute Granulocytes (1.4 - 6.5 /CUMM) 7.6 H 8.8 H Segmented Neutrophils (42.2 - 75.2 %) 85 H Absolute Lymphocytes (1.2 - 3.4 /CUMM) 0.5 L 0.4 L Lymphocytes (20.5 - 51.1 %) 10 L Monocytes (1.7 - 9.3 %) 2 Absolute Monocytes (0.10 - 0.60 /CUMM) 1.2 H 0.9 H Eosinophils (0 - 5.0 %) 3 Absolute Eosinophils (0.0 - 0.7 /CUMM) 0.1 0.1 Absolute Basophils (0.0 - 0.2 /CUMM) 0 0 Platelet Estimate (ADEQUATE) ADEQUATE Normochromic RBCs VERIFIED Poikilocytosis 1+ Ovalocytes 1+ Other Body Source Fld Total RBCs Counted (%) 100 08/04 0440 Chemistry Sodium (137 - 145 mmol/L) 133 L Potassium (3.5 - 5.1 mmol/L) 4.1 Chloride (98 - 107 mmol/L) 100 Carbon Dioxide (22 - 30 mmol/L) 23 Anion Gap (5 - 16) 10 BUN (9 - 20 mg/dL) 78 H Creatinine (0.7 - 1.2 mg/dL) 4.0 H Estimated GFR (>60 ml/min) 14 L Glucose (65 - 99 mg/dL) 88 Calcium (8.4 - 10.2 mg/dL) 8.6 Phosphorus (2.5 - 4.5 mg/dL) 4.2 Magnesium (1.6 - 2.3 mg/dL) 2.0 Total Bilirubin (0.2 - 1.3 mg/dL) 0.5 AST (17 - 59 U/L) 73 H ALT (21 - 72 U/L) 123 H Albumin (3.5 - 5.0 g/dL) 2.4 L Hematology CBC w Diff MAN DIFF ORDERED WBC (4.8 - 10.8 /CUMM) 11.1 H RBC (4.70 - 6.10 /CUMM) 2.96 L Hgb (14.0 - 18.0 G/DL) 8.6 L Hct (42 - 52 %) 26.0 L MCV (80.0 - 94.0 FL) 87.8 MCH (27.0 - 31.0 PG) 29.2 MCHC (33.0 - 37.0 G/DL) 33.2 RDW (11.5 - 14.5 %) 14.7 H Plt Count (130 - 400 /CUMM) 245 MPV (7.4 - 10.4 FL) 9.7 Gran % (42.2 - 75.2 %) 87.9 H Lymphocytes % (20.5 - 51.1 %) 3.5 L Monocytes % (1.7 - 9.3 %) 7.2 Eosinophils % (0 - 5 %) 1.3 Basophils % (0.0 - 2.0 %) 0.1 Absolute Granulocytes (1.4 - 6.5 /CUMM) 9.7 H Absolute Lymphocytes (1.2 - 3.4 /CUMM) 0.4 L Absolute Monocytes (0.10 - 0.60 /CUMM) 0.8 H Absolute Eosinophils (0.0 - 0.7 /CUMM) 0.1 Absolute Basophils (0.0 - 0.2 /CUMM) 0 Platelet Estimate (ADEQUATE) ADEQUATE Basophilic Stippling 1+
[2018-05-21 15:37] VITALS: BP 138/72
--- NOTE | 2018-05-21 16:44 | Cons- Gastroenterology ---
General Information and HPI Consulting Request Date of Consult: 05/21/18 Requested By: Juventino Xavier MD Reason for Consult: Anemia, guaiac positive stool Source of Information: patient, old records Exam Limitations: no limitations History of Present Illness: Mr. Olmstead is an 87 year old male with a history of HTN, hyperlipidemia, and RCC s /p nephrectomy who presented to about a week ago with respiratory distress and wound up getting admitted to the ICU for what ultimatley was diagnoses with legionaires pneumonia. He did not require intubation and his PNA was treated with antibiotics and supportive care with marked improvement in his respiratory symptoms and he was transferred out of the ICU yesterday. He was anemic on admission and his hgb had trended downward since admission with an acute drop of about 1 gram over the past 4 hours and he was noted to have guaiac postive stool which prompted a GI consultation. He has remained hemodynamically stable since he hast been transfered to telemetry and he is without any hematemesis, melena or brbpr. He also denies any heartburn, dysphagia, vomiting, abdominal pain with eating or significant constipation or BRBPR. Allergies/Medications Allergies: Coded Allergies: No Known Allergies (05/10/18) Home Med List: Albuterol Sulfate 2.5 MG/3 ML (0.083 %) VIAL.NEB 3 ML INH BID pneumonia, congestion . Amlodipine Besylate 10 MG TABLET 1 TAB PO DAILY HEART (Reported) Aspirin (Aspirin*) 81 MG TAB.CHEW 1 TAB PO DAILY HEART HEALTH (Reported) please start on 05/25/2018 Atorvastatin Calcium 40 MG TABLET 1 TAB PO DAILY CHOLESTEROL (Reported) Clopidogrel Bisulfate (Clopidogrel) 75 MG TABLET 1 TAB PO DAILY BLOOD THINNER (Reported) please start on 05/29/2018 Ergocalciferol (Vitamin D2) (Vitamin D2) 50,000 UNIT CAPSULE 1 CAP PO Q 2 WEEKS VITAMIN SUPPORT (Reported) Folic Acid 1 MG TABLET 1 TAB PO DAILY VITAMIN SUPPORT (Reported) Nebivolol HCl (Bystolic) 10 MG TABLET 1 TAB PO DAILY HEART (Reported) Omeprazole 40 MG CAPSULE.DR 1 CAP PO DAILY GI Paricalcitol 1 MCG CAPSULE 1 CAP PO DAILY UNKNOWN (Reported) Sodium Bicarbonate 650 MG TABLET 1 TAB PO BID acidosis Current Medications: Current Medications Sig/Shanna Start time Last Medication Dose Route Stop Time Status Admin Acetaminophen 650 MG Q6P PRN 05/10 1745 AC PO Acetaminophen 1,000 MG Q6P PRN 05/10 1745 AC 05/13 IV 1111 Albuterol Sulfate 3 ML EVERY 4 HRS/AWAKE 05/13 2100 AC 05/21 INH 1617 Aspirin 81 MG DAILY 05/11 0900 AC 05/21 PO 0900 Atorvastatin Calcium 40 MG DAILY 05/11 0900 AC 05/21 PO 0901 Clopidogrel Bisulfate 75 MG DAILY 05/16 1200 AC 05/21 PO 0901 Folic Acid 1 MG DAILY 05/11 0900 AC 05/21 PO 0901 Heparin Sodium 5,000 UNIT Q8 05/19 0925 DC 05/21 (Porcine) SC 1359 Magnesium Oxide 400 MG DAILY 05/12 2008 AC 05/21 PO 0901 Moxifloxacin HCl 400 MG Q24H 05/14 1200 DC 05/20 N/A 1 UNIT IV 05/21 0000 1101 Nebivolol 10 MG DAILY 05/15 1400 AC 05/21 PO 0901 Sodium Bicarbonate 650 MG BID 05/21 2100 AC PO Sodium Bicarbonate 1,300 MG BID 05/15 2100 DC 05/21 PO 0901 Sodium Chloride 1,000 ML Q20H 05/19 1945 DC 05/20 IV 1243 Past History Travel History Traveled to [place] past 21 day No Medical History Blood Transfusion Hx: No Neurological: NONE EENT: NONE Cardiovascular: hypertension, hyperlipidemia, CARDIAC PACEMAKER Respiratory: NONE Gastrointestinal: NONE Hepatic: NONE Renal: NONE Musculoskeletal: NONE Psychiatric: NONE Endocrine: NONE Blood Disorders: NONE Cancer(s): NONE 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 Home Services at Home: None Smoking Status: Former Smoker ETOH Use: occasional use Illicit Drug Use: denies illicit drug use Review of Systems Review of Systems Constitutional: Reports: weakness. Denies: diaphoresis, fever. EENTM: Denies: no symptoms. Cardiovascular: Denies: no symptoms. Respiratory: Reports: short of breath, sputum production. GI: Denies: see HPI. Genitourinary: Denies: no symptoms. Musculoskeletal: Denies: no symptoms. Skin: Denies: no symptoms. Neurological/Psychological: Denies: no symptoms. Hematologic/Endocrine: Reports: bruising. Denies: bleeding. Immunologic/Allergic: Denies: no symptoms. All Other Systems: Reviewed and Negative Exam & Diagnostic Data Vital Signs and I&O Vital Signs Date Time Temp Pulse Resp B/P B/P Pulse O2 O2 Flow FiO2 Mean Ox Delivery Rate 05/21 1617 94 Nasal 2.0L Cannula 05/21 1537 99.0 78 20 138/72 91 Nasal 3.0L Cannula 05/21 1141 95 Nasal 2.0L Cannula 05/21 0901 84 160/80 05/21 0800 94 Nasal 2.0L Cannula 05/21 0749 91 Nasal 4.0L Cannula 05/21 0642 97.4 82 20 160/80 91 Nasal 4.0L Cannula 05/21 0000 Nasal 3.0L Cannula 05/20 2245 98.3 93 18 150/74 91 Nasal 4.0L Cannula 05/20 1648 92 Nasal 4.0L Cannula Intake & Output 05/21 1600 05/21 0400 05/20 0400 05/19 1600 05/19 0400 Intake Total 135 761 8227 963 2048 836 Output Total 5093 537 3751 400 1250 475 Balance -710 0 659 563 798 361 Intake, IV 400 6318 782 7649 516 Intake, Oral 490 100 720 440 720 320 Number 0 1 0 1 Bowel Movements Output, Urine 7645 229 4046 400 1250 475 Patient 197 lb 191 lb 191 lb Weight Weight Bed scale Bed scale Measurement Method Physical Exam General Appearance: well developed/nourished, no apparent distress, alert, awake , comfortable Head: atraumatic, normal appearance Eyes: Bilateral: normal appearance. Ears, Nose, Throat: normal pharynx, normal ENT inspection Neck: normal inspection, supple, full range of motion Respiratory: chest non-tender, no respiratory distress, decreased breath sounds Cardiovascular: regular rate/rhythm Gastrointestinal: normal bowel sounds, soft, non-tender, no organomegaly Rectal: deferred Back: normal inspection, normal range of motion Extremities: normal inspection, no edema Neurologic/Psych: no motor/sensory deficits, awake, alert, oriented x 3 Skin: ecchymosis Results Pertinent Lab Results: Laboratory Tests 05/21 05/20 0650 0510 Chemistry Sodium (137 - 145 mmol/L) 135 L 135 L Potassium (3.5 - 5.1 mmol/L) 4.6 4.2 Chloride (98 - 107 mmol/L) 105 102 Carbon Dioxide (22 - 30 mmol/L) 24 22 Anion Gap (5 - 16) 7 11 BUN (9 - 20 mg/dL) 67 H 74 H Creatinine (0.7 - 1.2 mg/dL) 3.5 H 3.7 H Estimated GFR (>60 ml/min) 17 L 16 L BUN/Creatinine Ratio (7 - 25 %) 19.1 Glucose (65 - 99 mg/dL) 93 Calcium (8.4 - 10.2 mg/dL) 8.8 Phosphorus (2.5 - 4.5 mg/dL) 4.1 Magnesium (1.6 - 2.3 mg/dL) 1.9 Total Bilirubin (0.2 - 1.3 mg/dL) 0.4 AST (17 - 59 U/L) 61 H ALT (21 - 72 U/L) 114 H Albumin (3.5 - 5.0 g/dL) 2.4 L Hematology CBC w Diff NO MAN DIFF REQ MAN DIFF ORDERED WBC (4.8 - 10.8 /CUMM) 9.5 10.3 RBC (4.70 - 6.10 /CUMM) 2.49 L 2.69 L Hgb (14.0 - 18.0 G/DL) 7.2 *L 7.8 L Hct (42 - 52 %) 21.8 L 23.7 L MCV (80.0 - 94.0 FL) 87.3 88.4 MCH (27.0 - 31.0 PG) 28.8 29.2 MCHC (33.0 - 37.0 G/DL) 33.0 33.0 RDW (11.5 - 14.5 %) 14.2 14.8 H Plt Count (130 - 400 /CUMM) 248 246 MPV (7.4 - 10.4 FL) 9.9 9.5 Gran % (42.2 - 75.2 %) 80.0 H 85.5 H Lymphocytes % (20.5 - 51.1 %) 5.7 L 4.3 L Monocytes % (1.7 - 9.3 %) 13.0 H 9.1 Eosinophils % (0 - 5 %) 1.2 1.1 Basophils % (0.0 - 2.0 %) 0.1 0 Absolute Granulocytes (1.4 - 6.5 /CUMM) 7.6 H 8.8 H Segmented Neutrophils (42.2 - 75.2 %) 85 H Absolute Lymphocytes (1.2 - 3.4 /CUMM) 0.5 L 0.4 L Lymphocytes (20.5 - 51.1 %) 10 L Monocytes (1.7 - 9.3 %) 2 Absolute Monocytes (0.10 - 0.60 /CUMM) 1.2 H 0.9 H Eosinophils (0 - 5.0 %) 3 Absolute Eosinophils (0.0 - 0.7 /CUMM) 0.1 0.1 Absolute Basophils (0.0 - 0.2 /CUMM) 0 0 Platelet Estimate (ADEQUATE) ADEQUATE Normochromic RBCs VERIFIED Poikilocytosis 1+ Ovalocytes 1+ Other Body Source Fld Total RBCs Counted (%) 100 08/04 0440 Chemistry Sodium (137 - 145 mmol/L) 133 L Potassium (3.5 - 5.1 mmol/L) 4.1 Chloride (98 - 107 mmol/L) 100 Carbon Dioxide (22 - 30 mmol/L) 23 Anion Gap (5 - 16) 10 BUN (9 - 20 mg/dL) 78 H Creatinine (0.7 - 1.2 mg/dL) 4.0 H Estimated GFR (>60 ml/min) 14 L Glucose (65 - 99 mg/dL) 88 Calcium (8.4 - 10.2 mg/dL) 8.6 Phosphorus (2.5 - 4.5 mg/dL) 4.2 Magnesium (1.6 - 2.3 mg/dL) 2.0 Total Bilirubin (0.2 - 1.3 mg/dL) 0.5 AST (17 - 59 U/L) 73 H ALT (21 - 72 U/L) 123 H Albumin (3.5 - 5.0 g/dL) 2.4 L Hematology CBC w Diff MAN DIFF ORDERED WBC (4.8 - 10.8 /CUMM) 11.1 H RBC (4.70 - 6.10 /CUMM) 2.96 L Hgb (14.0 - 18.0 G/DL) 8.6 L Hct (42 - 52 %) 26.0 L MCV (80.0 - 94.0 FL) 87.8 MCH (27.0 - 31.0 PG) 29.2 MCHC (33.0 - 37.0 G/DL) 33.2 RDW (11.5 - 14.5 %) 14.7 H Plt Count (130 - 400 /CUMM) 245 MPV (7.4 - 10.4 FL) 9.7 Gran % (42.2 - 75.2 %) 87.9 H Lymphocytes % (20.5 - 51.1 %) 3.5 L Monocytes % (1.7 - 9.3 %) 7.2 Eosinophils % (0 - 5 %) 1.3 Basophils % (0.0 - 2.0 %) 0.1 Absolute Granulocytes (1.4 - 6.5 /CUMM) 9.7 H Absolute Lymphocytes (1.2 - 3.4 /CUMM) 0.4 L Absolute Monocytes (0.10 - 0.60 /CUMM) 0.8 H Absolute Eosinophils (0.0 - 0.7 /CUMM) 0.1 Absolute Basophils (0.0 - 0.2 /CUMM) 0 Platelet Estimate (ADEQUATE) ADEQUATE Basophilic Stippling 1+ Assessment/Plan Assessment/Recommendations: Assessment: Mr. Olmstead is an 87 year old admitted with legionnaires disease from which she has recovered nicely with antibiotics who has been noted to have a microcytic anemia with guaiac positive stool, but he has been without any overt GI bleeding. I feels anemia is likely multifactorial and primarily related to anemia of chronic disease and also anemia of renal insufficiency, but as he has also been noted to have occult blood in stool and he has not had a colonoscopy or endoscopy in over 10 years it is also possible he may have an occult malignancy contributing to his anemia. Considering he is of good functional status I do feel it would be reasonable to pursue an endoscopic workup, however I do not necessarily feel this needs to be pursued as an inpatient especially considering his recent pneumonia. I do feel that his respiratory status is improved enough so that he can tolerate an endoscopy or colonoscopy so I would be willing to do that for him as an inpatient, but at present he is only interested in doing the endoscopy which I feel is reasonable. Of note, in reviewing his pathology from his endoscopy in 2005 he did appear to have significant erosive esophagitis and while he denies any significant reflux symptoms at present it certainly possible he could still have erosive disease which could be contributing to his anemia and explained the occult blood in his stool. Recommendations: 1. Follow daily CBCs and transfuse as needed to maintain his hemoglobin greater than 8 or as per cardiology recommendations. 2. Would consult with nephrology if they feel would be appropriate to start him on erythropoietin. 3. Keep the patient n.p.o. after midnight for a diagnostic upper endoscopy tomorrow. 4. We will tentatively plan to pursue an outpatient colonoscopy provided the upper endoscopy is negative for an obvious source of his anemia. I will continue to follow this patient and make further recommendations based on his clinical course and results of tomorrow's upper endoscopy. Problem List: 1. Pneumonia 2. Anemia, iron deficiency Copies To: Bertha SANCHEZ,Ravinder Jurado Consult Acknowledgment - Thank you for your consult request.
[2018-05-21 22:21] VITALS: BP 146/80
[2018-05-21 23:29] LABS: ABSOLUTE BASOPHIL COUNT 0 /CUMM (0.0-0.2); ABSOLUTE EOSINOPHIL COUNT 0.1 /CUMM (0.0-0.7); ABSOLUTE GRANULOCYTE CT 9.3 /CUMM (1.4-6.5); ABSOLUTE LYMPH COUNT 0.6 /CUMM (1.2-3.4); ABSOLUTE MONOCYTE COUNT 1.4 /CUMM (0.10-0.60); BASOPHIL % 0.1 % (0.0-2.0); EOSINOPHIL % 0.9 % (0-5); GRANULOCYTE % 81.5 % (42.2-75.2); HEMATOCRIT 25.6 % (42-52); MEAN CORPUSCULAR HGB 29.2 PG (27.0-31.0); MEAN CORPUSCULAR HGB CONC 33.1 G/DL (33.0-37.0); MEAN CORPUSCULAR VOLUME 88.2 FL (80.0-94.0); MEAN PLATELET VOLUME 9.8 FL (7.4-10.4); PLATELET COUNT 254 /CUMM (130-400); RBC DISTRIBUTION WIDTH 14.2 % (11.5-14.5); RED BLOOD CELL CT 2.91 /CUMM (4.70-6.10); WHITE BLOOD CELL COUNT 11.5 /CUMM (4.8-10.8)
--- NOTE | 2018-05-22 05:50 | PN- Housestaff ---
Cleveland Rasmussen 05/22/18 0529: Subjective Follow-up For: Legionella pneumonia Subjective: Patient feels better, feels short of breath only when ambulating. He is still on 2 L NC oxygen Review of Systems Constitutional: Reports: see HPI. Objective Last 24 Hrs of Vital Signs/I&O Vital Signs Date Time Temp Pulse Resp B/P B/P Pulse O2 O2 Flow FiO2 Mean Ox Delivery Rate 05/22 0000 Nasal 2.0L Cannula 05/21 2221 98.4 82 20 146/80 92 Nasal Cannula 05/21 1617 94 Nasal 2.0L Cannula 05/21 1600 Nasal 2.0L Cannula 05/21 1537 99.0 78 20 138/72 91 Nasal 3.0L Cannula 05/21 1141 95 Nasal 2.0L Cannula 05/21 0901 84 160/80 05/21 0800 94 Nasal 2.0L Cannula 05/21 0749 91 Nasal 4.0L Cannula 05/21 0642 97.4 82 20 160/80 91 Nasal 4.0L Cannula Intake & Output 05/22 0800 05/22 0000 05/21 1600 Intake Total 700 440 Output Total 550 450 Balance 150 -10 Intake, Blood 350 Product Intake, Oral 350 440 Number 0 Bowel Movements Output, Urine 550 450 Patient 200 lb Weight Weight Bed scale Measurement Method Physical Exam General Appearance: Alert, Oriented X3, Cooperative, No Acute Distress Cardiovascular: Regular Rate, No Murmurs Lungs: Clear to Auscultation, Normal Air Movement Abdomen: Normal Bowel Sounds, Soft, No Tenderness, No Hepatospenomegaly, No Masses Neurological: Normal Speech, Strength at 5/5 X4 Ext, Normal Tone, Sensation Intact Extremities: No Clubbing, No Cyanosis, No Edema, Normal Pulses, No Tenderness/ Swelling Assessment/Plan Assessment: 87yo M w/ PMH of hypertension, hyperlipidemia, 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 Patient respiratory status got worse during the course and was in the ICU, not intubated though. He was treated for Legionella pneumonia. Anemia -undiagnosed blood loss? Hb today is to 8.5 , monitor HB, target Hb>8. - Patient recieved 1 Leukoreduced BT- RBC, evening HB is 8.5 -Would consult with nephrology if they feel would be appropriate to start him on erythropoietin. - the patient is n.p.o. after midnight for a diagnostic upper endoscopy - As per GI , DR. Blankenship, We will tentatively plan to pursue an outpatient colonoscopy provided the upper endoscopy is negative for an obvious source of his anemia. Acute hypoxic respiratory failure due to Legionella pneumonia patient status- Oxygen status- 2L nasal cannula TRC nebulization as needed DC moxifloxacin -Acute on chronic kidney injury:(IMPROVING) Patient has CKD stage IV-V. Most likely secondary to hypertension. He is also status post nephrectomy. yesterday creatininie was 3.5, GFR estimated 17L sodium bicarbonate reduced to 650 mg p.o. twice daily f/u BEP Problem List: 1. Pneumonia 2. Cyhec-ro-ynomrld kidney injury 3. Anemia, iron deficiency Pain Ratin Pain Location: none Pain Goal: Remain pain free (no) Pain Plan: none Tomorrow's Labs & Rationales: CBC, BEP Juventino Xavier MD 05/22/18 1240: Attending MD Review Statement Attending Statement Attending MD Statement: examined this patient, discuss w/resident/PA/HABILITATION ASSISTANT, agreed w/resident/PA/HABILITATION ASSISTANT, reviewed EMR data (avail) Attending Assessment/Plan: 87M PMH chronic atrial fibrillation not on anticoagulation due to patient preference/neurology recommendations, CAD with prior PCI and occluded PDA maintained on dual antiplatelet therapy, sick sinus syndrome with a history of permanent pacemaker, HTN, and history of renal cancer with prior nephrectomy and chronic kidney disease stage 4, admitted initially to ICU with hypoxic respiratory failure secondary to left Legionella pneumonia, has completed course of Moxifloxicin, course complicated by acute on chronic kidney injury, now improved, with steadily decreasing Hct and guaiac positive stool, underwent endoscopy on 05/22/18 which found bleeding duodenal ulcer with visible vessel s/p cautery, as well as Prashant erosions and esophagitis. 1. Duodenal ulcer with visible vessel 2. Left lower lung Legionella pneumonia (resolved) 3. Acute hypoxemic respiratory failure (resolved) 4. Acute on chronic kidney injury with CKD stage 4 secondary to hypertension 5. Chronic atrial fibrillation 6. History of CAD Plan - Discontinue telemetry - Hold ASA for 48 hours and Plavix for 1 week - Protonix 40mg IV BID - NPO for now, advance diet as tolerated - CBC q12h, transfuse to Hgb > 8.0 - No further antibiotics - Chest physiotherapy - If signs of acute bleeding will require emergent GI consult - Continue remaining home medications - Follow GI, ID, pulmonary, cardiology, nephrology recommendations - DVT PPx with ALPS
[2018-05-22 06:53] VITALS: BP 150/80
[2018-05-22 07:55] LABS: ABSOLUTE BASOPHIL COUNT 0 /CUMM (0.0-0.2); ABSOLUTE EOSINOPHIL COUNT 0.1 /CUMM (0.0-0.7); ABSOLUTE GRANULOCYTE CT 9.6 /CUMM (1.4-6.5); ABSOLUTE LYMPH COUNT 0.6 /CUMM (1.2-3.4); ABSOLUTE MONOCYTE COUNT 1.3 /CUMM (0.10-0.60); BASOPHIL % 0.1 % (0.0-2.0); GRANULOCYTE % 82.4 % (42.2-75.2); HEMATOCRIT 24.8 % (42-52); MEAN CORPUSCULAR HGB 29.4 PG (27.0-31.0); MEAN CORPUSCULAR HGB CONC 33.3 G/DL (33.0-37.0); MEAN CORPUSCULAR VOLUME 88.3 FL (80.0-94.0); MEAN PLATELET VOLUME 9.9 FL (7.4-10.4); PLATELET COUNT 249 /CUMM (130-400); RBC DISTRIBUTION WIDTH 14.4 % (11.5-14.5); RED BLOOD CELL CT 2.81 /CUMM (4.70-6.10); WHITE BLOOD CELL COUNT 11.7 /CUMM (4.8-10.8)
--- NOTE | 2018-05-22 08:06 | Patient Discharge Instructions ---
Discharge Instructions General Discharge Information You were seen/treated for: Legionella Pneumonia , Acute Hypoxic respiratorty failure, Anemia, Acute Kidney Injury You had these procedures: Endoscopy Watch for these problems: GI bleed, SOB, Chest pain/ Dizziness, increased cough, fever. Special Instructions: Please follow-up with your PCP within a week of discharge Please follow-up with your mechanical engineering technologist within a week of discharge for further evaluation of oxygen requirement We will hold the aspirin and clopidogrel because of the GI bleed. You can restart aspirin on 05/25/2018 and clopidogrel on 05/29/2018. You need to watch for the bleeding afterwards and discuss with your primary care provider for further evaluation and management. We are discharging you on 2 L of oxygen. Please discuss with your mechanical engineering technologist when to wean off. You need to have follow-up CT scan of the chest with an 8 week of discharge and discussed with Dr. mccauley. You should use spirometry and acepella device. Diet Continue normal diet: Yes Recommended Diet: Heart Healthy Activity Full Activity/No Limits: Yes Activity Self Limited: No Acute Coronary Syndrome Inclusion Criteria At DC or during hospital stay patient has or had the following: ACS DIAGNOSIS No Discharge Core Measures Meds if any: Prescribed or Continued at Discharge Meds if any: NOT Prescribed or Continued at Discharge Congestive Heart Failure Inclusion Criteria At DC or during hospital stay patient has or had the following: CHF DIAGNOSIS No Discharge Core Measures Meds if any: Prescribed or Continued at Discharge Meds if any: NOT Prescribed or Continued at Discharge Cerebrovascular accident Inclusion Criteria At DC or during hospital stay patient has or had the following: CVA/TIA Diagnosis No Discharge Core Measures Meds if any: Prescribed or Continued at Discharge Meds if any: NOT Prescribed or Continued at Discharge Venous thromboembolism Inclusion Criteria VTE Diagnosis No VTE Type NONE VTE Confirmed by (Test) NONE Discharge Core Measures - Per Current guidelines, there needs to be overlap - treatment for the first 5 days of Warfarin therapy. - If discharged on Warfarin prior to 5 days of - overlap therapy, the patient will need to be - assessed for post discharge needs including - *Post discharge parental anticoagulation - *Warfarin and/or parental anticoagulation education - *Follow up date to check INR post discharge At least 5 days overlap therapy as Inpatient Yes Meds if any: Prescribed or Continued at Discharge Note: Overlap Therapy is Warfarin and Anticoagulant Meds if any: NOT Prescribed or Continued at Discharge
--- NOTE | 2018-05-22 09:06 | PN- Pulmonary ---
Subjective HPI/Critical Care Issues: The patient is awake and alert. He was initially sleeping but then arousable. He is comfortable. He continues to feel improved. He is now on nasal cannula at 2 L/min with saturations in the mid 90s. There were no overnight events reported. Objective Current Medications: Current Medications Sig/Shanna Start time Last Medication Dose Route Stop Time Status Admin Acetaminophen 650 MG Q6P PRN 05/10 1745 AC PO Acetaminophen 1,000 MG Q6P PRN 05/10 1745 AC 05/13 IV 1111 Albuterol Sulfate 3 ML BID 05/22 09 AC INH Albuterol Sulfate 3 ML EVERY 4 HRS/AWAKE 05/13 2100 AC 05/22 INH 0817 Aspirin 81 MG DAILY 05/11 900 AC 05/22 PO 0826 Atorvastatin Calcium 40 MG DAILY 05/11 09 AC 05/22 PO 0826 Clopidogrel Bisulfate 75 MG DAILY 05/16 1200 AC 05/22 PO 0826 Folic Acid 1 MG DAILY 05/11 09 AC 05/22 PO 0826 Heparin Sodium 5,000 UNIT Q8 05/19 0925 DC 05/21 (Porcine) SC 1359 Magnesium Oxide 400 MG DAILY 05/12 2008 AC 05/22 PO 0826 Nebivolol 10 MG DAILY 05/15 1400 AC 05/22 PO 0827 Sodium Bicarbonate 650 MG BID 05/21 2100 AC 05/22 PO 0826 Sodium Bicarbonate 1,300 MG BID 05/15 2100 DC 05/21 PO 0901 Vital Signs & I&O Last 24 Hrs of Vitals and I&O: Vital Signs Date Time Temp Pulse Resp B/P B/P Pulse O2 O2 Flow FiO2 Mean Ox Delivery Rate 05/22 827 98.8 86 20 150/80 05/22 0653 98.8 86 20 150/80 94 Nasal 2.0L Cannula 05/22 0000 Nasal 2.0L Cannula 05/21 2221 98.4 82 20 146/80 92 Nasal Cannula 05/21 1617 94 Nasal 2.0L Cannula 05/21 1600 Nasal 2.0L Cannula 05/21 1537 99.0 78 20 138/72 91 Nasal 3.0L Cannula 05/21 1141 95 Nasal 2.0L Cannula Intake & Output 05/22 1600 05/22 0800 05/22 0000 Intake Total 220 700 Output Total 650 550 Balance -430 150 Intake, Blood 350 Product Intake, Oral 220 350 Number 0 Bowel Movements Output, Urine 650 550 Patient 200 lb Weight Weight Bed scale Measurement Method Physical Exam General Appearance: Alert, Oriented X3, Cooperative, No Acute Distress Cardiovascular: Regular Rate, No Murmurs Lungs: Clear to Auscultation, Normal Air Movement Abdomen: Normal Bowel Sounds, Soft, No Tenderness, No Hepatospenomegaly, No Masses Neurological: Normal Speech, Strength at 5/5 X4 Ext, Normal Tone, Sensation Intact Extremities: No Clubbing, No Cyanosis, No Edema, Normal Pulses, No Tenderness/ Swelling Results Last 24 Hrs of Lab Results: Laboratory Tests 05/22/18 0638: Anion Gap 8, Estimated GFR 19 L, BUN/Creatinine Ratio 19.4, CBC w Diff NO MAN DIFF REQ, RBC 2.81 L, MCV 88.3, MCH 29.4, MCHC 33.3, RDW 14.4, MPV 9.9, Gran % 82.4 H, Lymphocytes % 5.3 L, Monocytes % 11.2 H, Eosinophils % 1.0, Basophils % 0.1, Absolute Granulocytes 9.6 H, Absolute Lymphocytes 0.6 L, Absolute Monocytes 1.3 H, Absolute Eosinophils 0.1, Absolute Basophils 0 05/21/18 2304: CBC w Diff NO MAN DIFF REQ, RBC 2.91 L, MCV 88.2, MCH 29.2, MCHC 33.1, RDW 14.2 , MPV 9.8, Gran % 81.5 H, Lymphocytes % 5.7 L, Monocytes % 11.8 H, Eosinophils % 0.9, Basophils % 0.1, Absolute Granulocytes 9.3 H, Absolute Lymphocytes 0.6 L, Absolute Monocytes 1.4 H, Absolute Eosinophils 0.1, Absolute Basophils 0 Impression/Plan Impression/Plan Impression/Plan: 1. Hypoxemic respiratory failure secondary to Legionella pneumonia, improved, antibiotic course completed. 2. Acute on chronic renal failure - improving. 3. Hyponatremia secondary to Legionella pneumonia. 4. Non-anion gap metabolic acidosis secondary to renal failure. 5. Anemia without evidence of bleeding -GI consulted, EGD pending. 6. Chronic atrial fibrillation, not on anticoagulation. 7. CAD with prior PCI. 8. History of SSS, s/p PPM. 9. History of hypertension. Recommendations: * Titrate supplemental oxygen down for saturations greater than 92%. Attempt to titrate the oxygen down to off. * Continue nebs/total respiratory care. * Continue incentive spirometry and flutter valve therapy. * Out of bed to chair daily. * PT for ambulation. * DVT prophylaxis at all times. * Guaic stool. * Monitor for bleeding. * Anemia work up per primary team/GI.
--- NOTE | 2018-05-22 10:07 | PN- Infect Dx ---
Subjective Subjective: Afebrile without complaints Objective Last 24 Hrs of Vital Signs/I&O Vital Signs Date Time Temp Pulse Resp B/P B/P Pulse O2 O2 Flow FiO2 Mean Ox Delivery Rate 05/22 827 98.8 86 20 150/80 05/22 0653 98.8 86 20 150/80 94 Nasal 2.0L Cannula 05/22 0000 Nasal 2.0L Cannula 05/21 2221 98.4 82 20 146/80 92 Nasal Cannula 05/21 1617 94 Nasal 2.0L Cannula 05/21 1600 Nasal 2.0L Cannula 05/21 1537 99.0 78 20 138/72 91 Nasal 3.0L Cannula 05/21 1141 95 Nasal 2.0L Cannula Intake & Output 05/22 0800 05/22 0000 Intake Total 220 700 Output Total 650 550 Balance -430 150 Intake, Blood 350 Product Intake, Oral 220 350 Number 0 Bowel Movements Output, Urine 650 550 Patient 200 lb Weight Weight Bed scale Measurement Method Physical Exam Other Physical Findings: He appears comfortable in no acute distress Lungs are clear Heart irregular rhythm with no murmur Extremities no cyanosis, clubbing or edema Results Last 24 Hours of Lab Results: Laboratory Tests 05/22 05/21 0638 2304 Chemistry Sodium (137 - 145 mmol/L) 136 L Potassium (3.5 - 5.1 mmol/L) 5.1 Chloride (98 - 107 mmol/L) 107 Carbon Dioxide (22 - 30 mmol/L) 22 Anion Gap (5 - 16) 8 BUN (9 - 20 mg/dL) 62 H Creatinine (0.7 - 1.2 mg/dL) 3.2 H Estimated GFR (>60 ml/min) 19 L BUN/Creatinine Ratio (7 - 25 %) 19.4 Hematology CBC w Diff NO MAN DIFF REQ NO MAN DIFF REQ WBC (4.8 - 10.8 /CUMM) 11.7 H 11.5 H RBC (4.70 - 6.10 /CUMM) 2.81 L 2.91 L Hgb (14.0 - 18.0 G/DL) 8.3 L 8.5 L Hct (42 - 52 %) 24.8 L 25.6 L MCV (80.0 - 94.0 FL) 88.3 88.2 MCH (27.0 - 31.0 PG) 29.4 29.2 MCHC (33.0 - 37.0 G/DL) 33.3 33.1 RDW (11.5 - 14.5 %) 14.4 14.2 Plt Count (130 - 400 /CUMM) 249 254 MPV (7.4 - 10.4 FL) 9.9 9.8 Gran % (42.2 - 75.2 %) 82.4 H 81.5 H Lymphocytes % (20.5 - 51.1 %) 5.3 L 5.7 L Monocytes % (1.7 - 9.3 %) 11.2 H 11.8 H Eosinophils % (0 - 5 %) 1.0 0.9 Basophils % (0.0 - 2.0 %) 0.1 0.1 Absolute Granulocytes (1.4 - 6.5 /CUMM) 9.6 H 9.3 H Absolute Lymphocytes (1.2 - 3.4 /CUMM) 0.6 L 0.6 L Absolute Monocytes (0.10 - 0.60 /CUMM) 1.3 H 1.4 H Absolute Eosinophils (0.0 - 0.7 /CUMM) 0.1 0.1 Absolute Basophils (0.0 - 0.2 /CUMM) 0 0 Last 24 Hours of Mike Results: No recent cultures Assessment/Plan ID Impression: Overall stable, with continued improvement in his respiratory status, now on 2 L of nasal oxygen, and with his temperatures remaining normal, now off antibiotics after a one week course of Moxifloxacin for Legionella pneumonia following 4 days of Azithromycin. His white blood cell count has increased slightly, possibly related to the blood transfusion he received yesterday for his anemia, with plans for an upper endoscopy later today. Suggestion: 1. Await upper endoscopy 2. Continue to follow temperatures and white blood cell count off antibiotics
--- NOTE | 2018-05-22 12:04 | Proc Note Endoscopy ---
Endoscopy Procedure Medical History: unchanged (see [place] consult) Mental Status: alert/oriented Heart/Lung Eval Prior to Sedation: within normal limits Candidate for Sedation? Yes Procedure Date: 05/22/18 Procedure Type: EGD w/biopsy Water Pollution Scientist: Rajiv Thakur MD ASA Classification: IV Indications: Anemia with an acute drop in his hemoglobin. Instrument: diagnostic gastroscope Meds Received: MAC Patient's Tolerance: good Complications: none Extent Reached: second part of duodenum Procedure: After getting written informed consent the patient was placed in the left lateral decubitus position with pulse oximetry, cardiac monitoring, and supplemental oxygen given. A bite block was inserted and IV sedation was given until the desired effect was achieved. A high definition upper Olympus endoscope was then inserted into the mouth and advanced to the second portion of the duodenum with little difficulty. Retroflexed views and photodocumentation was obtained. Findings: Esophagus: The upper esophageal mucosa was grossly normal in appearance. In the lower esophagus approximately 5 cm proximal to the Z line which was located 38 cm were a few subtle erosions. The Z line was moderately erythematous, but there were no ulcers or masses appreciated and there were no long tongues of salmon colored mucosa appreciated. The hiatal narrowing was approximately 41 cm from the anus accounting for a 3 cm sliding hiatal hernia. Stomach: Retroflexed views revealed a small hiatal hernia with some subtle Prashant erosions. The remainder of the gastric mucosa was grossly normal in appearance without any ulcers or masses appreciated. Distention and peristalsis of the stomach appeared normal. Duodenum: There were 3 small ulcers within the duodenal bulb one of which was actively oozing some fresh blood. When this blood was irrigated away it revealed an underlying visible vessel. The base of the ulcer bed was then injected with approximately 3 ccs of 1:10,000 epinephrine using a scleral needle which essentially stopped the bleeding and then the vessel was ablated using BiCAP cautery with standard settings. The 2 other ulcers were clean based and no treatment was applied. The duodenal sweep and folds were grossly normal in appearance. Impression: 1. 1 cm duodenal ulcer with active bleeding and a visible vessel status post treatment with epinephrine injection and BiCAP cautery to ablate the vessel with good hemostasis being achieved. 2. Two other 1cm clean based duodenal ulcers. 3. 3 cm high hernia with Prashant erosions. 4. LA grade A-B reflux esophagitis. Recommendations: 1. Would start IV Protonix 40 mg twice daily. 2. Would hold his baby aspirin 48 hours and then restart it and would recommend holding his Plavix for 1 week. 3. Would avoid using [id number] NSAIDs. 4. Advance diet as tolerated. 5. Follow CBCs every 12 hours today and transfuse as needed to maintain his hemoglobin greater than 8 or as per cardiology recommendations. 6. Maintain 2 large-bore IVs at all times. 7. Notify GI for signs of overt hemodynamically significant GI bleeding. CC: Bertha SANCHEZ,Ravinder Jurado
[2018-05-22 14:09] VITALS: BP 130/72
[2018-05-22 18:51] LABS: ABSOLUTE BASOPHIL COUNT 0.1 /CUMM (0.0-0.2); ABSOLUTE EOSINOPHIL COUNT 0.1 /CUMM (0.0-0.7); ABSOLUTE LYMPH COUNT 0.8 /CUMM (1.2-3.4); ABSOLUTE MONOCYTE COUNT 1.2 /CUMM (0.10-0.60); BASOPHIL % 0.4 % (0.0-2.0); EOSINOPHIL % 0.5 % (0-5); GRANULOCYTE % 82.7 % (42.2-75.2); HEMATOCRIT 24.8 % (42-52); MEAN CORPUSCULAR HGB 29.2 PG (27.0-31.0); MEAN CORPUSCULAR HGB CONC 32.8 G/DL (33.0-37.0); MEAN CORPUSCULAR VOLUME 89.1 FL (80.0-94.0); MEAN PLATELET VOLUME 9.8 FL (7.4-10.4); PLATELET COUNT 252 /CUMM (130-400); RBC DISTRIBUTION WIDTH 14.6 % (11.5-14.5); RED BLOOD CELL CT 2.78 /CUMM (4.70-6.10); WHITE BLOOD CELL COUNT 12.1 /CUMM (4.8-10.8)
[2018-05-22 22:03] VITALS: BP 128/84
--- NOTE | 2018-05-23 05:23 | PN- Housestaff ---
Cleveland Rasmussen 05/23/18 0522: Subjective Follow-up For: Legionella Pneumonia, anemia, previous hypoxemic respiratory failure on nasal cannula oxygen Complaints: no complaints Tele-Events Since Last Visit: None Subjective: I examined the patient bedside while the patient was lying on the bed. He had 2 L of nasal cannula oxygen supply. the patient is doing better. He said that he tried walking without oxygen yesterday. But felt exhausted and continuously requires oxygen. Denies cough or chest pain Review of Systems Constitutional: Reports: no symptoms. Cardiovascular: Reports: no symptoms. Respiratory: Reports: cough, short of breath. Gastrointestinal: Reports: no symptoms. Genitourinary: Reports: no symptoms. Musculoskeletal: Reports: no symptoms. Objective Last 24 Hrs of Vital Signs/I&O Vital Signs Date Time Temp Pulse Resp B/P B/P Pulse O2 O2 Flow FiO2 Mean Ox Delivery Rate 05/22 2203 98.6 81 24 128/84 89 05/22 2130 Nasal 2.0L Cannula 05/22 1915 92 Nasal 2.0L Cannula 05/22 1600 94 Nasal 2.0L Cannula 05/22 1409 98.5 88 20 130/72 92 Nasal 2.0L Cannula 05/22 0827 98.8 86 20 150/80 05/22 0800 93 Nasal 2.0L Cannula 05/22 0653 98.8 86 20 150/80 94 Nasal 2.0L Cannula Intake & Output 05/23 0800 05/23 0000 05/22 1600 Intake Total 600 1000 Output Total 325 Balance 275 1000 Intake, IV 1000 Intake, Oral 600 Output, Urine 325 Patient 197 lb Weight Physical Exam General Appearance: Alert, Oriented X3, Cooperative, No Acute Distress Cardiovascular: Regular Rate, No Murmurs Lungs: Decreased Breath sounds on the right side. Clear air entry on the left side Abdomen: Normal Bowel Sounds, Soft, No Tenderness, No Hepatospenomegaly, No Masses Neurological: Normal Speech, Strength at 5/5 X4 Ext, Normal Tone, Sensation Intact Extremities: No Clubbing, No Cyanosis, No Edema, Normal Pulses, No Tenderness/ Swelling Current Medications: Current Medications Sig/Shanna Start time Last Medication Dose Route Stop Time Status Admin Acetaminophen 650 MG Q6P PRN 05/10 1745 AC PO Acetaminophen 1,000 MG Q6P PRN 05/10 1745 AC 05/13 IV 1111 Albuterol Sulfate 3 ML BID 05/22 0900 AC 05/22 INH 1915 Albuterol Sulfate 3 ML EVERY 4 HRS/AWAKE 05/13 2100 DC 05/22 INH 0817 Aspirin 81 MG DAILY 05/11 09 DC 05/22 PO 08 Atorvastatin Calcium 40 MG DAILY 05/11 09 AC 05/22 PO 08 Chlorhexidine 1 GM .STK-MED ONE 05/22 1158 DC Gluconate TOP 05/22 1159 Clopidogrel Bisulfate 75 MG DAILY 05/16 1200 DC 05/22 PO 08 Epinephrine 1 MG .STK-MED ONE 05/22 1158 DC IM 05/22 115 Folic Acid 1 MG DAILY 05/11 09 AC 05/22 PO 08 Magnesium Oxide 400 MG DAILY 05/12 2008 AC 05/22 PO 08 Nebivolol 10 MG DAILY 05/15 1400 AC 05/22 PO 08 Pantoprazole Sodium 40 MG BID 05/22 1312 AC 05/22 IV 2015 Sodium Bicarbonate 650 MG BID 05/21 2100 AC 05/22 PO 2015 Sodium Chloride 10 ML .STK-MED ONE 05/22 1158 DC IV 05/22 1159 Last 24 Hrs of Lab/Mike Results Last 24 Hrs of Labs/Mics: Laboratory Tests 05/22/18 1800: CBC w Diff NO MAN DIFF REQ, RBC 2.78 L, MCV 89.1, MCH 29.2, MCHC 32.8 L, RDW 14.6 H, MPV 9.8, Gran % 82.7 H, Lymphocytes % 6.2 L, Monocytes % 10.2 H, Eosinophils % 0.5, Basophils % 0.4, Absolute Granulocytes 10.0 H, Absolute Lymphocytes 0.8 L, Absolute Monocytes 1.2 H, Absolute Eosinophils 0.1, Absolute Basophils 0.1 05/22/18 0638: Anion Gap 8, Estimated GFR 19 L, BUN/Creatinine Ratio 19.4, CBC w Diff NO MAN DIFF REQ, RBC 2.81 L, MCV 88.3, MCH 29.4, MCHC 33.3, RDW 14.4, MPV 9.9, Gran % 82.4 H, Lymphocytes % 5.3 L, Monocytes % 11.2 H, Eosinophils % 1.0, Basophils % 0.1, Absolute Granulocytes 9.6 H, Absolute Lymphocytes 0.6 L, Absolute Monocytes 1.3 H, Absolute Eosinophils 0.1, Absolute Basophils 0 Assessment/Plan Assessment: 87yo M w/ PMH of hypertension, hyperlipidemia, 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 fib, CAD ,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 Patient respiratory status got worse during the course and was in the ICU, not intubated though. He was treated for Legionella pneumonia. Anemia -upper GI bleed-bleeding duodenal ulcer-cauterized and treated with epinephrine injection -Monitor CBCs -Hb-7.9 -IV Protonix -1 PT done 2 days ago on 05/21/2018. Target hemoglobin-8 - oral iron supplement as tolerated Acute hypoxic respiratory failure due to Legionella pneumonia Oxygen status- 2L nasal cannula TRC nebulization as needed Titrate supplemental oxygen down for saturations greater than 92%. Attempt to titrate the oxygen down to off. Continue incentive spirometry and flutter valve therapy. PT for ambulation -Acute on chronic kidney injury:(IMPROVING) -Patient has CKD stage IV-V. Most likely secondary to hypertension. He is also status post nephrectomy. yesterday creatininie was 3.3, GFR estimated 18L -sodium bicarbonate reduced to 650 mg p.o. twice daily f/u BEP -Magnesium 400 mg Anticipated discharge tomorrow on home oxygen, continue PPI, hold Plavix for 1 week, outpatient GI, pulmonary, cardiology follow up, outpatient CBC in 1 week Problem List: 1. Pneumonia 2. Acute respiratory failure with hypoxia 3. Anemia, iron deficiency Pain Ratin Pain Location: None Pain Goal: Remain pain free Pain Plan: None Tomorrow's Labs & Rationales: CBC, BEP, magnesium Juventino Xavier MD 05/23/18 1259: Attending MD Review Statement Attending Statement Attending MD Statement: examined this patient, discuss w/resident/PA/MANAGER SOFTWARE DEVELOPMENT, agreed w/resident/PA/MANAGER SOFTWARE DEVELOP[employer], reviewed EMR data (avail) Attending Assessment/Plan: 87M PMH chronic atrial fibrillation not on anticoagulation due to patient preference/neurology recommendations, CAD with prior PCI and occluded PDA maintained on dual antiplatelet therapy, sick sinus syndrome with a history of permanent pacemaker, HTN, and history of renal cancer with prior nephrectomy and chronic kidney disease stage 4, admitted initially to ICU with hypoxic respiratory failure secondary to left Legionella pneumonia, has completed course of Moxifloxicin, course complicated by acute on chronic kidney injury, now improved, with steadily decreasing Hct and guaiac positive stool, underwent endoscopy on 05/22/18 which found bleeding duodenal ulcer with visible vessel s/p cautery, as well as Prashant erosions and esophagitis. 1. Duodenal ulcer with visible vessel 2. Left lower lung Legionella pneumonia (resolved) 3. Acute hypoxemic respiratory failure (resolved) 4. Acute on chronic kidney injury with CKD stage 4 secondary to hypertension 5. Chronic atrial fibrillation 6. History of CAD Plan - Discontinue telemetry - Hold ASA for 48 hours and Plavix for 1 week - Protonix 40mg IV BID - Regular diet - CBC q12h, transfuse to Hgb > 8.0 - No further antibiotics - Chest physiotherapy - titrate down oxdygen as tolerated - If signs of acute bleeding will require emergent GI consult - Continue remaining home medications - Follow GI, ID, pulmonary, cardiology, nephrology recommendations - DVT PPx with ALPS - PT eval - Anticipated discharge tomorrow on home oxygen, continue PPI, hold Plavix for 1 week, outpatient GI, pulmonary, cardiology follow up, outpatient CBC in 1 week
[2018-05-23 06:02] VITALS: BP 130/60
[2018-05-23 08:14] LABS: ABSOLUTE BASOPHIL COUNT 0 /CUMM (0.0-0.2); ABSOLUTE EOSINOPHIL COUNT 0.1 /CUMM (0.0-0.7); ABSOLUTE GRANULOCYTE CT 8.5 /CUMM (1.4-6.5); ABSOLUTE LYMPH COUNT 0.7 /CUMM (1.2-3.4); BASOPHIL % 0.1 % (0.0-2.0); EOSINOPHIL % 0.6 % (0-5); GRANULOCYTE % 82.2 % (42.2-75.2); HEMATOCRIT 23.6 % (42-52); MEAN CORPUSCULAR HGB 29.5 PG (27.0-31.0); MEAN CORPUSCULAR HGB CONC 33.3 G/DL (33.0-37.0); MEAN CORPUSCULAR VOLUME 88.7 FL (80.0-94.0); PLATELET COUNT 219 /CUMM (130-400); RBC DISTRIBUTION WIDTH 14.5 % (11.5-14.5); RED BLOOD CELL CT 2.66 /CUMM (4.70-6.10); WHITE BLOOD CELL COUNT 10.3 /CUMM (4.8-10.8)
--- NOTE | 2018-05-23 08:18 | PN- Pulmonary ---
Subjective HPI/Critical Care Issues: The patient is awake and alert. His respiratory status remains stable. The patient is 91% on 2 L nasal cannula. The patient had an EGD that showed a duodenal ulcer with evidence of active bleeding which was treated, and evidence of esophagitis. Objective Current Medications: Current Medications Sig/Shanna Start time Last Medication Dose Route Stop Time Status Admin Acetaminophen 650 MG Q6P PRN 05/10 174 AC PO Acetaminophen 1,000 MG Q6P PRN 05/10 1745 AC 05/13 IV 1111 Albuterol Sulfate 3 ML BID 05/22 0900 AC 05/22 INH 1915 Albuterol Sulfate 3 ML EVERY 4 HRS/AWAKE 05/13 2100 DC 05/22 INH 0817 Aspirin 81 MG DAILY 05/11 09 DC 05/22 PO 08 Atorvastatin Calcium 40 MG DAILY 05/11 09 AC 05/22 PO 0826 Chlorhexidine 1 GM .STK-MED ONE 05/22 1158 DC Gluconate TOP 05/22 115 Clopidogrel Bisulfate 75 MG DAILY 05/16 1200 DC 05/22 PO 0826 Epinephrine 1 MG .STK-MED ONE 05/22 1158 DC IM 05/22 1159 Folic Acid 1 MG DAILY 05/11 0900 AC 05/22 PO 0826 Magnesium Oxide 400 MG DAILY 05/12 2008 AC 05/22 PO 0826 Nebivolol 10 MG DAILY 05/15 1400 AC 05/22 PO 0827 Pantoprazole Sodium 40 MG BID 05/22 1312 AC 05/22 IV 2015 Sodium Bicarbonate 650 MG BID 05/21 2100 AC 05/22 PO 2015 Sodium Chloride 10 ML .STK-MED ONE 05/22 1158 DC IV 05/22 1159 Vital Signs & I&O Last 24 Hrs of Vitals and I&O: Vital Signs Date Time Temp Pulse Resp B/P B/P Pulse O2 O2 Flow FiO2 Mean Ox Delivery Rate 05/23 602 98.4 94 24 130/60 91 Nasal Cannula 05/22 2203 98.6 81 24 128/84 89 05/22 2130 Nasal 2.0L Cannula 05/22 1915 92 Nasal 2.0L Cannula 05/22 1600 94 Nasal 2.0L Cannula 05/22 140 98.5 88 20 130/72 92 Nasal 2.0L Cannula 05/22 827 98.8 86 20 150/80 Intake & Output 05/23 1600 08/08 0800 08 0000 Intake Total 440 600 Output Total 450 325 Balance -10 275 Intake, Oral 440 600 Output, Urine 450 325 Patient 197 lb Weight Results Last 24 Hrs of Lab Results: Laboratory Tests 05/23/18 0620: CBC w Diff Pending, WBC Pending, RBC Pending, Hgb Pending, Hct Pending, MCV Pending, MCH Pending, MCHC Pending, RDW Pending, Plt Count Pending, MPV Pending 05/22/18 1800: CBC w Diff NO MAN DIFF REQ, RBC 2.78 L, MCV 89.1, MCH 29.2, MCHC 32.8 L, RDW 14.6 H, MPV 9.8, Gran % 82.7 H, Lymphocytes % 6.2 L, Monocytes % 10.2 H, Eosinophils % 0.5, Basophils % 0.4, Absolute Granulocytes 10.0 H, Absolute Lymphocytes 0.8 L, Absolute Monocytes 1.2 H, Absolute Eosinophils 0.1, Absolute Basophils 0.1 Impression/Plan Impression/Plan Impression/Plan: 1. Hypoxemic respiratory failure due to Legionella pneumonia, improved, abx completed. 2. Acute on chronic renal failure. 3. GI bleed s/p EGD with treatment of bleeding ulcer. 4. Gastritis, on IV protonix. Recommendations: * Titrate supplemental oxygen down for saturations greater than 92%. Attempt to titrate the oxygen down to off. * Continue nebs/total respiratory care. * Continue incentive spirometry and flutter valve therapy. * Out of bed to chair daily. * PT for ambulation. * DVT prophylaxis at all times. * Monitor for bleeding. * The patient will need follow up imaging of his chest in 8 weeks.
--- NOTE | 2018-05-23 10:40 | PN- Infect Dx ---
Subjective Subjective: Afebrile without complaints Objective Last 24 Hrs of Vital Signs/I&O Vital Signs Date Time Temp Pulse Resp B/P B/P Pulse O2 O2 Flow FiO2 Mean Ox Delivery Rate 05/23 858 92 Nasal 1.0L Cannula 05/23 0834 76 114/72 05/23 08 92 Nasal 1.0L Cannula 05/23 0602 98.4 94 24 130/60 91 Nasal Cannula 05/22 2203 98.6 81 24 128/84 89 05/22 2130 Nasal 2.0L Cannula 05/22 1915 92 Nasal 2.0L Cannula 05/22 1600 94 Nasal 2.0L Cannula 05/22 1409 98.5 88 20 130/72 92 Nasal 2.0L Cannula Intake & Output 05/23 0000 Intake Total 440 600 Output Total 450 325 Balance -10 275 Intake, Oral 440 600 Output, Urine 450 325 Patient 197 lb Weight Physical Exam Other Physical Findings: He appears comfortable in no acute distress Lungs decreased breath sounds at the left base Heart regular rhythm with no murmur Abdomen is soft, nontender with positive bowel sounds Extremities no cyanosis, clubbing or edema Results Last 24 Hours of Lab Results: Laboratory Tests 05/23 05/23 0813 0620 Chemistry Sodium (137 - 145 mmol/L) 136 L Potassium (3.5 - 5.1 mmol/L) 5.2 H Chloride (98 - 107 mmol/L) 107 Carbon Dioxide (22 - 30 mmol/L) 23 Anion Gap (5 - 16) 6 BUN (9 - 20 mg/dL) 56 H Creatinine (0.7 - 1.2 mg/dL) 3.3 H Estimated GFR (>60 ml/min) 18 L BUN/Creatinine Ratio (7 - 25 %) 17.0 Hematology CBC w Diff NO MAN DIFF REQ WBC (4.8 - 10.8 /CUMM) 10.3 RBC (4.70 - 6.10 /CUMM) 2.66 L Hgb (14.0 - 18.0 G/DL) 7.9 L Hct (42 - 52 %) 23.6 L MCV (80.0 - 94.0 FL) 88.7 MCH (27.0 - 31.0 PG) 29.5 MCHC (33.0 - 37.0 G/DL) 33.3 RDW (11.5 - 14.5 %) 14.5 Plt Count (130 - 400 /CUMM) 219 MPV (7.4 - 10.4 FL) 10.0 Gran % (42.2 - 75.2 %) 82.2 H Lymphocytes % (20.5 - 51.1 %) 7.0 L Monocytes % (1.7 - 9.3 %) 10.1 H Eosinophils % (0 - 5 %) 0.6 Basophils % (0.0 - 2.0 %) 0.1 Absolute Granulocytes (1.4 - 6.5 /CUMM) 8.5 H Absolute Lymphocytes (1.2 - 3.4 /CUMM) 0.7 L Absolute Monocytes (0.10 - 0.60 /CUMM) 1.0 H Absolute Eosinophils (0.0 - 0.7 /CUMM) 0.1 Absolute Basophils (0.0 - 0.2 /CUMM) 0 08/07 1800 Hematology CBC w Diff NO MAN DIFF REQ WBC (4.8 - 10.8 /CUMM) 12.1 H RBC (4.70 - 6.10 /CUMM) 2.78 L Hgb (14.0 - 18.0 G/DL) 8.1 L Hct (42 - 52 %) 24.8 L MCV (80.0 - 94.0 FL) 89.1 MCH (27.0 - 31.0 PG) 29.2 MCHC (33.0 - 37.0 G/DL) 32.8 L RDW (11.5 - 14.5 %) 14.6 H Plt Count (130 - 400 /CUMM) 252 MPV (7.4 - 10.4 FL) 9.8 Gran % (42.2 - 75.2 %) 82.7 H Lymphocytes % (20.5 - 51.1 %) 6.2 L Monocytes % (1.7 - 9.3 %) 10.2 H Eosinophils % (0 - 5 %) 0.5 Basophils % (0.0 - 2.0 %) 0.4 Absolute Granulocytes (1.4 - 6.5 /CUMM) 10.0 H Absolute Lymphocytes (1.2 - 3.4 /CUMM) 0.8 L Absolute Monocytes (0.10 - 0.60 /CUMM) 1.2 H Absolute Eosinophils (0.0 - 0.7 /CUMM) 0.1 Absolute Basophils (0.0 - 0.2 /CUMM) 0.1 Last 24 Hours of Mike Results: No recent cultures Assessment/Plan ID Impression: Doing well, with continued improvement in his respiratory status, now on 1 L of nasal oxygen, and with his temperatures and white blood cell count normal off antibiotics after a one week course of Moxifloxacin for Legionella pneumonia following 4 days of Azithromycin. The results of his upper endoscopy are noted, with his H&H stable today. Suggestion: 1. Continue to follow off antibiotics Will no longer follow at this time but please call with any questions
--- NOTE | 2018-05-23 10:54 | RADIOLOGY REPORT ---
EXAMINATION: XR CHEST CLINICAL INFORMATION: Oxygen requirement. Presumptive diagnosis of pneumonia. COMPARISON: Several prior chest x-rays, most recent of which is dated 05/18/2018. TECHNIQUE: 2 views of the chest were obtained on 3 images. FINDINGS: Right atrial and right ventricular pacer leads are in place. The cardiomediastinal silhouette is enlarged. Calcification of the aortic arch is seen. There is persistent linear opacity in the left upper lobe, extending from the hilum to the superior periphery, mildly improved compared to the prior exam. There is no significant change in the dense consolidation in the left mid and lower lung with complete obscuration of the retrocardiac left lung base and the left hemidiaphragm. Findings are consistent with the previously demonstrated multifocal pneumonia and small associated left effusion. The right lung remains clear. No pneumothorax is seen. Ossification along the anterior longitudinal ligament is seen. IMPRESSION: Mild improvement in the airspace opacity in the left upper lobe. No significant change in the airspace opacity in the left lower lobe. Findings are consistent with multi lobar pneumonia and associated small left effusion as previously demonstrated.
--- NOTE | 2018-05-23 13:45 | PN- Gastroenterology ---
Assessment/Plan GI Assessment/Recommendations: Assessment: Mr. Olmstead is an 87 year old male admitted with [facility] about one week ago who had an acute drop in his hgb a few days ago which appears to be secondary to a bleeding duodenal ulcer which was successfully treated with bicap cautery and epi injection. His Hgb is stable since yesterday and he has not had any overt GI bleeding since the procedure. He is also tolerating a oral diet without any vomiting or pain. Of note, he also had a hiatal hernia and some mo erosions which likely contributes to his anemia with occult losses over time, but this didn't cause the acute drop in his hgb. Recommendations: 1. Diet as tolerated. 2. Continue IV protonix 40 mg bid for today and then change to an oral PPI BID tomorrow 3. Follow daily CBC and transfuse as needed to maintain his hgb > 8 or as per cardiology recommendations. 4. If medically indicated would restart his ASA tomorrow, but would avoid other nsaids 5. He should follow an anti-reflux regimen and would maintain him on a oral ppi at discharge, but would change to once a day when he is discharged. 6. Would not pursue an outpatient colonoscopy as the endoscopic findings yesterday did clearly give an explanation of his acute drop in his hgb 7. Would start oral iron supplementation as tolerated and would consider using epo as per nephrology. I will sign off at this time and ask that GI be reconsulted for any new GI issues that may arise on this admission or any recurrent bleeding. Problem List: 1. Anemia, iron deficiency 2. [id number] kidney injury 3. Pneumonia Subjective Subjective: pt without complaints today. he underwent an EGD yesterday during which time a bleeding ulcer was treated with epi injection and bicap cautery. He had some nausea after the procedure that has since resolved and he is currently tolerating a diet of solid food. No melena or vomiting. Objective Vital Signs and I&Os Vital Signs Date Time Temp Pulse Resp B/P B/P Pulse O2 O2 Flow FiO2 Mean Ox Delivery Rate 05/23 0858 92 Nasal 1.0L Cannula 05/23 0834 76 114/72 05/23 0800 92 Nasal 1.0L Cannula 05/23 0602 98.4 94 24 130/60 91 Nasal Cannula 05/223 98.6 81 24 128/84 89 05/22 2130 Nasal 2.0L Cannula 05/22 1915 92 Nasal 2.0L Cannula 05/22 1600 94 Nasal 2.0L Cannula 05/22 1409 98.5 88 20 130/72 92 Nasal 2.0L Cannula Intake & Output 05/23 0400 05/22 04005/21 0400 Intake Total 018 849 1960 700 490 500 Output Total 450 325 719 267 1933 500 Balance -10 275 570 150 -710 0 Intake, Blood 350 Product Intake, IV 1000 400 Intake, Oral 440 600 220 350 490 100 Number 0 Bowel Movements Output, Urine 450 325 909 572 7641 500 Patient 197 lb 200 lb 197 lb Weight Weight Bed scale Measurement Method Physical Exam General Appearance: well developed/nourished, no apparent distress, awake, comfortable Head: atraumatic Neck: normal inspection, supple, full range of motion Respiratory: normal breath sounds, chest non-tender Cardiovascular: regular rate/rhythm Abdomen: normal bowel sounds, soft, non-tender, no organomegaly Extremities: no edema Current Medications: Current Medications Sig/Shanna Start time Last Medication Dose Route Stop Time Status Admin Acetaminophen 650 MG Q6P PRN 05/10 174 AC PO Acetaminophen 1,000 MG Q6P PRN 05/10 1745 AC 05/13 IV 1111 Albuterol Sulfate 3 ML BID 05/22 09 AC 05/23 INH 0856 Atorvastatin Calcium 40 MG DAILY 05/11 09 AC 05/23 PO 0832 Folic Acid 1 MG DAILY 05/11 09 AC 05/23 PO 0832 Magnesium Oxide 400 MG DAILY 05/12 2008 AC 05/23 PO 0832 Nebivolol 10 MG DAILY 05/15 1400 AC 05/23 PO 0834 Pantoprazole Sodium 40 MG BID 05/22 1312 AC 05/23 IV 0834 Sodium Bicarbonate 650 MG BID 05/21 2100 AC 05/23 PO 0833 Results Pertinent Lab Results: Laboratory Tests 05/23 05/23 0813 0620 Chemistry Sodium (137 - 145 mmol/L) 136 L Potassium (3.5 - 5.1 mmol/L) 5.2 H Chloride (98 - 107 mmol/L) 107 Carbon Dioxide (22 - 30 mmol/L) 23 Anion Gap (5 - 16) 6 BUN (9 - 20 mg/dL) 56 H Creatinine (0.7 - 1.2 mg/dL) 3.3 H Estimated GFR (>60 ml/min) 18 L BUN/Creatinine Ratio (7 - 25 %) 17.0 Hematology CBC w Diff NO MAN DIFF REQ WBC (4.8 - 10.8 /CUMM) 10.3 RBC (4.70 - 6.10 /CUMM) 2.66 L Hgb (14.0 - 18.0 G/DL) 7.9 L Hct (42 - 52 %) 23.6 L MCV (80.0 - 94.0 FL) 88.7 MCH (27.0 - 31.0 PG) 29.5 MCHC (33.0 - 37.0 G/DL) 33.3 RDW (11.5 - 14.5 %) 14.5 Plt Count (130 - 400 /CUMM) 219 MPV (7.4 - 10.4 FL) 10.0 Gran % (42.2 - 75.2 %) 82.2 H Lymphocytes % (20.5 - 51.1 %) 7.0 L Monocytes % (1.7 - 9.3 %) 10.1 H Eosinophils % (0 - 5 %) 0.6 Basophils % (0.0 - 2.0 %) 0.1 Absolute Granulocytes (1.4 - 6.5 /CUMM) 8.5 H Absolute Lymphocytes (1.2 - 3.4 /CUMM) 0.7 L Absolute Monocytes (0.10 - 0.60 /CUMM) 1.0 H Absolute Eosinophils (0.0 - 0.7 /CUMM) 0.1 Absolute Basophils (0.0 - 0.2 /CUMM) 0 05/22 05/22 1800 0638 Chemistry Sodium (137 - 145 mmol/L) 136 L Potassium (3.5 - 5.1 mmol/L) 5.1 Chloride (98 - 107 mmol/L) 107 Carbon Dioxide (22 - 30 mmol/L) 22 Anion Gap (5 - 16) 8 BUN (9 - 20 mg/dL) 62 H Creatinine (0.7 - 1.2 mg/dL) 3.2 H Estimated GFR (>60 ml/min) 19 L BUN/Creatinine Ratio (7 - 25 %) 19.4 Hematology CBC w Diff NO MAN DIFF REQ NO MAN DIFF REQ WBC (4.8 - 10.8 /CUMM) 12.1 H 11.7 H RBC (4.70 - 6.10 /CUMM) 2.78 L 2.81 L Hgb (14.0 - 18.0 G/DL) 8.1 L 8.3 L Hct (42 - 52 %) 24.8 L 24.8 L MCV (80.0 - 94.0 FL) 89.1 88.3 MCH (27.0 - 31.0 PG) 29.2 29.4 MCHC (33.0 - 37.0 G/DL) 32.8 L 33.3 RDW (11.5 - 14.5 %) 14.6 H 14.4 Plt Count (130 - 400 /CUMM) 252 249 MPV (7.4 - 10.4 FL) 9.8 9.9 Gran % (42.2 - 75.2 %) 82.7 H 82.4 H Lymphocytes % (20.5 - 51.1 %) 6.2 L 5.3 L Monocytes % (1.7 - 9.3 %) 10.2 H 11.2 H Eosinophils % (0 - 5 %) 0.5 1.0 Basophils % (0.0 - 2.0 %) 0.4 0.1 Absolute Granulocytes (1.4 - 6.5 /CUMM) 10.0 H 9.6 H Absolute Lymphocytes (1.2 - 3.4 /CUMM) 0.8 L 0.6 L Absolute Monocytes (0.10 - 0.60 /CUMM) 1.2 H 1.3 H Absolute Eosinophils (0.0 - 0.7 /CUMM) 0.1 0.1 Absolute Basophils (0.0 - 0.2 /CUMM) 0.1 0 / 08/ 2304 0650 Chemistry Sodium (137 - 145 mmol/L) 135 L Potassium (3.5 - 5.1 mmol/L) 4.6 Chloride (98 - 107 mmol/L) 105 Carbon Dioxide (22 - 30 mmol/L) 24 Anion Gap (5 - 16) 7 BUN (9 - 20 mg/dL) 67 H Creatinine (0.7 - 1.2 mg/dL) 3.5 H Estimated GFR (>60 ml/min) 17 L BUN/Creatinine Ratio (7 - 25 %) 19.1 Hematology CBC w Diff NO MAN DIFF REQ NO MAN DIFF REQ WBC (4.8 - 10.8 /CUMM) 11.5 H 9.5 RBC (4.70 - 6.10 /CUMM) 2.91 L 2.49 L Hgb (14.0 - 18.0 G/DL) 8.5 L 7.2 *L Hct (42 - 52 %) 25.6 L 21.8 L MCV (80.0 - 94.0 FL) 88.2 87.3 MCH (27.0 - 31.0 PG) 29.2 28.8 MCHC (33.0 - 37.0 G/DL) 33.1 33.0 RDW (11.5 - 14.5 %) 14.2 14.2 Plt Count (130 - 400 /CUMM) 254 248 MPV (7.4 - 10.4 FL) 9.8 9.9 Gran % (42.2 - 75.2 %) 81.5 H 80.0 H Lymphocytes % (20.5 - 51.1 %) 5.7 L 5.7 L Monocytes % (1.7 - 9.3 %) 11.8 H 13.0 H Eosinophils % (0 - 5 %) 0.9 1.2 Basophils % (0.0 - 2.0 %) 0.1 0.1 Absolute Granulocytes (1.4 - 6.5 /CUMM) 9.3 H 7.6 H Absolute Lymphocytes (1.2 - 3.4 /CUMM) 0.6 L 0.5 L Absolute Monocytes (0.10 - 0.60 /CUMM) 1.4 H 1.2 H Absolute Eosinophils (0.0 - 0.7 /CUMM) 0.1 0.1 Absolute Basophils (0.0 - 0.2 /CUMM) 0 0
[2018-05-23 14:00] VITALS: BP 134/70
[2018-05-23 21:52] VITALS: BP 136/76
--- NOTE | 2018-05-24 06:36 | PN- Housestaff ---
Cleveland Rasmussen 05/24/18 0636: Subjective Follow-up For: Legionella Pneumonia, Anemia, previous hypoxemic respiratory failure on nasal cannula oxygen Complaints: no complaints Tele-Events Since Last Visit: none Subjective: I examined the patient bedside while the patient was lying on the bed. He had 2 L of nasal cannula oxygen supply. the patient is doing better. But continuously requires oxygen. Denies cough or chest pain. Feels ready to go home. Review of Systems Constitutional: Reports: no symptoms. Denies: chills, diaphoresis, fever, malaise, weakness, unexplained weight loss. Cardiovascular: Denies: chest pain, edema, orthopena, palpitations, peripheral edema, syncope. Respiratory: Denies: cough, hemoptysis, orthopnea, short of breath, sputum production, stridor, wheezing. Gastrointestinal: Denies: abdominal pain, bloating, diarrhea. Genitourinary: Denies: dysuria, hematuria. Musculoskeletal: Denies: back pain, muscle pain. Objective Last 24 Hrs of Vital Signs/I&O Vital Signs Date Time Temp Pulse Resp B/P B/P Pulse O2 O2 Flow FiO2 Mean Ox Delivery Rate 05/24 914 93 Nasal 1.0L Cannula 05/24 0807 80 158/90 05/24 08 93 Nasal 2.0L Cannula 05/24 0653 97.9 80 20 116/74 92 Nasal 2.0L Cannula 05/24 0000 Nasal 1.0L Cannula 05/23 2152 98.6 84 18 136/76 93 Room Air 05/23 2047 89 Room Air Intake & Output 05/24 1600 05/24 0800 05/24 0000 Intake Total 680 60 Output Total 200 650 200 Balance 480 -650 -140 Intake, Oral 680 60 Number 1 Bowel Movements Output, Urine 200 650 200 Patient 196 lb Weight Weight Bed scale Measurement Method Physical Exam General Appearance: Alert, Oriented X3, Cooperative, No Acute Distress Cardiovascular: Normal S1, Normal S2 Lungs: decreased Breath sounds on the left lung base Abdomen: Normal Bowel Sounds, Soft, No Tenderness, No Hepatospenomegaly, No Masses Neurological: Normal Speech, Strength at 5/5 X4 Ext, Normal Tone, Sensation Intact Extremities: No Clubbing, No Cyanosis, No Edema, Normal Pulses, No Tenderness/ Swelling Current Medications: Current Medications Sig/Shanna Start time Last Medication Dose Route Stop Time Status Admin Acetaminophen 650 MG Q6P PRN 05/10 1745 DCD PO Acetaminophen 1,000 MG Q6P PRN 05/10 1745 DCD 05/13 IV 1111 Albuterol Sulfate 3 ML BID 05/22 900 DCD 05/24 INH 0913 Atorvastatin Calcium 40 MG DAILY 05/11 900 DCD 05/24 PO 0807 Folic Acid 1 MG DAILY 05/11 09 DCD 05/24 PO 0807 Magnesium Oxide 400 MG DAILY 05/12 2008 DC 05/24 PO 0807 Nebivolol 10 MG DAILY 05/15 1400 DCD 05/24 PO 0807 Omeprazole 40 MG DAILY AC 05/25 07 DCD PO Pantoprazole Sodium 40 MG BID 05/22 1312 DCD 05/24 IV 05/24 2101 08 Sodium Bicarbonate 650 MG BID 05/24 2100 DCD PO Sodium Bicarbonate 650 MG BID 05/21 2100 DC 05/24 PO 0807 Last 24 Hrs of Lab/Mike Results Last 24 Hrs of Labs/Mics: Laboratory Tests 05/24/18 0640: Anion Gap 7, Estimated GFR 17 L, BUN/Creatinine Ratio 15.7, Magnesium 2.0, CBC w Diff NO MAN DIFF REQ, RBC 2.65 L, MCV 89.4, MCH 29.5, MCHC 33.0, RDW 14.4, MPV 9.8, Gran % 81.0 H, Lymphocytes % 8.9 L, Monocytes % 8.7, Eosinophils % 0.8, Basophils % 0.6, Absolute Granulocytes 6.9 H, Absolute Lymphocytes 0.8 L, Absolute Monocytes 0.7 H, Absolute Eosinophils 0.1, Absolute Basophils 0.1 Assessment/Plan Assessment: 87yo M w/ PMH of hypertension, hyperlipidemia, 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 fib, CAD ,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 Patient respiratory status got worse during the course and was in the ICU, not intubated though. He was treated for Legionella pneumonia. Anemia -upper GI bleed-bleeding duodenal ulcer-cauterized and treated with epinephrine injection -Hb-7.8 stable , Ferrous sulphate prescribed - Protonix tablet for duodenal ulcer - Follow up with PCP for outpatient management Acute hypoxic respiratory failure due to Legionella pneumonia Oxygen status- 2L nasal cannula, discherge on home Oxygen therpay TRC nebulization as needed Titrate supplemental oxygen down for saturations greater than 92%. Attempt to titrate the oxygen down to off. Continue incentive spirometry and flutter valve therapy. ambulate as tolerated -Acute on chronic kidney injury:(IMPROVING) -Patient has CKD stage IV-V. Most likely secondary to hypertension. He is also status post nephrectomy. yesterday creatininie was 3.3, GFR estimated 18L -sodium bicarbonate reduced to 650 mg p.o. twice daily, Decreased potassium diet. -Magnesium 400 mg PO continue PPI, hold Plavix for 1 week, outpatient GI, pulmonary, cardiology follow up, outpatient CBC in 1 week Problem List: 1. Pneumonia 2. Acute respiratory failure with hypoxia 3. Anemia, iron deficiency Pain Ratin Pain Location: none Pain Goal: Remain pain free Pain Plan: none Tomorrow's Labs & Rationales: none Juventino Xavier MD 05/24/18 1224: Attending MD Review Statement Attending Statement Attending MD Statement: examined this patient, discuss w/resident/PA/SUPERVISOR PERSONNEL CLERKS, agreed w/resident/PA/SUPERVISOR PERSONNEL CLERKS, reviewed EMR data (avail) Attending Assessment/Plan: 87M PMH chronic atrial fibrillation not on anticoagulation due to patient preference/neurology recommendations, CAD with prior PCI and occluded PDA maintained on dual antiplatelet therapy, sick sinus syndrome with a history of permanent pacemaker, HTN, and history of renal cancer with prior nephrectomy and chronic kidney disease stage 4, admitted initially to ICU with hypoxic respiratory failure secondary to left Legionella pneumonia, has completed course of Moxifloxicin, course complicated by acute on chronic kidney injury, now improved, with steadily decreasing Hct and guaiac positive stool, underwent endoscopy on 05/22/18 which found bleeding duodenal ulcer with visible vessel s/p cautery, as well as Prashant erosions and esophagitis. 1. Duodenal ulcer with visible vessel 2. Left lower lung Legionella pneumonia (resolved) 3. Acute hypoxemic respiratory failure (resolved) 4. Acute on chronic kidney injury with CKD stage 4 secondary to hypertension 5. Chronic atrial fibrillation 6. History of CAD Plan - Discontinue telemetry - Hold ASA for 48 hours and Plavix for 1 week - Protonix 40mg BID - Regular diet - Chest physiotherapy, will give flutter-valve device to patient to take home - Outpatient oxygen, can be re-evaluated for need as an outpatient - Continue remaining home medications
[2018-05-24 06:53] VITALS: BP 116/74
[2018-05-24 08:07] VITALS: BP 158/90
[2018-05-24 08:10] LABS: ABSOLUTE BASOPHIL COUNT 0.1 /CUMM (0.0-0.2); ABSOLUTE EOSINOPHIL COUNT 0.1 /CUMM (0.0-0.7); ABSOLUTE GRANULOCYTE CT 6.9 /CUMM (1.4-6.5); ABSOLUTE LYMPH COUNT 0.8 /CUMM (1.2-3.4); ABSOLUTE MONOCYTE COUNT 0.7 /CUMM (0.10-0.60); BASOPHIL % 0.6 % (0.0-2.0); EOSINOPHIL % 0.8 % (0-5); HEMATOCRIT 23.7 % (42-52); MEAN CORPUSCULAR HGB 29.5 PG (27.0-31.0); MEAN CORPUSCULAR VOLUME 89.4 FL (80.0-94.0); MEAN PLATELET VOLUME 9.8 FL (7.4-10.4); PLATELET COUNT 222 /CUMM (130-400); RBC DISTRIBUTION WIDTH 14.4 % (11.5-14.5); RED BLOOD CELL CT 2.65 /CUMM (4.70-6.10); WHITE BLOOD CELL COUNT 8.5 /CUMM (4.8-10.8)
[2018-05-24] MEDS ORDERED: ALBUTEROL2.5 MG/3 M INH ×2 (10:37→12:07)
[2018-05-24] MEDS ORDERED: PANTOPRAZOLE SO40 M2 PO (10:38)
[2018-05-24] MEDS ORDERED: OMEPRAZOLE20 M2 PO (10:58)
[2018-05-24] MEDS ORDERED: OMEPRAZOLE40 M1 PO (12:07)
[2018-05-24] MEDS ORDERED: SODIUM BICARBO650 M1 PO (12:09)
--- NOTE | 2018-05-24 12:52 | PN- Nephrology ---
Assessment/Plan Nephrology Assessment: 1. 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 MILLIE - improved 3. Hyponatremia secondary to pneumonia and decreased GFR - improved and stable 4. Metabolic acidosis, resolved, on oral sodium bicarbonate but with mild hyperkalemia 5. Legionella pneumonia with hypoxemic respiratory failure -much improved 6. Anemia - has stabilized Suggestion: 1. Would continue oral sodium bicarbonate at current dose 2. Instruct patient on a low potassium diet or at least to avoid high potassium foods 3. Outpatient renal follow-up with Dr. Simon Subjective Subjective: Patient feeling well and anxious to go home. Denies pain or shortness of breath. Renal function appears to have stabilized with creatinine in mid 3's and his hemoglobin has stabilized as well. GI input noted and appreciated. Objective Vital Signs and I&Os Vital Signs Date Time Temp Pulse Resp B/P B/P Pulse O2 O2 Flow FiO2 Mean Ox Delivery Rate 05/24 0914 93 Nasal 1.0L Cannula 05/24 0807 80 158/90 05/24 0800 93 Nasal 2.0L Cannula 05/24 0653 97.9 80 20 116/74 92 Nasal 2.0L Cannula 05/24 0000 Nasal 1.0L Cannula 05/23 2152 98.6 84 18 136/76 93 Room Air 05/23 2047 89 Room Air 05/23 1400 98.6 86 22 134/70 94 Nasal 1.0L Cannula Intake & Output 05/24 1600 05/24 0400 05/23 1600 05/23 0400 05/22 1600 05/22 0400 Intake Total 60 699 306 1237 700 Output Total 650 200 900 325 650 550 Balance -650 -140 -210 275 570 150 Intake, Blood 350 Product Intake, IV 1000 Intake, Oral 60 690 600 220 350 Number 1 0 Bowel Movements Output, Urine 650 200 900 325 650 550 Patient 196 lb 197 lb 200 lb Weight Weight Bed scale Bed scale Measurement Method Physical Exam: General: Well-developed elderly white male in NAD Skin: No rash or jaundice HEENT: Conjunctivae pale, sclerae anicteric, mucous membranes dry Neck: Without masses or thyromegaly, no supraclavicular or cervical adenopathy Chest: Decreased breath sounds at bases Heart: Regular rate and rhythm without S3 or rub Abdomen: Soft and nontender without palpable masses or organomegaly Extremities: Without cyanosis or edema Neuro: Awake, alert and oriented, cognitively intact, no focal findings, no asterixis or myoclonus Results Pertinent Lab Results: Laboratory Tests 05/24 08/ 0640 0813 Chemistry Sodium (137 - 145 mmol/L) 136 L 136 L Potassium (3.5 - 5.1 mmol/L) 5.4 H 5.2 H Chloride (98 - 107 mmol/L) 106 107 Carbon Dioxide (22 - 30 mmol/L) 23 23 Anion Gap (5 - 16) 7 6 BUN (9 - 20 mg/dL) 55 H 56 H Creatinine (0.7 - 1.2 mg/dL) 3.5 H 3.3 H Estimated GFR (>60 ml/min) 17 L 18 L BUN/Creatinine Ratio (7 - 25 %) 15.7 17.0 Magnesium (1.6 - 2.3 mg/dL) 2.0 Hematology CBC w Diff NO MAN DIFF REQ WBC (4.8 - 10.8 /CUMM) 8.5 RBC (4.70 - 6.10 /CUMM) 2.65 L Hgb (14.0 - 18.0 G/DL) 7.8 L Hct (42 - 52 %) 23.7 L MCV (80.0 - 94.0 FL) 89.4 MCH (27.0 - 31.0 PG) 29.5 MCHC (33.0 - 37.0 G/DL) 33.0 RDW (11.5 - 14.5 %) 14.4 Plt Count (130 - 400 /CUMM) 222 MPV (7.4 - 10.4 FL) 9.8 Gran % (42.2 - 75.2 %) 81.0 H Lymphocytes % (20.5 - 51.1 %) 8.9 L Monocytes % (1.7 - 9.3 %) 8.7 Eosinophils % (0 - 5 %) 0.8 Basophils % (0.0 - 2.0 %) 0.6 Absolute Granulocytes (1.4 - 6.5 /CUMM) 6.9 H Absolute Lymphocytes (1.2 - 3.4 /CUMM) 0.8 L Absolute Monocytes (0.10 - 0.60 /CUMM) 0.7 H Absolute Eosinophils (0.0 - 0.7 /CUMM) 0.1 Absolute Basophils (0.0 - 0.2 /CUMM) 0.1 05/23 05/22 0620 1800 Hematology CBC w Diff NO MAN DIFF REQ NO MAN DIFF REQ WBC (4.8 - 10.8 /CUMM) 10.3 12.1 H RBC (4.70 - 6.10 /CUMM) 2.66 L 2.78 L Hgb (14.0 - 18.0 G/DL) 7.9 L 8.1 L Hct (42 - 52 %) 23.6 L 24.8 L MCV (80.0 - 94.0 FL) 88.7 89.1 MCH (27.0 - 31.0 PG) 29.5 29.2 MCHC (33.0 - 37.0 G/DL) 33.3 32.8 L RDW (11.5 - 14.5 %) 14.5 14.6 H Plt Count (130 - 400 /CUMM) 219 252 MPV (7.4 - 10.4 FL) 10.0 9.8 Gran % (42.2 - 75.2 %) 82.2 H 82.7 H Lymphocytes % (20.5 - 51.1 %) 7.0 L 6.2 L Monocytes % (1.7 - 9.3 %) 10.1 H 10.2 H Eosinophils % (0 - 5 %) 0.6 0.5 Basophils % (0.0 - 2.0 %) 0.1 0.4 Absolute Granulocytes (1.4 - 6.5 /CUMM) 8.5 H 10.0 H Absolute Lymphocytes (1.2 - 3.4 /CUMM) 0.7 L 0.8 L Absolute Monocytes (0.10 - 0.60 /CUMM) 1.0 H 1.2 H Absolute Eosinophils (0.0 - 0.7 /CUMM) 0.1 0.1 Absolute Basophils (0.0 - 0.2 /CUMM) 0 0.1 05/22 05/21 0638 2304 Chemistry Sodium (137 - 145 mmol/L) 136 L Potassium (3.5 - 5.1 mmol/L) 5.1 Chloride (98 - 107 mmol/L) 107 Carbon Dioxide (22 - 30 mmol/L) 22 Anion Gap (5 - 16) 8 BUN (9 - 20 mg/dL) 62 H Creatinine (0.7 - 1.2 mg/dL) 3.2 H Estimated GFR (>60 ml/min) 19 L BUN/Creatinine Ratio (7 - 25 %) 19.4 Hematology CBC w Diff NO MAN DIFF REQ NO MAN DIFF REQ WBC (4.8 - 10.8 /CUMM) 11.7 H 11.5 H RBC (4.70 - 6.10 /CUMM) 2.81 L 2.91 L Hgb (14.0 - 18.0 G/DL) 8.3 L 8.5 L Hct (42 - 52 %) 24.8 L 25.6 L MCV (80.0 - 94.0 FL) 88.3 88.2 MCH (27.0 - 31.0 PG) 29.4 29.2 MCHC (33.0 - 37.0 G/DL) 33.3 33.1 RDW (11.5 - 14.5 %) 14.4 14.2 Plt Count (130 - 400 /CUMM) 249 254 MPV (7.4 - 10.4 FL) 9.9 9.8 Gran % (42.2 - 75.2 %) 82.4 H 81.5 H Lymphocytes % (20.5 - 51.1 %) 5.3 L 5.7 L Monocytes % (1.7 - 9.3 %) 11.2 H 11.8 H Eosinophils % (0 - 5 %) 1.0 0.9 Basophils % (0.0 - 2.0 %) 0.1 0.1 Absolute Granulocytes (1.4 - 6.5 /CUMM) 9.6 H 9.3 H Absolute Lymphocytes (1.2 - 3.4 /CUMM) 0.6 L 0.6 L Absolute Monocytes (0.10 - 0.60 /CUMM) 1.3 H 1.4 H Absolute Eosinophils (0.0 - 0.7 /CUMM) 0.1 0.1 Absolute Basophils (0.0 - 0.2 /CUMM) 0 0
--- NOTE | 2018-05-24 19:33 | Discharge Summary ---
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 Patient respiratory status got worse during the course and at some point there was decision of intubation but patient did well on BiPAP. Never intubated during ICU stay. At that time his CODE STATUS was changed to DNR/intubation as family for intubation if needed but no chest compressions. Since then patient did well on BiPAP. Patient was treated for Legionella pneumonia. 1)Sepsis due to Legionella pneumonia: Patient was meeting the criteria of SIRS and having infection. Patient had temperature 101.7 and tachycardia. His chest x-ray was showing of evidence of pneumonia. Blood cultures were obtained that remained negative. His urine Legionella antigen came back positive. His sepsis had been resolved. Patient had lactic acidosis possibly due to chronic kidney injury although his lactic acid remained normal. Initially he was treated with ceftriaxone and azithromycin. Later on it was changed to moxifloxacin and rifampin followed by ID recommendations. The rifampin was discontinued by ID and patient completed 7 days course of moxifloxacin. 2) Acute hypoxic respiratory failure due to Legionella pneumonia: During ICU stay patient was kept on BiPAP for his acute hypoxic respiratory failure. Later on patient was changed to high flow oxygen but he was using intermittent BiPAP especially during nighttime. Later on his BiPAP was discontinued at patient's condition improved but he was still using high flow oxygen that we tapered. Patient's respiratory condition had been improved and later on he was placed on oxygen supplementation with nasal cannula. Patient was able to maintain saturation above 92% with supplemental oxygen through nasal cannula. Patient was on 2L nasal Oxygen and failed to saturate without oxygen. Hence was discharged on home oxygen 2L with incentive spiromentry and flutter valve. There was residual Left Lower lobe congestion at the time of discharge and patient was advised to follow up outpatient and repeat imaging in 8 weeks. 3)Anemia -upper GI bleed-bleeding duodenal ulcer-cauterized and treated with epinephrine injection Patients Hb was dropping on CBC and Guaiac positive for rectal examination. Hence he underwent endoscopy and bleeding duodenal ulcer was found- cauterized and treated with epinephrine. He received 1 PrBC. and was monitored for CBC -Hb-7.8 stable , Ferrous sulphate prescribed. - Protonix tablet for duodenal ulcer - Follow up with PCP for outpatient management Discontinue aspirin and plavix for 1 week 4)Acute on chronic kidney injury: Possibly due to Legionella induced nephritis or acute tubular necrosis due to sepsis. Patient didn't respond to IV fluids and his fractional excretion of sodium remained elevated. Patient had chronic kidney injury stage IV-V. initially patient received IV bicarbonate that later on changed to by mouth. His IV fluids were discontinued and patient was encouraged to drink water orally. Nephrology consult was obtained and recommendations were followed. His kidney function started to improve. But his BUN remained elevated that got better after he received IV normal saline. During ICU stay nephrotoxic medications were provided and daily input and output was monitored. His diuretics were held considering his kidney injury.He was prescribed sodium bicarbonate BID and was asked to follow up outpatient 4)Hyponatremia: Possibly due to renal failure, legionella pneumonia and excessive free fluid. Nephrology consult was obtained and recommendations were followed. Nephrology recommended fluid restriction to 1200 mL everyday. Patient's hyponatremia had been improved slowly. Nonsustained V. tach: Patient had one episode of nonsustained VT and he remained hemodynamically stable. His home dose of bystolic was resumed after discussing with cardiology. Thrombocytopenia: History patient had thrombocytopenia possibly due to sepsis induced. Patient was not given heparin and later on his, thrombocytopenia improved. He was started on heparin for DVT prophylaxis. History of chronic atrial fibrillation: Not on any anticoagulation due to patient preference/neurology recommendations. History of hypertension: Continue Bystolic. History of hyperlipidemia: Patient remained on lipitor. Allergies: Coded Allergies: No Known Allergies (05/10/18) Disposition Summary Disposition Principal Diagnosis: Legionella Pneumonia, Anemia- Iron deficiency Duodenal ulcer. Hypoxic respiratory failure Additional Diagnosis: A fib, NSVT, HLD< CAD Discharge Disposition: home or self care Discharge Instructions General Discharge Information Code Status: Do Not Resucitate Patient's Diet: Heart Healthy Patient's Activity: As tolerated Follow-Up Instructions/Appts: Please follow-up with your PCP within a week of discharge Please follow-up with your correctional cook within a week of discharge for further evaluation of oxygen requirement We will hold the aspirin and clopidogrel because of the GI bleed. You can restart aspirin on 05/25/2018 and clopidogrel on 05/29/2018. You need to watch for the bleeding afterwards and discuss with your primary care provider for further evaluation and management. We are discharging you on 2 L of oxygen. Please discuss with your correctional cook when to wean off. You need to have follow-up CT scan of the chest with an 8 week of discharge and discussed with Dr. mccauley. You should use spirometry and acepella device. Medications at Discharge Discharge Medications: Continue taking these medications: Atorvastatin Calcium (Atorvastatin Calcium) 40 MG TABLET 1 Tablet ORAL DAILY Qty = 90 Comments: Last Taken: 05/24/18 Time: 08:07 AM Clopidogrel Bisulfate (Clopidogrel) 75 MG TABLET 1 Tablet ORAL DAILY Qty = 90 Instructions: please start on 05/29/2018 Nebivolol HCl (Bystolic) 10 MG TABLET 1 Tablet ORAL DAILY Qty = 90 Comments: Last Taken: 05/24/18 Time: 08:07 AM Amlodipine Besylate (Amlodipine Besylate) 10 MG TABLET 1 Tablet ORAL DAILY Qty = 90 Comments: NOT GIVEN IN THE HOSPITAL Folic Acid (Folic Acid) 1 MG TABLET 1 Tablet ORAL DAILY Comments: Last Taken: 05/24/18 Time: 08:07 AM Aspirin (Aspirin*) 81 MG TAB.CHEW 1 Tablet ORAL DAILY Instructions: please start on 05/25/2018 Paricalcitol (Paricalcitol) 1 MCG CAPSULE 1 Capsule ORAL DAILY Qty = 30 Comments: NOT GIVEN IN THE HOSPITAL Ergocalciferol (Vitamin D2) (Vitamin D2) 50,000 UNIT CAPSULE 1 Capsule ORAL EVERY 2 WEEKS Qty = 12 Comments: NOT GIVEN IN THE HOSPITAL Start taking the following new medications: Omeprazole (Omeprazole) 40 MG CAPSULE.DR 1 Capsule ORAL DAILY Qty = 60 No Refills Comments: PANTOPRAZOLE GIVEN IN THE HOSPITAL Last Taken: 05/24/18 Time: 08:07 AM Albuterol Sulfate (Albuterol Sulfate) 2.5 MG/3 ML (0.083 %) VIAL.NEB 3 Milliliters Inhale through mouth TWICE DAILY Qty = 3 No Refills Instructions: . Comments: Last Taken: 05/24/18 Time: 09:13 AM Sodium Bicarbonate (Sodium Bicarbonate) 650 MG TABLET 1 Tablet ORAL TWICE DAILY Qty = 30 No Refills Copies To: Zenon SANCHEZ,Bubba Walker; Bertha SANCHEZ,Ravinder Jurado; Lourdes SANCHEZ,Willi Terry; Deanna SANCHEZ,Bishop Sampson; Rajiv Thakur MD
== END 2018-05-24 16:38 | disposition home health service (06) | DRG 871 ==
LOC: ERH 12:08 → ERHI 16:01 → 1NO 16:01 → CRI 16:01 → ENRESERV 20:12 → ENTRNSPT 21:54 → EDTRNSPTSTS 22:03 → EDTRNSPT 22:03 → 1NO 22:06 → CMPTRNSPT 22:22 → 1NO 05-11 07:23 → CRI 05-13 17:30 → ENTRNSPT 05-20 15:02 → CMPTRNSPT 05-20 15:22 → 1NO 05-20 15:48 → ENPENDDIS 05-24 12:11 → ENTRNSPT 05-24 16:15 → CMPTRNSPT 05-24 16:26 → 1NO 05-24 16:38
PROVIDERS: Emergency Medicine; Hospitalist; Internal Medicine; Internal Medicine Adolescent Medicine; Student in an Organized Health Care Education/Training Program
PROC: 30253N1 (ICD-10-PCS; 2018-05-21)
PROC: 3E0G8GC Introduction of Other Therapeutic Substance into Upper GI, Via Natural or Artificial Opening Endoscopic (ICD-10-PCS; principal; 2018-05-22)
PROC: 0DJ08ZZ Inspection of Upper Intestinal Tract, Via Natural or Artificial Opening Endoscopic (ICD-10-PCS; 2018-05-22)
DX: A41.9 Sepsis, unspecified organism (principal); A48.1 Legionnaires' disease; J96.01 Acute respiratory failure with hypoxia; N17.0 Acute kidney failure with tubular necrosis; K26.4 Chronic or unspecified duodenal ulcer with hemorrhage; N17.9 Acute kidney failure, unspecified; E87.2 Acidosis; E87.1 Hypo-osmolality and hyponatremia; I47.2 Ventricular tachycardia; N18.5 Chronic kidney disease, stage 5; I12.0 Hypertensive chronic kidney disease with stage 5 chronic kidney disease or end stage renal disease; R71.0 Precipitous drop in hematocrit; Z95.0 Presence of cardiac pacemaker; I48.91 Unspecified atrial fibrillation; E83.52 Hypercalcemia; D69.6 Thrombocytopenia, unspecified; K20.9 Esophagitis, unspecified; K44.9 Diaphragmatic hernia without obstruction or gangrene
CPT/HCPCS: 1NP; 84133; 84300; CCU; 36415; 36592; 71045; 71046; 76775; 81001; 82436; 82570; 86920; 87040; 87070; 87071; 87086; 87147; 87449; 87450; 93005; 93010; 93306; 96374; 96375; 97110-GO; 97112-GO; 97116-GO; 97161-GP; 97164-GP; 97530-GO; 99291; J0131; J0171; J0456; J0696; J0744; J1644; J1940; J2280; J3490; J7040; J7060; J7608; P9016